=== PATIENT | female | born 1950 | race Caucasian/White ===

== ENCOUNTER 2016-12-18 16:58 | Observation (INO) | payer OTHER ==
[~2016-12-18] VITALS: Ht 154.9 cm; Wt 43.3 kg
[~2016-12-18 16:58] MED LIST: ALEVE220 MG PO; FISH OIL PO; GLUCOSAMINE1500 COM PO; LUTEIN20 MG PO; MULTI VITAMIN/MINERA PO; NORCO1 TA1 PO; OMEPRAZOLE40 MG PO; PATANOL0.1 % OP; PRILOSEC20 MG PO; QVAR40 MCG IN; VITAMIN B-12500 MC1 PO; ZYRTEC ALLERGY10 MG PO; [UNRECOGNIZED DRUG - OTHER] PO
--- NOTE | 2016-12-18 18:58 | ED CLINICAL REPORT ---
Clinical Report - Physicians/Mid Levels [facility] [address] [place] [address] 12/18/2016 16:59 Patient: FELIPA VALERA Time Seen: 17:58; initial patient contact, initial documentation, patient care assumed. Arrived- By private vehicle. Historian- patient. HISTORY OF PRESENT ILLNESS Chief Complaint: ABDOMINAL PAIN. At its maximum, severity described as severe. When seen in the E.D., severity described as severe. Modifying factors. Not worsened by anything. Not relieved by anything. It is described as "pain" and diffuse. No radiation. This started today and is still present. It was gradual in onset and has been constant. The patient has had nausea. No loss of appetite, vomiting or diarrhea. No additional abdominal pain. No recent travel. Similar symptoms previously: Chronically, as bad. ( over 60 sbo, feels the same). Recent medical care: Not recently seen/assessed. REVIEW OF SYSTEMS No constipation, hematemesis, difficulty with urination, pain with urination or urinary frequency. No bloody stools, fever, chest pain or difficulty breathing. Denies current . All systems otherwise negative, except as recorded above. PAST HISTORY See nurses notes. PROBLEMS: Nausea. Gastroesophageal Reflux Disease. Abnormal Test. Toxic megacolon. GI Disease. Tetanus Status. Laceration. Enteritis. Hypokalemia. Abdominal Pain. Hypercalcemia. Bowel Obstruction. Abnormal Liver Function Test. Dehydration. Immunizations. LNMP - Last Normal Menstrual Period. Small bowel obstruction. Fistula. Ileostomy present. --17:16 Yuliana Stout R.N. Pancreatitis [RuleOut]. --17:16 Yuliana Stout R.N. SOCIAL HISTORY Never smoker. No alcohol use or drug use. No recent travel. Is a local resident. She lives with spouse. FAMILY HISTORY Negative. ADDITIONAL NOTES The nursing notes have been reviewed with agreement regarding the chief complaint, HPI, ROS, PMH and patient medications and allergies. PHYSICAL EXAM Vital Signs: 12/18/2016 17:14 BP: 121/90. HR: 109. RR: 18. O2 saturation: 100%. Temp: 98.1 F. Have been reviewed as abnormal and appear to be correct. Blood pressure normal. Tachycardic. Respiratory rate normal. Temperature normal. Oxygen saturation normal. Appearance: Alert. Oriented X3. No acute distress. Eyes: Pupils equal, round and reactive to light. Eyes normal inspection. Neck: Normal inspection. Neck supple. CVS: Normal heart rate and rhythm. Heart sounds normal. Pulses normal. Respiratory: No respiratory distress. Breath sounds normal. Chest nontender. Abdomen: Moderate tenderness diffusely. Abnormal bowel sounds. Abnormal bowel sounds (hypoactive). No organomegaly. No mass. Distention with tenderness to palpation. No tympany to percussion or dullness to percussion. Not soft. Tenderness present. No rebound tenderness, mass present, organomegaly, femoral pulse deficit or guarding. No gravid uterus. Back: Normal inspection. Skin: Skin warm and dry. Normal skin color. No rash. Normal skin turgor. Extremities: Extremities exhibit normal ROM. No lower extremity edema. Neuro: Oriented X 3. No motor deficit. No sensory deficit. LABS, X-RAYS, AND EKG KUB: Normal abdominal study. (IMPRESSION: 1. Right lower quadrant ostomy and left abdominal surgical clips 2. Findings suggestive of a partial small bowel obstruction versus ileus Electronically Final signed by:Juan Ochoa MD 12/18/2016 7:16:30 PM). The X-rays were interpreted by the radiologist. Laboratory Tests: CBC w Diff: (ELIAS: 12/18/2016 18:35) ( MsgRcvd 12/18/2016 18:48) Final results Test Result Flag Units (Reference) WHITE BLOOD COUNT 12.2 H K/uL (4.5-11.5) RED BLOOD COUNT 5.35 H M/uL (4.00-5.20) HEMOGLOBIN 16.4 H gm/dL (12.0-16.0) HEMATOCRIT 47.7 H % (36.0-46.0) MEAN CELL VOLUME 89 fL (80-100) MEAN CORPUSCULAR HGB 31 pg (26-34) MEAN CORPUSCULAR HGB CONC 34 g/dL (31-37) RED CELL DISTRIBUTION WIDTH 13.2 % (11.6-14.8) PLATELET COUNT 441 H K/uL (150-400) NEUTROPHIL % 86.5 H % (50-75) LYMPH % 5.9 L % (25-40) MONO % 6.2 % (3-14) EOSINOPHIL % 0.4 % (0-4) BASOPHIL % 1.0 % (0-2) CMP: (ELIAS: 12/18/2016 18:35) ( MsgRcvd 12/18/2016 19:09) Final results Test Result Flag Units (Reference) GLUCOSE 186 H mg/dL (70-110) BUN 50 H mg/dL (7-18) CREATININE 1.7 H mg/dL (0.6-1.3) Estimated GFR 32.16 mL/min Estimated GFR- 38.98 mL/min Note: Persistent reduction over 3 months in eGFR<60 mL/min/1.73 m2 defines CKD. Patients with eGFR values>=60 mL/min/1.73 m2 may also have CKD if evidence ofpersistent proteinuria. Additional information may be foundat www.kidney.org. SODIUM 139 mmol/L (136-145) POTASSIUM 3.3 L mmol/L (3.5-5.1) CHLORIDE 99 mmol/L (98-107) CARBON DIOXIDE 20 L mmol/L (21-32) CALCIUM 11.5 H mg/dL (8.5-10.1) TOTAL PROTEIN 8.5 H g/dL (6.4-8.2) ALBUMIN 4.7 g/dL (3.3-5.0) BILIRUBIN, TOTAL 0.7 mg/dL (0.0-1.0) ALKALINE PHOSPHATASE 85 U/L (46-116) AST (SGOT) 36 U/L (15-37) ALT (SGPT) 49 U/L (12-78) LIPASE 207 U/L (73-393) AMYLASE 167 H U/L (25-115) . PROGRESS AND PROCEDURES Discussed case with patient's primary care provider, (call returned [phone] Dr Noguera). Agreed upon treatment plan and decision to admit. Health care provider will see patient in hospital. Patient and spouse counseled in person regarding the patient's stable condition, test results and diagnosis. 19:22. Differential Diagnosis: I considered mesenteric lymphadenitis, diverticulitis, colon cancer, intussusception, small bowel obstruction, adhesions, bowel perforation, functional bowel problems, obstipation and viral syndrome as a possible cause of abdominal pain in this patient. This is a partial list of diagnoses considered. Above considerations are based on history, physical exam, laboratory data and other information. Differential diagnosis was discussed with patient and patient's spouse. Disposition: Admitted to Acute Care. 18:58. Condition: good and stable. CLINICAL IMPRESSION Acute abdominal pain. (Small Bowel Obstruction). (Electronically signed by Natalie Rosa A.R.N.P. 12/18/2016 22:34)
--- NOTE | 2016-12-18 18:58 | ED NURSING NOTES ---
Clinical Report - Nurses [facility] [address] [place] [address] 12/18/2016 16:59 Patient: FELIPA VALERA TRIAGE Triage time 17:15 Dec 18 2016. Acuity: LEVEL 2. Chief Complaint: ABDOMINAL PAIN. Alert. No acute distress. --17:18 Yuliana Stout R.N. 17:14 12/18/16. BP: 121/90. HR: 109. RR: 18. O2 saturation: 100%. Temp: 98.1 F. Pain level now 08/18. --17:18 Yuliana Stout R.N. Acuity: LEVEL 3. --18:01 Jimmy Nunez R.N. Weight: 43.5 kg stated. Height/Length: 61 inches Per Patient. BMI: 18.1. --17:14 Yuliana Stout R.N. Medications Fish Oil Oral (Capsule 1000 mg) 1 capsule, daily. Glucosamine Oral 1500 mg, daily. --17:16 Yuliana Stout R.N. Lutein Oral. Multivital Oral. Omeprazole Oral 20 mg, 2x a day. Vitamin B Complex Oral. Zyrtec. --17:16 Yuliana Stout R.N. (need to verify meds please). --17:18 Yuliana Stout R.N. Allergies Ampicillin. Celebrex. Morphine and Related. Paper tape. Penicillin. --17:16 Yuliana Stout R.N. History Arrived by private vehicle. Primary physician (Poornima). ( 1100 started gradual onset of low abdomen pain, pt is bloated and feels firm. 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 Has had an SBO in the past. 65 of them she states. See's Poornima and he is OOT> pt was here for same c/o in October, admitted for SBO.). This started today. 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 SOCIAL HX: Never smoker. No alcohol use or drug use. No recent travel. No infectious disease exposure. No known contact with a sick individual. NUTRITIONAL RISK ASSESSMENT: The nutritional risk assessment revealed no deficiencies. FUNCTIONAL ASSESSMENT: Functional assessment: no impairments noted. LEARNING NEEDS ASSESSMENT: The learning needs assessment revealed no barriers. SKIN INTEGRITY ASSESSMENT: Skin integrity risk assessment completed. No skin integrity risk identified. --17:18 Yuliana Stout R.N. PROBLEMS: Nausea. Gastroesophageal Reflux Disease. Abnormal Test. Toxic megacolon. GI Disease. Tetanus Status. Laceration. Enteritis. Hypokalemia. Abdominal Pain. Hypercalcemia. Bowel Obstruction. Abnormal Liver Function Test. Dehydration. Immunizations. LNMP - Last Normal Menstrual Period. Small bowel obstruction. Fistula. Ileostomy present. --17:16 Yuliana Stout R.N. Pancreatitis [RuleOut]. --17:16 Yuliana Stout R.N. Port-a-cath (L subclavian). Colon Cancer. --18:01 Jimmy Nunez R.N. Interventions ID band on patient. To waiting room. --17:18 Yuliana Stout R.N. To treatment room. --18:01 Jimmy Nunez R.N. PHYSICAL ASSESSMENT To room via wheelchair. GENERAL / NEURO / PSYCH: Alert. Oriented X 4. Appears in pain and in distress. ( Pt reports numbness in her feet.). RESPIRATORY: Mild respiratory distress. CVS: Capillary refill less than 2 seconds. GI / : The patient has had nausea. Abdominal distention noted as firm and rigid with tenderness to palpation. Guarding present. ( Pt has an ileostomy and an intestinal fistula. There is some liquid stool and air in the ostomy pouch.). SKIN: Skin is warm and dry. --17:53 Jimmy Nunez R.N. 17:53 12/18/16. BP: 116/99. HR: 97. RR: 22. O2 saturation: 98% on room air. Pain level now: 08/18. --17:54 Jimmy Nunez R.N. NURSING PROGRESS NOTES Monitoring of patient in place. Patient gowned. Reassurance given. Two patient identifiers checked. Call light placed in reach. Bed placed in lowest position. Patient ready for evaluation- chart flagged. --17:58 Jimmy Nunez R.N. 18:35 12/18/2016 Site #1 started via IV in the right wrist with an 22g angiocath, with good blood return; two attempts. Blood drawn: rainbow set. Labeled in the presence of the patient and sent to the lab. Saline lock flushed with 5 mL saline. --18:43 Jimmy Nunez R.N. 18:44 12/18/2016 Dilaudid (HYDROmorphone HCl PF) IVP 1 mg given. via site #1. Allergies verified, confirmed 5 rights and sedative warning given to the patient and patient's family. IV patency established. IV site checked: no pain, redness, or swelling. IV flushed thoroughly pre- and post-medication administration. IVP given by RN. --18:44 Jimmy Nunez R.N. 18:44 12/18/2016 Zofran (Ondansetron HCl) IVP 4 mg given. via site #1. Allergies verified and confirmed 5 rights. IV patency established. IV site checked: no pain, redness, or swelling. IV flushed thoroughly pre- and post-medication administration. IVP given by RN. --18:44 Jimmy Nunez R.N. Patient returned from radiology by stretcher with tech. (19:00 Dec 18 2016). --19:06 Jimmy Nunez R.N. Care transferred and report given. --19:12 Jimmy Nunez R.N. ( H+P FORM GIVEN). --20:16 Femi Poole, ER Stock Receiver 20:41 12/18/2016 K-DUR (Potassium Chloride Tracey ER) PO 20 meq given. Allergies verified and confirmed 5 rights. --21:06 Milton Gutierrez R.N. 20:42 12/18/2016 Started bag #1 1000 mL IV Fluids IV NS (Saline); bolus of 1000 mL wide open via site #1. Allergies verified and confirmed 5 rights. IV patency established. IV site checked: no pain, redness, or swelling. IV flushed thoroughly pre- and post-medication administration. --21:07 Milton Gutierrez R.N. DISPOSITION / DISCHARGE Departure time: 2209. Admitted to Acute Care (2207). Transported via by transport team. Report was given to a nurse via a phone call. Report included patient's care, treatment, medications, reviewed medication reconcilliation, and condition (including any recent changes or anticipated changes). All questions were answered. Report was acknowledged and care was transferred. Patient's personal items; items were given to the spouse. --22:13 Milton Gutierrez R.N. 22:08 12/18/16. BP: 120/94. HR: 88. RR: 18. O2 saturation: 99%. Temp: 98 F. Pain level now 01/16. --22:13 Milton Gutierrez R.N. Locked/Released at 12/18/2016 22:13 by Milton Gutierrez R.N.
--- NOTE | 2016-12-18 18:59 | ED ORDER SUMMARY ---
..... Patient: FELIPA VALERA OrderSheet [facility] VisitID: [id number] [address] [place] [address] 66y, F Registration Date/Time: 12/18/2016 ORDER SHEET Weight: 43.5 kg (stated) Allergies: Ampicillin, Celebrex, Morphine and Related, Paper tape, Penicillin GENERAL ORDERS: Abdomen 1V Upright Urgent (18:10 12/18/2016 HBivens A.R.N.P.) (Ack 18:13 TBergley) (19:05 MCampbell) CBC w Diff Urgent (18:10 12/18/2016 HBivens A.R.N.P.) (Ack 18:13 TBergley) (18:36 MCook R.N.) CMP Urgent (18:10 12/18/2016 HBivens A.R.N.P.) (Ack 18:13 TBergley) (18:36 MCook R.N.) Amylase Urgent (18:10 12/18/2016 HBivens A.R.N.P.) (Ack 18:13 TBergley) (18:36 MCook R.N.) Lipase Urgent (18:10 12/18/2016 HBivens A.R.N.P.) (Ack 18:13 TBergley) (18:36 MCook R.N.) MEDICATION ORDERS: K-Dur PO 20 meq (Do not crush or chew, NOW) (19:22 12/18/2016 HBivens A.R.N.P.) (21:06 JBullard R.N.) IV FLUIDS: IV Saline Lock (18:10 12/18/2016 HBivens A.R.N.P.) (18:44 MCook R.N.) Dilaudid IV 1 mg (NOW) (18:35 12/18/2016 JSimbeck R.N. verbal order read back to HBivens A.R.N.P.) (18:44 MCook R.N.) Zofran IV 4 mg (NOW) (18:35 12/18/2016 JSimbeck R.N. verbal order read back to HBivens A.R.N.P.) (18:44 Vargas Burr) IV NS : initial bolus 1000 mL (1000 mL/hr), then none - (NOW) (19:34 12/18/2016 HBivens A.R.N.P.) (21:07 Keiko Burr) ORDER SHEET NOTES: [Electronically signed by Milton Gutierrez R.N. (22:13 12/18/2016)] [Electronically signed by Natalie RosaRBaileyNBaileyPBailey (22:34 12/18/2016)] [Electronically locked/signed by Milton Gutierrez R.N. (22:13 12/18/2016)]
--- NOTE | 2016-12-18 18:59 | ED ORDER SUMMARY ---
..... Patient: FELIPA VALERA OrderSheet [facility] VisitID: [id number] [address] [place] [address] 66y, F Registration Date/Time: 12/18/2016 ORDER SHEET Weight: 43.5 kg (stated) Allergies: Ampicillin, Celebrex, Morphine and Related, Paper tape, Penicillin GENERAL ORDERS: Abdomen 1V Upright Urgent (18:10 12/18/2016 HBivens A.R.N.P.) (Ack 18:13 TBergley) (19:05 MCampbell) CBC w Diff Urgent (18:10 12/18/2016 HBivens A.R.N.P.) (Ack 18:13 TBergley) (18:36 MCook R.N.) CMP Urgent (18:10 12/18/2016 HBivens A.R.N.P.) (Ack 18:13 TBergley) (18:36 MCook R.N.) Amylase Urgent (18:10 12/18/2016 HBivens A.R.N.P.) (Ack 18:13 TBergley) (18:36 MCook R.N.) Lipase Urgent (18:10 12/18/2016 HBivens A.R.N.P.) (Ack 18:13 TBergley) (18:36 MCook R.N.) MEDICATION ORDERS: K-Dur PO 20 meq (Do not crush or chew, NOW) (19:22 12/18/2016 HBivens A.R.N.P.) (21:06 JBullard R.N.) IV FLUIDS: IV Saline Lock (18:10 12/18/2016 HBivens A.R.N.P.) (18:44 MCook R.N.) Dilaudid IV 1 mg (NOW) (18:35 12/18/2016 JSimbeck R.N. verbal order read back to HBivens A.R.N.P.) (18:44 MCook R.N.) Zofran IV 4 mg (NOW) (18:35 12/18/2016 JSimbeck R.N. verbal order read back to HBivens A.R.N.P.) (18:44 Vargas Burr) IV NS : initial bolus 1000 mL (1000 mL/hr), then none - (NOW) (19:34 12/18/2016 HBivens A.R.N.P.) (21:07 Keiko Burr) ORDER SHEET NOTES: [Electronically signed by Milton Gutierrez R.N. (22:13 12/18/2016)] [Electronically signed by Natalie RosaRBaileyNBaileyPBailey (22:34 12/18/2016)] [Electronically locked/signed by Milton Gutierrez R.N. (22:13 12/18/2016)]
--- NOTE | 2016-12-18 19:16 | DIAGNOSTIC IMAGING REPORT ---
PROCEDURE: XR ABDOMEN 1 VIEW UPRIGHT INDICATION: OBSTRUCTION TECHNIQUE: AP upright view. COMPARISON: Upright KUB 10/27/2016 FINDINGS: Right lower quadrant ostomy and left abdominal surgical clips. There are several moderately dilated loops of small bowel centrally with air-fluid levels. There is some air distally in the pelvis. There is no free air, mass or suspicious calcification. Mild dextroscoliosis. Moderate degenerative changes of the spine. IMPRESSION: 1. Right lower quadrant ostomy and left abdominal surgical clips 2. Findings suggestive of a partial small bowel obstruction versus ileus
[2016-12-18 22:29] VITALS: BP 116/80
--- NOTE | 2016-12-18 22:34 | ED DISCHARGE INSTRUCTIONS ---
Patient: FELIPA VALERA General Instructions [facility] VisitID: [id number] [address] [place] [address] 66y, F Registration Date/Time: 12/18/2016 Acute abdominal pain. (Small Bowel Obstruction). (Electronically signed by Natalie Rosa A.R.N.P. 12/18/2016 22:34)
--- NOTE | 2016-12-18 22:34 | ED DISCHARGE INSTRUCTIONS ---
Patient: FELIPA VALERA General Instructions [facility] VisitID: [id number] [address] [place] [address] 66y, F Registration Date/Time: 12/18/2016 Acute abdominal pain. (Small Bowel Obstruction). (Electronically signed by Natalie Rosa A.R.N.P. 12/18/2016 22:34)
--- NOTE | 2016-12-18 22:34 | ED MAR SUMMARY ---
..... Medication Administration Record [facility] [address] [place] [address] Patient: FELIPA VALERA Visit ID: [id number] 66y, F Weight: 43.5 kg Height/Length: 61 in BMI: 18.1 ALLERGIES: Ampicillin, Celebrex, Morphine and Related, Paper tape, Penicillin Given 18:44 12/18/2016 Jimmy Nunez R.N. Medication Administered: DILAUDID [IVP] (HYDROMORPHONE HCL PF), Dose: 1 mg IVP, Site: #1 right wrist. Medication Ordered: Dilaudid IV 1 mg (NOW). Given 18:44 12/18/2016 Jimmy Nunez R.N. Medication Administered: ZOFRAN [IVP] (ONDANSETRON HCL), Dose: 4 mg IVP, Site: #1 right wrist. Medication Ordered: Zofran IV 4 mg (NOW). Given 20:41 12/18/2016 Milton Gutierrez R.N. Medication Administered: K-DUR [PO] (POTASSIUM CHLORIDE NASIR ER), Dose: 20 meq PO. Medication Ordered: K-Dur PO 20 meq (Do not crush or chew, NOW). Start 20:42 12/18/2016 Milton Gutierrez R.N. Medication Administered: IV NS (SALINE), Dose: IV Fluids, Bolus: 1000 mL wide open, Dispensed: 1000 mL bag, Site: #1 right wrist. Medication Ordered: IV NS : initial bolus 1000 mL (1000 mL/hr), then none - (NOW).
--- NOTE | 2016-12-18 22:34 | ED MED RECONCILIATION SUMMARY ---
Patient: FELIPA VALERA Medication Reconciliation Report [facility] VisitID: [id number] [address] [place] [address] 66y, F Registration Date/Time: 12/18/2016 Weight: 43.5 kg Height/Length: 61 in. BMI: 18.1 ALLERGIES: Ampicillin, Celebrex, Morphine and Related, Paper tape, Penicillin The patient's Home Medications are listed below: THE FOLLOWING MEDICATIONS NEED TO BE RECONCILED: Fish Oil Oral (1000 mg) 1 capsule, daily Glucosamine Oral 1500 mg, daily Lutein Oral Multivital Oral Omeprazole Oral 20 mg, 2x a day Vitamin B Complex Oral Zyrtec The source(s) of the original Home Medication information: need to verify meds please The following Medications were given to the patient in the Emergency Department: Dilaudid [IVP] IVP 1 mg, administered: 12/18/2016 6:44:00 PM Zofran [IVP] IVP 4 mg, administered: 12/18/2016 6:44:00 PM K-DUR [PO] PO 20 meq, administered: 12/18/2016 8:41:00 PM IV NS IV Fluids bolus 1000 mL wide open, administered: 12/18/2016 8:42:00 PM The following Medications were prescribed to the patient: None.
--- NOTE | 2016-12-18 22:34 | ED MAR SUMMARY ---
..... Medication Administration Record [facility] [address] [place] [address] Patient: FELIPA VALERA Visit ID: [id number] 66y, F Weight: 43.5 kg Height/Length: 61 in BMI: 18.1 ALLERGIES: Ampicillin, Celebrex, Morphine and Related, Paper tape, Penicillin Given 18:44 12/18/2016 Jimmy Nunez R.N. Medication Administered: DILAUDID [IVP] (HYDROMORPHONE HCL PF), Dose: 1 mg IVP, Site: #1 right wrist. Medication Ordered: Dilaudid IV 1 mg (NOW). Given 18:44 12/18/2016 Jimmy Nunez R.N. Medication Administered: ZOFRAN [IVP] (ONDANSETRON HCL), Dose: 4 mg IVP, Site: #1 right wrist. Medication Ordered: Zofran IV 4 mg (NOW). Given 20:41 12/18/2016 Milton Gutierrez R.N. Medication Administered: K-DUR [PO] (POTASSIUM CHLORIDE NASIR ER), Dose: 20 meq PO. Medication Ordered: K-Dur PO 20 meq (Do not crush or chew, NOW). Start 20:42 12/18/2016 Milton Gutierrez R.N. Medication Administered: IV NS (SALINE), Dose: IV Fluids, Bolus: 1000 mL wide open, Dispensed: 1000 mL bag, Site: #1 right wrist. Medication Ordered: IV NS : initial bolus 1000 mL (1000 mL/hr), then none - (NOW).
--- NOTE | 2016-12-18 22:34 | ED MED RECONCILIATION SUMMARY ---
Patient: FELIPA VALERA Medication Reconciliation Report [facility] VisitID: [id number] [address] [place] [address] 66y, F Registration Date/Time: 12/18/2016 Weight: 43.5 kg Height/Length: 61 in. BMI: 18.1 ALLERGIES: Ampicillin, Celebrex, Morphine and Related, Paper tape, Penicillin The patient's Home Medications are listed below: THE FOLLOWING MEDICATIONS NEED TO BE RECONCILED: Fish Oil Oral (1000 mg) 1 capsule, daily Glucosamine Oral 1500 mg, daily Lutein Oral Multivital Oral Omeprazole Oral 20 mg, 2x a day Vitamin B Complex Oral Zyrtec The source(s) of the original Home Medication information: need to verify meds please The following Medications were given to the patient in the Emergency Department: Dilaudid [IVP] IVP 1 mg, administered: 12/18/2016 6:44:00 PM Zofran [IVP] IVP 4 mg, administered: 12/18/2016 6:44:00 PM K-DUR [PO] PO 20 meq, administered: 12/18/2016 8:41:00 PM IV NS IV Fluids bolus 1000 mL wide open, administered: 12/18/2016 8:42:00 PM The following Medications were prescribed to the patient: None.
[2016-12-19 03:33] VITALS: BP 113/72
--- NOTE | 2016-12-19 06:23 | NUR ---
Pt slept well throughout the shift, was up independently to bathroom several times to empty ileostomy. VSS on room air. Medicated twice for abdominal pain which she described as "spasms". BT present. Pt has own gown and towel on bed because of allergies to detergents. Pt states that she can feel "things moving" in her intestines. No complaints of nausea. Fluids infusing in RW IV site. Pt does have a port in left chest but it is not currently accessed. Apparently it does not draw blood but can be accessed to use for meds/fluids if needed.
[2016-12-19 06:39] VITALS: BP 91/61
--- NOTE | 2016-12-19 07:28 | Progress Note ---
Subjective General Patient is here for recurrent SBO and was bad yesterday and then feeling much better this am. Would like to go home today. Full note dictated.
--- NOTE | 2016-12-19 07:41 | Provider's Discharge Care Plan ---
Problem, Goal, Plan Problem List 1. Small bowel obstruction Instructions: Follow up as directed, Take meds as directed 2. Dehydration Instructions: improved, keep hydrated
--- NOTE | 2016-12-19 07:41 | Provider's Discharge Care Plan ---
Problem, Goal, Plan Problem List 1. Small bowel obstruction Instructions: Follow up as directed, Take meds as directed 2. Dehydration Instructions: improved, keep hydrated
--- NOTE | 2016-12-19 08:17 | HISTORY AND PHYSICAL ---
ADMITTED: 12/18/2016 CHIEF COMPLAINT: 1. Abdominal pain, cramps and small-bowel obstruction HISTORY OF PRESENT ILLNESS: The patient is a 66-year-old female who has had chronic recurrent small bowel obstructions, usually gets admitted about one time per month. She presented to the emergency department yesterday with severe abdominal pain and vomiting and nothing was helping it to do better and she had a small-bowel obstruction on her exam and decision was made to admit her up to the floor. The emergency department physician discussed with me possible admit earlier in the day or in the evening and it is felt that she would be adequate for admission by me in the morning since she is having recurrent relatively stable symptoms. MEDICAL/SURGICAL HISTORY: Past medical history: She has had numerous small bowel obstructions. She has had acid reflux, enteritis, abdominal pain, dehydration, a fistula and ileostomy and arthritis. Past surgical history: She has had a fistula repair a couple times, multiple small bowel obstructions and hospitalizations. She has had bunion surgery and colostomy after partial colon removal in 1997 and sinus surgery in 1991, and nose surgery. MEDICATIONS: 1. Zyrtec 10 mg p.o. daily. 2. Tramadol 50 mg p.o. q.i.d. p.r.n. pain. 3. Vitamin D 3000 international units daily. 4. Aleve 220 mg p.o. b.i.d. 5. Omeprazole 20 mg p.o. b.i.d. 6. Fish oil 1000 mg p.o. daily. 7. Multivitamin 1 p.o. daily. 8. QVAR 1 spray each nostril b.i.d. 9. Lutein 20 mg tablet 1 p.o. daily. 10. Vitamin B12 1000 mcg p.o. daily. 11. Glucosamine chondroitin 500 mg 1-3 caps daily. 12. Patanol 0.1% solution 1 drop q.2 hours p.r.n., itchy eyes. ALLERGIES: 1. CELEBREX. 2. MORPHINE. 3. AMOXICILLIN. 4. PAPER TAPE. CODE STATUS: FULL. SOCIAL HISTORY: [employer] who does not smoke or use any drugs. Quit smoking in 1994. She does drink a couple drinks per week. FAMILY HISTORY: Mom at age 48 of melanoma, father is still alive. She has got 2 brothers and sisters who are alive and well. REVIEW OF SYSTEMS: She has had nausea and pain and crampy abdominal pain that has been really hard, worse than her usual. She many times will be able to get away with these symptoms at home with a warm pack on her abdomen. She has had decreased output of her ostomy as well. PHYSICAL EXAMINATION: GENERAL: She is an alert female who appears to be well and in no significant distress this a.m. in the emergency department. VITAL SIGNS: Her blood pressure was 121/90, heart rate of 109, respirations 18, temperature 98.1, having significant pain. HEENT: Extraocular movements intact. Pupils equal, round, and reactive to light. Oropharynx is clear with moist mucous membranes. NECK: Supple without lymphadenopathy. LUNGS: Clear to auscultation bilaterally. HEART: Regular rate and rhythm. No murmur. ABDOMEN: Soft, nontender, positive bowel sounds. She has got an ostomy bag that is draining. GENITOURINARY: Deferred. RECTAL: Deferred. BREAST: Deferred. SKIN: Intact and warm and dry. LAB/IMAGING: CBC: White count of 12.2, hematocrit of 47.7, platelets of 441. Comprehensive metabolic panel, glucose of 186, BUN of 50, creatinine is 1.7. Sodium 139, potassium 3.3, chloride of 99, HCO3 20, calcium 11.5. Total protein 8.5, albumin 4.7, total bilirubin 0.7, alkaline phosphatase 85, AST of 36, ALT of 49, lipase of 207 and amylase 167. An x-ray of abdomen, right lower quadrant ostomy and partial small- bowel obstruction on abdominal x-ray. IMPRESSION: 1. This is a 66-year-old female who has recurrent small-bowel obstruction. She also appears to have some mild dehydration with elevated BUN and creatinine on admit. She has had multiple episodes of this. Generally, she gets admitted and over a 12-hour period of time, her obstruction seems to resolve clinically, she feels better and is able to have a discharge. She has been having these nearly monthly and she has had multiple surgeries in the past for trying to relieve this. PLAN: At this point. She is feeling better. She is post-admit overnight and she would like to have discharge today. Plan to discharge her home today. Continued to have her work on her diet and will follow her up in the clinic in the next couple of weeks. Continue with her home medications. No change.
--- NOTE | 2016-12-19 09:21 | NUR ---
UP INITAL ASSESSMENT PT ALERT ORIENTED AND APPROPRIATE. PT STATES SHE CAN FEEL HER PARTIAL SBO RESOLVING AND WITH CRAMPING AND SORENESS, SCORES HER DISCOMFORT AT 4-5/10 AND REQUESTING DILAUDID. DILAUDID 0.5 MG WAS GIVEN AND EFFECTIVE. PT TAKING CLEAR LIQUIDS, TOLERATED WELL AND WAS READY TO GO HOME WAS ORDERED BY DR. BUSH INSTUCTIONS REVIEWED WITH PT AND HER , PIV REMOVED AND PT WAS DISCHARGED HOME WITH HER .
== END 2016-12-19 09:20 | disposition home or self-care (01) ==
LOC: ED SRH 16:58 → TRANS SRH 19:38 → ACUTE3 SRH 22:15
PROVIDERS: ADMIT Family Medicine
DX: K56.60 Unspecified intestinal obstruction (principal); E86.0 Dehydration; R94.4 Abnormal results of kidney function studies; Z93.2 Ileostomy status
CPT/HCPCS: 29230; 29242; 29263; 90100; 92235; 92530; 95059

== ENCOUNTER 2017-01-02 16:45 | Observation (INO) | payer OTHER ==
[~2017-01-02] VITALS: Ht 154.9 cm; Wt 44.3 kg
--- NOTE | 2017-01-02 18:14 | ED ORDER SUMMARY ---
..... Patient: FELIPA VALERA OrderSheet [facility] VisitID: [id number] [address] [place] [address] 66y, F Registration Date/Time: 01/02/2017 ORDER SHEET Weight: 44.4 kg (stated) Allergies: Ampicillin, Celebrex, Morphine and Related, Paper tape, Penicillin GENERAL ORDERS: Abdomen 1V Upright Urgent (16:59 01/02/2017 HBivens A.R.N.P.) ([facility] CBC w Diff Urgent (17:05 01/02/2017 HBivens A.R.N.P.) (Ack 17:06 RKaruga) (17:41 EBonham) CMP Urgent (17:01/02/2017 HBivens A.R.N.P.) ([facility]ck 17:[facility]) (17:41 EBonham) MEDICATION ORDERS: IV FLUIDS: Zofran IV 4 mg (NOW) (17:04 01/02/2017 HBivens A.R.N.P.) (17:41 EBonham) IV Saline Lock (17:04 01/02/2017 HBivens A.R.N.P.) (17:40 EBonham) Dilaudid IV 1 mg (HIGH ALERT MEDICATION, NOW) (17:04 01/02/2017 HBivens A.R.N.P.) (17:41 EBonham) Benadryl IV 25 mg (NOW) (18:20 01/02/2017 HBivens A.R.N.P.) (18:41 EBonham) Dilaudid IV 1 mg (HIGH ALERT MEDICATION, NOW) (18:20 01/02/2017 HBivens A.R.N.P.) (18:41 EBonham) IV NS : initial bolus 1000 mL (1000 mL/hr), then none - (NOW) (18:23 01/02/2017 HBivens A.R.N.P.) (18:42 EBonham) ORDER SHEET NOTES: [Electronically signed by Yara Johnston (19:45 01/02/2017)] [Electronically signed by Moe, Natalie Thorpe (20:06 01/02/2017)] [Electronically locked/signed by Yara Johnston (19:45 01/02/2017)]
--- NOTE | 2017-01-02 18:14 | ED CLINICAL REPORT ---
Clinical Report - Physicians/Mid Levels [facility] [address] [place] [address] 01/02/2017 16:45 Patient: FELIPA VALERA Time Seen: 1653; upon arrival, initial patient contact, initial documentation, patient care assumed. Arrived- By private vehicle. Historian- patient and spouse. RETURN VISIT: recently seen in this ED by me. Seen now for the same problem as before. HISTORY OF PRESENT ILLNESS Chief Complaint: ABDOMINAL PAIN. At its maximum, severity described as severe. When seen in the E.D., severity described as severe. Modifying factors. Not worsened by anything. Not relieved by anything. It is described as "pain". No radiation. It is described as generalized in location. This started just prior to arrival and is still present. The patient has had nausea and vomiting. No loss of appetite or diarrhea. No additional abdominal pain. No recent travel. Similar symptoms previously: Chronically, milder. ( says this episode feels worse because it came on so suddenly). Recent medical care: The patient was seen recently at this facility and hospitalized. ( admitted on 12/18 for sbo). REVIEW OF SYSTEMS No constipation, black stools, hematemesis, difficulty with urination or pain with urination. No urinary frequency, bloody stools or fever. All systems otherwise negative, except as recorded above. PAST HISTORY See nurses notes. PAST HISTORY See nurses notes. PROBLEMS: Nausea. Gastroesophageal Reflux Disease. Abnormal Test. Toxic megacolon. GI Disease. Tetanus Status. Laceration. Enteritis. Hypokalemia. Abdominal Pain. Hypercalcemia. Bowel Obstruction. Abnormal Liver Function Test. Dehydration. Immunizations. LNMP - Last Normal Menstrual Period. Small bowel obstruction. Fistula. Ileostomy present. --17:16 Yuliana Stout R.N. Pancreatitis [RuleOut]. --17:16 Yuliana Stout R.N. SOCIAL HISTORY Never smoker. No alcohol use or drug use. No recent travel. Is a local resident. She lives with spouse. FAMILY HISTORY Negative. ADDITIONAL NOTES The nursing notes have been reviewed with agreement regarding the chief complaint, HPI, ROS, PMH and patient medications and allergies. PHYSICAL EXAM Vital Signs: 01/02/2017 16:56 BP: 114/78. HR: 100. RR: 24. O2 saturation: 100%. Temp: 97.8 F. Have been reviewed as normal and appear to be correct. Appearance: Alert. Oriented X3. No acute distress. Eyes: Pupils equal, round and reactive to light. Eyes normal inspection. Neck: Normal inspection. Neck supple. CVS: Normal heart rate and rhythm. Heart sounds normal. Pulses normal. (port, L side of chest). Respiratory: No respiratory distress. Breath sounds normal. Chest nontender. Abdomen: Moderate tenderness diffusely. Bowel sounds normal. No organomegaly. No mass. Distention with tenderness to palpation. No tympany to percussion or dullness to percussion. Not soft. Tenderness present. (colostomy bag intact and in place). Back: Normal inspection. Skin: Skin warm and dry. Normal skin color. No rash. Normal skin turgor. Extremities: Extremities exhibit normal ROM. No lower extremity edema. Neuro: Oriented X 3. No motor deficit. No sensory deficit. LABS, X-RAYS, AND EKG Laboratory Tests: CBC w Diff: (ELIAS: 01/02/2017 17:30) ( MsgRcvd 01/02/2017 17:51) Final results Test Result Flag Units (Reference) WHITE BLOOD COUNT 5.3 K/uL (4.5-11.5) RED BLOOD COUNT 5.37 H M/uL (4.00-5.20) HEMOGLOBIN 16.4 H gm/dL (12.0-16.0) HEMATOCRIT 48.1 H % (36.0-46.0) MEAN CELL VOLUME 89 fL (80-100) MEAN CORPUSCULAR HGB 31 pg (26-34) MEAN CORPUSCULAR HGB CONC 34 g/dL (31-37) RED CELL DISTRIBUTION WIDTH 13.5 % (11.6-14.8) PLATELET COUNT 368 K/uL (150-400) NEUTROPHIL % 85.6 H % (50-75) LYMPH % 12.3 L % (25-40) MONO % 0.5 L % (3-14) EOSINOPHIL % 1.1 % (0-4) BASOPHIL % 0.5 % (0-2) CMP: (ELIAS: 01/02/2017 17:30) ( MsgRcvd 01/02/2017 18:07) Final results Test Result Flag Units (Reference) GLUCOSE 144 H mg/dL (70-110) BUN 51 H mg/dL (7-18) CREATININE 1.4 H mg/dL (0.6-1.3) Estimated GFR 40.24 mL/min Estimated GFR- 48.77 mL/min Note: Persistent reduction over 3 months in eGFR<60 mL/min/1.73 m2 defines CKD. Patients with eGFR values>=60 mL/min/1.73 m2 may also have CKD if evidence ofpersistent proteinuria. Additional information may be foundat www.kidney.org. SODIUM 138 mmol/L (136-145) POTASSIUM 3.7 mmol/L (3.5-5.1) CHLORIDE 102 mmol/L (98-107) CARBON DIOXIDE 17 L mmol/L (21-32) CALCIUM 11.4 H mg/dL (8.5-10.1) TOTAL PROTEIN 8.1 g/dL (6.4-8.2) ALBUMIN 4.6 g/dL (3.3-5.0) BILIRUBIN, TOTAL 0.9 mg/dL (0.0-1.0) ALKALINE PHOSPHATASE 81 U/L (46-116) AST (SGOT) 46 H U/L (15-37) ALT (SGPT) 45 U/L (12-78) . PROGRESS AND PROCEDURES Discussed case with patient's primary care provider, (18:[address] Noguera). Reviewed test results and need for additional work-up. Agreed upon treatment plan and decision to admit. Health care provider will see patient in ED. Patient and spouse counseled in person regarding the patient's stable condition, test results, diagnosis and need for admission. 181. Differential Diagnosis: I considered gastritis, gastroenteritis, colon cancer, small bowel obstruction, adhesions, bowel ischemia, bowel perforation, obstipation and viral syndrome as a possible cause of abdominal pain in this patient. This is a partial list of diagnoses considered. Above considerations are based on history, physical exam, laboratory data and X-Ray data. Differential diagnosis was discussed with patient and patient's spouse. Disposition: Admitted to Acute Care. 18:14. CLINICAL IMPRESSION Complete small bowel obstruction. (Electronically signed by Natalie Rosa A.R.N.P. 01/02/2017 20:06)
--- NOTE | 2017-01-02 18:14 | ED NURSING NOTES ---
Clinical Report - Nurses [facility] [address] [place] [address] 01/02/2017 16:45 Patient: FELIPA VALERA TRIAGE Triage time 16:51 Jan 02 2017. Acuity: LEVEL 3. Chief Complaint: ABDOMINAL PAIN, NAUSEA and VOMITING and CONSTIPATION. 16:56 01/02/17. Alert. No acute distress. SEPSIS SCREEN: Sepsis Screen. Negative (no infection suspected/documented). SILAS COMA SCORE: Lorraine Coma Scale: 15- eyes open spontaneously (4); best verbal response- oriented x 4 (5); best motor response- obeys commands (6). --16:56 Mabel Kiser 16:56 01/02/17. BP: 114/78. HR: 100. RR: 24. O2 saturation: 100%. Temp: 97.8 F. Pain level now 10/10. --16:56 Mabel Kiser. Weight: 44.4 kg stated. Height/Length: 61 inches Per Patient. BMI: 18.5. --16:52 Mabel Kiser. Medications Fish Oil Oral (Capsule 1000 mg) 1 capsule, daily. Glucosamine Oral 1500 mg, daily. Lutein Oral. Multivital Oral. Omeprazole Oral 20 mg, 2x a day. Vitamin B Complex Oral. Zyrtec. --16:52 Mabel Kiser. Medication/allergy information source: the patient and patient's family. --16:56 Mabel Kiser. Allergies Ampicillin. --16:52 Mabel Kiser Celebrex. Morphine and Related. Paper tape. Penicillin. --16:52 Mabel Kiser. History Arrived by private vehicle. Historian: patient and family. Accompanied by spouse. Primary physician (Poornima). Onset. (1300 today). ( Pt reports that she has had nausea and vomiting with little output from her colostomy. States that it feels similar to previous bowel obstructions.). She has had nausea, vomiting, constipation and abdominal pain. 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 PAST MEDICAL HX: Immunizations: up-to-date. SOCIAL HX: Never smoker. Occasional alcohol use. No drug use. FALL RISK ASSESSMENT: Fall risk assessment completed. No fall risk identified. NUTRITIONAL RISK ASSESSMENT: The nutritional risk assessment revealed no deficiencies. FUNCTIONAL ASSESSMENT: Functional assessment: no impairments noted. LEARNING NEEDS ASSESSMENT: The learning needs assessment revealed no barriers. SKIN INTEGRITY ASSESSMENT: Skin integrity risk assessment completed. No skin integrity risk identified. --16:56 Mabel Kiser. PROBLEMS: Port-a-cath (L subclavian). Colon Cancer. Nausea. Gastroesophageal Reflux Disease. Abnormal Test. Toxic megacolon. GI Disease. Tetanus Status. Laceration. Enteritis. Hypokalemia. Abdominal Pain. Hypercalcemia. Bowel Obstruction. Abnormal Liver Function Test. Dehydration. Small bowel obstruction. Fistula. Ileostomy present. --16:53 Mabel Kiser Pancreatitis [RuleOut]. --16:53 Mabel Kiser. ADDITIONAL SURGERIES: Abd fistula. Bunionectomy. Colostomy. Ileostomy. Knee Surgery. Laparoscopy. Sinus Surgery. --16:53 Mabel Kiser. Interventions ID band on patient. --16:56 Mabel Kiser. PHYSICAL ASSESSMENT 16:56 01/02/17. To room via wheelchair. Patient gowned. GENERAL / NEURO / PSYCH: Alert. Oriented X 4. Appears in pain. HEENT: Mucous membranes are pink. RESPIRATORY: Respirations not labored. CVS: Capillary refill less than 2 seconds. GI / : The patient has had nausea. Bilious emesis noted. Has vomited numerous times. SKIN: Skin is warm and dry. --16:56 Mabel Kiser. NURSING PROGRESS NOTES 16:56 01/02/17. The plan of care for this patient has been created. Pulse oximeter and NIBP monitor placed on patient; monitor alarms on. Patient gowned. Head of bed elevated. Reassurance given. Two patient identifiers checked. Call light placed in reach. Side rails up x 1. Bed placed in lowest position. Brakes of bed on. Patient ready for evaluation- chart flagged and ED physician and CERTIFIED MASTER SAFE TECHNICIAN notified. ( Warm blankets provided.). --16:57 Mabel Kiser 17:11 02/24/17. Care transferred and report given (WHIT [place]). --17:11 Mabel Kiser 17:40 01/02/2017 Site #1 started via IV in the left hand with an 24g angiocath, with aseptic technique and good blood return; one attempt. Blood drawn: rainbow set. Labeled in the presence of the patient and sent to the lab. Saline lock flushed with 10 mL saline. --17:40 Yara Johnston 17:41 01/02/2017 Zofran (Ondansetron HCl) IVP 4 mg given. via site #1. Allergies verified and confirmed 5 rights. IV patency established. IV site checked: no pain, redness, or swelling. IV flushed thoroughly pre- and post-medication administration. IVP given by RN. --17:41 Yara Johnston 17:41 01/02/2017 Dilaudid (HYDROmorphone HCl PF) IVP 1 mg given. via site #1. Allergies verified and confirmed 5 rights. IV patency established. IV site checked: no pain, redness, or swelling. IV flushed thoroughly pre- and post-medication administration. IVP given by RN. --17:41 Yara Johnston 18:41 01/02/2017 Benadryl (DiphenhydrAMINE HCl) IVP 25 mg given. via site #1. Allergies verified, confirmed 5 rights and sedative warning given to the patient and patient's family. IV patency established. IV site checked: no pain, redness, or swelling. IV flushed thoroughly pre- and post-medication administration. IVP given by RN. --18:41 Yara Johnston 18:41 01/02/2017 Dilaudid (HYDROmorphone HCl PF) IVP 1 mg given over 1 minute(s) via site #1. Allergies verified, confirmed 5 rights and sedative warning given to the patient and patient's family. IV patency established. IV site checked: no pain, redness, or swelling. IV flushed thoroughly pre- and post-medication administration. IVP given by RN. --18:41 Yara Johnston 18:42 01/02/2017 Started bag #1 1000 mL IV Fluids IV NS (Saline); bolus of 1000 mL wide open via site #1 --18:42 Yara Johnston 18 fr NG tube inserted in left nostril with no difficulty. Placement confirmed by auscultation and return of gastric contents. Return: brown fluid. Tube secured. Attached to intermittent suction. Patient tolerated procedure well. --18:43 Yara Johnston 19:04 01/02/17. BP: 95/62. HR: 81. RR: 16. O2 saturation: 93%. Pain level now 01/16. --19:05 Yraa Johnston Reassessment after intervention and medication administered. She is calm and resting quietly and has had no adverse reaction. Overall patient status is improved- she states feels better. --19:05 Yara Johnston 19:23 01/02/17. BP: 112/97. HR: 78. RR: 16. O2 saturation: 100%. --19:23 Yara Johnston Patient waiting for admit bed and (201). --19:39 Yara Johnston. DISPOSITION / DISCHARGE Report was given to a nurse via a phone call. All questions were answered. Report was acknowledged and care was transferred. (Natasha SHERMAN). --19:39 Yara Johnston Departure time: 1949. --19:44 Yara Johnston. Locked/Released at 01/02/2017 19:45 by Yara Johnston,
--- NOTE | 2017-01-02 18:14 | ED ORDER SUMMARY ---
..... Patient: FELIPA VALERA OrderSheet [facility] VisitID: [id number] [address] [place] [address] 66y, F Registration Date/Time: 01/02/2017 ORDER SHEET Weight: 44.4 kg (stated) Allergies: Ampicillin, Celebrex, Morphine and Related, Paper tape, Penicillin GENERAL ORDERS: Abdomen 1V Upright Urgent (16:59 01/02/2017 HBivens A.R.N.P.) ([facility]ck 17:[facility] CBC w Diff Urgent (17:05 01/02/2017 HBivens A.R.N.P.) (Ack 17:06 RKaruga) (17:41 EBonham) CMP Urgent (17:01/02/2017 HBivens A.R.N.P.) (Ack 17:[facility] (17:41 EBonham) MEDICATION ORDERS: IV FLUIDS: Zofran IV 4 mg (NOW) (17:04 01/02/2017 HBivens A.R.N.P.) (17:41 EBonham) IV Saline Lock (17:04 01/02/2017 HBivens A.R.N.P.) (17:40 EBonham) Dilaudid IV 1 mg (HIGH ALERT MEDICATION, NOW) (17:04 01/02/2017 HBivens A.R.N.P.) (17:41 EBonham) Benadryl IV 25 mg (NOW) (18:20 01/02/2017 HBivens A.R.N.P.) (18:41 EBonham) Dilaudid IV 1 mg (HIGH ALERT MEDICATION, NOW) (18:20 01/02/2017 HBivens A.R.N.P.) (18:41 EBonham) IV NS : initial bolus 1000 mL (1000 mL/hr), then none - (NOW) (18:23 01/02/2017 HBivens A.R.N.P.) (18:42 EBonham) ORDER SHEET NOTES: [Electronically signed by Yara Johnston (19:45 01/02/2017)] [Electronically signed by Moe, Natalie Thorpe (20:06 01/02/2017)] [Electronically locked/signed by Yara Johnston (19:45 01/02/2017)]
--- NOTE | 2017-01-02 18:54 | Progress Note ---
Subjective General 66 y.o female with sbo recurrent, hx of colostomy NGT and pain meds wtih IVF
--- NOTE | 2017-01-02 18:54 | Progress Note ---
Subjective General 66 y.o female with sbo recurrent, hx of colostomy NGT and pain meds wtih IVF
--- NOTE | 2017-01-02 19:17 | DIAGNOSTIC IMAGING REPORT ---
PROCEDURE: XR ABDOMEN 1 VIEW UPRIGHT INDICATION: Vomiting, initial encounter TECHNIQUE: AP upright view. COMPARISON: Upright KUB 12/18/2016 FINDINGS: Left abdominal surgical clips. Air-fluid levels present centrally. No free air, mass or suspicious calcification. Mild dextroscoliosis and moderate degenerative changes. IMPRESSION: 1. Air-fluid levels centrally which may represent a small bowel obstruction, ileus or gastroenteritis 2. Left abdominal surgical changes
--- NOTE | 2017-01-02 19:43 | HISTORY AND PHYSICAL ---
ADMITTED: 01/02/2017 CHIEF COMPLAINT: 1. Abdominal pain 2. Small-bowel obstruction HISTORY OF PRESENT ILLNESS: The patient is a 66-year-old female who presented to the emergency department with symptoms of acute onset abdominal pain at 1 p.m. She felt her colostomy stop working and just over the next 3 hours had severe pain, called in to the clinic and then went in to the hospital for severe pain. She has had multiple admissions, usually about once a month she gets admitted for small-bowel obstruction in the emergency department. She had workup, which was consistent with her routine small-bowel obstruction. Her usual course in the hospital is to get an NG tube, a little bit of IV fluids and pain medication and then within 24 hours she turns around and is doing better and likely is for discharge home tomorrow as per her routine. MEDICAL/SURGICAL HISTORY: Past medical history: She has had numerous small bowel obstructions, acid reflux, enteritis, abdominal pain, dehydration, fistula, ileostomy and arthritis. Past surgical history: She has had a fistula repair a couple of times , multiple small bowel obstructions and hospitalizations. She has had bunion surgery, colostomy, partial colon removal, sinus surgery and nose surgery. MEDICATIONS: 1. Zyrtec 10 mg p.o. daily. 2. Tramadol 50 mg p.o. four times a day p.r.n. 3. Vitamin D 3000 international units daily. 4. Aleve 220 mg p.o. b.i.d. 5. Omeprazole 20 mg p.o. b.i.d. 6. Fish oil 1000 mg p.o. daily. 7. Multivitamin 1 p.o. daily. 8. QVAR 1 spray each nostril b.i.d. 9. Lutein 20 mg p.o. daily. 10. Vitamin B12 1000 mcg p.o. daily. 11. Glucosamine chondroitin 500 mg 1-3 capsules daily. 12. Patanol eyedrop solution 0.1% 1 drop q.2 hours p.r.n., itchy eyes. ALLERGIES: 1. CELEBREX. 2. MORPHINE. 3. AMOXICILLIN. 4. PAPER TAPE. CODE STATUS: FULL. SOCIAL HISTORY: , Zoroastrianism. Does not smoke or use any drugs. Quit smoking in 1994. Actually, she does drink a couple drinks per week. FAMILY HISTORY: Mom at age 48 of melanoma, father is still alive. Has 2 brothers and a sister who are alive and well. REVIEW OF SYSTEMS: She had nausea, crampy abdominal pain, severe pain, kind of worse than her usual. Many times she is able to put a warm pack and these resolve. She had the feeling that her colostomy had stopped working and there was decreased output in her colostomy bag, with the nausea and pain as well. PHYSICAL EXAMINATION: GENERAL: She is an alert female who appears to be in no acute distress right now. She has an NG tube in her nose. VITAL SIGNS: Blood pressure of 114/78, heart rate of 100, respirations 24, saturating 100% on room air, temperature is 97.8, initially it was 10/10 of abdominal pain. HEENT: Extraocular movements intact. Pupils equal, round, reactive to light. Oropharynx is clear with moist mucous membranes. NECK: Supple without lymphadenopathy. LUNGS: Clear to auscultation bilaterally. HEART: Regular rate and rhythm. ABDOMEN: Slightly tender to palpation diffusely and her ostomy bag has decreased output. GENITOURINARY: Deferred. RECTAL: Deferred. BREASTS: Deferred. NEUROLOGIC: Cranial nerves II-XII intact. Sensation grossly intact. EXTREMITIES: No edema on her legs. LAB/IMAGING: CBC: White count 5.3, hematocrit 48.1, platelets 368,000. Comprehensive metabolic panel: Glucose 144, BUN 51, creatinine 1.4, sodium 138, potassium 3.7, chloride 102, HC03 17, calcium 11.4, total protein 8.1. Albumin 4.6, bili 0.9, alk phos 81, AST 46 and ALT 45. X-ray: Shows a small bowel obstruction. IMPRESSION: 1. This is a 66-year-old female who presents to the emergency department with classic small-bowel obstruction symptoms, which is recurrent for her, that happens usually about once a month. She is having a routine course of this. She also has dehydration with her laboratories and the severe pain. PLAN: Admit her for IV fluids, IV pain medications and I will make her n.p.o., nasogastric tube. I anticipate that she will have resolution of her small-bowel obstruction spontaneously over the next 24 hours, as she usually does, and likely discharge home tomorrow. She will be observation status. Her CODE STATUS IS FULL.
--- NOTE | 2017-01-02 20:06 | ED DISCHARGE INSTRUCTIONS ---
Patient: FELIPA VALERA General Instructions [facility] VisitID: [id number] [address] [place] [address] 66y, F Registration Date/Time: 01/02/2017 Complete small bowel obstruction. (Electronically signed by Natalie Rosa A.R.N.P. 01/02/2017 20:06)
--- NOTE | 2017-01-02 20:06 | ED DISCHARGE INSTRUCTIONS ---
Patient: FELIPA VALERA General Instructions [facility] VisitID: [id number] [address] [place] [address] 66y, F Registration Date/Time: 01/02/2017 Complete small bowel obstruction. (Electronically signed by Natalie Rosa A.R.N.P. 01/02/2017 20:06)
--- NOTE | 2017-01-02 20:06 | ED MAR SUMMARY ---
..... Medication Administration Record [address] [place] [address] Patient: FELIPA VALERA Visit ID: [id number] 66y, F Weight: 44.4 kg Height/Length: 61 in BMI: 18.5 ALLERGIES: Ampicillin, Celebrex, Morphine and Related, Paper tape, Penicillin Given 17:01/02/2017 Yara Johnston, Medication Administered: ZOFRAN [IVP] (ONDANSETRON HCL), Dose: 4 mg IVP, Site: #1 left hand. Medication Ordered: Zofran IV 4 mg (NOW). Given :01/02/2017 Yara Johnston, Medication Administered: DILAUDID [IVP] (HYDROMORPHONE HCL PF), Dose: 1 mg IVP, Site: #1 left hand. Medication Ordered: Dilaudid IV 1 mg (HIGH ALERT MEDICATION, NOW). Given :01/02/2017 Yara Johnston, Medication Administered: BENADRYL [IVP] (DIPHENHYDRAMINE HCL), Dose: 25 mg IVP, Site: #1 left hand. Medication Ordered: Benadryl IV 25 mg (NOW). Given :01/02/2017 Yara Johnston, Medication Administered: DILAUDID [IVP] (HYDROMORPHONE HCL PF), Dose: 1 mg IVP over 1 minute(s), Site: #1 left hand. Medication Ordered: Dilaudid IV 1 mg (HIGH ALERT MEDICATION, NOW). Start 18:01/02/2017 Yara Johnston, Medication Administered: IV NS (SALINE), Dose: IV Fluids, Bolus: 1000 mL wide open, Dispensed: 1000 mL bag, Site: #1 left hand. Medication Ordered: IV NS : initial bolus 1000 mL (1000 mL/hr), then none - (NOW).
--- NOTE | 2017-01-02 20:06 | ED MAR SUMMARY ---
..... Medication Administration Record [facility] [address] [place] [place] [address] Patient: FELIPA VALERA Visit ID: [id number] 66y, F Weight: 44.4 kg Height/Length: 61 in BMI: 18.5 ALLERGIES: Ampicillin, Celebrex, Morphine and Related, Paper tape, Penicillin Given 17:01/02/2017 Yara Johnston, Medication Administered: ZOFRAN [IVP] (ONDANSETRON HCL), Dose: 4 mg IVP, Site: #1 left hand. Medication Ordered: Zofran IV 4 mg (NOW). Given :01/02/2017 Yara Johnston, Medication Administered: DILAUDID [IVP] (HYDROMORPHONE HCL PF), Dose: 1 mg IVP, Site: #1 left hand. Medication Ordered: Dilaudid IV 1 mg (HIGH ALERT MEDICATION, NOW). Given :01/02/2017 Yara Johnston, Medication Administered: BENADRYL [IVP] (DIPHENHYDRAMINE HCL), Dose: 25 mg IVP, Site: #1 left hand. Medication Ordered: Benadryl IV 25 mg (NOW). Given :01/02/2017 Yara Johnston, Medication Administered: DILAUDID [IVP] (HYDROMORPHONE HCL PF), Dose: 1 mg IVP over 1 minute(s), Site: #1 left hand. Medication Ordered: Dilaudid IV 1 mg (HIGH ALERT MEDICATION, NOW). Start 18:01/02/2017 Yara Johnston, Medication Administered: IV NS (SALINE), Dose: IV Fluids, Bolus: 1000 mL wide open, Dispensed: 1000 mL bag, Site: #1 left hand. Medication Ordered: IV NS : initial bolus 1000 mL (1000 mL/hr), then none - (NOW).
--- NOTE | 2017-01-02 20:06 | ED MED RECONCILIATION SUMMARY ---
Patient: FELIPA VALERA Medication Reconciliation Report [facility] VisitID: [id number] [address] [place] [address] 66y, F Registration Date/Time: 01/02/2017 Weight: 44.4 kg Height/Length: 61 in. BMI: 18.5 ALLERGIES: Ampicillin, Celebrex, Morphine and Related, Paper tape, Penicillin The patient's Home Medications are listed below: THE FOLLOWING MEDICATIONS NEED TO BE RECONCILED: Fish Oil Oral (1000 mg) 1 capsule, daily Glucosamine Oral 1500 mg, daily Lutein Oral Multivital Oral Omeprazole Oral 20 mg, 2x a day Vitamin B Complex Oral Zyrtec The source(s) of the original Home Medication information: patient patient's family member The following Medications were given to the patient in the Emergency Department: Zofran [IVP] IVP 4 mg, administered: 01/02/2017 5:41:00 PM Dilaudid [IVP] IVP 1 mg, administered: 01/02/2017 5:41:00 PM Benadryl [IVP] IVP 25 mg, administered: 01/02/2017 6:41:00 PM Dilaudid [IVP] IVP 1 mg, administered: 01/02/2017 6:41:00 PM IV NS IV Fluids bolus 1000 mL wide open, administered: 01/02/2017 6:42:00 PM The following Medications were prescribed to the patient: None.
--- NOTE | 2017-01-02 20:06 | ED MED RECONCILIATION SUMMARY ---
Patient: FELIPA VALERA Medication Reconciliation Report VisitID: [id number] [address] [place] [address] 66y, F Registration Date/Time: 01/02/2017 Weight: 44.4 kg Height/Length: 61 in. BMI: 18.5 ALLERGIES: Ampicillin, Celebrex, Morphine and Related, Paper tape, Penicillin The patient's Home Medications are listed below: THE FOLLOWING MEDICATIONS NEED TO BE RECONCILED: Fish Oil Oral (1000 mg) 1 capsule, daily Glucosamine Oral 1500 mg, daily Lutein Oral Multivital Oral Omeprazole Oral 20 mg, 2x a day Vitamin B Complex Oral Zyrtec The source(s) of the original Home Medication information: patient patient's family member The following Medications were given to the patient in the Emergency Department: Zofran [IVP] IVP 4 mg, administered: 01/02/2017 5:41:00 PM Dilaudid [IVP] IVP 1 mg, administered: 01/02/2017 5:41:00 PM Benadryl [IVP] IVP 25 mg, administered: 01/02/2017 6:41:00 PM Dilaudid [IVP] IVP 1 mg, administered: 01/02/2017 6:41:00 PM IV NS IV Fluids bolus 1000 mL wide open, administered: 01/02/2017 6:42:00 PM The following Medications were prescribed to the patient: None.
[2017-01-02 20:28] VITALS: BP 112/78
[2017-01-02 23:05] VITALS: BP 95/63
[2017-01-03 03:24] VITALS: BP 92/63
--- NOTE | 2017-01-03 07:07 | Progress Note ---
Subjective General 66 yo female with recurrent SBO and admitted with pain and dehydration. Now is post IVF NGT and feeling better Pain much improved, colostomy working well again. Would like to pull NGT and d/c home. Physical Exam Vital Signs / I&Os Vital Signs Date Time Temp Pulse Resp B/P Pulse O2 O2 Flow FiO2 Ox Delivery Rate 01/03 0324 97.9 76 16 92/63 100 Room Air 01/03 0109 Room Air 01/02 2305 97.9 73 18 95/63 99 Room Air 01/02 2028 98.2 84 16 112/78 100 Room Air 0.0 I&O 01/03 0000 01/02 1600 01/02 0800 Intake Total 0 Output Total 450 Balance -450 General Appearance Alert, Cooperative Lungs Clear to auscultation, Normal air movement Cardiovascular Regular rate and rhythm Abdomen Soft, colostomy working well Extremities No edema LAB Results Laboratory Tests 01/03 01/02 01/02 0511 1944 1730 Chemistry Plasma Sodium (136 - 145 mmol/L) 143 141 138 Plasma Potassium (3.5 - 5.1 mmol/L) 4.3 4.0 3.7 Plasma Chloride (98 - 107 mmol/L) 112 107 102 CO2 (Enzymatic) (21 - 32 mmol/L) 21 21 17 BUN (7 - 18 mg/dL) 46 55 51 Creatinine (0.6 - 1.3 mg/dL) 1.4 1.6 1.4 Est GFR ( Amer) (mL/min) 48.77 41.80 48.77 Est GFR (Non-Af Amer) (mL/min) 40.24 34.49 40.24 Glucose (70 - 110 mg/dL) 111 115 144 Plasma Calcium (8.5 - 10.1 mg/dL) 7.7 9.7 11.4 Total Bilirubin (0.0 - 1.0 mg/dL) 0.9 AST (15 - 37 U/L) 46 ALT (12 - 78 U/L) 45 Alkaline Phosphatase (46 - 116 U/L) 81 Total Protein (6.4 - 8.2 g/dL) 8.1 Albumin (3.3 - 5.0 g/dL) 4.6 Hematology WBC (4.5 - 11.5 K/uL) 5.3 RBC (4.00 - 5.20 M/uL) 5.37 Hgb (12.0 - 16.0 gm/dL) 16.4 Hct (36.0 - 46.0 %) 48.1 MCV (80 - 100 fL) 89 MCH (26 - 34 pg) 31 RDW (11.6 - 14.8 %) 13.5 Neut % (Auto) (50 - 75 %) 85.6 Lymph % (Auto) (25 - 40 %) 12.3 Runnels % (Auto) (3 - 14 %) 0.5 Eos % (Auto) (0 - 4 %) 1.1 Baso % (Auto) (0 - 2 %) 0.5 Plt Count, EDTA (150 - 400 K/uL) 368 PUBS MCHC (31 - 37 g/dL) 34 Assessment and Plan Problem List 1. Small bowel obstruction Plan Improved at this time. 2. Dehydration Plan Is doing a little better this am. Will work on liq diet and advance. d/c home today
[2017-01-03 07:18] VITALS: BP 100/63
--- NOTE | 2017-01-03 08:14 | Provider's Discharge Care Plan ---
Problem, Goal, Plan Problem List 1. Small bowel obstruction Instructions: advance diet slowly 2. Dehydration Instructions: push fluids next few days
--- NOTE | 2017-01-03 08:14 | Provider's Discharge Care Plan ---
Problem, Goal, Plan Problem List 1. Small bowel obstruction Instructions: advance diet slowly 2. Dehydration Instructions: push fluids next few days
== END 2017-01-03 08:30 | disposition home or self-care (01) ==
LOC: ED SRH 16:45 → TRANS SRH 18:49 → ACUTE2 SRH 20:10
PROVIDERS: ADMIT Family Medicine
DX: K56.69 Other intestinal obstruction (principal); E86.0 Dehydration; Z93.3 Colostomy status; Z90.49 Acquired absence of other specified parts of digestive tract; Z85.038 Personal history of other malignant neoplasm of large intestine; K21.9 Gastro-esophageal reflux disease without esophagitis
CPT/HCPCS: 29230; 29262; 29264; 83498; 90047; 90074; 90100; 95059

== ENCOUNTER 2017-01-15 17:29 | Observation (INO) | payer OTHER ==
[~2017-01-15] VITALS: Ht 154.9 cm; Wt 44.2 kg
[~2017-01-15 17:29] MED LIST changes: -ZYRTEC ALLERGY10 MG
[2017-01-15 18:03] VITALS: BP 135/95
--- NOTE | 2017-01-15 20:58 | DIAGNOSTIC IMAGING REPORT ---
PROCEDURE: XR ABDOMEN 1 VIEW UPRIGHT INDICATION: ABD PAIN, R/O SBO TECHNIQUE: AP upright view. COMPARISON: Upright KUB 01/02/2017 FINDINGS: NG tube with the tip in the left lower quadrant. Left abdominal surgical clips. Moderate air-fluid levels present centrally, unchanged. There is air present distally. Right lower quadrant ostomy. There is no free air or suspicious calcification. Degenerative changes of the spine. Artifact projects over the left lung base. IMPRESSION: 1. NG tube in place with tip in the left lower quadrant 2. Stable air-fluid levels centrally which may represent small bowel obstruction and or ileus. 3. Left abdominal surgical changes and right lower quadrant 4. Results called to the floor.
[2017-01-15 23:02] VITALS: BP 118/81
[2017-01-16 02:37] VITALS: BP 114/64
[2017-01-16 06:36] VITALS: BP 98/63
--- NOTE | 2017-01-16 06:54 | Progress Note ---
Subjective General Patient states that she still isn't moving great but is feeling lots less abdominal pain than last night. Would like to have a gastrografin study as not clearing great and so many episodes recently of obstruction. Physical Exam Vital Signs / I&Os Vital Signs Date Time Temp Pulse Resp B/P Pulse O2 O2 Flow FiO2 Ox Delivery Rate 01/16 0636 97.9 68 16 98/63 100 Room Air 01/16 0237 98.1 57 16 114/64 99 Room Air 01/15 2333 Room Air 01/15 2302 97.9 64 16 118/81 100 Room Air 01/15 1803 97.3 76 20 135/95 100 Room Air I&O 01/16 0000 01/15 1600 01/15 0800 Intake Total 1239 Output Total 1075 Balance 164 General Appearance Alert, Cooperative HEENT Normal exam Lungs Clear to auscultation, Normal air movement Cardiovascular Regular rate and rhythm, No murmurs, gallops, rubs Abdomen Soft, no sig tenderness, colostomy status with some stool in bag. Extremities No edema LAB Results Laboratory Tests 01/16 01/15 0539 1800 Chemistry Plasma Sodium (136 - 145 mmol/L) 141 136 Plasma Potassium (3.5 - 5.1 mmol/L) 3.6 3.5 Plasma Chloride (98 - 107 mmol/L) 109 94 CO2 (Enzymatic) (21 - 32 mmol/L) 23 29 BUN (7 - 18 mg/dL) 33 54 Creatinine (0.6 - 1.3 mg/dL) 1.1 1.5 Est GFR ( Amer) (mL/min) >60 45.03 Est GFR (Non-Af Amer) (mL/min) 53.15 37.16 Glucose (70 - 110 mg/dL) 124 115 Plasma Calcium (8.5 - 10.1 mg/dL) 8.1 11.4 Assessment and Plan Problem List 1. Dehydration Plan Improved labs this am 2. Abdominal pain Plan Has abdominal pain and is better this am. 3. Small bowel obstruction Plan Has SBO and would like to have a gastrografin study as not clearing as well as normal and also so many obstructions recently. We have discussed radiation risk and she would like to proceed.
[2017-01-16 10:44] VITALS: BP 106/69
--- NOTE | 2017-01-16 15:10 | DIAGNOSTIC IMAGING REPORT ---
PROCEDURE: XR SBFT WITH GASTROGRAFIN INDICATION: recurrent SBO TECHNIQUE: [employer] film of the abdomen was obtained. The patient was then administered approximately 120 ml of gastrographin via the nasogastric tube under intermittent fluoroscopic guidance. She was placed in the RPO position. AP supine views of the abdomen were obtained at 15 minutes and 35 minutes. Total fluoro time 1.2 minutes. Cumulative dose 348.67 mGy. COMPARISON: Plain film 01/15/2017 FINDINGS: [employer] film demonstrates nasogastric tube in place. Surgical clips in the left abdomen. Scattered nondilated bowel loops in the low abdomen and pelvis are seen. No suspicious air fluid levels. The stomach is decompressed. 15 minutes following installation of gastrographin, there was opacification of normal caliber jejunal loops and proximal ileal loops. 35 minutes following installation of gastrographin, there is complete opacification of bowel loops and there was good output at the ileostomy. There is chronic minor dilatation of the left sided small bowel loops, similar compared to prior studies. IMPRESSION: 1. Resolution of ileus/small bowel obstruction. 2. Transit time to the ostomy was about 30 minutes. 3. Findings discussed with Dr. Bowen.
[2017-01-16 15:36] VITALS: BP 113/74
--- NOTE | 2017-01-16 16:36 | Provider's Discharge Care Plan ---
Problem, Goal, Plan Problem List 1. Small bowel obstruction Instructions: Follow up as needed, Take meds as directed
--- NOTE | 2017-01-16 16:36 | Provider's Discharge Care Plan ---
Problem, Goal, Plan Problem List 1. Small bowel obstruction Instructions: Follow up as needed, Take meds as directed
== END 2017-01-16 17:15 | disposition home or self-care (01) ==
LOC: ACUTE2 SRH 17:47
PROVIDERS: ADMIT Family Medicine
DX: K56.60 Unspecified intestinal obstruction (principal); E86.0 Dehydration; Z93.3 Colostomy status
CPT/HCPCS: 29230; 29231; 29242; 29246; 29247; 29263; 90047; 90074

== ENCOUNTER → 2017-01-15 | Outpatient (CLI) | payer OTHER ==
[~2017-01-15] MED LIST changes: +ZYRTEC ALLERGY10 MG
--- NOTE | 2017-01-15 11:26 | DIAGNOSTIC IMAGING REPORT ---
PROCEDURE: DEXA BONE DENSITY STUDY CLINICAL INDICATION: SCREENING COMPARISON: DEXA 08/25/2007 FINDINGS: LUMBAR SPINE: Bone mineral density 1.027 g/cm2, T score -0.2 normal which represents a 3.5% improvement since the previous study LEFT HIP: Bone mineral density 0.854 g/cm2, T score -0.7 normal which represents a 1.6% decrease from the previous study LEFT FEMORAL NECK: Bone mineral density 0.641 g/cm2, T score -1.9 osteopenia which represents a a 3.5% decrease from the previous study FRACTURE RISK CALCULATION ( when applicable): 10-year fracture risk of a major osteoporotic fracture 8% and of a hip fracture 1.1% (T score greater or equal to -1.0 to: NORMAL) (T score from -1.1 to -2.4: OSTEOPENIA) (T score ess than or equal to -2.5: OSTEOPOROSIS) IMPRESSION: 1. Femoral neck osteopenia with a 10-year major fracture risk of 8% and a hip fracture risk of 1.1%
--- NOTE | 2017-01-15 12:32 | DIAGNOSTIC IMAGING REPORT ---
PROCEDURE: MG BILATERAL SCREENING W/CAD INDICATION: Screening. Left Port-A-Cath for recurrent bowel obstruction. TECHNIQUE: Bilateral CC and MLO digital views. COMPARISON: Compared to 10/14/2011, 10/14/2009, and 08/25/2007. FINDINGS: Computer-aided detection applied. Interim placement of left subclavian Port-A-Cath. Moderately dense with a few vascular calcifications. No change. IMPRESSION: 1. Negative mammogram. RESULT CODE: 1- Negative. A. A negative report should not delay biopsy if a dominant or clinically suspicious mass is present. 10-15% of cancers are not identified by x-ray. B. A negative report may reinforce clinical impression. C. Adenosis and dense breasts may obscure an underlying neoplasm. D. False positive reports average 6-10%. E.. A yearly screening mammogram is recommended. A reminder letter will be scheduled.
== END ==
LOC: XR SRH 01-14 11:45 → MAM SRH 10:30
DX: M85.88 Other specified disorders of bone density and structure, other site (principal); Z12.31 Encounter for screening mammogram for malignant neoplasm of breast
CPT/HCPCS: 83463; 83470

== ENCOUNTER 2017-01-25 20:20 | Inpatient (IN) | payer OTHER ==
[~2017-01-25] VITALS: Ht 154.9 cm; Wt 46.2 kg
--- NOTE | 2017-01-25 23:10 | DIAGNOSTIC IMAGING REPORT ---
PROCEDURE: XR ABDOMEN 1 VIEW INDICATION: Distention. NG placement. TECHNIQUE: AP upright view. COMPARISON: None. FINDINGS: There is moderate to marked dilation of small bowel and stomach with multiple air-fluid levels. There is no evidence of free air. There are surgical clips are seen in the left abdomen. NG tube is in place which is coiled in mid stomach. IMPRESSION: 1. Moderate to marked distention of the small bowel and stomach consistent with obstruction. 2. NG tube placed in satisfactory position (mid stomach).
--- NOTE | 2017-01-25 23:37 | ED ORDER SUMMARY ---
..... Patient: FELIPA VALERA OrderSheet Located Within [facility] VisitID: [id number] [place] [address] 66y, F Registration Date/Time: 01/25/2017 ORDER SHEET Weight: 43.0 kg (stated) Allergies: Ampicillin, Celebrex, Morphine and Related, Paper tape, Penicillin GENERAL ORDERS: CBC w Diff Urgent (21:32 01/25/2017 Aidee Tang) (Ack 21:34 IJurca ER Tech1) (Sent 21:34 IJurca ER Tech1) (21:47 EInderbitzen R.N.) CMP Urgent (21:01/25/2017 Aidee Tang) (Ack 21:34 IJurca ER Tech1) (Sent 21:34 IJurca ER Tech1) (21:47 EInderbitzen R.N.) UA-Culture if indicated Urgent (21:01/25/2017 Aidee Tang) (Ack 21:34 IJurca ER Tech1) Amylase Urgent (21:01/25/2017 Aidee Tang) (Ack 21:34 IJurca ER Tech1) (Sent 21:34 IJurca ER Tech1) (21:47 EInderbitzen R.N.) Lipase Urgent (21:01/25/2017 Aidee Tang) (Ack 21:34 IJurca ER Tech1) (Sent 21:34 IJurca ER Tech1) (21:47 EInderbitzen R.N.) NG Tube (21:01/25/2017 Aidee Tang) (Ack 21:34 IJurca ER Tech1) (22:26 EInderbitzen R.N.) MEDICATION ORDERS: IV FLUIDS: IV NS : initial bolus none -, then 1000 mL/hr for X1 (NOW) (21:01/25/2017 Aidee Tang) (21:56 EInderbitzen R.N.) Demerol IV 25 mg (HIGH ALERT MEDICATION, NOW) (21:01/25/2017 Aidee Tang) (21:56 EInderbitzen R.N.) Zofran IV 4 mg (NOW) (21:32 01/25/2017 Aidee Tang) (21:57 EInderbitzen R.N.) Dilaudid IV 0.5 mg (HIGH ALERT MEDICATION, NOW) (23:00 01/25/2017 EInderbitzen R.N. verbal order read back to Aidee Tang) (23:01 EInderbitzen R.N.) Benadryl IV 25 mg (NOW) (23:01 01/25/2017 EInderbitzen R.N. verbal order read back to Aidee Tang) (23:02 EInderbitzen R.N.) KCl IV 20 meq/100mL (Run no faster than 10 units/hr, HIGH ALERT MEDICATION, NOW) (23:40 01/25/2017 Aidee Tang) (23:52 EInderbitzen R.N.) IV D5W 1/2 NS and KCl 20 mEq : initial bolus none -, then 200 mL/hr for X1 (NOW) (23:44 01/25/2017 Aidee Tang) (0:05 EInderbitzen R.N.) Dilaudid IV 1 mg (HIGH ALERT MEDICATION, NOW) (00:05 01/26/2017 EInderzurdozen R.N. verbal order read back to Aidee Tang) (0:06 EInderbitzen R.N.) ORDER SHEET NOTES: [Electronically signed by Yara Staley R.N. (00:41 01/26/2017)] [Electronically signed by Que Oquendo Dr. (05:48 01/26/2017)] [Electronically locked/signed by Yara Staley R.N. (00:41 01/26/2017)]
--- NOTE | 2017-01-25 23:37 | ED NURSING NOTES ---
Clinical Report - Nurses [facility] [address] [place] [address] 01/25/2017 20:19 Patient: FELIPA VALERA TRIAGE Triage time 21:Jan 25 2017. Acuity: LEVEL 3. Chief Complaint: NAUSEA, VOMITING and ABDOMINAL PAIN (abd blockage). 21:00 01/25/17. SILAS COMA SCORE: [place] Coma Scale: 15- eyes open spontaneously (4); best verbal response- oriented x 4 (5); best motor response- obeys commands (6). --21:04 Yara Staley R.N. 21:00 01/25/17. BP: 113/92. HR: 84. RR: 22. O2 saturation: 100%. Temp: 98.0 F. Pain level now 9/10. --21:04 Yara Staley R.N. Weight: 43 kg stated. Height/Length: 61 inches Per Patient. BMI: 17.9. --20:59 Yara Staley R.N. Medications Fish Oil Oral (Capsule 1000 mg) 1 capsule, daily. Glucosamine Oral 1500 mg, daily. Lutein Oral. Multivital Oral. Omeprazole Oral 20 mg, 2x a day. Vitamin B Complex Oral. Zyrtec. --21:01 Yara Staley R.N. Medication/allergy information source: the patient. --21:04 Yara Staley R.N. Allergies Ampicillin. Celebrex. Morphine and Related. Paper tape. Penicillin. --21:01 Yara Staley R.N. History Arrived by private vehicle. Historian: patient. Accompanied by family. This started today. Onset was abrupt. ( states was here on for the same. gets sbo, ng tube frequently. acute abdominal distention, pain, n/v). No fever, weakness, cough, difficulty breathing or skin rash. Denies muscle aches. 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 SOCIAL HX: Smoker- current status unknown (quit in 1994). No alcohol use or drug use. No infectious disease exposure. ABUSE ASSESSMENT: No report of abuse. FALL RISK ASSESSMENT: Fall risk assessment completed. No fall risk identified. NUTRITIONAL RISK ASSESSMENT: The nutritional risk assessment revealed no deficiencies. FUNCTIONAL ASSESSMENT: Functional assessment: no impairments noted. LEARNING NEEDS ASSESSMENT: The learning needs assessment revealed no barriers. SKIN INTEGRITY ASSESSMENT: Skin integrity risk assessment completed. No skin integrity risk identified. --21:04 Yara Staley R.N. PROBLEMS: Port-a-cath (L subclavian). Colon Cancer. Gastroesophageal Reflux Disease. Toxic megacolon. GI Disease. Hypokalemia. Hypercalcemia. Bowel Obstruction. Abnormal Liver Function Test. Small bowel obstruction. Fistula. Ileostomy present. --21:01 Yara Staley R.N. ADDITIONAL SURGERIES: Abd fistula. Bunionectomy. Colostomy. Ileostomy. Knee Surgery. Laparoscopy. Sinus Surgery. --21:01 Yara Staley R.N. Interventions ID band on patient. --21:04 Yara Staley R.N. PHYSICAL ASSESSMENT 22:42 01/25/17. To room via wheelchair. GENERAL / NEURO / PSYCH: Alert. Oriented X 4. Appears in distress. HEENT: Pupils equal, round and reactive to light. No facial asymmetry noted. Mucous membranes are pink. RESPIRATORY: Breath sounds within normal limits. CVS: Pulses within normal limits. GI / : ( ileostomy below umbilicus, stoma pink and moist, scant light green effluent). Abdominal distention. Abdominal tenderness. SKIN: Skin intact. Skin is warm and dry. Normal skin turgor. --22:43 Yara Staley R.N. NURSING PROGRESS NOTES 21:04 01/25/17. The initial plan of care for this patient includes an assessment with efforts to address the presence of pain; impairment of the gastrointestinal system. This plan of care was discussed with the patient. Patient gowned. Patient identifiers checked. Call light placed in reach. Side rails up x 2. Bed placed in lowest position. Brakes of bed on. Patient ready for evaluation. --21:04 Yara Staley R.N. 21:15 01/25/2017 Site #1 accessed indwelling Mediport in the left subclavian using a 19g, 1 inch needle; 1 attempt. Good blood return noted. Site prepped with chlorhexidine. Blood drawn: rainbow set. Labeled in the presence of the patient and sent to the lab. Flushed with 20 mL saline. --21:23 Yara Staley R.N. 21:55 01/25/2017 Started bag #1 1000 mL IV Fluids IV NS (Saline); at 1000 mL/hr over 60 minute(s) via site #1 via IV pump. Allergies verified and confirmed 5 rights. IV patency established. IV site checked: no pain, redness, or swelling. IV flushed thoroughly pre- and post-medication administration. --21:56 Yara Staley R.N. 21:55 01/25/2017 Zofran (Ondansetron HCl) IVP 4 mg given over 1 minute(s) via site #1. Allergies verified and confirmed 5 rights. IV patency established. IV site checked: no pain, redness, or swelling. IV flushed thoroughly pre- and post-medication administration. IVP given by RN. --21:57 Yara Staley R.N. 21:56 01/25/2017 Demerol (Meperidine HCl) IVP 25 mg given over 1 minute(s) via site #1. Allergies verified and confirmed 5 rights. IV patency established. IV site checked: no pain, redness, or swelling. IV flushed thoroughly pre- and post-medication administration. IVP given by RN. --21:56 Yara Staley R.N. 22:15 01/25/17. Time-out completed immediately before the procedure. 18 fr NG tube inserted with minimal difficulty. Placement confirmed by auscultation and return of gastric contents. Return: yellow fluid. Tube secured. (50). Not attached to low suction. --22:25 Yara Staley R.N. 22:25 01/25/17. Reassessment after procedure. She is calm. Overall patient status is the same- she states feels the same. --22:26 Yara Staley R.N. 22:25 01/25/17. BP: 142/73. HR: 68. RR: 22. O2 saturation: 100%. Pain level now 8. --22:26 Yara Staley R.N. 22:30 01/25/17. Patient transported to radiology by stretcher. --22:30 Yara Staley R.N. 22:41 01/25/17. Patient returned from radiology by stretcher. --22:41 Yara Staley R.N. 22:50 01/25/2017 Dilaudid (HYDROmorphone HCl PF) IVP 0.5 mg given over 1 minute(s) via site #1. Allergies verified, confirmed 5 rights and sedative warning given to the patient and patient's family. IV patency established. IV site checked: no pain, redness, or swelling. IV flushed thoroughly pre- and post-medication administration. IVP given by RN. --23:01 Yara Staley R.N. 22:51 01/25/2017 Benadryl (DiphenhydrAMINE HCl) IVP 25 mg given over 1 minute(s) via site #1. Allergies verified, confirmed 5 rights and sedative warning given to the patient. IV patency established. IV site checked: no pain, redness, or swelling. IV flushed thoroughly pre- and post-medication administration. IVP given by RN. --23:02 Yara Staley R.N. 23:00 01/25/2017 IV Fluids IV NS Discontinued: bag #1 infused. Total amount infused: 1000 mL. IV patency established. IV site checked: no pain, redness, or swelling. IV flushed thoroughly. --23:02 Yara Staley R.N. 23:00 01/25/17. BP: 137/73. HR: 75. RR: 16. O2 saturation: 95%. Pain level now 5/10. --23:29 Yara Staley R.N. 23:00 01/25/17. Reassessment after medication administered. She has had no adverse reaction. Overall patient status is improved- she states feels better. --23:29 Yara Staley R.N. 23:36 01/25/17. ( Dr Oquendo consulting with Dr Pastrana regarding patient status and need for admission). --23:36 Yara Staley R.N. 23:50 01/25/2017 Started 20 meq of KCL (Potassium Chloride) IVPB in bag #1 100 mL; at 50 mL/hr over 2 hour(s) via site #1 via IV pump. Allergies verified and confirmed 5 rights. IV patency established. IV site checked: no pain, redness, or swelling. IV flushed thoroughly pre- and post-medication administration. --23:52 Yara Staley R.N. 00:03 01/26/2017 Dilaudid (HYDROmorphone HCl PF) IVP 1 mg given over 1 minute(s) via site #1. Allergies verified, confirmed 5 rights and sedative warning given to the patient and patient's family. IV patency established. IV site checked: no pain, redness, or swelling. IV flushed thoroughly pre- and post-medication administration. IVP given by RN. --00:06 Yara Staley R.N. 00:05 01/26/2017 Started bag #1 1000 mL IV Fluids IV D5W 1/2 NS AND KCL 20 MEQ (KCl-NaCl in D5W); at 200 mL/hr over 5 hour(s) via site #1 via IV pump. Allergies verified and confirmed 5 rights. IV patency established. IV site checked: no pain, redness, or swelling. IV flushed thoroughly pre- and post-medication administration. --00:05 Yara Staley R.N. 00:06 01/26/17. BP: 107/66. HR: 78. RR: 16. O2 saturation: 95%. Temp: 98.0 F. Pain level now 5/10. --00:06 Yara Staley R.N. Intake & Output IV fluids: 72114. Gastric output: 1100. --00:24 Yara Staley R.N. DISPOSITION / DISCHARGE 00:22 01/26/2017 KCL IVPB Continued: upon admission at the rate of 50 mL/hr. 75 mL remaining bag #1. IV patency established. IV site checked: no pain, redness, or swelling. IV flushed thoroughly. --00:22 Yara Staley R.N. 00:22 01/26/2017 IV Fluids IV D5W 1/2 NS AND KCL 20 MEQ Continued: upon admission at the rate of 200 mL/hr. 1000 mL remaining bag #1. IV patency established. IV site checked: no pain, redness, or swelling. IV flushed thoroughly. --00:22 Yara Staley R.N. 00:25 01/26/17. Departure time: 00:Jan 26 2017. Condition at departure: improved and stable. The goals identified in the patient's plan of care were met. Admitted to Acute Care (). Transported via stretcher with IV. Report was given. (to WHIT Sams). --00:25 Yara Staley R.N. 00:04 01/26/17. BP: 107/66. HR: 78. RR: 16. O2 saturation: 95%. Temp: 98.0 F. Pain level now 03/18. 23:29 01/25/17. BP: 137/73. HR: 75. RR: 16. O2 saturation: 95%. Pain level now 03/18. 22:25 01/25/17. BP: 142/73. HR: 68. RR: 22. O2 saturation: 100%. Pain level now 06/18. 20:59 01/25/17. BP: 113/92. HR: 84. RR: 22. O2 saturation: 100%. Temp: 98.0 F. Pain level now 07/19. --00:25 Yara Staley R.N. Locked/Released at 01/26/2017 0:41 by Yara Staley R.N.
--- NOTE | 2017-01-25 23:37 | ED CLINICAL REPORT ---
Clinical Report - Physicians/Mid Levels [facility] [address] [place] [address] 01/25/2017 20:19 Patient: FELIPA VALERA Time Seen: 21:12. Arrived- By private vehicle. Historian- patient. HISTORY OF PRESENT ILLNESS Chief Complaint: ABDOMINAL PAIN. At its maximum, severity described as moderate. When seen in the E.D., severity described as moderate. Modifying factors. Not worsened by anything. Not relieved by anything. It is described as "pain". No radiation. It is described as generalized in location. This started today and is still present. It was abrupt in onset. The patient has had nausea and vomiting. No loss of appetite or diarrhea. Similar symptoms previously: Many times. Recent medical care: Not recently seen/assessed. REVIEW OF SYSTEMS No constipation, black stools, hematemesis, difficulty with urination or bloody stools. All systems otherwise negative, except as recorded above. PAST HISTORY Spontaneous (Miscarriage). Fibula Fracture. Sprain. Ectopic . Fractured Phalanx (Toe). Immunizations. Diabetes Mellitus. SURGERIES: Salpingectomy. Surgery to remove ectopic . SOCIAL HISTORY Former smoker. No alcohol use or drug use. ADDITIONAL NOTES The nursing notes have been reviewed with agreement regarding the chief complaint, PMH and patient medications and allergies. PHYSICAL EXAM Vital Signs: 01/25/2017 21:00 BP: 113/92. HR: 84. RR: 22. O2 saturation: 100%. Temp: 98.0 F. Have been reviewed. Hypertensive. Heart rate normal. Tachypneic. Temperature normal. Oxygen saturation normal. Appearance: Alert. Oriented X3. Appears to be in pain. Eyes: Eyes normal inspection. ENT: Dry mucous membranes present. CVS: Normal heart rate and rhythm. Heart sounds normal. Respiratory: No respiratory distress. Breath sounds normal. Abdomen: Moderate tenderness diffusely with guarding present. No rebound tenderness or Macias's sign present. Abnormal bowel sounds: hyperactive. Multiple scars present. Colostomy present. Skin: Normal skin color. No rash. Extremities: No lower extremity edema. Neuro: Oriented X 3. LABS, X-RAYS, AND EKG Laboratory Tests: CBC w Diff: (ELIAS: 01/25/2017 21:15) ( MsgRcvd 01/25/2017 21:46) Final results Test Result Flag Units (Reference) WHITE BLOOD COUNT 6.1 K/uL (4.5-11.5) RED BLOOD COUNT 4.50 M/uL (4.00-5.20) HEMOGLOBIN 13.8 gm/dL (12.0-16.0) HEMATOCRIT 40.7 % (36.0-46.0) MEAN CELL VOLUME 90 fL (80-100) MEAN CORPUSCULAR HGB 31 pg (26-34) MEAN CORPUSCULAR HGB CONC 34 g/dL (31-37) RED CELL DISTRIBUTION WIDTH 13.1 % (11.6-14.8) PLATELET COUNT 395 K/uL (150-400) NEUTROPHIL % 60.9 % (50-75) LYMPH % 23.2 L % (25-40) MONO % 10.0 % (3-14) EOSINOPHIL % 4.1 H % (0-4) BASOPHIL % 1.8 % (0-2) CMP: (ELIAS: 01/25/2017 21:15) ( MsgRcvd 01/25/2017 21:53) Final results Test Result Flag Units (Reference) GLUCOSE 110 mg/dL (70-110) BUN 31 H mg/dL (7-18) CREATININE 1.3 mg/dL (0.6-1.3) Estimated GFR 43.83 mL/min Estimated GFR- 53.12 mL/min Note: Persistent reduction over 3 months in eGFR<60 mL/min/1.73 m2 defines CKD. Patients with eGFR values>=60 mL/min/1.73 m2 may also have CKD if evidence ofpersistent proteinuria. Additional information may be foundat www.kidney.org. SODIUM 140 mmol/L (136-145) POTASSIUM 3.1 L mmol/L (3.5-5.1) CHLORIDE 99 mmol/L (98-107) CARBON DIOXIDE 25 mmol/L (21-32) CALCIUM 11.2 H mg/dL (8.5-10.1) TOTAL PROTEIN 8.0 g/dL (6.4-8.2) ALBUMIN 4.3 g/dL (3.3-5.0) BILIRUBIN, TOTAL 0.3 mg/dL (0.0-1.0) ALKALINE PHOSPHATASE 76 U/L (46-116) AST (SGOT) 38 H U/L (15-37) ALT (SGPT) 48 U/L (12-78) LIPASE 204 U/L (73-393) AMYLASE 167 H U/L (25-115) . PROGRESS AND PROCEDURES Discussed case with hospitalist, (call returned). Reviewed test results and need for additional work-up. Agreed upon decision to admit. Health care provider will see patient in hospital. CLINICAL IMPRESSION Early small bowel obstruction. Hypokalemia. (Electronically signed by Que Oquendo Dr. 01/26/2017 5:48)
--- NOTE | 2017-01-25 23:37 | ED ORDER SUMMARY ---
..... Patient: FELIPA VALERA OrderSheet [facility] VisitID: [id number] [place] [address] 66y, F Registration Date/Time: 01/25/2017 ORDER SHEET Weight: 43.0 kg (stated) Allergies: Ampicillin, Celebrex, Morphine and Related, Paper tape, Penicillin GENERAL ORDERS: CBC w Diff Urgent (21:32 01/25/2017 Aidee Tang) (Ack 21:34 IJurca ER Tech1) (Sent 21:34 IJurca ER Tech1) (21:47 EInderbitzen R.N.) CMP Urgent (21:01/25/2017 Aidee Tang) (Ack 21:34 IJurca ER Tech1) (Sent 21:34 IJurca ER Tech1) (21:47 EInderbitzen R.N.) UA-Culture if indicated Urgent (21:01/25/2017 Aidee Tang) (Ack 21:34 IJurca ER Tech1) Amylase Urgent (21:01/25/2017 Aidee Tang) (Ack 21:34 IJurca ER Tech1) (Sent 21:34 IJurca ER Tech1) (21:47 EInderbitzen R.N.) Lipase Urgent (21:01/25/2017 Aidee Tang) (Ack 21:34 IJurca ER Tech1) (Sent 21:34 IJurca ER Tech1) (21:47 EInderbitzen R.N.) NG Tube (21:01/25/2017 Aidee Tang) (Ack 21:34 IJurca ER Tech1) (22:26 EInderbitzen R.N.) MEDICATION ORDERS: IV FLUIDS: IV NS : initial bolus none -, then 1000 mL/hr for X1 (NOW) (21:01/25/2017 Aidee Tang) (21:56 EInderbitzen R.N.) Demerol IV 25 mg (HIGH ALERT MEDICATION, NOW) (21:01/25/2017 Aidee Tang) (21:56 EInderbitzen R.N.) Zofran IV 4 mg (NOW) (21:32 01/25/2017 Aidee Tang) (21:57 EInderbitzen R.N.) Dilaudid IV 0.5 mg (HIGH ALERT MEDICATION, NOW) (23:00 01/25/2017 EInderbitzen R.N. verbal order read back to Aidee Tang) (23:01 EInderbitzen R.N.) Benadryl IV 25 mg (NOW) (23:01 01/25/2017 EInderbitzen R.N. verbal order read back to Aidee Tang) (23:02 EInderbitzen R.N.) KCl IV 20 meq/100mL (Run no faster than 10 units/hr, HIGH ALERT MEDICATION, NOW) (23:40 01/25/2017 Aidee Tang) (23:52 EInderbitzen R.N.) IV D5W 1/2 NS and KCl 20 mEq : initial bolus none -, then 200 mL/hr for X1 (NOW) (23:44 01/25/2017 Aidee Tang) (0:05 EInderbitzen R.N.) Dilaudid IV 1 mg (HIGH ALERT MEDICATION, NOW) (00:05 01/26/2017 EInderzurdozen R.N. verbal order read back to Aidee Tang) (0:06 EInderbitzen R.N.) ORDER SHEET NOTES: [Electronically signed by Yara Staley R.N. (00:41 01/26/2017)] [Electronically signed by Que Oquendo Dr. (05:48 01/26/2017)] [Electronically locked/signed by Yara Staley R.N. (00:41 01/26/2017)]
--- NOTE | 2017-01-26 01:10 | Progress Note ---
Subjective General Admission History and Physical Examination Patient Name: Darling Davis Admission Date: January 25, 2017 Primary Care Provider: Arsenio Noguera M.D. Attending Physician: Arsenio Noguera M.D. Admitting Physician: Juanito Pastrana M.D. Code Status: Full Code Room: 203-B SUBJECTIVE Historian: Patient, Family, previous medical records Reliability: Good Chief Complaint: Abdominal pain, nausea, vomiting History of Present Illness: The patient is a 66-year-old white female with a significant past medical history of recurrent small bowel obstruction, gastroesophageal reflux, allergic rhinitis, who presented to [facility] emergency room on the day of admission secondary to complaints of abdominal pain, nausea, and vomiting. [facility] ER evaluation was consistent with small bowel obstruction. Secondary to the above, the patient was admitted by Juanito Pastrana M.D. for further evaluation and treatment. The history of present illness began on the evening of the day of admission when the patient developed generalized abdominal pain. This was moderate to severe in degree. She knew of no aggravating or relieving factors. It was associated with nausea and vomiting. Her emesis did not contain blood or coffee-ground material. Secondary to persistent symptoms the patient presented to [facility] emergency department suspecting small bowel obstruction which has been a chronic problem for her in the past. She has required over 60 hospitalizations for recurrent small bowel obstruction. [facility] ER evaluation showed the patient to have vital signs blood pressure 113/92, pulse 84, respirations 22, temperature 98.0 Fahrenheit, O2 sat room air 100%. The patient had diffuse abdominal pain. Findings were consistent with probable small bowel obstruction consistent with previous hospitalizations. NG tube was placed. Anti-medics and pain meds given with good control of symptoms. Secondary to the above the patient was admitted for further evaluation and treatment. PAST MEDICAL HISTORY Illnesses: 1. Recurrent small bowel obstruction 2. Gastroesophageal reflux 3. Chronic abdominal pain Allergies: 1. Celebrex 2. Morphine 3. Amoxicillin 4. Paper tape Medications: 1. Zyrtec 10 mg by mouth daily 2. Glucosamine 500 mg 1 by mouth daily 3. Prilosec 20 mg by mouth daily 4. Lutein 20 mg by mouth daily 5. Vitamin B12 1000 mg by mouth daily 6. Multivitamin one by mouth daily 7. Vitamin D 1000 international units by mouth daily 8. Qvar 80 g 1 inhalation daily 9. Fish oil 1000 mg by mouth daily Surgery: 1. Small bowel obstruction 10 2. Fistula repair. 3. Colostomy 4. Sinus surgery 3 5. Bunion surgery Injuries: 1. No significant Hospitalizations: 1. For above surgery and medical problems FAMILY HISTORY Parents: 1. Father, Manish, , 82, CVA, polio, 2. Mother, Jessica, , 46, melanoma Siblings: 1. Male, Severino, living, 65, degenerative joint disease, back problems 2. Female, Susan, living, 63, back problems, fibromyalgia 3. Female, Jane, living, 62, COPD 4. Male, YOCASTA, living, 60, back problems Children: 1. Female, Natalie, living, 42, healthy 2. Female, living 3, living, 39, healthy Other significant family history: None SOCIAL HISTORY 1. Marital Status: 2. Temple: [employer] 3. Education: High school, college 1 year 4. Employment History: Unemployed 5. Occupational health exposures: None 6. Residence: Patient currently lives in her own home with her HABITS 1. Tobacco: Previous smoker, stopped 1994, [id number] history 2. Drugs: None 3. Alcohol: 3 ounces per week 4. Caffeine: Coffee-2 cups per day HEALTH SUPERVISION Item/Test 1. Vision screen: No recent 2. Cholesterol Profile: 2016 3. PSA: Not applicable 4. LORRIE: Not applicable 5. FOBT: No recent 6. Blood Glucose: 2017 7. Colonoscopy: No recent 8. History and physical exam: 2016 9. Audiogram: No recent 10. Mammogram: 2017 11. Pap/pelvic exam: 2017 IMMUNIZATIONS: 1. Pneumococcal: 2014 2. Influenza: 2016 3. Tetanus: Unknown ADVANCED DIRECTIVES: 1. Living well: No 2. POLST: No 3. Code Status: FULL CODE 4. Durable Power Credit Review Officer Health care: No 5. Donor card: No REVIEW OF SYSTEMS Remarkable for those things stated in the history of present illness and past medical history. Seventeen point review of system completed with the following notable findings: General: Weight loss, abdominal pain Mouth: Dental problems Gastrointestinal: Reflux, abdominal pain Musculoskeletal: Joint stiffness, backache, muscle cramping Blood and lymphatic: Easy bruising Endocrine: Heat intolerance Physical Exam Vital Signs / I&Os Blood pressure: 137/73 Pulse: 75 Respirations: 16 Temperature: 98.0 Fahrenheit Pulse oximetry: 100% room air General Appearance Alert, Oriented X3, Cooperative, No acute distress HEENT Atraumatic, PERRLA, EOMI, Moist mucous membranes Lungs Clear to auscultation, Normal air movement Neck Supple, No JVD, 2+ carotid pulse wo bruit Cardiovascular Regular rate and rhythm, Normal S1 and S2, No murmurs, gallops, rubs Abdomen Normal bowel sounds, Soft, No guarding, No rebound, Colostomy present, mild diffuse tenderness Extremities No cyanosis, No clubbing, No edema Neurological Cranial nerves intact, Strength 5/5 x4 ext's, No lateralizing signs Psych/Mental Status Mental status normal, Mood normal LAB Results Laboratory Tests 01/25 2115 Chemistry Plasma Sodium (136 - 145 mmol/L) 140 Plasma Potassium (3.5 - 5.1 mmol/L) 3.1 Plasma Chloride (98 - 107 mmol/L) 99 CO2 (Enzymatic) (21 - 32 mmol/L) 25 BUN (7 - 18 mg/dL) 31 Creatinine (0.6 - 1.3 mg/dL) 1.3 Est GFR ( Amer) (mL/min) 53.12 Est GFR (Non-Af Amer) (mL/min) 43.83 Glucose (70 - 110 mg/dL) 110 Plasma Calcium (8.5 - 10.1 mg/dL) 11.2 Total Bilirubin (0.0 - 1.0 mg/dL) 0.3 AST (15 - 37 U/L) 38 ALT (12 - 78 U/L) 48 Alkaline Phosphatase (46 - 116 U/L) 76 Total Protein (6.4 - 8.2 g/dL) 8.0 Albumin (3.3 - 5.0 g/dL) 4.3 Amylase (25 - 115 U/L) 167 Lipase (73 - 393 U/L) 204 Hematology WBC (4.5 - 11.5 K/uL) 6.1 RBC (4.00 - 5.20 M/uL) 4.50 Hgb (12.0 - 16.0 gm/dL) 13.8 Hct (36.0 - 46.0 %) 40.7 MCV (80 - 100 fL) 90 MCH (26 - 34 pg) 31 RDW (11.6 - 14.8 %) 13.1 Neut % (Auto) (50 - 75 %) 60.9 Lymph % (Auto) (25 - 40 %) 23.2 Cameron % (Auto) (3 - 14 %) 10.0 Eos % (Auto) (0 - 4 %) 4.1 Baso % (Auto) (0 - 2 %) 1.8 Plt Count, EDTA (150 - 400 K/uL) 395 PUBS MCHC (31 - 37 g/dL) 34 Assessment and Plan Problem List 1. Small bowel obstruction Plan -Patient presents with findings of small bowel obstruction -Similar to previous episodes -Status post much improved status post placement of NG tube -IV fluid therapy, NG tube, antiemetics, and pain control -Monitor 2. Hypokalemia Plan -Patient with mild hypokalemia -IV supplementation -Monitor 3. Hypercalcemia Plan -Patient with mild hypercalcemia -Repeat in a.m. -IV fluid therapy -Consider ionized calcium, PTH-intact if persistently elevated in a.m. 4. GERD (gastroesophageal reflux disease) Plan -Patient with history of gastroesophageal reflux -Protonix 40 mg IV daily -Monitor 5. Hyperamylasemia Status Acute Onset Date Unknown Plan -Patient with findings of elevated amylase, 167 U/L -Mild -No significant abdominal pain at this time. -Repeat in a.m. -Monitor 6. Dehydration Plan -Patient with findings of dehydration -IV fluids-D5 0.45 normal saline with KCl 20 mEq per liter at 150 cc per hour -Monitor Current status: Fair, unstable Anticipated discharge date: Anticipated discharge in 2 days Anticipated discharge placement: Home Patient care time: Time spent in chart review, patient interview, physical exam, CPOE, and care documentation: 70 minutes Visit to patient today: 1 Complexity of care: High DVT prophylaxis: Lovenox 40 mg subcutaneous daily GI prophylaxis: Protonix 40 mg IV daily We'll transfer care to Dr. Noguera today at 0700 E&M Codes Rounding: Inpt-High/[id number]
[2017-01-26 01:15] VITALS: BP 122/74
[2017-01-26 03:15] VITALS: BP 115/66
--- NOTE | 2017-01-26 05:49 | ED DISCHARGE INSTRUCTIONS ---
Patient: FELIPA VALERA General Instructions [facility] VisitID: [id number] [address] [place] [address] 66y, F Registration Date/Time: 01/25/2017 Early small bowel obstruction. Hypokalemia. (Electronically signed by Que Oquendo Dr. 01/26/2017 5:48)
--- NOTE | 2017-01-26 05:49 | ED MED RECONCILIATION SUMMARY ---
Patient: FELIPA VALERA Medication Reconciliation Report [facility] VisitID: [id number] [address] [place] [address] 66y, F Registration Date/Time: 01/25/2017 Weight: 43.0 kg Height/Length: 61 in. BMI: 17.9 ALLERGIES: Ampicillin, Celebrex, Morphine and Related, Paper tape, Penicillin The patient's Home Medications are listed below: THE FOLLOWING MEDICATIONS NEED TO BE RECONCILED: Fish Oil Oral (1000 mg) 1 capsule, daily Glucosamine Oral 1500 mg, daily Lutein Oral Multivital Oral Omeprazole Oral 20 mg, 2x a day Vitamin B Complex Oral Zyrtec The source(s) of the original Home Medication information: patient The following Medications were given to the patient in the Emergency Department: IV NS IV Fluids bolus 0, then 1000 mL/hr, administered: 01/25/2017 9:55:00 PM Demerol [IVP] IVP 25 mg, administered: 01/25/2017 9:56:00 PM Zofran [IVP] IVP 4 mg, administered: 01/25/2017 9:55:00 PM Dilaudid [IVP] IVP 0.5 mg, administered: 01/25/2017 10:50:00 PM Benadryl [IVP] IVP 25 mg, administered: 01/25/2017 10:51:00 PM KCL [IVPB] IVPB bolus 0, then 20 meq 50 mL/hr, administered: 01/25/2017 11:50:00 PM IV D5W 1/2 NS AND KCL 20 MEQ IV Fluids bolus 0, then 200 mL/hr, administered: 01/26/2017 12:05:00 AM Dilaudid [IVP] IVP 1 mg, administered: 01/26/2017 12:03:00 AM The following Medications were prescribed to the patient: None.
--- NOTE | 2017-01-26 05:49 | ED MED RECONCILIATION SUMMARY ---
Patient: FELIPA VALERA Medication Reconciliation Report [facility] VisitID: [id number] [address] [place] [address] 66y, F Registration Date/Time: 01/25/2017 Weight: 43.0 kg Height/Length: 61 in. BMI: 17.9 ALLERGIES: Ampicillin, Celebrex, Morphine and Related, Paper tape, Penicillin The patient's Home Medications are listed below: THE FOLLOWING MEDICATIONS NEED TO BE RECONCILED: Fish Oil Oral (1000 mg) 1 capsule, daily Glucosamine Oral 1500 mg, daily Lutein Oral Multivital Oral Omeprazole Oral 20 mg, 2x a day Vitamin B Complex Oral Zyrtec The source(s) of the original Home Medication information: patient The following Medications were given to the patient in the Emergency Department: IV NS IV Fluids bolus 0, then 1000 mL/hr, administered: 01/25/2017 9:55:00 PM Demerol [IVP] IVP 25 mg, administered: 01/25/2017 9:56:00 PM Zofran [IVP] IVP 4 mg, administered: 01/25/2017 9:55:00 PM Dilaudid [IVP] IVP 0.5 mg, administered: 01/25/2017 10:50:00 PM Benadryl [IVP] IVP 25 mg, administered: 01/25/2017 10:51:00 PM KCL [IVPB] IVPB bolus 0, then 20 meq 50 mL/hr, administered: 01/25/2017 11:50:00 PM IV D5W 1/2 NS AND KCL 20 MEQ IV Fluids bolus 0, then 200 mL/hr, administered: 01/26/2017 12:05:00 AM Dilaudid [IVP] IVP 1 mg, administered: 01/26/2017 12:03:00 AM The following Medications were prescribed to the patient: None.
--- NOTE | 2017-01-26 05:49 | ED DISCHARGE INSTRUCTIONS ---
Patient: FELIPA VALERA General Instructions [facility] VisitID: [id number] [address] [place] [address] 66y, F Registration Date/Time: 01/25/2017 Early small bowel obstruction. Hypokalemia. (Electronically signed by Que Oquendo Dr. 01/26/2017 5:48)
--- NOTE | 2017-01-26 05:49 | ED MAR SUMMARY ---
..... Medication Administration Record [facility] [address] [place] [address] Patient: FELIPA VALERA Visit ID: [id number] 66y, F Weight: 43.0 kg Height/Length: 61 in BMI: 17.9 ALLERGIES: Ampicillin, Celebrex, Morphine and Related, Paper tape, Penicillin Given 21:55 01/25/2017 Yara Staley R.N. Medication Administered: ZOFRAN [IVP] (ONDANSETRON HCL), Dose: 4 mg IVP over 1 minute(s), Site: #1 left subclav. Medication Ordered: Zofran IV 4 mg (NOW). Start 21:55 01/25/2017 Yara Staley R.N., Stop 23:00 01/25/2017 Yara Staley R.N. Medication Administered: IV NS (SALINE), Dose: IV Fluids over 60 minute(s), Rate: 1000 mL/hr, Dispensed: 1000 mL bag, Site: #1 left subclav. Medication Ordered: IV NS : initial bolus none -, then 1000 mL/hr for X1 (NOW). Given 21:56 01/25/2017 Yara Staley R.N. Medication Administered: DEMEROL [IVP] (MEPERIDINE HCL), Dose: 25 mg IVP over 1 minute(s), Site: #1 left subclav. Medication Ordered: Demerol IV 25 mg (HIGH ALERT MEDICATION, NOW). Given 22:50 01/25/2017 Yara Staley R.N. Medication Administered: DILAUDID [IVP] (HYDROMORPHONE HCL PF), Dose: 0.5 mg IVP over 1 minute(s), Site: #1 left subclav. Medication Ordered: Dilaudid IV 0.5 mg (HIGH ALERT MEDICATION, NOW). Given 22:51 01/25/2017 Yara Staley R.N. Medication Administered: BENADRYL [IVP] (DIPHENHYDRAMINE HCL), Dose: 25 mg IVP over 1 minute(s), Site: #1 left subclav. Medication Ordered: Benadryl IV 25 mg (NOW). Start 23:50 01/25/2017 Yara Staley R.N., Continued Upon Admission 00:22 01/26/2017 Yara Staley R.N. Medication Administered: KCL [IVPB] (POTASSIUM CHLORIDE), Dose: 20 meq IVPB over 2 hour(s), Rate: 50 mL/hr, Dispensed: 100 mL bag, Site: #1 left subclav. Medication Ordered: KCl IV 20 meq/100mL (Run no faster than 10 units/hr, HIGH ALERT MEDICATION, NOW). Given 00:03 01/26/2017 Yara Staley R.N. Medication Administered: DILAUDID [IVP] (HYDROMORPHONE HCL PF), Dose: 1 mg IVP over 1 minute(s), Site: #1 left subclav. Medication Ordered: Dilaudid IV 1 mg (HIGH ALERT MEDICATION, NOW). Start 00:05 01/26/2017 Yara Staley R.N., Continued Upon Admission 00:22 01/26/2017 Yara Staley R.N. Medication Administered: IV D5W 1/2 NS AND KCL 20 MEQ (KCL-NACL IN D5W), Dose: IV Fluids over 5 hour(s), Rate: 200 mL/hr, Dispensed: 1000 mL bag, Site: #1 left subclav. Medication Ordered: IV D5W 1/2 NS and KCl 20 mEq : initial bolus none -, then 200 mL/hr for X1 (NOW).
--- NOTE | 2017-01-26 05:49 | ED MAR SUMMARY ---
..... Medication Administration Record [facility] [address] [place] [address] Patient: FELIPA VALERA Visit ID: [id number] 66y, F Weight: 43.0 kg Height/Length: 61 in BMI: 17.9 ALLERGIES: Ampicillin, Celebrex, Morphine and Related, Paper tape, Penicillin Given 21:55 01/25/2017 Yara Staley R.N. Medication Administered: ZOFRAN [IVP] (ONDANSETRON HCL), Dose: 4 mg IVP over 1 minute(s), Site: #1 left subclav. Medication Ordered: Zofran IV 4 mg (NOW). Start 21:55 01/25/2017 Yara Staley R.N., Stop 23:00 01/25/2017 Yara Staley R.N. Medication Administered: IV NS (SALINE), Dose: IV Fluids over 60 minute(s), Rate: 1000 mL/hr, Dispensed: 1000 mL bag, Site: #1 left subclav. Medication Ordered: IV NS : initial bolus none -, then 1000 mL/hr for X1 (NOW). Given 21:56 01/25/2017 Yara Staley R.N. Medication Administered: DEMEROL [IVP] (MEPERIDINE HCL), Dose: 25 mg IVP over 1 minute(s), Site: #1 left subclav. Medication Ordered: Demerol IV 25 mg (HIGH ALERT MEDICATION, NOW). Given 22:50 01/25/2017 Yara Staley R.N. Medication Administered: DILAUDID [IVP] (HYDROMORPHONE HCL PF), Dose: 0.5 mg IVP over 1 minute(s), Site: #1 left subclav. Medication Ordered: Dilaudid IV 0.5 mg (HIGH ALERT MEDICATION, NOW). Given 22:51 01/25/2017 Yara Staley R.N. Medication Administered: BENADRYL [IVP] (DIPHENHYDRAMINE HCL), Dose: 25 mg IVP over 1 minute(s), Site: #1 left subclav. Medication Ordered: Benadryl IV 25 mg (NOW). Start 23:50 01/25/2017 Yara Staley R.N., Continued Upon Admission 00:22 01/26/2017 Yara Staley R.N. Medication Administered: KCL [IVPB] (POTASSIUM CHLORIDE), Dose: 20 meq IVPB over 2 hour(s), Rate: 50 mL/hr, Dispensed: 100 mL bag, Site: #1 left subclav. Medication Ordered: KCl IV 20 meq/100mL (Run no faster than 10 units/hr, HIGH ALERT MEDICATION, NOW). Given 00:03 01/26/2017 Yara Staley R.N. Medication Administered: DILAUDID [IVP] (HYDROMORPHONE HCL PF), Dose: 1 mg IVP over 1 minute(s), Site: #1 left subclav. Medication Ordered: Dilaudid IV 1 mg (HIGH ALERT MEDICATION, NOW). Start 00:05 01/26/2017 Yara Staley R.N., Continued Upon Admission 00:22 01/26/2017 Yara Staley R.N. Medication Administered: IV D5W 1/2 NS AND KCL 20 MEQ (KCL-NACL IN D5W), Dose: IV Fluids over 5 hour(s), Rate: 200 mL/hr, Dispensed: 1000 mL bag, Site: #1 left subclav. Medication Ordered: IV D5W 1/2 NS and KCl 20 mEq : initial bolus none -, then 200 mL/hr for X1 (NOW).
[2017-01-26 07:11] VITALS: BP 99/60
--- NOTE | 2017-01-26 07:17 | Progress Note ---
Subjective General Patient states that she is doing much better. Has been feeling less cramping and pain compared to prior. Is feeling that she is nearly ready for d/c home again as now SBO feels resolved. Physical Exam Vital Signs / I&Os Vital Signs Date Time Temp Pulse Resp B/P Pulse O2 O2 Flow FiO2 Ox Delivery Rate 01/26 0711 98.4 71 18 99/60 99 Room Air 01/26 0315 98.2 76 16 115/66 100 Room Air 01/26 0140 Room Air 01/26 0115 98.2 71 16 122/74 100 Room Air General Appearance Alert, Cooperative, No acute distress Lungs Clear to auscultation, Normal air movement Cardiovascular Regular rate and rhythm, No murmurs, gallops, rubs Abdomen Soft, No tenderness, colostomy RLQ and draining well. Skin No Significant Lesions LAB Results Laboratory Tests 01/26 01/26 01/25 0540 0310 2115 Chemistry Plasma Sodium (136 - 145 mmol/L) 140 Plasma Potassium (3.5 - 5.1 mmol/L) 3.1 Plasma Chloride (98 - 107 mmol/L) 99 CO2 (Enzymatic) (21 - 32 mmol/L) 25 BUN (7 - 18 mg/dL) 31 Creatinine (0.6 - 1.3 mg/dL) 1.3 Est GFR ( Amer) (mL/min) 53.12 Est GFR (Non-Af Amer) (mL/min) 43.83 Glucose (70 - 110 mg/dL) 110 Plasma Calcium (8.5 - 10.1 mg/dL) 11.2 Total Bilirubin (0.0 - 1.0 mg/dL) 0.3 AST (15 - 37 U/L) 38 ALT (12 - 78 U/L) 48 Alkaline Phosphatase (46 - 116 U/L) 76 Total Protein (6.4 - 8.2 g/dL) 8.0 Albumin (3.3 - 5.0 g/dL) 4.3 Amylase (25 - 115 U/L) 124 167 Lipase (73 - 393 U/L) 204 Hematology WBC (4.5 - 11.5 K/uL) 6.1 RBC (4.00 - 5.20 M/uL) 4.50 Hgb (12.0 - 16.0 gm/dL) 13.8 Hct (36.0 - 46.0 %) 40.7 MCV (80 - 100 fL) 90 MCH (26 - 34 pg) 31 RDW (11.6 - 14.8 %) 13.1 Neut % (Auto) (50 - 75 %) 60.9 Lymph % (Auto) (25 - 40 %) 23.2 [place] % (Auto) (3 - 14 %) 10.0 Eos % (Auto) (0 - 4 %) 4.1 Baso % (Auto) (0 - 2 %) 1.8 Plt Count, EDTA (150 - 400 K/uL) 395 PUBS MCHC (31 - 37 g/dL) 34 Urines Urine Color YELLOW Urine Appearance CLEAR Urine pH (5.0 - 8.0) 7.5 Ur Specific [place] (1.010 - 1.030) 1.010 Urine Protein (NEGATIVE) NEGATIVE Urine Ketones (NEGATIVE) NEGATIVE Urine Blood (NEGATIVE) NEGATIVE Urine Nitrite (NEGATIVE) NEGATIVE Urine Bilirubin (NEGATIVE) NEGATIVE Urine Urobilinogen (0.2 - 1.0 EU/dL) 0.2 Ur Leukocyte Esterase (NEGATIVE) NEGATIVE Urine RBC (0 - 1 rbc/hpf) 0-1 Urine WBC (0 - 1 wbc/hpf) 0-1 Ur Epithelial Cells (0 - 5 EPI/hpf) 0-1 Urine Bacteria (NONE SEEN) NONE SEEN Urine Glucose (NEGATIVE) NEGATIVE Urine Comment CULT NOT INDICATED Assessment and Plan Problem List 1. Small bowel obstruction Plan Better this am. D/C home today. 2. Dehydration Plan From SBO improving 3. Hypercalcemia Plan has hx of this going up with dehydration and resolves as out patient.
--- NOTE | 2017-01-26 07:19 | Provider's Discharge Care Plan ---
Problem, Goal, Plan Problem List 1. Small bowel obstruction Instructions: Follow up as directed, Take meds as directed
--- NOTE | 2017-01-26 07:19 | Provider's Discharge Care Plan ---
Problem, Goal, Plan Problem List 1. Small bowel obstruction Instructions: Follow up as directed, Take meds as directed
== END 2017-01-26 10:30 | disposition home or self-care (01) | DRG 390 ==
LOC: ED SRH 20:20 → TRANS SRH 23:41 → ACUTE2 SRH 01-26 01:00 → TRANS SRH 01-26 01:00 → ACUTE2 SRH 01-26 01:01 → TRANS SRH 01-26 01:02 → ACUTE2 SRH 01-26 01:02
PROVIDERS: ADMIT Internal Medicine
PROC: 0D9670Z Drainage of Stomach with Drainage Device, Via Natural or Artificial Opening (ICD-10-PCS; principal; 2017-01-25)
DX: K56.60 Unspecified intestinal obstruction (principal); E87.6 Hypokalemia; E86.0 Dehydration; E83.52 Hypercalcemia; R74.8 Abnormal levels of other serum enzymes; K21.9 Gastro-esophageal reflux disease without esophagitis; Z93.2 Ileostomy status; Z95.828 Presence of other vascular implants and grafts

== ENCOUNTER 2017-02-17 20:53 | Observation (INO) | payer OTHER ==
[~2017-02-17] VITALS: Ht 154.9 cm; Wt 42.8 kg
--- NOTE | 2017-02-17 21:13 | ED ORDER SUMMARY ---
..... Patient: FELIPA VALERA [facility] VisitID: [id number] [address] [place] [address] 66y, F Registration Date/Time: 02/17/2017 ORDER SHEET Weight: 44.4 kg (stated) Allergies: Ampicillin, Celebrex, Morphine and Related, Paper tape, Penicillin GENERAL ORDERS: CBC w Diff Urgent (21:08 02/17/2017 HBivens A.R.N.P.) (Ack 21:12 AMcQuoid ER Tech1) (21:16 KKnebel R.N.) CMP Urgent (21:02/17/2017 HBivens A.R.N.P.) (Ack 21:12 AMcQuoid ER Tech1) (21:16 KKnebel R.N.) Abdomen 1V Urgent (21:10 02/17/2017 HBivens A.R.N.P.) (Ack 21:12 AMcQuoid ER Tech1) (21:57 MCampbell) NG Tube (21:02/17/2017 HBivens A.R.N.P.) (22:16 KKnebel R.N.) MEDICATION ORDERS: Afrin Nasal [place] 2 sprays (place at bedside) (21:58 02/17/2017 HBivens A.R.N.P.) (22:21 KKnebel R.N.) IV FLUIDS: IV NS : initial bolus 1000 mL (1000 mL/hr), then none - (NOW) (21:02/17/2017 HBivens A.R.N.P.) (21:33 KKnebel R.N.) Zofran IV 4 mg (NOW) (21:02/17/2017 HBivens A.R.N.P.) (21:34 KKnebel R.N.) Benadryl IV 50 mg (NOW) (21:02/17/2017 HBivens A.R.N.P.) (21:34 KKnebel R.N.) Dilaudid IV 1 mg (HIGH ALERT MEDICATION, NOW) (21:12 02/17/2017 HBivens A.R.N.P.) (21:36 KKnebel R.N.) ORDER SHEET NOTES: [Electronically signed by Lily Bryant R.N. (23:11 02/17/2017)] [Electronically signed by Natalie Rosa (13:05 02/18/2017)] [Electronically locked/signed by Lily Bryant R.N. (23:11 02/17/2017)]
--- NOTE | 2017-02-17 21:13 | ED CLINICAL REPORT ---
Clinical Report - Physicians/Mid Levels [facility] [address] [place] [address] 02/17/2017 20:53 Patient: FELIPA VALERA Time Seen: 21:05; initial patient contact, initial documentation, patient care assumed. Arrived- By private vehicle. Historian- patient. HISTORY OF PRESENT ILLNESS Chief Complaint: ABDOMINAL PAIN. At its maximum, severity described as severe. When seen in the E.D., severity described as severe. Modifying factors. Not worsened by anything. Not relieved by anything. This started just prior to arrival. It was abrupt in onset and has been constant. It is described as "pain" and diffuse. No radiation. The patient has had nausea and vomiting. No loss of appetite or diarrhea. No additional abdominal pain. No recent travel. Similar symptoms previously: Chronically, as bad. REVIEW OF SYSTEMS No constipation, black stools, hematemesis, difficulty with urination or pain with urination. No urinary frequency, bloody stools, fever, chest pain or difficulty breathing. All systems otherwise negative, except as recorded above. PAST HISTORY See nurses notes. PROBLEMS: Port-a-cath (L subclavian). Colon Cancer. Nausea. Gastroesophageal Reflux Disease. Abnormal Test. Toxic megacolon. GI Disease. Tetanus Status. Laceration. Enteritis. Hypokalemia. Abdominal Pain. Hypercalcemia. Bowel Obstruction. Abnormal Liver Function Test. Dehydration. Immunizations. LNMP - Last Normal Menstrual Period. Small bowel obstruction. Fistula. Ileostomy present. --21:03 Lily Bryant R.N. Pancreatitis [RuleOut]. --21:03 Lily Bryant R.N. ADDITIONAL SURGERIES: Abd fistula. Bunionectomy. Colostomy. Ileostomy. Knee Surgery. Laparoscopy. Sinus Surgery. --21:03 Lily Bryant R.N. SOCIAL HISTORY Former smoker. Occasional alcohol use. No drug use. No recent travel. Is a local resident. She lives with spouse. FAMILY HISTORY Negative. ADDITIONAL NOTES The nursing notes have been reviewed with agreement regarding the chief complaint, HPI, ROS, PMH and patient medications and allergies. PHYSICAL EXAM Vital Signs: 02/17/2017 21:01 BP: 95/82. HR: 78. RR: 20. O2 saturation: 98%. Temp: 97.6 F. Pain level now: 08/18. Have been reviewed as abnormal and appear to be correct. Hypotensive. Heart rate normal. Respiratory rate normal. Temperature normal. Oxygen saturation normal. Appearance: Alert. Oriented X3. No acute distress. Eyes: Pupils equal, round and reactive to light. Eyes normal inspection. Neck: Normal inspection. Neck supple. CVS: Normal heart rate and rhythm. Heart sounds normal. Pulses normal. Respiratory: No respiratory distress. Breath sounds normal. Chest nontender. Abdomen: Moderate tenderness diffusely with guarding present. No rebound tenderness or Macias's, obturator or psoas sign present. Bowel sounds normal. No organomegaly. No mass. Distention with tenderness to palpation. No tympany to percussion or dullness to percussion. Not soft. Tenderness present. (ostomy bag in place and ostomy site looks unremarkable). Back: Normal inspection. Skin: Skin warm and dry. Normal skin color. No rash. Normal skin turgor. Extremities: Extremities exhibit normal ROM. No lower extremity edema. Neuro: Oriented X 3. No motor deficit. No sensory deficit. LABS, X-RAYS, AND EKG X-Rays: KUB. KUB: (IMPRESSION: 1. Moderately dilated bowel loops consistent with small bowel obstruction. Electronically Final signed by:Jesus Stafford MD 02/17/2017 11:22:09 PM). The X-rays were interpreted by the radiologist and discussed with the radiologist. Laboratory Tests: CBC w Diff: (ELIAS: 02/17/2017 21:15) ( MsgRcvd 02/17/2017 21:26) IP Test Result Flag Units (Reference) WHITE BLOOD COUNT 6.9 K/uL (4.5-11.5) MANUAL DIFFERENTIAL TO FOLLOW. RED BLOOD COUNT 5.05 M/uL (4.00-5.20) HEMOGLOBIN 15.4 gm/dL (12.0-16.0) HEMATOCRIT 45.9 % (36.0-46.0) MEAN CELL VOLUME 91 fL (80-100) MEAN CORPUSCULAR HGB 30 pg (26-34) MEAN CORPUSCULAR HGB CONC 33 g/dL (31-37) RED CELL DISTRIBUTION WIDTH 13.8 % (11.6-14.8) PLATELET COUNT 358 K/uL (150-400) CMP: (ELIAS: 02/17/2017 21:15) ( MsgRcvd 02/17/2017 21:38) Final results Test Result Flag Units (Reference) GLUCOSE 190 H mg/dL (70-110) BUN 33 H mg/dL (7-18) CREATININE 1.5 H mg/dL (0.6-1.3) Estimated GFR 37.16 mL/min Estimated GFR- 45.03 mL/min Note: Persistent reduction over 3 months in eGFR<60 mL/min/1.73 m2 defines CKD. Patients with eGFR values>=60 mL/min/1.73 m2 may also have CKD if evidence ofpersistent proteinuria. Additional information may be foundat www.kidney.org. SODIUM 139 mmol/L (136-145) POTASSIUM 3.0 L mmol/L (3.5-5.1) CHLORIDE 96 L mmol/L (98-107) CARBON DIOXIDE 22 mmol/L (21-32) CALCIUM 12.7 *H mg/dL (8.5-10.1) CRITICAL RESULTS CALLEDCalled to Leno CROSS 02/17/17 [id number] 2 patient identifiers used? YWas the result read back? Y TOTAL PROTEIN 9.5 H g/dL (6.4-8.2) ALBUMIN 5.3 H g/dL (3.3-5.0) BILIRUBIN, TOTAL 0.4 mg/dL (0.0-1.0) ALKALINE PHOSPHATASE 93 U/L (46-116) AST (SGOT) 48 H U/L (15-37) ALT (SGPT) 52 U/L (12-78) . PROGRESS AND PROCEDURES Course of Care: 21:43 02/17/17. Dr Noguera here. Discussed case with patient's primary care provider, (call returned [phone] Dr Noguera). Reviewed test results. Agreed upon treatment plan and decision to admit. Health care provider will see patient in ED. Patient and spouse counseled in person regarding the patient's stable condition, test results, diagnosis and need for admission. Differential Diagnosis: I considered gastritis, gastroenteritis, peptic ulcer disease, gastroesophageal reflux disease, diverticulitis, colon cancer, ulcerative colitis, Crohn's disease, intussusception, small bowel obstruction, adhesions, bowel ischemia, bowel perforation, functional bowel problems, obstipation and viral syndrome as a possible cause of abdominal pain in this patient. This is a partial list of diagnoses considered. Above considerations are based on history, physical exam, reassessment, laboratory data and X-Ray data. Differential diagnosis was discussed with patient and patient's spouse. Disposition: Condition: good and stable. CLINICAL IMPRESSION Chronic abdominal pain. Complete small bowel obstruction. (Electronically signed by Natalie Rosa A.R.N.P. 02/18/2017 13:05)
--- NOTE | 2017-02-17 21:13 | ED NURSING NOTES ---
Clinical Report - [facility] [address] [place] [address] 02/17/2017 20:53 Patient: FELIPA VALERA TRIAGE Triage time 21:Feb 17 2017. Acuity: LEVEL 3. Chief Complaint: ABDOMINAL PAIN, NAUSEA and VOMITING. --21: Lily Bryant R.N. 21:01 02/17/17. BP: 95/82. HR: 78. RR: 20. O2 saturation: 98%. Temp: 97.6 F. Pain level now: 08/18. --21: Lily Bryant R.N. Weight: 44.4 kg stated. Height/Length: 61 inches Per Patient. BMI: 18.5. --21: Lily Bryant R.N. Medications Fish Oil Oral (Capsule 1000 mg) 1 capsule, daily. Glucosamine Oral 1500 mg, daily. Lutein Oral. Multivital Oral. Omeprazole Oral 20 mg, 2x a day. Vitamin B Complex Oral. Zyrtec. --21:02 Lily Bryant R.N. Allergies Ampicillin. Celebrex. Morphine and Related. Paper tape. --21:02 Lily Bryant R.N. Penicillin. --21:02 Lily Bryant R.N. History Arrived by private vehicle. Historian: patient and family. Accompanied by family. This started just prior to arrival. Treatment [employer] [facility]: None. PAST MEDICAL HX: Immunizations: up-to-date. SOCIAL HX: Former smoker, end date 2001. Regular alcohol use; consumes four liquor weekly. No drug use. No recent travel. No infectious disease exposure. No known contact with a sick individual. SELF HARM ASSESSMENT: A self harm assessment was performed. The patient answered "no" to the question "Do you have thoughts of harming or killing yourself?". FALL RISK ASSESSMENT: Fall risk assessment completed. No fall risk identified. NUTRITIONAL RISK ASSESSMENT: The nutritional risk assessment revealed no deficiencies. FUNCTIONAL ASSESSMENT: Functional assessment: no impairments noted. LEARNING NEEDS ASSESSMENT: The learning needs assessment revealed no barriers. ABUSE ASSESSMENT: Abuse assessment: The patient was asked "Do you feel safe in your home?". SKIN INTEGRITY ASSESSMENT: Skin integrity risk assessment completed. No skin integrity risk identified. --21:08 Lily Bryant R.N. PROBLEMS: Port-a-cath (L subclavian). Colon Cancer. Nausea. Gastroesophageal Reflux Disease. Abnormal Test. Toxic megacolon. GI Disease. Tetanus Status. Laceration. Enteritis. Hypokalemia. Abdominal Pain. Hypercalcemia. Bowel Obstruction. Abnormal Liver Function Test. Dehydration. Immunizations. LNMP - Last Normal Menstrual Period. Small bowel obstruction. Fistula. Ileostomy present. --21:03 Lily Bryant R.N. Pancreatitis [RuleOut]. --21:03 Lily Bryant R.N. ADDITIONAL SURGERIES: Abd fistula. Bunionectomy. Colostomy. Ileostomy. Knee Surgery. Laparoscopy. Sinus Surgery. --21:03 Lily Bryant R.N. Interventions ID band on patient. To room. --21:08 Lily Bryant R.N. PHYSICAL ASSESSMENT GENERAL / NEURO / PSYCH: Alert. Oriented X 4. Appears in pain. RESPIRATORY: Respirations not labored. CVS: Capillary refill less than 2 seconds. GI / : The patient has had nausea. Emesis noted. Has vomited several times. Abdominal distention. Abdominal tenderness. Abnormal bowel sounds present in the RUQ and RLQ. The bowel sounds are not diminished. ( colostomy with only clear fluid in bag). SKIN: Skin is warm and dry. --21:10 Lily Bryant R.N. NURSING PROGRESS NOTES Pulse oximeter and NIBP monitor placed on patient; monitor alarms on. Patient gowned. Head of bed elevated. Two patient identifiers checked. Call light placed in reach. Side rails up x 1. Bed placed in lowest position. --21:10 Lily Bryant R.N. 21:18 02/17/2017 Site #1 accessed indwelling [place] in the left subclavian using a 20g non-coring needle; 1 attempt. Good blood return noted. Site prepped with chlorhexidine. Blood drawn: rainbow set. Labeled in the presence of the patient and sent to the lab. Flushed with 10 mL saline. --21:33 Lily Bryant R.N. 21:18 02/17/2017 Started bag #1 1000 mL IV Fluids IV NS (Saline); bolus of 1000 mL over 1 hour(s) via site #1 via IV pump. Allergies verified and confirmed 5 rights. IV patency established. IV site checked: no pain, redness, or swelling. IV flushed thoroughly pre- and post-medication administration. --21:33 Lily Bryant R.N. <<STRICKEN ENTRY-- 21:20 02/17/2017 Site #1 started via central line in the left with an 20g angiocath, with aseptic technique and good blood return; one attempt. Blood drawn: rainbow set. Labeled in the presence of the patient and sent to the lab. Saline lock flushed with 10 mL saline. --21:30 Lily Bryant R.N. --END STRIKE>> Correction. --21:33 Lily Bryant R.N. 21:24 02/17/2017 Zofran (Ondansetron HCl) IVP 4 mg given over 2 minute(s) via site #1. Allergies verified and confirmed 5 rights. IV patency established. IV site checked: no pain, redness, or swelling. IV flushed thoroughly pre- and post-medication administration. IVP given by RN. --21:34 Lily Bryant R.N. 21:26 02/17/2017 Benadryl (DiphenhydrAMINE HCl) IVP 50 mg given over 2 minute(s) via site #1. Allergies verified, confirmed 5 rights and sedative warning given to the patient and patient's family. IV patency established. IV site checked: no pain, redness, or swelling. IV flushed thoroughly pre- and post-medication administration. IVP given by RN. --21:34 Lily Bryant R.N. 21:31 02/17/2017 Dilaudid (HYDROmorphone HCl PF) IVP 1 mg given over 2 minute(s) via site #1. Allergies verified, confirmed 5 rights and sedative warning given to the patient. IV patency established. IV site checked: no pain, redness, or swelling. IV flushed thoroughly pre- and post-medication administration. IVP given by RN. --21:36 Lily Bryant R.N. Critical value relayed to ED by Hieu. Critical value received by Lily. Calcium: 12.7. Critical value read back. Verified lab result and patient ID. [employer] PEGGER notifed of critical value (Bivans). Orders were not received. Nurse practitioner notified. --21:37 Lily Bryant R.N. 16 fr NG tube inserted in left nostril with minimal difficulty. Placement confirmed by auscultation and return of gastric contents. Return: clear, yellow fluid. Tube secured. Attached to low and intermittent suction. Patient tolerated procedure well. (22:17 Feb 17 2017). --22:18 Lily Bryant R.N. 22:11 02/17/2017 Afrin (Oxymetazoline HCl) Nasal [place] 2 spray given. Given in the left nare. Allergies verified and confirmed 5 rights. --22:21 Lily Bryant R.N. DISPOSITION / DISCHARGE 22:40 02/17/17. Report was given to a nurse via a phone call. Report included patient's care, treatment, medications, reviewed medication reconcilliation, and condition (including any recent changes or anticipated changes). All questions were answered. Report was acknowledged. (aaron). --22:50 Lily Bryant R.N. Patient's personal items include: pajamas, glasses, jewelry and cell phone, sweat shirt slippers, clear stud earrings,; items were placed in belongings bag, given to the patient and transported with the patient. --22:51 Lily Bryant R.N. Departure time: 23:06 Feb 17 2017. --23:06 Lily Bryant R.N. Locked/Released at 02/17/2017 23:11 by Lily Bryant R.N.
--- NOTE | 2017-02-17 21:13 | ED ORDER SUMMARY ---
..... Patient: FELIPA VALERA OrderSheet [facility] VisitID: [id number] [address] [place] [address] 66y, F Registration Date/Time: 02/17/2017 ORDER SHEET Weight: 44.4 kg (stated) Allergies: Ampicillin, Celebrex, Morphine and Related, Paper tape, Penicillin GENERAL ORDERS: CBC w Diff Urgent (21:08 02/17/2017 HBivens A.R.N.P.) (Ack 21:12 AMcQuoid ER Tech1) (21:16 KKnebel R.N.) CMP Urgent (21:02/17/2017 HBivens A.R.N.P.) (Ack 21:12 AMcQuoid ER Tech1) (21:16 KKnebel R.N.) Abdomen 1V Urgent (21:10 02/17/2017 HBivens A.R.N.P.) (Ack 21:12 AMcQuoid ER Tech1) (21:57 MCampbell) NG Tube (21:02/17/2017 HBivens A.R.N.P.) (22:16 KKnebel R.N.) MEDICATION ORDERS: Afrin Nasal [place] 2 sprays (place at bedside) (21:58 02/17/2017 HBivens A.R.N.P.) (22:21 KKnebel R.N.) IV FLUIDS: IV NS : initial bolus 1000 mL (1000 mL/hr), then none - (NOW) (21:02/17/2017 HBivens A.R.N.P.) (21:33 KKnebel R.N.) Zofran IV 4 mg (NOW) (21:02/17/2017 HBivens A.R.N.P.) (21:34 KKnebel R.N.) Benadryl IV 50 mg (NOW) (21:02/17/2017 HBivens A.R.N.P.) (21:34 KKnebel R.N.) Dilaudid IV 1 mg (HIGH ALERT MEDICATION, NOW) (21:12 02/17/2017 HBivens A.R.N.P.) (21:36 KKnebel R.N.) ORDER SHEET NOTES: [Electronically signed by Lily Bryant R.N. (23:11 02/17/2017)] [Electronically signed by Natalie Rosa (13:05 02/18/2017)] [Electronically locked/signed by Lily Bryant R.N. (23:11 02/17/2017)]
--- NOTE | 2017-02-17 21:48 | Progress Note ---
Subjective General 66 y.o. female who has recurrent SBO ; recent abx then constipation and now SBO as of 4:00 pm today. N/V/D. High CA, n/v abdominal pain. Plan: IVF, NGT, pain meds likely less than 48hrs admit.
--- NOTE | 2017-02-17 23:25 | DIAGNOSTIC IMAGING REPORT ---
PROCEDURE: XR ABDOMEN 1 VIEW INDICATION: Obstruction. Right lower quadrant ostomy. TECHNIQUE: AP upright view. COMPARISON: Compared to abdominal radiograph on 01/25/2017. FINDINGS: Moderately dilated small bowel loops with multiple air-fluid levels and right lower quadrant ostomy. Moderate ingested fluid in the stomach. No evidence of free air. Multiple surgical clips overlying the left abdomen. IMPRESSION: 1. Moderately dilated bowel loops consistent with small bowel obstruction.
[2017-02-17 23:29] VITALS: BP 120/76
--- NOTE | 2017-02-18 00:19 | HISTORY AND PHYSICAL ---
ADMITTED: 02/17/2017 CHIEF COMPLAINT: 1. Abdominal pain, nausea, vomiting, dehydration HISTORY OF PRESENT ILLNESS: The patient states that she was at home and doing okay until 4 p.m. today, at which point, she had abrupt onset of severe nausea, vomiting and abdominal pain. 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 She is currently with lots of nausea, vomiting and just having a repeat episode of small bowel obstruction. MEDICAL/SURGICAL HISTORY: Past medical history: She has had numerous small bowel obstructions, acid reflux, enteritis, abdominal pain, dehydration, hypercalcemia , fistula, ileostomy, arthritis. Past surgical history: She has had fistula repair a couple times, small bowel obstructions, hospitalizations, bunion surgery, colostomy, partial colon removal, sinus surgery and nose surgery. MEDICATIONS: 1. Zyrtec 10 mg a day. 2. Tramadol 50 mg p.o. four times a day. 3. Vitamin D 3000 international units p.o. daily. 4. Aleve 220 mg p.o. b.i.d. 5. Omeprazole 20 mg p.o. b.i.d. 6. Fish oil 1000 mg p.o. daily. 7. Multivitamin 1 p.o. daily. 8. QVAR 1 spray each nostril b.i.d. 9. Lutein 20 mg p.o. daily. 10. Vitamin B12 1000 mcg p.o. daily. 11. Glucosamine chondroitin 500 mg 1-3 capsules daily. 12. Patanol eyedrops 0.1% solution 1 drop every 2 hours as needed for itchy eyes. ALLERGIES: 1. CELEBREX. 2. MORPHINE. 3. AMOXICILLIN. 4. PAPER TAPE. CODE STATUS: FULL. SOCIAL HISTORY: She is . She quit smoking in 1994. She drinks a couple drinks per week and she denies any drug use. FAMILY HISTORY: Mom of melanoma at age 48. Father is still alive. She has 2 brothers and a sister alive and well. REVIEW OF SYSTEMS: Notable for the abdominal pain, colostomy status, nausea, vomiting and feeling dehydrated. Denies fevers. Denies black or bloody stools. Denies any sick contacts. PHYSICAL EXAMINATION: GENERAL: She is a sleepy-appearing female who appears relatively comfortable after pain medications in the emergency department. VITAL SIGNS: Blood pressure of 95/82, heart rate of 78, respirations 20, temperature 97.6 and saturating 98% on room air. HEENT: Extraocular movements intact. Pupils equal, round, reactive to light. Oropharynx with moist mucous membranes. NECK: Supple without lymphadenopathy. LUNGS: Clear to auscultation bilaterally. HEART: Regular rate and rhythm. No murmur. ABDOMEN: Soft, nontender, nondistended. She has a colostomy bag in her right lower abdomen. No significant tenderness after pain medicines at this point. EXTREMITIES: No edema, no sores. GENITOURINARY: Deferred. RECTAL: Deferred. BREASTS: Deferred. LAB/IMAGING: White count of 6.9, hematocrit of 45.9 and platelets of 358. Comprehensive metabolic panel: Glucose 190, BUN of 33, creatinine 1.5, sodium 139, potassium 3.0, chloride of 96, carbon dioxide 22, calcium 12.7, total protein 9.5. Albumin 5.3, total bili 0.4, alk phos 93, AST of 48, ALT of 52. Upright abdominal x-ray: Shows air fluid levels consistent with small bowel obstruction. IMPRESSION: 1. Recurrent small bowel obstruction. 2. Dehydration. 3. Hypercalcemia. 4. Abdominal pain. 5. Nausea, vomiting. PLAN: IV fluids, nasogastric tube, pain medicines. Repeat calcium in the morning , which usually resolved with hydration in the past. Also, consider further workup if we continue to have elevated calciums once hydrated or other significant symptoms.
[2017-02-18 02:29] VITALS: BP 123/67
[2017-02-18 07:08] VITALS: BP 102/66
--- NOTE | 2017-02-18 07:19 | Progress Note ---
Subjective General Patient states that she is feeling much better would like to pull NGT try diet and go home like usual. No longer with abdominal pain or cp,sob. Physical Exam Vital Signs / I&Os Vital Signs Date Time Temp Pulse Resp B/P Pulse O2 O2 Flow FiO2 Ox Delivery Rate 02/18 0708 98.1 47 18 102/66 99 Room Air 02/18 0229 98.2 60 15 123/67 99 Room Air 02/18 0000 Room Air 02/17 2329 98.4 78 18 120/76 100 Room Air I&O 02/18 0000 02/17 1600 02/17 0800 Intake Total Output Total Balance General Appearance Alert, very thin Lungs Clear to auscultation, Normal air movement Cardiovascular Regular rate and rhythm Abdomen Soft, No tenderness Extremities No edema LAB Results Laboratory Tests 02/18 02/17 02/17 0525 2340 2115 Chemistry Plasma Sodium (136 - 145 mmol/L) 144 143 139 Plasma Potassium (3.5 - 5.1 mmol/L) 4.2 3.5 3.0 Plasma Chloride (98 - 107 mmol/L) 108 103 96 CO2 (Enzymatic) (21 - 32 mmol/L) 26 25 22 BUN (7 - 18 mg/dL) 32 34 33 Creatinine (0.6 - 1.3 mg/dL) 1.4 1.5 1.5 Est GFR ( Amer) (mL/min) 48.77 45.03 45.03 Est GFR (Non-Af Amer) (mL/min) 40.24 37.16 37.16 Glucose (70 - 110 mg/dL) 115 127 190 Plasma Calcium (8.5 - 10.1 mg/dL) 9.0 10.7 12.7 Total Bilirubin (0.0 - 1.0 mg/dL) 0.4 AST (15 - 37 U/L) 48 ALT (12 - 78 U/L) 52 Alkaline Phosphatase (46 - 116 U/L) 93 Total Protein (6.4 - 8.2 g/dL) 9.5 Albumin (3.3 - 5.0 g/dL) 5.3 Hematology WBC (4.5 - 11.5 K/uL) 6.9 RBC (4.00 - 5.20 M/uL) 5.05 Hgb (12.0 - 16.0 gm/dL) 15.4 Hct (36.0 - 46.0 %) 45.9 MCV (80 - 100 fL) 91 MCH (26 - 34 pg) 30 RDW (11.6 - 14.8 %) 13.8 Neut % (Auto) (50 - 75 %) 56 Lymph % (Auto) (25 - 40 %) 36 [place] % (Auto) (3 - 14 %) 4 Eos % (Auto) (0 - 4 %) 0 Baso % (Auto) (0 - 2 %) 0 Band Neutrophils % (0 - 8 %) 4 Metamyelocytes % (0 - 1 %) 0 Myelocytes (0 - 1 %) 0 Other Cell Type 0 Plt Count, EDTA (150 - 400 K/uL) 358 PUBS MCHC (31 - 37 g/dL) 33 Assessment and Plan Problem List 1. Small bowel obstruction Plan Recurrent, improved 2. Hypercalcemia Plan Has CA and is doing well. 3. Dehydration Plan Much improved 4. Abdominal pain Plan Has been doing well and d/c today. f/u as indicated.
--- NOTE | 2017-02-18 07:21 | Provider's Discharge Care Plan ---
Problem, Goal, Plan Problem List 1. Small bowel obstruction Instructions: Follow up as directed, Take meds as directed
--- NOTE | 2017-02-18 07:21 | Provider's Discharge Care Plan ---
Problem, Goal, Plan Problem List 1. Small bowel obstruction Instructions: Follow up as directed, Take meds as directed
--- NOTE | 2017-02-18 13:06 | ED MED RECONCILIATION SUMMARY ---
Patient: FELIPA VALERA Medication Reconciliation Report [facility] VisitID: [id number] [address] [place] [address] 66y, F Registration Date/Time: 02/17/2017 Weight: 44.4 kg Height/Length: 61 in. BMI: 18.5 ALLERGIES: Ampicillin, Celebrex, Morphine and Related, Paper tape, Penicillin The patient's Home Medications are listed below: THE FOLLOWING MEDICATIONS NEED TO BE RECONCILED: Fish Oil Oral (1000 mg) 1 capsule, daily Glucosamine Oral 1500 mg, daily Lutein Oral Multivital Oral Omeprazole Oral 20 mg, 2x a day Vitamin B Complex Oral Zyrtec The source(s) of the original Home Medication information: Not obtained. The following Medications were given to the patient in the Emergency Department: IV NS IV Fluids bolus 1000 mL over 1 hour(s), administered: 02/17/2017 9:18:00 PM Zofran [IVP] IVP 4 mg, administered: 02/17/2017 9:24:00 PM Benadryl [IVP] IVP 50 mg, administered: 02/17/2017 9:26:00 PM Dilaudid [IVP] IVP 1 mg, administered: 02/17/2017 9:31:00 PM Afrin [Nasal [place]] Nasal [place] 2 spray, administered: 02/17/2017 10:11:00 PM The following Medications were prescribed to the patient: None.
--- NOTE | 2017-02-18 13:06 | ED MAR SUMMARY ---
..... Medication Administration Record [facility] [address] [place] [address] Patient: FELIPA VALERA Visit ID: [id number] 66y, F Weight: 44.4 kg Height/Length: 61 in BMI: 18.5 ALLERGIES: Ampicillin, Celebrex, Morphine and Related, Paper tape, Penicillin Start 21:18 02/17/2017 Lily Bryant R.N. Medication Administered: IV NS (SALINE), Dose: IV Fluids, Bolus: 1000 mL over 1 hour(s), Dispensed: 1000 mL bag, Site: #1 left subclav. Medication Ordered: IV NS : initial bolus 1000 mL (1000 mL/hr), then none - (NOW). Given :02/17/2017 Lily Bryant R.N. Medication Administered: ZOFRAN [IVP] (ONDANSETRON HCL), Dose: 4 mg IVP over 2 minute(s), Site: #1 left subclav. Medication Ordered: Zofran IV 4 mg (NOW). Given :02/17/2017 Lily Bryant R.N. Medication Administered: BENADRYL [IVP] (DIPHENHYDRAMINE HCL), Dose: 50 mg IVP over 2 minute(s), Site: #1 left subclav. Medication Ordered: Benadryl IV 50 mg (NOW). Given :02/17/2017 Lily Bryant R.N. Medication Administered: DILAUDID [IVP] (HYDROMORPHONE HCL PF), Dose: 1 mg IVP over 2 minute(s), Site: #1 left subclav. Medication Ordered: Dilaudid IV 1 mg (HIGH ALERT MEDICATION, NOW). Given :02/17/2017 Lily Bryant R.N. Medication Administered: AFRIN [NASAL SPRAY] (OXYMETAZOLINE HCL), Dose: 2 spray Nasal [place]. Medication Ordered: Afrin Nasal [place] 2 sprays (place at bedside).
--- NOTE | 2017-02-18 13:06 | ED MED RECONCILIATION SUMMARY ---
Patient: FELIPA VALERA Medication Reconciliation Report [facility] VisitID: [id number] [address] [place] [address] 66y, F Registration Date/Time: 02/17/2017 Weight: 44.4 kg Height/Length: 61 in. BMI: 18.5 ALLERGIES: Ampicillin, Celebrex, Morphine and Related, Paper tape, Penicillin The patient's Home Medications are listed below: THE FOLLOWING MEDICATIONS NEED TO BE RECONCILED: Fish Oil Oral (1000 mg) 1 capsule, daily Glucosamine Oral 1500 mg, daily Lutein Oral Multivital Oral Omeprazole Oral 20 mg, 2x a day Vitamin B Complex Oral Zyrtec The source(s) of the original Home Medication information: Not obtained. The following Medications were given to the patient in the Emergency Department: IV NS IV Fluids bolus 1000 mL over 1 hour(s), administered: 02/17/2017 9:18:00 PM Zofran [IVP] IVP 4 mg, administered: 02/17/2017 9:24:00 PM Benadryl [IVP] IVP 50 mg, administered: 02/17/2017 9:26:00 PM Dilaudid [IVP] IVP 1 mg, administered: 02/17/2017 9:31:00 PM Afrin [Nasal [place]] Nasal [place] 2 spray, administered: 02/17/2017 10:11:00 PM The following Medications were prescribed to the patient: None.
--- NOTE | 2017-02-18 13:06 | ED DISCHARGE INSTRUCTIONS ---
Patient: FELIPA VALERA General Instructions [facility] VisitID: [id number] [address] [place] [address] 66y, F Registration Date/Time: 02/17/2017 Chronic abdominal pain. Complete small bowel obstruction. (Electronically signed by Natalie Rosa A.R.N.P. 02/18/2017 13:05)
--- NOTE | 2017-02-18 13:06 | ED MAR SUMMARY ---
..... Medication Administration Record [facility] [address] [place] [address] Patient: FELIPA VALERA Visit ID: [id number] 66y, F Weight: 44.4 kg Height/Length: 61 in BMI: 18.5 ALLERGIES: Ampicillin, Celebrex, Morphine and Related, Paper tape, Penicillin Start 21:18 02/17/2017 Lily Bryant R.N. Medication Administered: IV NS (SALINE), Dose: IV Fluids, Bolus: 1000 mL over 1 hour(s), Dispensed: 1000 mL bag, Site: #1 left subclav. Medication Ordered: IV NS : initial bolus 1000 mL (1000 mL/hr), then none - (NOW). Given :02/17/2017 Lily Bryant R.N. Medication Administered: ZOFRAN [IVP] (ONDANSETRON HCL), Dose: 4 mg IVP over 2 minute(s), Site: #1 left subclav. Medication Ordered: Zofran IV 4 mg (NOW). Given :02/17/2017 Lily Bryant R.N. Medication Administered: BENADRYL [IVP] (DIPHENHYDRAMINE HCL), Dose: 50 mg IVP over 2 minute(s), Site: #1 left subclav. Medication Ordered: Benadryl IV 50 mg (NOW). Given :02/17/2017 Lily Bryant R.N. Medication Administered: DILAUDID [IVP] (HYDROMORPHONE HCL PF), Dose: 1 mg IVP over 2 minute(s), Site: #1 left subclav. Medication Ordered: Dilaudid IV 1 mg (HIGH ALERT MEDICATION, NOW). Given :02/17/2017 Lily Bryant R.N. Medication Administered: AFRIN [NASAL SPRAY] (OXYMETAZOLINE HCL), Dose: 2 spray Nasal [place]. Medication Ordered: Afrin Nasal [place] 2 sprays (place at bedside).
--- NOTE | 2017-02-18 13:06 | ED DISCHARGE INSTRUCTIONS ---
Patient: FELIPA VALERA General Instructions [facility] VisitID: [id number] [address] [place] [address] 66y, F Registration Date/Time: 02/17/2017 Chronic abdominal pain. Complete small bowel obstruction. (Electronically signed by Natalie Rosa A.R.N.P. 02/18/2017 13:05)
== END 2017-02-18 09:25 | disposition home or self-care (01) ==
LOC: ED SRH 20:53 → TRANS SRH 21:18 → ACUTE2 SRH 23:18
PROVIDERS: ADMIT Emergency Medicine
PROC: 0D9670Z Drainage of Stomach with Drainage Device, Via Natural or Artificial Opening (ICD-10-PCS; principal; 2017-02-17)
DX: K56.60 Unspecified intestinal obstruction (principal); E86.0 Dehydration; E83.52 Hypercalcemia; Z87.891 Personal history of nicotine dependence; Z93.3 Colostomy status; Z85.038 Personal history of other malignant neoplasm of large intestine
CPT/HCPCS: 29230; 29262; 29264; 81523; 90047; 90074; 90100; 91643; 95059

== ENCOUNTER 2017-02-22 20:33 | Inpatient (IN) | payer OTHER ==
[~2017-02-22] VITALS: Ht 154.9 cm; Wt 46.8 kg
--- NOTE | 2017-02-22 22:13 | ED CLINICAL REPORT ---
Clinical Report - Physicians/Mid Levels [facility] [address] [place] [place] [address] 02/22/2017 20:33 Patient: FELIPA VALERA Time Seen: 22:00; initial patient contact, initial documentation, patient care assumed. Arrived- By private vehicle. Historian- patient and spouse. HISTORY OF PRESENT ILLNESS Chief Complaint: ABDOMINAL PAIN. At its maximum, severity described as severe. When seen in the E.D., severity described as severe. Modifying factors. Not worsened by anything. Not relieved by anything. It is described as "pain" and diffuse. No radiation. This started today and is still present. The patient has had nausea. No loss of appetite, vomiting or diarrhea. No additional abdominal pain. No recent travel. Similar symptoms previously: Chronically, as bad. Recent medical care: The patient was seen recently and hospitalized. ( admitted on 02/17 for sbo). REVIEW OF SYSTEMS No constipation, black stools, hematemesis, difficulty with urination or pain with urination. No urinary frequency, bloody stools, fever, chest pain or difficulty breathing. All systems otherwise negative, except as recorded above. PAST HISTORY See nurses notes. PAST HISTORY See nurses notes. PROBLEMS: Port-a-cath (L subclavian). Colon Cancer. Nausea. Gastroesophageal Reflux Disease. Abnormal Test. Toxic megacolon. GI Disease. Tetanus Status. Laceration. Enteritis. Hypokalemia. Abdominal Pain. Hypercalcemia. Bowel Obstruction. Abnormal Liver Function Test. Dehydration. Immunizations. LNMP - Last Normal Menstrual Period. Small bowel obstruction. Fistula. Ileostomy present. --21:03 Lily Bryant R.N. Pancreatitis [RuleOut]. --21:03 Lily Bryant R.N. ADDITIONAL SURGERIES: Abd fistula. Bunionectomy. Colostomy. Ileostomy. Knee Surgery. Laparoscopy. Sinus Surgery. --21:03 Lily Bryant R.N. SOCIAL HISTORY Former smoker. Occasional alcohol use. No drug use. No recent travel. Is a local resident. She lives with spouse. FAMILY HISTORY Negative. ADDITIONAL NOTES The nursing notes have been reviewed with agreement regarding the chief complaint, HPI, ROS, PMH and patient medications and allergies. PHYSICAL EXAM Vital Signs: 02/22/2017 21:08 BP: 119/84. HR: 102. RR: 18. O2 saturation: 99%. Temp: 98.2 F. Have been reviewed as abnormal and appear to be correct. Blood pressure normal. Tachycardic. Respiratory rate normal. Temperature normal. Oxygen saturation normal. Appearance: Alert. Oriented X3. No acute distress. Eyes: Pupils equal, round and reactive to light. Eyes normal inspection. Neck: Normal inspection. Neck supple. CVS: Normal heart rate and rhythm. Heart sounds normal. Pulses normal. (portacath L upper chest area). Respiratory: No respiratory distress. Breath sounds normal. Chest nontender. Abdomen: Severe tenderness diffusely with guarding present. No tenderness in the lower abdomen, rebound tenderness or Macias's, obturator or psoas sign present. Bowel sounds normal. No organomegaly. No mass. Distention with tenderness to palpation. No tympany to percussion or dullness to percussion. Not soft. Tenderness present. (ostomy bag in place with green color stool). Back: Normal inspection. Skin: Skin warm and dry. Normal skin color. No rash. Normal skin turgor. Extremities: Extremities exhibit normal ROM. No lower extremity edema. Neuro: Oriented X 3. No motor deficit. No sensory deficit. Reflexes normal. LABS, X-RAYS, AND EKG KUB: Normal abdominal study. (consistent with sbo). The X-rays were independently viewed by me. Laboratory Tests: CBC w Diff: (ELIAS: 02/22/2017 22:37) ( MsgRcvd 02/22/2017 22:46) Final results Test Result Flag Units (Reference) WHITE BLOOD COUNT 9.0 K/uL (4.5-11.5) RED BLOOD COUNT 4.65 M/uL (4.00-5.20) HEMOGLOBIN 14.1 gm/dL (12.0-16.0) HEMATOCRIT 41.6 % (36.0-46.0) MEAN CELL VOLUME 89 fL (80-100) MEAN CORPUSCULAR HGB 30 pg (26-34) MEAN CORPUSCULAR HGB CONC 34 g/dL (31-37) RED CELL DISTRIBUTION WIDTH 13.4 % (11.6-14.8) PLATELET COUNT 368 K/uL (150-400) LYMPH % 14.5 L % (25-40) MONO % 8.9 % (3-14) GRANULOCYTE % 76.6 (53-90) CMP: (ELIAS: 02/22/2017 22:37) ( MsgRcvd 02/22/2017 23:01) Final results Test Result Flag Units (Reference) GLUCOSE 114 H mg/dL (70-110) BUN 34 H mg/dL (7-18) CREATININE 1.9 H mg/dL (0.6-1.3) Estimated GFR 28.29 mL/min Estimated GFR- 34.28 mL/min Note: Persistent reduction over 3 months in eGFR<60 mL/min/1.73 m2 defines CKD. Patients with eGFR values>=60 mL/min/1.73 m2 may also have CKD if evidence ofpersistent proteinuria. Additional information may be foundat www.kidney.org. SODIUM 144 mmol/L (136-145) POTASSIUM 3.4 L mmol/L (3.5-5.1) CHLORIDE 103 mmol/L (98-107) CARBON DIOXIDE 28 mmol/L (21-32) CALCIUM 10.7 H mg/dL (8.5-10.1) TOTAL PROTEIN 7.7 g/dL (6.4-8.2) ALBUMIN 4.3 g/dL (3.3-5.0) BILIRUBIN, TOTAL 0.4 mg/dL (0.0-1.0) ALKALINE PHOSPHATASE 68 U/L (46-116) AST (SGOT) 30 U/L (15-37) ALT (SGPT) 35 U/L (12-78) . PROGRESS AND PROCEDURES Discussed case with patient's primary care provider, (call returned [phone]). Reviewed test results. Agreed upon treatment plan and decision to admit. Orders dictated to me. Health care provider will see patient in hospital. Differential Diagnosis: I considered gastritis, gastroenteritis, small bowel obstruction, adhesions, bowel ischemia, bowel perforation, functional bowel problems and obstipation as a possible cause of abdominal pain in this patient. This is a partial list of diagnoses considered. Above considerations are based on history, physical exam, laboratory data and X-Ray data. Differential diagnosis was discussed with patient and patient's spouse. Disposition: Admitted to Acute Care. 22:13. Condition: good and stable. CLINICAL IMPRESSION Chronic abdominal pain. Complete small bowel obstruction. (Electronically signed by Natalie Rosa A.R.N.P. 02/23/2017 0:02)
--- NOTE | 2017-02-22 22:14 | ED ORDER SUMMARY ---
..... Patient: FELIPA VALERA OrderSheet [facility] VisitID: [id number] [address] [place] [address] 66y, F Registration Date/Time: 02/22/2017 ORDER SHEET Weight: 43.0 kg (stated) Allergies: Ampicillin, Celebrex, Morphine and Related, Paper tape, Penicillin GENERAL ORDERS: Abdomen 1V Upright Urgent (22:12 02/22/2017 HBivens A.R.N.P.) (Ack 22:15 CHagerty ER Sail Cutter) (0:31 CHagerty ER Sail Cutter) CBC w Diff Urgent (22:13 02/22/2017 HBivens A.R.N.P.) (Ack 22:15 CHagerty ER Sail Cutter) (22:40 DDavis R.N.) CMP Urgent (22:13 02/22/2017 HBivens A.R.N.P.) (Ack 22:15 CHagerty ER Sail Cutter) (22:40 DDavis R.N.) NG Tube (22:13 02/22/2017 HBivens A.R.N.P.) (22:40 DDavis R.N.) MEDICATION ORDERS: Afrin Nasal [place] 2 sprays (place at bedside) (22:13 02/22/2017 HBivens A.R.N.P.) (Ack 22:41 DDavis R.N.) Lidocaine Topical 1 application (Nare, for NG insertion) (23:11 02/22/2017 DDavis R.N. verbal order read back to HBivens A.R.N.P.) (23:13 DDavis R.N.) IV FLUIDS: IV NS : initial bolus 1000 mL (1000 mL/hr), then 1000 mL/hr for X3 (NOW) (22:12 02/22/2017 HBivens A.R.N.P.) (Ack 22:41 DDavis R.N.) (23:06 DDavis R.N.) Zofran IV 4 mg (NOW) (22:12 02/22/2017 HBivens A.R.N.P.) (Ack 22:41 DDavis R.N.) (23:07 DDavis R.N.) Benadryl IV 50 mg (NOW) (22:12 02/22/2017 HBivens A.R.N.P.) (Ack 22:41 DDavis R.N.) (23:07 DDavis R.N.) Dilaudid IV 2 mg (HIGH ALERT MEDICATION, NOW) (22:12 02/22/2017 HBivens A.R.N.P.) (Ack 22:41 DDavis R.N.) (23:08 DDavis R.N.) IV Saline Lock (22:41 02/22/2017 DDavis R.N. verbal order read back to HBivens A.R.N.P.) (22:42 DDavis R.N.) Access Port a cath ORDER SHEET NOTES: [Electronically signed by Natalie RosaNBaileyPBailey (00:02 02/23/2017)] [Electronically signed by iRcky Sky R.N. (00:44 02/23/2017)] [Electronically locked/signed by iRcky Sky R.N. (00:44 02/23/2017)]
--- NOTE | 2017-02-22 22:14 | ED ORDER SUMMARY ---
..... Patient: FELIPA VALERA OrderSheet [facility] VisitID: [id number] [address] [place] [address] 66y, F Registration Date/Time: 02/22/2017 ORDER SHEET Weight: 43.0 kg (stated) Allergies: Ampicillin, Celebrex, Morphine and Related, Paper tape, Penicillin GENERAL ORDERS: Abdomen 1V Upright Urgent (22:12 02/22/2017 HBivens A.R.N.P.) (Ack 22:15 CHagerty ER Butter Printer) (0:31 CHagerty ER Butter Printer) CBC w Diff Urgent (22:13 02/22/2017 HBivens A.R.N.P.) (Ack 22:15 CHagerty ER Butter Printer) (22:40 DDavis R.N.) CMP Urgent (22:13 02/22/2017 HBivens A.R.N.P.) (Ack 22:15 CHagerty ER Butter Printer) (22:40 DDavis R.N.) NG Tube (22:13 02/22/2017 HBivens A.R.N.P.) (22:40 DDavis R.N.) MEDICATION ORDERS: Afrin Nasal [place] 2 sprays (place at bedside) (22:13 02/22/2017 HBivens A.R.N.P.) (Ack 22:41 DDavis R.N.) Lidocaine Topical 1 application (Nare, for NG insertion) (23:11 02/22/2017 DDavis R.N. verbal order read back to HBivens A.R.N.P.) (23:13 DDavis R.N.) IV FLUIDS: IV NS : initial bolus 1000 mL (1000 mL/hr), then 1000 mL/hr for X3 (NOW) (22:12 02/22/2017 HBivens A.R.N.P.) (Ack 22:41 DDavis R.N.) (23:06 DDavis R.N.) Zofran IV 4 mg (NOW) (22:12 02/22/2017 HBivens A.R.N.P.) (Ack 22:41 DDavis R.N.) (23:07 DDavis R.N.) Benadryl IV 50 mg (NOW) (22:12 02/22/2017 HBivens A.R.N.P.) (Ack 22:41 DDavis R.N.) (23:07 DDavis R.N.) Dilaudid IV 2 mg (HIGH ALERT MEDICATION, NOW) (22:12 02/22/2017 HBivens A.R.N.P.) (Ack 22:41 DDavis R.N.) (23:08 DDavis R.N.) IV Saline Lock (22:41 02/22/2017 DDavis R.N. verbal order read back to HBivens A.R.N.P.) (22:42 DDavis R.N.) Access Port a cath ORDER SHEET NOTES: [Electronically signed by Natalie RosaNBaileyPBailey (00:02 02/23/2017)] [Electronically signed by Ricky Sky R.N. (00:44 02/23/2017)] [Electronically locked/signed by Ricky Sky R.N. (00:44 02/23/2017)]
--- NOTE | 2017-02-22 22:14 | ED NURSING NOTES ---
Clinical Report - Nurses [facility] [address] [place] [address] 02/22/2017 20:33 Patient: FELIPA VALERA TRIAGE Triage time 21:Feb 22 2017. Acuity: LEVEL 3. Chief Complaint: ABDOMINAL PAIN and NAUSEA. Alert. No acute distress. --21:12 Yuliana Stout R.N. 21:08 02/22/17. BP: 119/84. HR: 102. RR: 18. O2 saturation: 99%. Temp: 98.2 F. Pain level now 08/18. --21:12 Yuliana Stout R.N. Weight: 43 kg stated. Height/Length: 61 inches Per Patient. BMI: 17.9. --21:08 Yuliana Stout R.N. Medications Fish Oil Oral (Capsule 1000 mg) 1 capsule, daily. Glucosamine Oral 1500 mg, daily. Lutein Oral. Multivital Oral. Omeprazole Oral 20 mg, 2x a day. Vitamin B Complex Oral. Zyrtec. --21:10 Yuliana Stout R.N. Medication/allergy information source: the patient. --21:12 Yuliana Stout R.N. Allergies Ampicillin. Celebrex. Morphine and Related. Paper tape. Penicillin. --21:10 Yuliana Stout R.N. History Arrived by private vehicle. Historian: patient. Accompanied by family. Primary physician (Dr. Noguera). ( Abdominal Pain, started tonight, PMH of SBO's. Was admitted for SBO on last visit. Here with . Nauseated, no vomiting yet.). This started just prior to arrival. She has had nausea. 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 SOCIAL HX: Former smoker. Occasional alcohol use. (2 drinks tonight). No drug use. FALL RISK ASSESSMENT: Fall risk assessment completed. No fall risk identified. NUTRITIONAL RISK ASSESSMENT: The nutritional risk assessment revealed no deficiencies. FUNCTIONAL ASSESSMENT: Functional assessment: no impairments noted. LEARNING NEEDS ASSESSMENT: The learning needs assessment revealed no barriers. SKIN INTEGRITY ASSESSMENT: Skin integrity risk assessment completed. No skin integrity risk identified. --21:12 Yuliana Stout R.N. PROBLEMS: Port-a-cath (L subclavian). Colon Cancer. Nausea. Gastroesophageal Reflux Disease. Abnormal Test. Toxic megacolon. GI Disease. Tetanus Status. Laceration. Enteritis. Hypokalemia. Abdominal Pain. Hypercalcemia. Bowel Obstruction. Abnormal Liver Function Test. Dehydration. Immunizations. LNMP - Last Normal Menstrual Period. Small bowel obstruction. Fistula. Ileostomy present. --21:10 Yuliana Stout R.N. Pancreatitis [RuleOut]. --21:10 Yuliana Stout R.N. ADDITIONAL SURGERIES: Abd fistula. Bunionectomy. Colostomy. Ileostomy. Knee Surgery. Laparoscopy. Sinus Surgery. --21:10 Yuliana Stout R.N. Interventions ID band on patient. To waiting room. --21:12 Yuliana Stout R.N. PHYSICAL ASSESSMENT ( Patient states having diffuse abdominal pain starting today, and states having a history of multiple intestinal blockages. She states that this feels the same as her previous blockages. She has a implanted port on the left anterior chest and a colostomy in place. She states being discharged on "thursday".). GENERAL / NEURO / PSYCH: Alert. Oriented X 4. CVS: Capillary refill less than 2 seconds. GI / : Abdominal distention. Abdomen soft. Abdominal tenderness. Hyperactive bowel sounds. --22:06 Ricky Sky R.N. NURSING PROGRESS NOTES Patient gowned. Head of bed elevated. Two patient identifiers checked. Call light placed in reach. Side rails up x 1. Bed placed in lowest position. Brakes of bed on. Patient ready for evaluation- chart flagged. Patient waiting for evaluation. --22:04 Ricky Sky R.N. ( Patient moved to ER room at 2203). --22:04 Ricky Sky R.N. 22:30 02/22/2017 Lidocaine Topical Gel/Foam 1 application. Allergies verified and confirmed 5 rights. (Left Nare). --23:13 Ricky Sky R.N. 22:32 02/22/2017 Afrin Nasal [place] 2 sprays (place at bedside) was refused by patient because of preferred lidocaine. Ricky Sky --22:43 Ricky Sky R.N. 22:40 02/22/2017 Site #1 accessed indwelling Powerport in the left; 1 attempt. Good blood return noted. Site prepped with chlorhexidine. Blood drawn: rainbow set. Labeled in the presence of the patient and sent to the lab. Flushed with 20 mL saline. --22:42 Ricky Sky R.N. 22:56 02/22/2017 Started bag #1 1000 mL IV Fluids IV NS (Saline); at 1000 mL/hr over 1 hour(s) via site #1 via IV pump. Allergies verified and confirmed 5 rights. IV patency established. IV site checked: no pain, redness, or swelling. IV flushed thoroughly pre- and post-medication administration. --23:06 Ricky Sky R.N. 23:02 02/22/2017 Zofran (Ondansetron HCl) IVP 4 mg given over 1 minute(s) via site #1. Allergies verified and confirmed 5 rights. IV patency established. IV site checked: no pain, redness, or swelling. IV flushed thoroughly pre- and post-medication administration. IVP given by RN. --23:07 Ricky Sky R.N. 23:03 02/22/2017 Benadryl (DiphenhydrAMINE HCl) IVP 50 mg given over 2 minute(s) via site #1. Allergies verified, confirmed 5 rights and sedative warning given to the patient. IV patency established. IV site checked: no pain, redness, or swelling. IV flushed thoroughly pre- and post-medication administration. IVP given by RN. --23:07 Ricky Sky R.N. 23:04 02/22/2017 Dilaudid (HYDROmorphone HCl PF) IVP 2 mg given over 2 minute(s) via site #1. Allergies verified, confirmed 5 rights and sedative warning given to the patient. IV patency established. IV site checked: no pain, redness, or swelling. IV flushed thoroughly pre- and post-medication administration. IVP given by RN. --23:08 Ricky Sky R.N. ( 700 ML clear green output from NG tube). --00:37 Ricky Sky R.N. ( 300 ML brown output from NG tube). --00:41 Ricky Sky R.N. DISPOSITION / DISCHARGE Departure time: 00:42. Condition at departure: stable. Transported via stretcher by transport team with IV. Report was given to a nurse via a phone call. Report included patient's care, treatment, medications, reviewed medication reconcilliation, and condition (including any recent changes or anticipated changes). All questions were answered. Report was acknowledged. (Anderson SHERMAN). Patient's personal items include: shirt, pants, purse and cell phone; items were transported with the patient. --00:42 Ricky Sky R.N. ( Report given to WHIT Barron receiving RN for inpatient care.). --00:43 Ricky Sky R.N. 00:43 02/23/17. RR: 18. --00:43 Ricky Sky R.N. 00:31 02/23/17. BP: 108/73. HR: 89. O2 saturation: 99% on room air. --00:43 Ricky Sky R.N. Locked/Released at 02/23/2017 0:44 by Ricky Sky R.N.
[2017-02-23] VITALS (7 sets, daily range): BP systolic 97–121; BP diastolic 52–82
--- NOTE | 2017-02-23 00:14 | DIAGNOSTIC IMAGING REPORT ---
PROCEDURE: XR ABDOMEN 1 VIEW UPRIGHT INDICATION: Obstruction. Right lower quadrant ostomy. TECHNIQUE: AP upright view. COMPARISON: Comparison made abdominal radiograph on 02/17/2017. FINDINGS: There are moderately to severely dilated central small bowel loops with multiple air-fluid levels. There is moderate fluid distention of the stomach. An NG tube has been placed in the mid stomach. There is no evidence of free air. Multiple surgical clips overlying the left abdomen. IMPRESSION: 1. High-grade small bowel obstruction. 2. Placement of NG tube in mid stomach.
--- NOTE | 2017-02-23 00:57 | ED MED RECONCILIATION SUMMARY ---
Patient: FELIPA VALERA Medication Reconciliation Report [facility] VisitID: [id number] [address] [place] [address] 66y, F Registration Date/Time: 02/22/2017 Weight: 43.0 kg Height/Length: 61 in. BMI: 17.9 ALLERGIES: Ampicillin, Celebrex, Morphine and Related, Paper tape, Penicillin The patient's Home Medications are listed below: THE FOLLOWING MEDICATIONS NEED TO BE RECONCILED: Fish Oil Oral (1000 mg) 1 capsule, daily Glucosamine Oral 1500 mg, daily Lutein Oral Multivital Oral Omeprazole Oral 20 mg, 2x a day Vitamin B Complex Oral Zyrtec The source(s) of the original Home Medication information: patient The following Medications were given to the patient in the Emergency Department: IV NS IV Fluids bolus 0, then 1000 mL/hr, administered: 02/22/2017 10:56:00 PM Zofran [IVP] IVP 4 mg, administered: 02/22/2017 11:02:00 PM Benadryl [IVP] IVP 50 mg, administered: 02/22/2017 11:03:00 PM Dilaudid [IVP] IVP 2 mg, administered: 02/22/2017 11:04:00 PM Lidocaine [Topical] Topical 1 application, administered: 02/22/2017 10:30:00 PM The following Medications were prescribed to the patient: None.
--- NOTE | 2017-02-23 00:57 | ED MAR SUMMARY ---
..... Medication Administration Record [facility] [address] [place] [address] Patient: FELIPA VALERA Visit ID: [id number] 66y, F Weight: 43.0 kg Height/Length: 61 in BMI: 17.9 ALLERGIES: Ampicillin, Celebrex, Morphine and Related, Paper tape, Penicillin Given 22:30 02/22/2017 Ricky Sky R.N. Medication Administered: LIDOCAINE [TOPICAL], Dose: 1 application Gel/Foam Topical. Medication Ordered: Lidocaine Topical 1 application (Nare, for NG insertion). Start 22:56 02/22/2017 Ricky Sky R.N. Medication Administered: IV NS (SALINE), Dose: IV Fluids over 1 hour(s), Rate: 1000 mL/hr, Dispensed: 1000 mL bag, Site: #1 left. Medication Ordered: IV NS : initial bolus 1000 mL (1000 mL/hr), then 1000 mL/hr for X3 (NOW). Given 23:02 02/22/2017 Ricky Sky R.N. Medication Administered: ZOFRAN [IVP] (ONDANSETRON HCL), Dose: 4 mg IVP over 1 minute(s), Site: #1 left. Medication Ordered: Zofran IV 4 mg (NOW). Given 23:03 02/22/2017 Ricky Sky R.N. Medication Administered: BENADRYL [IVP] (DIPHENHYDRAMINE HCL), Dose: 50 mg IVP over 2 minute(s), Site: #1 left. Medication Ordered: Benadryl IV 50 mg (NOW). Given 23:02/22/2017 Ricky Sky R.N. Medication Administered: DILAUDID [IVP] (HYDROMORPHONE HCL PF), Dose: 2 mg IVP over 2 minute(s), Site: #1 left. Medication Ordered: Dilaudid IV 2 mg (HIGH ALERT MEDICATION, NOW).
--- NOTE | 2017-02-23 00:57 | ED MED RECONCILIATION SUMMARY ---
Patient: FELIPA VALERA Medication Reconciliation Report [facility] VisitID: [id number] [address] [place] [address] 66y, F Registration Date/Time: 02/22/2017 Weight: 43.0 kg Height/Length: 61 in. BMI: 17.9 ALLERGIES: Ampicillin, Celebrex, Morphine and Related, Paper tape, Penicillin The patient's Home Medications are listed below: THE FOLLOWING MEDICATIONS NEED TO BE RECONCILED: Fish Oil Oral (1000 mg) 1 capsule, daily Glucosamine Oral 1500 mg, daily Lutein Oral Multivital Oral Omeprazole Oral 20 mg, 2x a day Vitamin B Complex Oral Zyrtec The source(s) of the original Home Medication information: patient The following Medications were given to the patient in the Emergency Department: IV NS IV Fluids bolus 0, then 1000 mL/hr, administered: 02/22/2017 10:56:00 PM Zofran [IVP] IVP 4 mg, administered: 02/22/2017 11:02:00 PM Benadryl [IVP] IVP 50 mg, administered: 02/22/2017 11:03:00 PM Dilaudid [IVP] IVP 2 mg, administered: 02/22/2017 11:04:00 PM Lidocaine [Topical] Topical 1 application, administered: 02/22/2017 10:30:00 PM The following Medications were prescribed to the patient: None.
--- NOTE | 2017-02-23 00:57 | ED DISCHARGE INSTRUCTIONS ---
Patient: FELIPA VALERA General Instructions [facility] VisitID: [id number] [address] [place] [address] 66y, F Registration Date/Time: 02/22/2017 Chronic abdominal pain. Complete small bowel obstruction. (Electronically signed by Natalie Rosa A.R.N.P. 02/23/2017 0:02)
--- NOTE | 2017-02-23 00:57 | ED DISCHARGE INSTRUCTIONS ---
Patient: FELIPA VALERA General Instructions [facility] VisitID: [id number] [address] [place] [address] 66y, F Registration Date/Time: 02/22/2017 Chronic abdominal pain. Complete small bowel obstruction. (Electronically signed by Natalie Rosa A.R.N.P. 02/23/2017 0:02)
--- NOTE | 2017-02-23 00:57 | ED MAR SUMMARY ---
..... Medication Administration Record [facility] [address] [place] [address] Patient: FELIPA VALERA Visit ID: [id number] 66y, F Weight: 43.0 kg Height/Length: 61 in BMI: 17.9 ALLERGIES: Ampicillin, Celebrex, Morphine and Related, Paper tape, Penicillin Given 22:30 02/22/2017 Ricky Sky R.N. Medication Administered: LIDOCAINE [TOPICAL], Dose: 1 application Gel/Foam Topical. Medication Ordered: Lidocaine Topical 1 application (Nare, for NG insertion). Start 22:56 02/22/2017 Ricky Sky R.N. Medication Administered: IV NS (SALINE), Dose: IV Fluids over 1 hour(s), Rate: 1000 mL/hr, Dispensed: 1000 mL bag, Site: #1 left. Medication Ordered: IV NS : initial bolus 1000 mL (1000 mL/hr), then 1000 mL/hr for X3 (NOW). Given 23:02 02/22/2017 Ricky Sky R.N. Medication Administered: ZOFRAN [IVP] (ONDANSETRON HCL), Dose: 4 mg IVP over 1 minute(s), Site: #1 left. Medication Ordered: Zofran IV 4 mg (NOW). Given 23:03 02/22/2017 Ricky Sky R.N. Medication Administered: BENADRYL [IVP] (DIPHENHYDRAMINE HCL), Dose: 50 mg IVP over 2 minute(s), Site: #1 left. Medication Ordered: Benadryl IV 50 mg (NOW). Given 23:02/22/2017 Ricky Sky R.N. Medication Administered: DILAUDID [IVP] (HYDROMORPHONE HCL PF), Dose: 2 mg IVP over 2 minute(s), Site: #1 left. Medication Ordered: Dilaudid IV 2 mg (HIGH ALERT MEDICATION, NOW).
--- NOTE | 2017-02-23 07:35 | Progress Note ---
Subjective General Full note dictated 66y.o female who is being admitted for recurrent SBO. a/p: SBO, NPO, NGT, pain meds
--- NOTE | 2017-02-23 07:35 | Progress Note ---
Subjective General Full note dictated 66y.o female who is being admitted for recurrent SBO. a/p: SBO, NPO, NGT, pain meds
--- NOTE | 2017-02-23 07:38 | DIAGNOSTIC IMAGING REPORT ---
PROCEDURE: XR ABDOMEN 1 VIEW UPRIGHT INDICATION: SBO TECHNIQUE: Single view upright abdomen. COMPARISON: 02/22/2017 FINDINGS: Nasogastric tube in stable position. No free intraperitoneal air. Multiple prominent bowel loops with prominent air fluid levels scattered throughout the abdomen. Decreased amount of air and bowel loops. Surgical changes in the left mid abdomen and low pelvis. Paucity of gas in the colon and rectum. No new mass effect. Stable osseous structures. Clear lung bases. IMPRESSION: 1. Findings of persistent small bowel obstruction with decreased gas in the bowel loops. 2. Previous surgical changes as described. 3. NG tube in stable position.
--- NOTE | 2017-02-23 08:29 | HISTORY AND PHYSICAL ---
ADMITTED: 02/22/2017 CHIEF COMPLAINT: 1. Abdominal discomfort 2. Nausea 3. Vomiting 4. Small-bowel obstruction HISTORY OF PRESENT ILLNESS: The patient states that she had some feeling like blockage of her bowels about 2 days prior to admission, which then resolved. Then last p.m. at about 5 p.m. she said it bound up on her. A couple hours later, they went to the emergency department for her symptoms of distention, bloating, abdominal pain, nausea, vomiting. She has had multiple episodes of this in the past, and she has recently been admitted for similar symptoms on 02/17/2017. MEDICAL/SURGICAL HISTORY: Past medical history: Numerous small bowel obstructions, acid reflux, enteritis, abdominal pain, dehydration, hypercalcemia, fistula, ileostomy, and arthritis. Past surgical history: Repair of fistula a couple of times, small bowel obstructions, bunion surgery, colostomy, partial colon removal, sinus surgery, nose surgery. MEDICATIONS: 1. Zyrtec 10 mg p.o. daily. 2. Tramadol 50 mg p.o. q.i.d. 3. Vitamin D, 3000 international units daily. 4. Aleve 220 mg p.o. b.i.d. 5. Omeprazole 20 mg p.o. b.i.d. 6. Fish oil 1000 mg p.o. daily. 7. Multivitamin 1 p.o. daily. 8. QVAR 1 spray each nostril b.i.d. 9. Lutein 20 mg p.o. daily. 10. Vitamin B12, 1000 mcg p.o. daily. 11. Glucosamine chondroitin 500 mg 1-3 caps daily. 12. Patanol eyedrops 0.1% solution, 1 drop every 2 hours as needed for itchy eyes. ALLERGIES: 1. CELEBREX. 2. MORPHINE. 3. AMOXICILLIN. 4. PAPER TAPE. CODE STATUS: FULL. SOCIAL HISTORY: . Quit smoking in 1994. Drinks a couple of drinks a week and denies any drug use. FAMILY HISTORY: Mom of melanoma at 48, and otherwise unremarkable. REVIEW OF SYSTEMS: Notable for the abdominal pain and colostomy, status nausea, vomiting, and feeling of dehydration. Denied fevers or black or bloody stools, chest pain, shortness of breath, or other cold symptoms. PHYSICAL EXAMINATION: GENERAL: She is an alert female who appears to be in no significant distress. VITAL SIGNS: Temperature 97.9, heart rate of 74, respirations 20, blood pressure 104/52, saturating 100% on room air. HEENT: Extraocular movements intact. Pupils equal, round, and reactive to light. Oropharynx is clear, with moist mucous membranes. NECK: Supple, without lymphadenopathy. LUNGS: Clear to auscultation bilaterally. ABDOMEN: Slightly distended, it is soft, it is a little bit tender to palpation. She has a colostomy bag, right lower abdomen. LAB/IMAGING: Initial admission white count of 9.0, now dropped to 3.8, hematocrit 41, drop to 34, and platelets of 368, dropped to 268. Her chemistry: Sodium of 144, potassium 3.4, chloride 103, HCO3 of 28, BUN of 34, creatinine of 1.9, glucose 114, calcium 10.7, bilirubin 0.4, AST of 30, ALT 35, alkaline phosphatase of 68, total protein 7.7, albumin 4.3. Imaging: Abdominal x-ray shows persistent small-bowel obstruction with decreased gas in the bowel loops and high-grade small-bowel obstruction on her admission x-ray. IMPRESSION: 1. This is a 66-year-old female who presents with abdominal pain, nausea, vomiting, some dehydration, chronic renal insufficiency PLAN: Give IV fluids, use NG tube, pain medications, and anticipate that she usually clears very quickly, within 24-48 hours. I will keep her on observation status at this time. Anticipate that she will be ready for discharge in 1-2 days.
[2017-02-24 02:22] VITALS: BP 102/64
[2017-02-24 07:15] VITALS: BP 106/69
--- NOTE | 2017-02-24 07:37 | Progress Note ---
Subjective General Patient states that she has one area that is cramping and tight at the right upper abdomen. No fevers, no cp,sob. Colostomy not moving much but also not much in there. No bleeding. Physical Exam Vital Signs / I&Os Vital Signs Date Time Temp Pulse Resp B/P Pulse O2 O2 Flow FiO2 Ox Delivery Rate 02/24 0715 98.4 85 18 106/69 97 Room Air 02/24 0222 98.8 79 18 102/64 96 Room Air 02/23 2212 98.1 79 18 121/67 100 Room Air 02/23 1820 97.9 71 18 97/66 98 Room Air 02/23 1400 98.6 72 18 105/66 100 Room Air 02/23 1104 98.1 71 18 102/65 100 Room Air 02/23 0751 100 I&O 02/24 0000 02/23 1600 02/23 0800 Intake Total 971 2646 Output Total 1425 1250 850 Balance -1425 -279 1796 General Appearance Alert, Cooperative HEENT Normal exam Lungs Clear to auscultation, Normal air movement Cardiovascular Regular rate and rhythm Abdomen Soft, tender in the right upper abdomen Extremities No edema Assessment and Plan Problem List 1. Small bowel obstruction Plan Taking longer to resolve. I will change her over to in patient status as she isn 't progressing like normal. If not resolved tomorrow ? gastrografin vs surgery consult. check on labs. 2. Dehydration Plan Better will continue IVF
[2017-02-24 11:05] VITALS: BP 105/66
[2017-02-24 14:36] VITALS: BP 117/72
[2017-02-24 20:25] VITALS: BP 98/60
[2017-02-24 22:51] VITALS: BP 112/75
[2017-02-25 02:34] VITALS: BP 105/72
[2017-02-25 07:31] VITALS: BP 101/73
--- NOTE | 2017-02-25 07:43 | Progress Note ---
Subjective General Patient states that she is feeling better at this time. Has been with less spasms. Not much out of the NGT and also not much out of colostomy. Feels she is actually getting a little better. No fevers, no cp,sob. Physical Exam Vital Signs / I&Os Vital Signs Date Time Temp Pulse Resp B/P Pulse O2 O2 Flow FiO2 Ox Delivery Rate 02/25 0731 97.9 74 18 101/73 100 Room Air 0.0 02/25 0234 98.1 75 16 105/72 98 Room Air 0.0 02/24 2251 98.2 69 16 112/75 100 Room Air 0.0 02/24 2131 Room Air 02/24 2025 98.4 73 18 98/60 100 Room Air 02/24 1436 98.1 71 18 117/72 96 Room Air 100 02/24 1105 80 18 105/66 97 I&O 02/25 0000 02/24 1600 02/24 0800 Intake Total 1850 0 2167 Output Total 800 2150 900 Balance 1050 -2150 1267 General Appearance Alert, Cooperative HEENT Normal exam Lungs Clear to auscultation, Normal air movement Cardiovascular Regular rate and rhythm, No murmurs, gallops, rubs Abdomen Normal exam, Soft, colostomy status. Extremities No edema LAB Results Laboratory Tests 02/25 0525 Chemistry Plasma Sodium (136 - 145 mmol/L) 143 Plasma Potassium (3.5 - 5.1 mmol/L) 3.8 Plasma Chloride (98 - 107 mmol/L) 110 CO2 (Enzymatic) (21 - 32 mmol/L) 26 BUN (7 - 18 mg/dL) 8 Creatinine (0.6 - 1.3 mg/dL) 1.1 Est GFR ( Amer) (mL/min) >60 Est GFR (Non-Af Amer) (mL/min) 53.15 Glucose (70 - 110 mg/dL) 109 Plasma Calcium (8.5 - 10.1 mg/dL) 9.4 Plasma Magnesium (1.8 - 2.4 mg/dL) 1.6 Total Bilirubin (0.0 - 1.0 mg/dL) 0.4 AST (15 - 37 U/L) 17 ALT (12 - 78 U/L) 21 Alkaline Phosphatase (46 - 116 U/L) 57 Total Protein (6.4 - 8.2 g/dL) 5.2 Albumin (3.3 - 5.0 g/dL) 2.8 Hematology WBC (4.5 - 11.5 K/uL) 3.4 RBC (4.00 - 5.20 M/uL) 3.38 Hgb (12.0 - 16.0 gm/dL) 10.4 Hct (36.0 - 46.0 %) 30.6 MCV (80 - 100 fL) 90 MCH (26 - 34 pg) 31 RDW (11.6 - 14.8 %) 13.2 Neut % (Auto) (50 - 75 %) 65.9 Lymph % (Auto) (25 - 40 %) 15.1 [place] % (Auto) (3 - 14 %) 14.0 Eos % (Auto) (0 - 4 %) 4.5 Baso % (Auto) (0 - 2 %) 0.5 Plt Count, EDTA (150 - 400 K/uL) 239 PUBS MCHC (31 - 37 g/dL) 34 Assessment and Plan Problem List 1. Small bowel obstruction Plan Seems to be getting a little better at this time. Will clamp NGT and try clear liq diet. 2. Abdominal pain Plan Improved with the spasms.
[2017-02-25 11:09] VITALS: BP 103/76
[2017-02-25 15:12] VITALS: BP 109/70
--- NOTE | 2017-02-25 17:56 | Progress Note ---
Subjective General Patient states that she is feeling well. Has good output colostomy, belly not hurting, clamped NGT, liq diet going well and ready for d/c home.
--- NOTE | 2017-02-25 17:58 | Provider's Discharge Care Plan ---
Problem, Goal, Plan Problem List 1. Small bowel obstruction Instructions: Follow up as needed
--- NOTE | 2017-02-25 17:58 | Provider's Discharge Care Plan ---
Problem, Goal, Plan Problem List 1. Small bowel obstruction Instructions: Follow up as needed
--- NOTE | 2017-02-26 07:48 | DISCHARGE SUMMARY ---
ADMIT DATE: 02/22/2017 DISCHARGE DATE: 02/25/2017 ADMITTING DIAGNOSES: 1. Small-bowel obstruction 2. Dehydration 3. Electrolyte abnormalities DISCHARGE DIAGNOSES: 1. Small-bowel obstruction 2. Dehydration 3. Electrolyte abnormalities BRIEF HISTORY: Please refer to the admit dictation for details, but this is an 66-year-old female who has had recurrent small-bowel obstruction, generally lasting for less than 24 hours. She gets treated with NG tube and pain medications and a brief admission to the hospital. On this episode, she had a more severe episode and lots of cramping and pain in her abdomen. She has a history of a previous colostomy. HOSPITAL COURSE: She had the NG tube in and, unusually so, she did not have resolution of symptoms for about 48 hours. She was changed over to inpatient status. When her cramps and abdominal pain subsided and the nasogastric tube was no longer having significant output, this was clamped. Then she had a trial liquid diet, and then after her trial of liquid diet, she was feeling well and much better. She desired to go home with continuation of diet. At time of discharge, she was feeling better. She stated that her abdominal pain and cramps had gone away, and she felt like things were clearing again. Her colostomy had good output and without any signs of blockage. Her temperature was 98.1, heart rate 64, respirations 18, blood pressure 109/70, and saturating 100% on room air. DISCHARGE INSTRUCTIONS/MEDICATIONS: Discharge medications include: [place] 3 fatty acids 1 p.o. daily. Glucosamine chondroitin with vitamin C 1500 mg complex 1 tablet p.o. daily. Lutein 20 mg capsule p.o. daily. Multivitamin 1 p.o. daily. Beclomethasone spray 40 mcg, 1 spray each nostril daily. Vitamin B12 at 1000 mcg daily. Omeprazole 20 mg daily. Vitamin D3 at 1000 international units daily. Patanol eyedrops 1 drop as needed for allergy symptoms. The patient to follow up as indicated. She has recurrent small -bowel obstruction and generally gets admitted about 1 time per month with similar symptoms. We will continue to monitor and anticipate she will have a repeat admit sometime soon, possibly within the next month.
== END 2017-02-25 19:07 | disposition home or self-care (01) | DRG 390 ==
LOC: ED SRH 20:33 → TRANS SRH 22:22 → ACUTE2 SRH 22:22
PROVIDERS: ADMIT Family Medicine
PROC: 0D9670Z Drainage of Stomach with Drainage Device, Via Natural or Artificial Opening (ICD-10-PCS; principal; 2017-02-24)
DX: K56.60 Unspecified intestinal obstruction (principal); E86.0 Dehydration; N18.9 Chronic kidney disease, unspecified; Z93.2 Ileostomy status

== ENCOUNTER 2017-03-07 18:03 | Inpatient (IN) | payer OTHER ==
[~2017-03-07] VITALS: Ht 154.9 cm; Wt 46.7 kg
--- NOTE | 2017-03-07 20:17 | DIAGNOSTIC IMAGING REPORT ---
PROCEDURE: XR ABDOMEN 1 VIEW UPRIGHT INDICATION: OBSTRUCTION TECHNIQUE: AP upright view. COMPARISON: Compared to abdominal radiograph on 02/23/2017. FINDINGS: There is marked fluid distention of the stomach and small bowel with air-fluid levels. No evidence of free air. Right lower quadrant ostomy. Surgical clips overlying the left abdomen. IMPRESSION: 1. High-grade bowel obstruction. abdomen.
--- NOTE | 2017-03-07 20:18 | ED NURSING NOTES ---
Clinical Report - Nurses [facility] [address] [place] [address] 03/07/2017 18:02 Patient: FELIPA VALERA TRIAGE Acuity: LEVEL 3. Chief Complaint: ABDOMINAL PAIN and NAUSEA. Alert. No acute distress. SEPSIS SCREEN: Sepsis Screen. Negative (no infection suspected/documented). --18:14 Lady Hein R.N. 18:09 03/07/17. BP: 143/84. HR: 76. RR: 18. O2 saturation: 100%. Temp: 97.5 F (oral). Pain level now: 05/18. --18:14 Lady Hein R.N. Weight: 43 kg stated. Height/Length: 61 inches Per Patient. BMI: 17.9. --18:11 Lady Hein R.N. Medications Fish Oil Oral (Capsule 1000 mg) 1 capsule, daily. Glucosamine Oral 1500 mg, daily. Lutein Oral. Multivital Oral. Omeprazole Oral 20 mg, 2x a day. Vitamin B Complex Oral. Zyrtec. --18:11 Lady Hein R.N. Medication/allergy information source: the patient. --18:14 Lady Hein R.N. Allergies Ampicillin. Celebrex. Morphine and Related. Paper tape. Penicillin. --18:11 Lady Hein R.N. History Arrived by private vehicle. Historian: patient. Accompanied by spouse. Onset. (2 hours ago). Reports last BM was today. No vomiting, diarrhea or constipation. Treatment WASH DRILLER: None. FALL RISK ASSESSMENT: Fall risk assessment completed. No fall risk identified. NUTRITIONAL RISK ASSESSMENT: The nutritional risk assessment revealed no deficiencies. FUNCTIONAL ASSESSMENT: Functional assessment: no impairments noted. LEARNING NEEDS ASSESSMENT: The learning needs assessment revealed no barriers. SKIN INTEGRITY ASSESSMENT: Skin integrity risk assessment completed. No skin integrity risk identified. --18:14 Lady Hein R.N. PROBLEMS: Port-a-cath (L subclavian). Colon Cancer. Nausea. Gastroesophageal Reflux Disease. Abnormal Test. Toxic megacolon. GI Disease. Tetanus Status. Laceration. Enteritis. Hypokalemia. Abdominal Pain. Hypercalcemia. Bowel Obstruction. Abnormal Liver Function Test. Dehydration. Immunizations. LNMP - Last Normal Menstrual Period. Small bowel obstruction. Fistula. Ileostomy present. --18:12 Lady Hein R.N. Pancreatitis [RuleOut]. --18:12 Lady Hein R.N. ADDITIONAL SURGERIES: Abd fistula. Bunionectomy. Colostomy. Ileostomy. Knee Surgery. Laparoscopy. Sinus Surgery. --18:12 Lady Hein R.N. Assessment GENERAL / NEURO / PSYCH: Alert. Oriented X 4. Appears in no acute distress. Patient appears calm and cooperative. RESPIRATORY: Respirations not labored. CVS: Capillary refill less than 2 seconds. GI / : Abdomen soft. SKIN: Mucous membranes are pink. Skin is warm and dry. --18:14 Lady Hein R.N. Interventions ID band on patient. To treatment room. --18:14 Lady Hein R.N. PHYSICAL ASSESSMENT 18:15 03/07/17. Ambulatory to room. GENERAL / NEURO / PSYCH: Alert. Oriented X 4. Appears in no acute distress. HEENT: Mucous membranes are pink. RESPIRATORY: Respirations not labored. CVS: Capillary refill less than 2 seconds. GI / : Abdomen soft. SKIN: Skin is warm and dry. --18:15 Lady Hein R.N. NURSING PROGRESS NOTES 18:14 03/07/17. Patient gowned. Reassurance given. Two patient identifiers checked. Call light placed in reach. Side rails up. Bed placed in lowest position. Brakes of bed on. Patient ready for evaluation- chart flagged and SCHEDULING MANAGER notified. --18:14 Lady Hein R.N. 18:41 03/07/2017 Site #1 accessed indwelling [place] in the left using a 20g needle; 1 attempt. Site prepped with chlorhexidine. Blood drawn: rainbow set. Labeled in the presence of the patient and sent to the lab. Flushed with 10 mL saline (left chest). --18:46 Lady Hein R.N. 19:01 03/07/2017 Started bag #1 1000 mL IV Fluids IV NS (Saline); at 999 mL/hr over 1 hour(s) via site #1 via IV pump. Allergies verified and confirmed 5 rights. IV patency established. IV site checked: no pain, redness, or swelling. IV flushed thoroughly pre- and post-medication administration. --19: Lady Hein R.N. 19:03/07/2017 Dilaudid (HYDROmorphone HCl PF) IVP 1 mg given over 1 minute(s) via site #1. Allergies verified, confirmed 5 rights and sedative warning given to the patient. IV patency established. IV site checked: no pain, redness, or swelling. IV flushed thoroughly pre- and post-medication administration. IVP given by RN. --19: Lady Hein R.N. 19:03/07/2017 Zofran (Ondansetron HCl) IVP 4 mg given over 1 minute(s) via site #1. Allergies verified and confirmed 5 rights. IV patency established. IV site checked: no pain, redness, or swelling. IV flushed thoroughly pre- and post-medication administration. IVP given by RN. --19: Lady Hein R.N. 19:03/07/2017 Benadryl (DiphenhydrAMINE HCl) IVP 25 mg given over 1 minute(s) via site #1. Allergies verified, confirmed 5 rights and sedative warning given to the patient. IV patency established. IV site checked: no pain, redness, or swelling. IV flushed thoroughly pre- and post-medication administration. IVP given by RN. --19:03 Lady Hein R.N. 19:03/07/2017 Afrin (Oxymetazoline HCl) Nasal [place] 2 spray given. Allergies verified and confirmed 5 rights. --19:03 Lady Hein R.N. 20:11 03/07/2017 Started bag #2 1000 mL IV Fluids IV NS (Saline); at 999 mL/hr over 1 hour(s) via site #1 via IV pump. Allergies verified and confirmed 5 rights. IV patency established. IV site checked: no pain, redness, or swelling. IV flushed thoroughly pre- and post-medication administration. --20:11 Lady Hein R.N. 20:11 03/07/2017 IV Fluids IV NS Discontinued: bag #1 infused. Total amount infused: 1000 mL. IV patency established. IV site checked: no pain, redness, or swelling. IV flushed thoroughly. --20:11 Lady Hein R.N. 20:12 03/07/2017 Dilaudid (HYDROmorphone HCl PF) IVP 1 mg given over 1 minute(s) via site #1. Allergies verified, confirmed 5 rights and sedative warning given to the patient. IV patency established. IV site checked: no pain, redness, or swelling. IV flushed thoroughly pre- and post-medication administration. IVP given by RN. --20:12 Lady Hein R.N. 20:12 03/07/17. BP: 117/72. HR: 62. RR: 12. O2 saturation: 100%. Pain level now: 04/18. --20:12 Lady Hein R.N. 20:51 03/07/17. 16 fr NG tube inserted in left nostril with no difficulty. Placement confirmed by auscultation and return of gastric contents. Return: brown fluid. Tube secured. Attached to low and intermittent suction. Patient tolerated procedure well. --20:51 Lady Hein R.N. 21:46 03/07/2017 Dilaudid (HYDROmorphone HCl PF) IVP 1 mg given over 1 minute(s) via site #1. Allergies verified, confirmed 5 rights and sedative warning given to the patient. IV patency established. IV site checked: no pain, redness, or swelling. IV flushed thoroughly pre- and post-medication administration. IVP given by RN. --21:46 Lady Hein R.N. 21:47 03/07/2017 Site #[address] upon admission; patent, no pain and no signs of infection or infiltration. --21:47 Lady Hein R.N. 21:47 03/07/2017 IV Fluids IV NS Discontinued: bag #2 infused upon admission. Total amount infused: 1000 mL. IV patency established. IV site checked: no pain, redness, or swelling. IV flushed thoroughly. --21:47 Lady Hein R.N. DISPOSITION / DISCHARGE Admitted to Acute Care. Transported via stretcher by [employer]. Patient's personal items include: shirt, pants, coat, glasses and cell phone, sweatshirt, slippers; items were given to the patient. She did not have a purse or wallet. --21:25 Lady Hein R.N. 21:24 03/07/17. BP: 126/75. HR: 65. RR: 12. O2 saturation: 100%. Pain level now: 04/18. --21:25 Lady Hein R.N. Report was given to a nurse via a phone call. Report included patient's care, treatment, medications, reviewed medication reconcilliation, and condition (including any recent changes or anticipated changes). All questions were answered. Report was acknowledged and care was transferred. (WHIT Lynne). --21:45 Jesus Corey R.N. Locked/Released at 03/07/2017 22:21 by Lady Hein R.N.
--- NOTE | 2017-03-07 20:18 | ED NURSING NOTES ---
Clinical Report - Nurses [facility] [address] [place] [address] 03/07/2017 18:02 Patient: FELIPA VALERA TRIAGE Acuity: LEVEL 3. Chief Complaint: ABDOMINAL PAIN and NAUSEA. Alert. No acute distress. SEPSIS SCREEN: Sepsis Screen. Negative (no infection suspected/documented). --18:14 Lady Hein R.N. 18:09 03/07/17. BP: 143/84. HR: 76. RR: 18. O2 saturation: 100%. Temp: 97.5 F (oral). Pain level now: 05/18. --18:14 Lady Hein R.N. Weight: 43 kg stated. Height/Length: 61 inches Per Patient. BMI: 17.9. --18:11 Lady Hein R.N. Medications Fish Oil Oral (Capsule 1000 mg) 1 capsule, daily. Glucosamine Oral 1500 mg, daily. Lutein Oral. Multivital Oral. Omeprazole Oral 20 mg, 2x a day. Vitamin B Complex Oral. Zyrtec. --18:11 Lady Hein R.N. Medication/allergy information source: the patient. --18:14 Lady Hein R.N. Allergies Ampicillin. Celebrex. Morphine and Related. Paper tape. Penicillin. --18:11 Lady Hein R.N. History Arrived by private vehicle. Historian: patient. Accompanied by spouse. Onset. (2 hours ago). Reports last BM was today. No vomiting, diarrhea or constipation. Treatment EXHIBIT DESIGNER: None. FALL RISK ASSESSMENT: Fall risk assessment completed. No fall risk identified. NUTRITIONAL RISK ASSESSMENT: The nutritional risk assessment revealed no deficiencies. FUNCTIONAL ASSESSMENT: Functional assessment: no impairments noted. LEARNING NEEDS ASSESSMENT: The learning needs assessment revealed no barriers. SKIN INTEGRITY ASSESSMENT: Skin integrity risk assessment completed. No skin integrity risk identified. --18:14 Lady Hein R.N. PROBLEMS: Port-a-cath (L subclavian). Colon Cancer. Nausea. Gastroesophageal Reflux Disease. Abnormal Test. Toxic megacolon. GI Disease. Tetanus Status. Laceration. Enteritis. Hypokalemia. Abdominal Pain. Hypercalcemia. Bowel Obstruction. Abnormal Liver Function Test. Dehydration. Immunizations. LNMP - Last Normal Menstrual Period. Small bowel obstruction. Fistula. Ileostomy present. --18:12 Lady Hein R.N. Pancreatitis [RuleOut]. --18:12 Lady Hein R.N. ADDITIONAL SURGERIES: Abd fistula. Bunionectomy. Colostomy. Ileostomy. Knee Surgery. Laparoscopy. Sinus Surgery. --18:12 Lady Hein R.N. Assessment GENERAL / NEURO / PSYCH: Alert. Oriented X 4. Appears in no acute distress. Patient appears calm and cooperative. RESPIRATORY: Respirations not labored. CVS: Capillary refill less than 2 seconds. GI / : Abdomen soft. SKIN: Mucous membranes are pink. Skin is warm and dry. --18:14 Lady Hein R.N. Interventions ID band on patient. To treatment room. --18:14 Lady Hein R.N. PHYSICAL ASSESSMENT 18:15 03/07/17. Ambulatory to room. GENERAL / NEURO / PSYCH: Alert. Oriented X 4. Appears in no acute distress. HEENT: Mucous membranes are pink. RESPIRATORY: Respirations not labored. CVS: Capillary refill less than 2 seconds. GI / : Abdomen soft. SKIN: Skin is warm and dry. --18:15 Lady Hein R.N. NURSING PROGRESS NOTES 18:14 03/07/17. Patient gowned. Reassurance given. Two patient identifiers checked. Call light placed in reach. Side rails up. Bed placed in lowest position. Brakes of bed on. Patient ready for evaluation- chart flagged and MOLD CLOSER HELPER notified. --18:14 Lady Hein R.N. 18:41 03/07/2017 Site #1 accessed indwelling Power[place] in the left using a 20g needle; 1 attempt. Site prepped with chlorhexidine. Blood drawn: rainbow set. Labeled in the presence of the patient and sent to the lab. Flushed with 10 mL saline (left chest). --18:46 Lady Hein R.N. 19:01 03/07/2017 Started bag #1 1000 mL IV Fluids IV NS (Saline); at 999 mL/hr over 1 hour(s) via site #1 via IV pump. Allergies verified and confirmed 5 rights. IV patency established. IV site checked: no pain, redness, or swelling. IV flushed thoroughly pre- and post-medication administration. --19: Lady Hein R.N. 19:03/07/2017 Dilaudid (HYDROmorphone HCl PF) IVP 1 mg given over 1 minute(s) via site #1. Allergies verified, confirmed 5 rights and sedative warning given to the patient. IV patency established. IV site checked: no pain, redness, or swelling. IV flushed thoroughly pre- and post-medication administration. IVP given by RN. --19: Lady Hein R.N. 19:03/07/2017 Zofran (Ondansetron HCl) IVP 4 mg given over 1 minute(s) via site #1. Allergies verified and confirmed 5 rights. IV patency established. IV site checked: no pain, redness, or swelling. IV flushed thoroughly pre- and post-medication administration. IVP given by RN. --19: Lady Hein R.N. 19:03/07/2017 Benadryl (DiphenhydrAMINE HCl) IVP 25 mg given over 1 minute(s) via site #1. Allergies verified, confirmed 5 rights and sedative warning given to the patient. IV patency established. IV site checked: no pain, redness, or swelling. IV flushed thoroughly pre- and post-medication administration. IVP given by RN. --19:03 Lady Hein R.N. 19:03/07/2017 Afrin (Oxymetazoline HCl) Nasal [place] 2 spray given. Allergies verified and confirmed 5 rights. --19:03 Lady Hein R.N. 20:11 03/07/2017 Started bag #2 1000 mL IV Fluids IV NS (Saline); at 999 mL/hr over 1 hour(s) via site #1 via IV pump. Allergies verified and confirmed 5 rights. IV patency established. IV site checked: no pain, redness, or swelling. IV flushed thoroughly pre- and post-medication administration. --20:11 Lady Hein R.N. 20:11 03/07/2017 IV Fluids IV NS Discontinued: bag #1 infused. Total amount infused: 1000 mL. IV patency established. IV site checked: no pain, redness, or swelling. IV flushed thoroughly. --20:11 Lady Hein R.N. 20:12 03/07/2017 Dilaudid (HYDROmorphone HCl PF) IVP 1 mg given over 1 minute(s) via site #1. Allergies verified, confirmed 5 rights and sedative warning given to the patient. IV patency established. IV site checked: no pain, redness, or swelling. IV flushed thoroughly pre- and post-medication administration. IVP given by RN. --20:12 Lady Hein R.N. 20:12 03/07/17. BP: 117/72. HR: 62. RR: 12. O2 saturation: 100%. Pain level now: 04/18. --20:12 Lady Hein R.N. 20:51 03/07/17. 16 fr NG tube inserted in left nostril with no difficulty. Placement confirmed by auscultation and return of gastric contents. Return: brown fluid. Tube secured. Attached to low and intermittent suction. Patient tolerated procedure well. --20:51 Lady Hein R.N. 21:46 03/07/2017 Dilaudid (HYDROmorphone HCl PF) IVP 1 mg given over 1 minute(s) via site #1. Allergies verified, confirmed 5 rights and sedative warning given to the patient. IV patency established. IV site checked: no pain, redness, or swelling. IV flushed thoroughly pre- and post-medication administration. IVP given by RN. --21:46 Lady Hein R.N. 21:47 03/07/2017 Site #[address] upon admission; patent, no pain and no signs of infection or infiltration. --21:47 Lady Hein R.N. 21:47 03/07/2017 IV Fluids IV NS Discontinued: bag #2 infused upon admission. Total amount infused: 1000 mL. IV patency established. IV site checked: no pain, redness, or swelling. IV flushed thoroughly. --21:47 Lady Hein R.N. DISPOSITION / DISCHARGE Admitted to Acute Care. Transported via stretcher by [employer]. Patient's personal items include: shirt, pants, coat, glasses and cell phone, sweatshirt, slippers; items were given to the patient. She did not have a purse or wallet. --21:25 Lady Hein R.N. 21:24 03/07/17. BP: 126/75. HR: 65. RR: 12. O2 saturation: 100%. Pain level now: 04/18. --21:25 Lady Hein R.N. Report was given to a nurse via a phone call. Report included patient's care, treatment, medications, reviewed medication reconcilliation, and condition (including any recent changes or anticipated changes). All questions were answered. Report was acknowledged and care was transferred. (WHIT Lynne). --21:45 Jesus Corey R.N. Locked/Released at 03/07/2017 22:21 by Lady Hein R.N.
--- NOTE | 2017-03-07 20:18 | ED CLINICAL REPORT ---
Clinical Report - Physicians/Mid Levels [facility] [address] [place] [address] 03/07/2017 18:02 Patient: FELIPA VALERA Time Seen: 181; initial patient contact, initial documentation, patient care assumed. Arrived- By private vehicle. Historian- patient. RETURN VISIT: recently seen in this ED by me. Seen now for the same problem as before. HISTORY OF PRESENT ILLNESS Chief Complaint: ABDOMINAL PAIN. At its maximum, severity described as severe. When seen in the E.D., severity described as moderate and 8 / 10. Modifying factors. Not worsened by anything. Not relieved by anything. It is described as "pain" and diffuse. This started today and is still present. The patient has had nausea. No loss of appetite, vomiting or diarrhea. (feels obstructed again, and the strange bowel sounds are back near my ostomy bag). No recent travel. Similar symptoms previously: Chronically, worse. Recent medical care: The patient was seen recently at this facility and hospitalized. ( admitted 02/22 for sbo). REVIEW OF SYSTEMS No constipation, black stools, hematemesis, difficulty with urination or pain with urination. No urinary frequency, bloody stools, fever, chest pain or difficulty breathing. All systems otherwise negative, except as recorded above. PAST HISTORY See nurses notes. PROBLEMS: Port-a-cath (L subclavian). Colon Cancer. Nausea. Gastroesophageal Reflux Disease. Abnormal Test. Toxic megacolon. GI Disease. Tetanus Status. Laceration. Enteritis. Hypokalemia. Abdominal Pain. Hypercalcemia. Bowel Obstruction. Abnormal Liver Function Test. Dehydration. Immunizations. LNMP - Last Normal Menstrual Period. Small bowel obstruction. Fistula. Ileostomy present. --18:12 Lady Hein R.N. Pancreatitis [RuleOut]. --18:12 Lady Hein R.N. ADDITIONAL SURGERIES: Abd fistula. Bunionectomy. Colostomy. Ileostomy. Knee Surgery. Laparoscopy. Sinus Surgery. --18:12 Lady Hein R.N. SOCIAL HISTORY Former smoker. Occasional alcohol use. No drug use. No recent travel. Is a local resident. She lives with spouse. FAMILY HISTORY Negative. ADDITIONAL NOTES The nursing notes have been reviewed with agreement regarding the chief complaint, HPI, ROS, PMH and patient medications and allergies. PHYSICAL EXAM Vital Signs: 03/07/2017 18:09 BP: 143/84. HR: 76. RR: 18. O2 saturation: 100%. Temp: 97.5 F. Pain level now: 7/10. Have been reviewed as normal and appear to be correct. Appearance: Alert. Oriented X3. No acute distress. Eyes: Pupils equal, round and reactive to light. Eyes normal inspection. Neck: Normal inspection. Neck supple. CVS: Normal heart rate and rhythm. Heart sounds normal. Pulses normal. Respiratory: No respiratory distress. Breath sounds normal. Chest nontender. Abdomen: Mild tenderness diffusely. No guarding, rebound tenderness or Macias's, obturator or psoas sign present. Bowel sounds normal. Distention with tenderness to palpation. Not soft. Tenderness present. (ostomy bag in place). Back: Normal inspection. Skin: Skin warm and dry. Normal skin color. No rash. Normal skin turgor. Extremities: Extremities exhibit normal ROM. No lower extremity edema. Neuro: Oriented X 3. No motor deficit. No sensory deficit. LABS, X-RAYS, AND EKG KUB: Normal abdominal study. (SBO). Views: AP. Technique: good. The X-rays were independently viewed by me. Laboratory Tests: UA-Culture if indicated: (ELIAS: 03/07/2017 18:20) ( MsgRcvd 03/07/2017 19:29) Final results Test Result Flag Units (Reference) URINE COLOR YELLOW URINE APPEARANCE CLEAR URINE GLUCOSE NEGATIVE (NEGATIVE) URINE BILIRUBIN NEGATIVE (NEGATIVE) URINE KETONE NEGATIVE (NEGATIVE) URINE SPECIFIC GRAVITY 1.020 (1.010-1.030) URINE PH 6.0 (5.0-8.0) URINE PROTEIN NEGATIVE (NEGATIVE) URINE UROBILINOGEN 0.2 EU/dL (0.2-1.0) URINE NITRITE NEGATIVE (NEGATIVE) URINE BLOOD NEGATIVE (NEGATIVE) URINE LEUK ESTERASE NEGATIVE (NEGATIVE) URINE RBC NONE SEEN rbc/hpf (0-1) URINE WBC 5-10 wbc/hpf (0-1) URINE EPITHELIAL CELLS 1-3 EPI/hpf (0-5) URINE BACTERIA NONE SEEN (NONE SEEN) URINE COMMENT CULT NOT INDICATED 1+ AMORPHOUS URATESURINE CULTURES ARE SET-UP BASED ON THE FOLLOWING CRITERIA:POSITIVE NITRITEPOSITIVE LEUKOCYTE ESTERASEGREATER THAN 10 WHITE BLOOD CELLSMODERATE (2+) OR GREATER BACTERIA CBC w Diff: (ELIAS: 03/07/2017 18:45) ( [facility] 03/07/2017 19:03) Final results Test Result Flag Units (Reference) WHITE BLOOD COUNT 6.5 K/uL (4.5-11.5) RED BLOOD COUNT 4.38 M/uL (4.00-5.20) HEMOGLOBIN 13.2 gm/dL (12.0-16.0) HEMATOCRIT 39.4 % (36.0-46.0) MEAN CELL VOLUME 90 fL (80-100) MEAN CORPUSCULAR HGB 30 pg (26-34) MEAN CORPUSCULAR HGB CONC 34 g/dL (31-37) RED CELL DISTRIBUTION WIDTH 13.7 % (11.6-14.8) PLATELET COUNT 488 H K/uL (150-400) NEUTROPHIL % 73.8 % (50-75) LYMPH % 17.2 L % (25-40) MONO % 6.0 % (3-14) EOSINOPHIL % 2.4 % (0-4) BASOPHIL % 0.6 % (0-2) CMP: (ELIAS: 03/07/2017 18:45) ( [facility] 03/07/2017 19:24) Final results Test Result Flag Units (Reference) GLUCOSE 95 mg/dL (70-110) BUN 36 H mg/dL (7-18) CREATININE 1.3 mg/dL (0.6-1.3) Estimated GFR 43.83 mL/min Estimated GFR- 53.12 mL/min Note: Persistent reduction over 3 months in eGFR<60 mL/min/1.73 m2 defines CKD. Patients with eGFR values>=60 mL/min/1.73 m2 may also have CKD if evidence ofpersistent proteinuria. Additional information may be foundat www.kidney.org. SODIUM 142 mmol/L (136-145) POTASSIUM 4.0 mmol/L (3.5-5.1) CHLORIDE 103 mmol/L (98-107) CARBON DIOXIDE 25 mmol/L (21-32) CALCIUM 11.3 H mg/dL (8.5-10.1) TOTAL PROTEIN 8.1 g/dL (6.4-8.2) ALBUMIN 4.3 g/dL (3.3-5.0) BILIRUBIN, TOTAL 0.2 mg/dL (0.0-1.0) ALKALINE PHOSPHATASE 81 U/L (46-116) AST (SGOT) 27 U/L (15-37) ALT (SGPT) 32 U/L (12-78) LIPASE 402 H U/L (73-393) AMYLASE 180 H U/L (25-115) . PROGRESS AND PROCEDURES Course of Care: 03/07/2017 20:12 BP: 117/72. HR: 62. RR: 12. O2 saturation: 100%. Pain level now: 6/10. Vital Signs: have been reviewed as normal and appear to be correct. Discussed case with on-call health care provider, (call returned 20:17 Dr Pastrana). Reviewed test results. Agreed upon treatment plan and decision to admit. Health care provider will see patient in ED. Differential Diagnosis: I considered gastritis, peptic ulcer disease, gastroesophageal reflux disease, diverticulitis, colon cancer, small bowel obstruction, adhesions, bowel ischemia, functional bowel problems, obstipation, biliary colic, cholecystitis, cholelithiasis, hepatitis, pancreatitis, urinary tract infection and viral syndrome as a possible cause of abdominal pain in this patient. This is a partial list of diagnoses considered. Above considerations are based on history, physical exam, laboratory data and X-Ray data. Differential diagnosis was discussed with patient. Disposition: Admitted to Acute Care. 20:18. Condition: good and stable. CLINICAL IMPRESSION Chronic abdominal pain of undetermined cause. Complete small bowel obstruction. (Electronically signed by Natalie Rosa A.R.N.P. 03/07/2017 22:24)
--- NOTE | 2017-03-07 20:18 | ED ORDER SUMMARY ---
..... Patient: FELIPA VALERA OrderSheet [facility] VisitID: [id number] [address] [place] [address] 66y, F Registration Date/Time: 03/07/2017 ORDER SHEET Weight: 43.0 kg (stated) Allergies: Ampicillin, Celebrex, Morphine and Related, Paper tape, Penicillin GENERAL ORDERS: Abdomen 1V Upright Urgent (18:28 03/07/2017 HBivens A.R.N.P.) (Ack 18:32 TBergley) (19:01 Purvi) CBC w Diff Urgent (18:28 03/07/2017 HBivens A.R.N.P.) (Ack 18:32 TBergley) (18:44 MWinterer R.N.) CMP Urgent (18:28 03/07/2017 HBivens A.R.N.P.) (Ack 18:32 TBergley) (18:44 MWinterer R.N.) Amylase Urgent (18:28 03/07/2017 HBivens A.R.N.P.) (Ack 18:32 TBergley) (18:44 MWinterer R.N.) Lipase Urgent (18:28 03/07/2017 HBivens A.R.N.P.) (Ack 18:32 TBergley) (18:44 MWinterer R.N.) UA-Culture if indicated Urgent (18:28 03/07/2017 HBivens A.R.N.P.) (Ack 18:32 TBergley) (18:44 MWinterer R.N.) NG Tube (20:17 03/07/2017 HBivens A.R.N.P.) (Ack 20:20 MWinterer R.N.) (20:50 MWinterer R.N.) MEDICATION ORDERS: Afrin Nasal [place] 2 sprays (place at bedside) (18:27 03/07/2017 HBivens A.R.N.P.) (Ack 18:45 MWinterer R.N.) (19:03 MWinterer R.N.) IV FLUIDS: IV NS : initial bolus 1000 mL (1000 mL/hr), then none - for X3 (NOW) (18:27 03/07/2017 HBivens A.R.N.P.) (Ack 18:45 MWinterer R.N.) (19:02 MWinterer R.N.) Dilaudid IV 1 mg (HIGH ALERT MEDICATION, NOW) (18:27 03/07/2017 HBivens A.R.N.P.) (Ack 18:45 MWinterer R.N.) (19:02 MWinterer R.N.) Zofran IV 4 mg (NOW) (18:27 03/07/2017 HBivens A.R.N.P.) (Ack 18:45 MWinterer R.N.) (19:02 MWinterer R.N.) Benadryl IV 25 mg (NOW) (18:27 03/07/2017 HBivens A.R.N.P.) (Ack 18:45 MWinterer R.N.) (19:03 MWinterer R.N.) Dilaudid IV 1 mg (HIGH ALERT MEDICATION, NOW) (20:07 03/07/2017 HBivens A.R.N.P.) (20:12 MWinterer R.N.) ORDER SHEET NOTES: [Electronically signed by Lady Hein R.N. (22:21 03/07/2017)] [Electronically signed by Natalie Rosa A.R.N.P. (22:24 03/07/2017)] [Electronically locked/signed by Lady Hein R.N. (22:21 03/07/2017)]
--- NOTE | 2017-03-07 20:18 | ED ORDER SUMMARY ---
..... Patient: FELIPA VALERA OrderSheet [facility] VisitID: [id number] [address] [place] [address] 66y, F Registration Date/Time: 03/07/2017 ORDER SHEET Weight: 43.0 kg (stated) Allergies: Ampicillin, Celebrex, Morphine and Related, Paper tape, Penicillin GENERAL ORDERS: Abdomen 1V Upright Urgent (18:28 03/07/2017 HBivens A.R.N.P.) (Ack 18:32 TBergley) (19:01 Purvi) CBC w Diff Urgent (18:28 03/07/2017 HBivens A.R.N.P.) (Ack 18:32 TBergley) (18:44 MWinterer R.N.) CMP Urgent (18:28 03/07/2017 HBivens A.R.N.P.) (Ack 18:32 TBergley) (18:44 MWinterer R.N.) Amylase Urgent (18:28 03/07/2017 HBivens A.R.N.P.) (Ack 18:32 TBergley) (18:44 MWinterer R.N.) Lipase Urgent (18:28 03/07/2017 HBivens A.R.N.P.) (Ack 18:32 TBergley) (18:44 MWinterer R.N.) UA-Culture if indicated Urgent (18:28 03/07/2017 HBivens A.R.N.P.) (Ack 18:32 TBergley) (18:44 MWinterer R.N.) NG Tube (20:17 03/07/2017 HBivens A.R.N.P.) (Ack 20:20 MWinterer R.N.) (20:50 MWinterer R.N.) MEDICATION ORDERS: Afrin Nasal [place] 2 sprays (place at bedside) (18:27 03/07/2017 HBivens A.R.N.P.) (Ack 18:45 MWinterer R.N.) (19:03 MWinterer R.N.) IV FLUIDS: IV NS : initial bolus 1000 mL (1000 mL/hr), then none - for X3 (NOW) (18:27 03/07/2017 HBivens A.R.N.P.) (Ack 18:45 MWinterer R.N.) (19:02 MWinterer R.N.) Dilaudid IV 1 mg (HIGH ALERT MEDICATION, NOW) (18:27 03/07/2017 HBivens A.R.N.P.) (Ack 18:45 MWinterer R.N.) (19:02 MWinterer R.N.) Zofran IV 4 mg (NOW) (18:27 03/07/2017 HBivens A.R.N.P.) (Ack 18:45 MWinterer R.N.) (19:02 MWinterer R.N.) Benadryl IV 25 mg (NOW) (18:27 03/07/2017 HBivens A.R.N.P.) (Ack 18:45 MWinterer R.N.) (19:03 MWinterer R.N.) Dilaudid IV 1 mg (HIGH ALERT MEDICATION, NOW) (20:07 03/07/2017 HBivens A.R.N.P.) (20:12 MWinterer R.N.) ORDER SHEET NOTES: [Electronically signed by Lady Hein R.N. (22:21 03/07/2017)] [Electronically signed by Natalie Rosa A.R.N.P. (22:24 03/07/2017)] [Electronically locked/signed by Lady Hein R.N. (22:21 03/07/2017)]
--- NOTE | 2017-03-07 20:40 | Progress Note ---
Subjective General Admission History and Physical Examination Patient Name: Darling Davis Admission Date: March 07, 2017 Primary Care Provider: Arsenio Noguera M.D. Attending Physician: Juanito Pastrana M.D. Admitting Physician: Juanito Pastrana M.D. 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 [facility] ER evaluation was consistent with high-grade small bowel obstruction with associated nausea, abdominal pain, and dehydration. Secondary to the above , the patient was admitted by Juanito Pastrana M.D. for further evaluation and treatment. The history of present was began approximately 3:30 PM on the day of admission. The patient experienced abdominal pain, nausea without vomiting, and abdominal distention. This was consistent with her previous history of recurrent small bowel obstructions. Secondary to the above, the patient presented to [facility] emergency department for further evaluation and treatment. Laboratory evaluation and abdominal x-rays were consistent with high-grade small bowel obstruction. NG tube was placed. Secondary to the above, the patient was admitted for further evaluation and treatment. PAST MEDICAL HISTORY Illnesses: 1. Recurrent small bowel obstruction 2. Gastroesophageal reflux 3. Enteric cutaneous fistula 4. Ileostomy secondary colectomy from IBS with megacolon 5. Degenerative joint disease 6. Allergic rhinitis Allergies: 1. Celebrex 2. Morphine 3. Amoxicillin-penicillin 4. Paper tape Medications: 1. Zyrtec 10 mg p.o. daily. 2. Tramadol 50 mg p.o. q.i.d. 3. Vitamin D, 3000 international units daily. 4. Aleve 220 mg p.o. b.i.d. 5. Omeprazole 20 mg p.o. b.i.d. 6. Fish oil 1000 mg p.o. daily. 7. Multivitamin 1 p.o. daily. 8. QVAR 1 spray each nostril b.i.d. 9. Lutein 20 mg p.o. daily. 10. Vitamin B12, 1000 mcg p.o. daily. 11. Glucosamine chondroitin 500 mg 1-3 caps daily. 12. Patanol eyedrops 0.1% solution, 1 drop every 2 hours as needed for itchy eyes. Surgery: 1. Repair of enterocutaneous fistula 2 2. Colectomy with ileostomy 3. Bunion surgery 4. Sinus surgery 5. No surgery Injuries: 1. No significant Hospitalizations: 1. For above surgery and medical problems. Multiple hospitalizations for recurrent small bowel obstruction FAMILY HISTORY Parents: 1. Father, Manish, , 88, polio, strokes, 2. Mother, Jessica, , 48, melanoma Siblings: 1. Male, Severino, living, 65, multiple back surgeries 2. Female, Susan, living, 63, multiple back surgeries, fibromyalgia 3. Female, Jane, living, 61, healthy 4. Male, YOCASTA, living, 60, multiple back surgeries, rotator cuff tear Children: 1. Female, Natalie, living, 42, history of bunions 2. Female, Fatoumata, living, 29, allergic rhinitis Other significant family history: None SOCIAL HISTORY 1. Marital Status: 2. Mandaen: Voodoo 3. Education: High school and one year of college 4. 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 Occupational health exposures: Dust, radiation, heavy lifting HABITS 1. Tobacco: Cigarette 6-8 pack years, currently nonsmoker 2. Drugs: None 3. Alcohol: 5-7 ounces per week 4. Caffeine: Coffee-3 cups per day, stop drinks- 1 can per day HEALTH SUPERVISION Item/Test 1. Vision screen: 2014 2. Cholesterol Profile: 2015 3. PSA: Not applicable 4. LORRIE: Not applicable 5. FOBT: Not applicable 6. Blood Glucose: 2016 7. Colonoscopy: 1996 8. History and physical exam: 2016 9. Audiogram: No recent 10. Mammogram: 2016 11. Pap/pelvic exam: 2017 IMMUNIZATIONS: 1. Pneumococcal: 2014 2. Influenza: 2015 3. Tetanus: Unknown ADVANCED DIRECTIVES: 1. Living well: No 2. POLST: No 3. Code Status: FULL CODE 4. Durable Power Paymaster Of Purses Health care: No 5. Donor card: No REVIEW OF SYSTEMS Remarkable for those things stated in the history of present illness and past medical history. Seventeen point review of system completed with the following notable findings: General: Weight loss, fatigue, abdominal pain, weakness Skin: Dryness, rashes Eyes: Decreased visual acuity requiring corrective lenses Ears: Tinnitus intermittently Mouth: Dental problems Throat: Sore throat, swallowing Respiratory: Wheezing Gastrointestinal: Nausea/vomiting, gastroesophageal reflux, constipation, abdominal pain Musculoskeletal: Joint stiffness, joint pain, joint swelling, muscle cramping, backache Neurological: Headaches Blood and lymphatic: Easy bruising Endocrine: Excessive thirst/urination Psychological: Difficulty sleeping Physical Exam General Appearance Alert, Oriented X3, Cooperative, No acute distress HEENT Atraumatic, PERRLA, EOMI, Moist mucous membranes, NG tube in place Lungs Clear to auscultation, Normal air movement Neck Supple, No JVD Cardiovascular Regular rate and rhythm, Normal S1 and S2, No murmurs, gallops, rubs Abdomen Normal bowel sounds, mild diffuse tenderness. Colostomy present. Extremities No cyanosis, No clubbing, No edema, Normal pulses Neurological Cranial nerves intact, Strength 5/5 x4 ext's, No lateralizing signs Psych/Mental Status Mental status normal, Mood normal LAB Results Laboratory Tests 03/07 03/07 1845 1820 Chemistry Plasma Sodium (136 - 145 mmol/L) 142 Plasma Potassium (3.5 - 5.1 mmol/L) 4.0 Plasma Chloride (98 - 107 mmol/L) 103 CO2 (Enzymatic) (21 - 32 mmol/L) 25 BUN (7 - 18 mg/dL) 36 Creatinine (0.6 - 1.3 mg/dL) 1.3 Est GFR ( Amer) (mL/min) 53.12 Est GFR (Non-Af Amer) (mL/min) 43.83 Glucose (70 - 110 mg/dL) 95 Plasma Calcium (8.5 - 10.1 mg/dL) 11.3 Total Bilirubin (0.0 - 1.0 mg/dL) 0.2 AST (15 - 37 U/L) 27 ALT (12 - 78 U/L) 32 Alkaline Phosphatase (46 - 116 U/L) 81 Total Protein (6.4 - 8.2 g/dL) 8.1 Albumin (3.3 - 5.0 g/dL) 4.3 Amylase (25 - 115 U/L) 180 Lipase (73 - 393 U/L) 402 Hematology WBC (4.5 - 11.5 K/uL) 6.5 RBC (4.00 - 5.20 M/uL) 4.38 Hgb (12.0 - 16.0 gm/dL) 13.2 Hct (36.0 - 46.0 %) 39.4 MCV (80 - 100 fL) 90 MCH (26 - 34 pg) 30 RDW (11.6 - 14.8 %) 13.7 Neut % (Auto) (50 - 75 %) 73.8 Lymph % (Auto) (25 - 40 %) 17.2 [place] % (Auto) (3 - 14 %) 6.0 Eos % (Auto) (0 - 4 %) 2.4 Baso % (Auto) (0 - 2 %) 0.6 Plt Count, EDTA (150 - 400 K/uL) 488 PUBS MCHC (31 - 37 g/dL) 34 Urines Urine Color YELLOW Urine Appearance CLEAR Urine pH (5.0 - 8.0) 6.0 Ur Specific [place] (1.010 - 1.030) 1.020 Urine Protein (NEGATIVE) NEGATIVE Urine Ketones (NEGATIVE) NEGATIVE Urine Blood (NEGATIVE) NEGATIVE Urine Nitrite (NEGATIVE) NEGATIVE Urine Bilirubin (NEGATIVE) NEGATIVE Urine Urobilinogen (0.2 - 1.0 EU/dL) 0.2 Ur Leukocyte Esterase (NEGATIVE) NEGATIVE Urine RBC (0 - 1 rbc/hpf) NONE SEEN Urine WBC (0 - 1 wbc/hpf) 5-10 Ur Epithelial Cells (0 - 5 EPI/hpf) 1-3 Urine Bacteria (NONE SEEN) NONE SEEN Urine Glucose (NEGATIVE) NEGATIVE Urine Comment CULT NOT INDICATED Imaging Abdominal X-Ray IMPRESSION: 1. High-grade bowel obstruction. abdomen. Dictated by: THERON KAUR MD D: KERWIN;03/07/172016 Assessment and Plan Problem List 1. Small bowel obstruction Plan -Patient presents with recurrent small bowel obstruction -NG drainage -IV fluid -Anti-emetics, pain medications -Surgical consultation Dr. Sifuentes 2. Hypercalcemia Plan -Patient with findings of mild hypercalcemia -IV fluid therapy -Recheck in a.m. -Consider intact PTH, ionized calcium if elevated in a.m. 3. Dehydration Plan -Patient presents with findings of mild dehydration -IV fluid therapy -Monitor 4. Hyperamylasemia Status Acute Onset Date Unknown Plan -Patient with findings of hyperamylasemia -Monitor -Nothing by mouth -Consider abdominal ultrasound/CT in a.m. if persistent elevation 5. Elevated lipase Status Acute Onset Date Unknown Plan -Patient with findings of elevated lipase -Monitor -Imaging for persistent elevation Current status: Fair, unstable Anticipated discharge date: Anticipated discharge in 2-3 days Anticipated discharge placement: Home Patient care time: Time spent in chart review, patient interview, physical exam, CPOE, and care documentation: 70 minutes Visit to patient today: 2 Complexity of care: Moderate-High Initial patient evaluation: Emergency department DVT prophylaxis: Lovenox 40 mg subcutaneous daily GI prophylaxis: Protonix 40 mg IV daily Consultation: J Luis Sifuentes M.D. (General surgery) E&M Codes Admission: Inpt-High/40955
[2017-03-07 22:18] VITALS: BP 117/78
--- NOTE | 2017-03-07 22:24 | ED MED RECONCILIATION SUMMARY ---
Patient: FELIPA VALERA Medication Reconciliation Report [facility] VisitID: [id number] [address] [place] [address] 66y, F Registration Date/Time: 03/07/2017 Weight: 43.0 kg Height/Length: 61 in. BMI: 17.9 ALLERGIES: Ampicillin, Celebrex, Morphine and Related, Paper tape, Penicillin The patient's Home Medications are listed below: THE FOLLOWING MEDICATIONS NEED TO BE RECONCILED: Fish Oil Oral (1000 mg) 1 capsule, daily Glucosamine Oral 1500 mg, daily Lutein Oral Multivital Oral Omeprazole Oral 20 mg, 2x a day Vitamin B Complex Oral Zyrtec The source(s) of the original Home Medication information: patient The following Medications were given to the patient in the Emergency Department: IV NS IV Fluids bolus 0, then 999 mL/hr, administered: 03/07/2017 7:01:00 PM Dilaudid [IVP] IVP 1 mg, administered: 03/07/2017 7:02:00 PM Zofran [IVP] IVP 4 mg, administered: 03/07/2017 7:02:00 PM Benadryl [IVP] IVP 25 mg, administered: 03/07/2017 7:03:00 PM Afrin [Nasal [place]] Nasal [place] 2 spray, administered: 03/07/2017 7:03:00 PM IV NS IV Fluids bolus 0, then 999 mL/hr, administered: 03/07/2017 8:11:00 PM Dilaudid [IVP] IVP 1 mg, administered: 03/07/2017 8:12:00 PM Dilaudid [IVP] IVP 1 mg, administered: 03/07/2017 9:46:00 PM The following Medications were prescribed to the patient: None.
--- NOTE | 2017-03-07 22:24 | ED MAR SUMMARY ---
..... Medication Administration Record [facility] [address] [facility] [place] [address] Patient: FELIPA VALERA Visit ID: [id number] 66y, F Weight: 43.0 kg Height/Length: 61 in BMI: 17.9 ALLERGIES: Ampicillin, Celebrex, Morphine and Related, Paper tape, Penicillin Start 19:01 03/07/2017 Lady Hein R.N., Stop 20:11 03/07/2017 Lady Hein R.N. Medication Administered: IV NS (SALINE), Dose: IV Fluids over 1 hour(s), Rate: 999 mL/hr, Dispensed: 1000 mL bag, Site: #1 left. Medication Ordered: IV NS : initial bolus 1000 mL (1000 mL/hr), then none - for X3 (NOW). Given 19:03/07/2017 Lady Hein R.N. Medication Administered: DILAUDID [IVP] (HYDROMORPHONE HCL PF), Dose: 1 mg IVP over 1 minute(s), Site: #1 left. Medication Ordered: Dilaudid IV 1 mg (HIGH ALERT MEDICATION, NOW). Given 19:03/07/2017 Lady Hein R.N. Medication Administered: ZOFRAN [IVP] (ONDANSETRON HCL), Dose: 4 mg IVP over 1 minute(s), Site: #1 left. Medication Ordered: Zofran IV 4 mg (NOW). Given 19:03/07/2017 Lady Hein R.N. Medication Administered: BENADRYL [IVP] (DIPHENHYDRAMINE HCL), Dose: 25 mg IVP over 1 minute(s), Site: #1 left. Medication Ordered: Benadryl IV 25 mg (NOW). Given 19:03/07/2017 Lady Hein R.N. Medication Administered: AFRIN [NASAL SPRAY] (OXYMETAZOLINE HCL), Dose: 2 spray Nasal [place]. Medication Ordered: Afrin Nasal [place] 2 sprays (place at bedside). Start 20:11 03/07/2017 Lady Hein R.N., Stop 21:47 03/07/2017 Lady Hein R.N. Medication Administered: IV NS (SALINE), Dose: IV Fluids over 1 hour(s), Rate: 999 mL/hr, Dispensed: 1000 mL bag, Site: #1 left. Medication Ordered: IV NS : initial bolus 1000 mL (1000 mL/hr), then none - for X3 (NOW). Given 20:12 03/07/2017 Lady Hein R.N. Medication Administered: DILAUDID [IVP] (HYDROMORPHONE HCL PF), Dose: 1 mg IVP over 1 minute(s), Site: #1 left. Medication Ordered: Dilaudid IV 1 mg (HIGH ALERT MEDICATION, NOW). Given 21:46 03/07/2017 Lady Hein R.N. Medication Administered: DILAUDID [IVP] (HYDROMORPHONE HCL PF), Dose: 1 mg IVP over 1 minute(s), Site: #1 left. Medication Ordered: Dilaudid IV 1 mg (HIGH ALERT MEDICATION, NOW).
--- NOTE | 2017-03-07 22:24 | ED DISCHARGE INSTRUCTIONS ---
Patient: FELIPA VALERA General Instructions [facility] VisitID: [id number] [address] [place] [address] 66y, F Registration Date/Time: 03/07/2017 Chronic abdominal pain of undetermined cause. Complete small bowel obstruction. (Electronically signed by Natlaie Rosa A.R.N.P. 03/07/2017 22:24)
--- NOTE | 2017-03-07 22:24 | ED MED RECONCILIATION SUMMARY ---
Patient: FELIPA VALERA Medication Reconciliation Report [facility] VisitID: [id number] [address] [place] [address] 66y, F Registration Date/Time: 03/07/2017 Weight: 43.0 kg Height/Length: 61 in. BMI: 17.9 ALLERGIES: Ampicillin, Celebrex, Morphine and Related, Paper tape, Penicillin The patient's Home Medications are listed below: THE FOLLOWING MEDICATIONS NEED TO BE RECONCILED: Fish Oil Oral (1000 mg) 1 capsule, daily Glucosamine Oral 1500 mg, daily Lutein Oral Multivital Oral Omeprazole Oral 20 mg, 2x a day Vitamin B Complex Oral Zyrtec The source(s) of the original Home Medication information: patient The following Medications were given to the patient in the Emergency Department: IV NS IV Fluids bolus 0, then 999 mL/hr, administered: 03/07/2017 7:01:00 PM Dilaudid [IVP] IVP 1 mg, administered: 03/07/2017 7:02:00 PM Zofran [IVP] IVP 4 mg, administered: 03/07/2017 7:02:00 PM Benadryl [IVP] IVP 25 mg, administered: 03/07/2017 7:03:00 PM Afrin [Nasal [place]] Nasal [place] 2 spray, administered: 03/07/2017 7:03:00 PM IV NS IV Fluids bolus 0, then 999 mL/hr, administered: 03/07/2017 8:11:00 PM Dilaudid [IVP] IVP 1 mg, administered: 03/07/2017 8:12:00 PM Dilaudid [IVP] IVP 1 mg, administered: 03/07/2017 9:46:00 PM The following Medications were prescribed to the patient: None.
--- NOTE | 2017-03-07 22:24 | ED DISCHARGE INSTRUCTIONS ---
Patient: FELIPA VALERA General Instructions [facility] VisitID: [id number] [address] [place] [address] 66y, F Registration Date/Time: 03/07/2017 Chronic abdominal pain of undetermined cause. Complete small bowel obstruction. (Electronically signed by Natalie Rosa A.R.N.P. 03/07/2017 22:24)
--- NOTE | 2017-03-07 22:24 | ED MAR SUMMARY ---
..... Medication Administration Record [facility] [address] [facility] [place] [address] Patient: FELIPA VALERA Visit ID: [id number] 66y, F Weight: 43.0 kg Height/Length: 61 in BMI: 17.9 ALLERGIES: Ampicillin, Celebrex, Morphine and Related, Paper tape, Penicillin Start 19:01 03/07/2017 Lady Hein R.N., Stop 20:11 03/07/2017 Lady Hein R.N. Medication Administered: IV NS (SALINE), Dose: IV Fluids over 1 hour(s), Rate: 999 mL/hr, Dispensed: 1000 mL bag, Site: #1 left. Medication Ordered: IV NS : initial bolus 1000 mL (1000 mL/hr), then none - for X3 (NOW). Given 19:03/07/2017 Lady Hein R.N. Medication Administered: DILAUDID [IVP] (HYDROMORPHONE HCL PF), Dose: 1 mg IVP over 1 minute(s), Site: #1 left. Medication Ordered: Dilaudid IV 1 mg (HIGH ALERT MEDICATION, NOW). Given 19:03/07/2017 Lady Hein R.N. Medication Administered: ZOFRAN [IVP] (ONDANSETRON HCL), Dose: 4 mg IVP over 1 minute(s), Site: #1 left. Medication Ordered: Zofran IV 4 mg (NOW). Given 19:03/07/2017 Lady Hein R.N. Medication Administered: BENADRYL [IVP] (DIPHENHYDRAMINE HCL), Dose: 25 mg IVP over 1 minute(s), Site: #1 left. Medication Ordered: Benadryl IV 25 mg (NOW). Given 19:03/07/2017 Lady Hein R.N. Medication Administered: AFRIN [NASAL SPRAY] (OXYMETAZOLINE HCL), Dose: 2 spray Nasal [place]. Medication Ordered: Afrin Nasal [place] 2 sprays (place at bedside). Start 20:11 03/07/2017 Lady Hein R.N., Stop 21:47 03/07/2017 Lady Hein R.N. Medication Administered: IV NS (SALINE), Dose: IV Fluids over 1 hour(s), Rate: 999 mL/hr, Dispensed: 1000 mL bag, Site: #1 left. Medication Ordered: IV NS : initial bolus 1000 mL (1000 mL/hr), then none - for X3 (NOW). Given 20:12 03/07/2017 Lady Hein R.N. Medication Administered: DILAUDID [IVP] (HYDROMORPHONE HCL PF), Dose: 1 mg IVP over 1 minute(s), Site: #1 left. Medication Ordered: Dilaudid IV 1 mg (HIGH ALERT MEDICATION, NOW). Given 21:46 03/07/2017 Lady Hein R.N. Medication Administered: DILAUDID [IVP] (HYDROMORPHONE HCL PF), Dose: 1 mg IVP over 1 minute(s), Site: #1 left. Medication Ordered: Dilaudid IV 1 mg (HIGH ALERT MEDICATION, NOW).
[2017-03-08 02:34] VITALS: BP 97/66
[2017-03-08 06:18] VITALS: BP 85/57
--- NOTE | 2017-03-08 06:54 | Progress Note ---
Subjective General Note Date: March 08, 2017 Admission Date: March 07, 2017 Hospital Day: 1 PCP: Dr. 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 [facility] ER evaluation was consistent with high-grade small bowel obstruction with associated nausea, abdominal pain, and dehydration. Secondary to the above, the patient was admitted by Juanito Pastrana M.D. for further evaluation and treatment. Subjective Patient is feeling significant improvement. Patient had most half a liter drained from her NG tube overnight. Patient states that she the bloating and discomfort is essentially resolving. Patient states that in the past. She's always had the NG tube placed in the hold the next day that she was started on clear liquids. Patient is a clinic follow-up with Dr. Noguera. Patient has not yet been seen or consulted by Dr. Stewart. Physical Exam Vital Signs / I&Os Vital Signs Date Time Temp Pulse Resp B/P Pulse O2 O2 Flow FiO2 Ox Delivery Rate 03/08 0618 98.4 67 18 85/57 100 Room Air 03/08 0234 98.2 59 16 97/66 100 Room Air 03/07 2230 Room Air 03/07 2218 99.0 70 18 117/78 100 I&O 03/07 0800 03/07 1600 03/08 0000 Intake Total 0 Output Total 1650 Balance -1650 General Appearance Oriented X3, Cooperative HEENT EOMI, NGT placed; on suction. Lungs Clear to auscultation Neck No JVD Cardiovascular Normal S1 and S2 Extremities No edema, Normal pulses Skin No Rashes Psych/Mental Status Mental status normal, Mood normal LAB Results Laboratory Tests 03/07 03/07 03/08 1820 1845 0515 Chemistry Plasma Sodium (136 - 145 mmol/L) 142 144 Plasma Potassium (3.5 - 5.1 mmol/L) 4.0 3.6 Plasma Chloride (98 - 107 mmol/L) 103 111 CO2 (Enzymatic) (21 - 32 mmol/L) 25 23 BUN (7 - 18 mg/dL) 36 34 Creatinine (0.6 - 1.3 mg/dL) 1.3 1.2 Est GFR ( Amer) (mL/min) 53.12 58.26 Est GFR (Non-Af Amer) (mL/min) 43.83 48.07 Glucose (70 - 110 mg/dL) 95 97 Plasma Calcium (8.5 - 10.1 mg/dL) 11.3 8.8 Total Bilirubin (0.0 - 1.0 mg/dL) 0.2 0.3 AST (15 - 37 U/L) 27 22 ALT (12 - 78 U/L) 32 24 Alkaline Phosphatase (46 - 116 U/L) 81 60 Total Protein (6.4 - 8.2 g/dL) 8.1 5.7 Albumin (3.3 - 5.0 g/dL) 4.3 3.1 Amylase (25 - 115 U/L) 180 107 Lipase (73 - 393 U/L) 402 153 Hematology WBC (4.5 - 11.5 K/uL) 6.5 7.5 RBC (4.00 - 5.20 M/uL) 4.38 3.55 Hgb (12.0 - 16.0 gm/dL) 13.2 10.7 Hct (36.0 - 46.0 %) 39.4 31.9 MCV (80 - 100 fL) 90 90 MCH (26 - 34 pg) 30 30 RDW (11.6 - 14.8 %) 13.7 13.7 Neut % (Auto) (50 - 75 %) 73.8 83.7 Lymph % (Auto) (25 - 40 %) 17.2 6.9 [place] % (Auto) (3 - 14 %) 6.0 7.0 Eos % (Auto) (0 - 4 %) 2.4 1.5 Baso % (Auto) (0 - 2 %) 0.6 0.9 Plt Count, EDTA (150 - 400 K/uL) 488 355 PUBS MCHC (31 - 37 g/dL) 34 34 Urines Urine Color YELLOW Urine Appearance CLEAR Urine pH (5.0 - 8.0) 6.0 Ur Specific [place] (1.010 - 1.030) 1.020 Urine Protein (NEGATIVE) NEGATIVE Urine Ketones (NEGATIVE) NEGATIVE Urine Blood (NEGATIVE) NEGATIVE Urine Nitrite (NEGATIVE) NEGATIVE Urine Bilirubin (NEGATIVE) NEGATIVE Urine Urobilinogen (0.2 - 1.0 EU/dL) 0.2 Ur Leukocyte Esterase (NEGATIVE) NEGATIVE Urine RBC (0 - 1 rbc/hpf) NONE SEEN Urine WBC (0 - 1 wbc/hpf) 5-10 Ur Epithelial Cells (0 - 5 EPI/hpf) 1-3 Urine Bacteria (NONE SEEN) NONE SEEN Urine Glucose (NEGATIVE) NEGATIVE Urine Comment CULT NOT INDICATED Assessment and Plan Problem List 1. Small bowel obstruction Plan Seen and followed by surgery. Patient has NG tube placed that is draining nearly half liter. Planning on removing the NG tube today. Patient has good output from her ileostomy. Patient symptomatically improved. Patient will start on clear liquids. 2. Hypercalcemia Plan Strip. Hypercalcemia. Generally, this is seen on admission. Patient's calcium level has normalized on the a.m. labs. 3. Dehydration Plan IV fluids BUN is normalized. Patient now having good output from her ileostomy The amylase and lipase and also normalized. 4. Hyperamylasemia Status Acute Onset Date Unknown Plan Amylase and lipase normalized 5. Elevated lipase Status Acute Onset Date Unknown Plan Normalized lipase from this morning's labs. Current status: Anticipated discharge date: Anticipated discharge in 2-3 days Anticipated discharge placement: Home Patient care time: Time spent in chart review, patient interview, physical exam, CPOE, and care documentation: 70 minutes Visit to patient today: Complexity of care: Moderate-High Initial patient evaluation: Emergency department DVT prophylaxis: Lovenox 40 mg subcutaneous daily GI prophylaxis: Protonix 40 mg IV daily Consultation: J Luis Sifuentes M.D. (General surgery)
[2017-03-08 10:28] VITALS: BP 90/60
--- NOTE | 2017-03-08 12:11 | Provider's Discharge Care Plan ---
Problem, Goal, Plan Problem List 1. Small bowel obstruction Goals: Improve disease control, Prevent disease progress Instructions: Follow up as needed 2. Hypercalcemia Goals: Improve disease control, Prevent disease progress Instructions: Follow up as directed 3. Dehydration Goals: Improve function, Therapeutic intervention Instructions: Follow up as directed 4. Hyperamylasemia Goals: Diagnostic testing, Therapeutic intervention Instructions: Follow up as directed 5. Elevated lipase Goals: Therapeutic intervention Instructions: Follow up as directed
--- NOTE | 2017-03-08 13:56 | CONSULTATION REPORT ---
DATE OF CONSULTATION: 03/08/2017 CHIEF COMPLAINT: 1. Abdominal pain HISTORY OF PRESENT ILLNESS: The patient is a 66-year-old woman who has had multiple recurrent bouts of partial small-bowel obstruction. All these have resolved in the past with short-term observation and IV hydration. She was just in the hospital a week or 2 ago with something very similar, which opened up right away. In the past, this has been going on, actually for many years, and on each occasion it has opened up quickly. Gastrografin studies in the past have failed to show mechanical point of obstruction. Note that this patient's history started many years ago with a colectomy that was done for bowel dysfunction. Original surgeries were with Dr. Ballard at least 15-20 years ago. Much of the previous record has been purged from the computer, as it goes back so far. My consolation in 2002 was for a similar partial small-bowel obstruction, and she has had numerous admissions for the same thing. 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 This was converted to an end-ileostomy, and since then she has continued to have dysmotility problems, with partial obstructions that have all resolved with medical management. Review of her chart shows many pages of admissions and consultations. On this occasion, she was admitted yesterday, but has already opened up, with diffuse ileostomy output and active bowel sounds. She feels like she is ready to move on. MEDICAL/SURGICAL HISTORY: She has been treated in the past for parastomal hernia requiring mesh repair and had a transient fistula formation. The involved area of the mesh was removed in 2010, and she was able to resolve her fistula with conservative management. This problem occurred in 2010. Additional past medical history includes metabolic disturbances related to her current situation. Other surgeries include bunionectomy, knee surgery, and sinus surgery. SOCIAL HISTORY: The patient is . She is a former smoker. She does not take alcohol. She lives with her , who takes care of her. FAMILY HISTORY: Negative for gastrointestinal disturbances or hereditary disorders. Her mother had melanoma at age 48. Father of old age at age 88. REVIEW OF SYSTEMS: Shows no additional symptoms beyond her current gastrointestinal problems. Looking over her computerized chart, this demonstrates numerous admissions for very similar circumstances, which have generally resolved in the past. She has not had recent surgical intervention. I reviewed Dr. Noguera's note as well as the emergency department notes on this admission. There are no additional findings. Since coming in the hospital, her abdominal pain has resolved, and she started having ileostomy output. PHYSICAL EXAMINATION: GENERAL: The patient is alert and cooperative and her usual cheerful self. VITAL SIGNS: Her current vital signs are temperature 98.6, pulse 72, blood pressure 90/60, respirations 18. HEENT: His ears and nose demonstrate no gross external lesions. Eyes are equal. She is anicteric. NECK: Without palpable masses or thyromegaly. CHEST: Clear. HEART: Regular. ABDOMEN: Flat abdomen with no localized tenderness. There is a functioning right -sided ileostomy with green output in a bag. The abdomen is nondistended. There is a healed midline scar. There are no fistulas visible. LAB/IMAGING: Lab tests were reviewed. White count is normal at 7.5, hemoglobin and hematocrit 10.7 and 31.9. Electrolytes: Sodium and potassium are normal. Protein and albumin are mildly decreased since her admission labs. IMPRESSION: Partial small-bowel obstruction versus bowel dysmotility, which is resolved. PLAN: Nonsurgical management.
== END 2017-03-08 12:55 | disposition home or self-care (01) | DRG 392 ==
LOC: ED SRH 18:03 → TRANS SRH 20:10 → ACUTE2 SRH 21:04
PROVIDERS: ADMIT Internal Medicine
PROC: 0D9670Z Drainage of Stomach with Drainage Device, Via Natural or Artificial Opening (ICD-10-PCS; principal; 2017-03-07)
DX: K59.8 Other specified functional intestinal disorders (principal); E86.0 Dehydration; E83.52 Hypercalcemia; R74.8 Abnormal levels of other serum enzymes; Z93.2 Ileostomy status; Z95.828 Presence of other vascular implants and grafts
CPT/HCPCS: 81523; 83498; 90004; 90100; 92235; 92530; 95059

== ENCOUNTER 2017-03-19 17:05 | Observation (INO) | payer OTHER ==
[~2017-03-19] VITALS: Ht 154.9 cm; Wt 44.0 kg
[2017-03-19 17:25] VITALS: BP 147/93
--- NOTE | 2017-03-19 18:14 | DIAGNOSTIC IMAGING REPORT ---
PROCEDURE: XR ABDOMEN 1 VIEW UPRIGHT INDICATION: ABD PAIN, R/O SBO TECHNIQUE: AP upright view. COMPARISON: Upright KUB 03/07/2017. FINDINGS: NG tube in place with the tip in the left lower quadrant. Right lower quadrant ostomy and left abdominal surgical clips. There are several mildly dilated loop of small bowel centrally with air-fluid levels. There is some air distally in the pelvis. There is no free air. Moderate degenerative changes of the spine. IMPRESSION: 1. NG tube with the tip in the left lower quadrant 2. Partial small bowel obstruction 3. Right lower quadrant ostomy
[2017-03-19 22:10] VITALS: BP 146/84
[2017-03-20 02:10] VITALS: BP 113/69; BP 95/54
--- NOTE | 2017-03-20 07:10 | Progress Note ---
Subjective General Patient states she is feeling much better. Her blockage is better this am "cleared." Would like to pull the NGT try liq diet and hopefully home later today like her usual. Physical Exam Vital Signs / I&Os Vital Signs Date Time Temp Pulse Resp B/P Pulse O2 O2 Flow FiO2 Ox Delivery Rate 03/20 0210 98.1 69 16 113/69 100 Room Air 03/20 0030 Room Air 03/19 2210 97.9 89 18 146/84 100 Room Air 03/19 1725 97.7 88 20 147/93 100 Room Air I&O 03/20 0000 03/19 1600 03/19 0800 Intake Total 2060 Output Total 550 Balance 1510 General Appearance Alert, Cooperative Cardiovascular Regular rate and rhythm Abdomen Soft, No tenderness, colostomy working well Extremities No edema Neurological Normal exam LAB Results Laboratory Tests 03/20 03/19 0616 1717 Chemistry Plasma Sodium (136 - 145 mmol/L) Pending 138 Plasma Potassium (3.5 - 5.1 mmol/L) Pending 5.1 Plasma Chloride (98 - 107 mmol/L) Pending 95 CO2 (Enzymatic) (21 - 32 mmol/L) Pending 27 BUN (7 - 18 mg/dL) Pending 41 Creatinine (0.6 - 1.3 mg/dL) Pending 1.5 Est GFR ( Amer) (mL/min) Pending 45.03 Est GFR (Non-Af Amer) (mL/min) Pending 37.16 Glucose (70 - 110 mg/dL) Pending 121 Plasma Calcium (8.5 - 10.1 mg/dL) Pending 12.1 Assessment and Plan Problem List 1. Small bowel obstruction Plan Is better at this time. Will remove NGT and then home today 2. Hypercalcemia Plan Resolves with hydration. 3. Abdominal pain Plan Is better now that she is clearing the SBO.
--- NOTE | 2017-03-20 07:19 | Provider's Discharge Care Plan ---
Problem, Goal, Plan Problem List 1. Small bowel obstruction Instructions: Follow up as needed, Take meds as directed 2. Abdominal pain Instructions: Take meds as directed 3. Hypercalcemia Instructions: re check bmp in f/u
[2017-03-20 07:30] VITALS: BP 116/83
== END 2017-03-20 10:15 | disposition home or self-care (01) ==
LOC: ACUTE2 SRH 17:05
PROVIDERS: ADMIT Family Medicine
PROC: 0D9670Z Drainage of Stomach with Drainage Device, Via Natural or Artificial Opening (ICD-10-PCS; principal; 2017-03-19)
DX: K56.60 Unspecified intestinal obstruction (principal); E83.52 Hypercalcemia; Z93.3 Colostomy status; Z95.828 Presence of other vascular implants and grafts
CPT/HCPCS: 29230; 29231; 29249; 29259; 29262; 29264; 83498; 90047; 90074

== ENCOUNTER 2017-04-03 23:31 | Observation (INO) | payer OTHER ==
[~2017-04-03] VITALS: Ht 154.9 cm; Wt 44.7 kg
--- NOTE | 2017-04-04 01:45 | ED CLINICAL REPORT ---
Clinical Report - Physicians/Mid Levels [facility] [address] [place] [address] 04/03/2017 23:32 Patient: FELIPA VALERA Time Seen: 2345; initial patient contact. Arrived- By private vehicle. Historian- patient. HISTORY OF PRESENT ILLNESS Chief Complaint: ABDOMINAL PAIN. No radiation. This started today and is still present and worsening. It was abrupt in onset and has been constant but is not gone now. At its maximum, severity described as severe. When seen in the E.D., severity described as severe. Modifying factors- worsened by movement. (better with dilaudid). The patient has had nausea and vomiting. No loss of appetite or diarrhea. No additional abdominal pain. (Reports no change in the ostomy output.). No recent travel. Similar symptoms previously: Many times. Recent medical care: Not recently seen/assessed. REVIEW OF SYSTEMS No constipation, black stools, bloody stools or fever. All systems otherwise negative, except as recorded above. PAST HISTORY See nurses notes. Medications: Flector Transdermal (Patch 1.3 %), every other day. Fish Oil Oral (Capsule 1000 mg) 1 capsule, daily. Glucosamine Oral 1500 mg, daily. Lutein Oral. Multivital Oral. Omeprazole Oral 20 mg, 2x a day. Vitamin B Complex Oral. Zyrtec. Allergies: Ampicillin. Celebrex. Morphine and Related. Paper tape. Penicillin. SOCIAL HISTORY Never smoker. Occasional alcohol use. No drug use. No recent travel. Is a local resident. ADDITIONAL NOTES The nursing notes have been reviewed. PHYSICAL EXAM Vital Signs: 04/03/2017 23:35 BP: 110/89. HR: 78. RR: 20. O2 saturation: 100%. Temp: 97.6 F. Pain level now: 8/10. Blood pressure normal. Oxygen saturation normal. Appearance: Alert. Oriented X3. No acute distress. (Polite, cooperative, pleasant). Eyes: Pupils equal, round and reactive to light. Eyes normal inspection. ENT: Ears normal. Nose normal. Pharynx normal. Neck: Normal inspection. Neck supple. CVS: Normal heart rate and rhythm. Heart sounds normal. Pulses normal. Respiratory: No respiratory distress. Breath sounds normal. Chest nontender. No rales, rhonchi or wheezes. Abdomen: Soft. (hypoactive bowel sounds. Ostomy noted with pink stoma. Normal-appearing stool in the patient's back. No rebound or guarding. No masses. Mild tenderness throughout the abdomen. No focal tenderness noted.). Skin: Skin warm and dry. Normal skin color. No rash. Normal skin turgor. Extremities: Extremities exhibit normal ROM. No lower extremity edema. Neuro: Oriented X 3. No motor deficit. No sensory deficit. LABS, X-RAYS, AND EKG KUB: Gas pattern abnormal. (Upright abdomen with positive air fluid levels. Consistent with bowel obstruction. No free air under the diaphragm.). Views: erect AP. The X-rays were independently viewed by me and interpreted contemporaneously by me. A comparison with prior films (similar). Laboratory Tests: UA-Culture if indicated: (ELIAS: 04/04/2017 00:04) ( [facility] 04/04/2017 00:17) Final results Test Result Flag Units (Reference) URINE COLOR YELLOW URINE APPEARANCE CLEAR URINE GLUCOSE NEGATIVE (NEGATIVE) URINE BILIRUBIN NEGATIVE (NEGATIVE) URINE KETONE TRACE (NEGATIVE) URINE SPECIFIC GRAVITY 1.025 (1.010-1.030) URINE PH 5.5 (5.0-8.0) URINE PROTEIN NEGATIVE (NEGATIVE) URINE UROBILINOGEN 0.2 EU/dL (0.2-1.0) URINE NITRITE NEGATIVE (NEGATIVE) URINE BLOOD NEGATIVE (NEGATIVE) URINE LEUK ESTERASE NEGATIVE (NEGATIVE) URINE RBC NONE SEEN rbc/hpf (0-1) URINE WBC 0-1 wbc/hpf (0-1) URINE EPITHELIAL CELLS 0-1 EPI/hpf (0-5) URINE BACTERIA NONE SEEN (NONE SEEN) URINE COMMENT CULT NOT INDICATED URINE CULTURES ARE SET-UP BASED ON THE FOLLOWING CRITERIA:POSITIVE NITRITEPOSITIVE LEUKOCYTE ESTERASEGREATER THAN 10 WHITE BLOOD CELLSMODERATE (2+) OR GREATER BACTERIA CBC w Diff: (ELIAS: 04/04/2017 00:12) ( [facility] 04/04/2017 00:20) Final results Test Result Flag Units (Reference) WHITE BLOOD COUNT 9.3 K/uL (4.5-11.5) RED BLOOD COUNT 4.54 M/uL (4.00-5.20) HEMOGLOBIN 13.8 gm/dL (12.0-16.0) HEMATOCRIT 40.8 % (36.0-46.0) MEAN CELL VOLUME 90 fL (80-100) MEAN CORPUSCULAR HGB 31 pg (26-34) MEAN CORPUSCULAR HGB CONC 34 g/dL (31-37) RED CELL DISTRIBUTION WIDTH 14.0 % (11.6-14.8) PLATELET COUNT 439 H K/uL (150-400) NEUTROPHIL % 77.9 H % (50-75) LYMPH % 11.5 L % (25-40) MONO % 6.6 % (3-14) EOSINOPHIL % 3.0 % (0-4) BASOPHIL % 1.0 % (0-2) PTT: (ELIAS: 04/04/2017 00:52) ( [facility] 04/04/2017 01:08) Final results Test Result Flag Units (Reference) APTT 34 SECONDS (24-34) PT with INR: (ELIAS: 04/04/2017 00:12) ( [facility] 04/04/2017 00:43) Final results Test Result Flag Units (Reference) INR 0.9 (0.8-1.2) Low Intensity Therapy: INR 1.5-2.0 PT range 18.5-23.1Mod.Intensity Therapy: INR 2.0-3.0 PT range 23.1-31.5High Intensity Therapy: INR 2.5-3.5 PT range 27.4-35.5High Intensity Therapy 2: INR 3.0-4.0 PT range 31.5-39.3 APTT > 150 *H SECONDS (24-34) CRITICAL RESULTS CALLEDCalled to MIKKI MCDANIELS RN 04/04/17 0042Were 2 patient identifiers used? YWas the result read back? Y CMP: (ELIAS: 04/04/2017 00:12) ( [facility] 04/04/2017 00:35) Final results Test Result Flag Units (Reference) GLUCOSE 121 H mg/dL (70-110) BUN 41 H mg/dL (7-18) CREATININE 1.2 mg/dL (0.6-1.3) Estimated GFR 48.07 mL/min Estimated GFR- 58.26 mL/min Note: Persistent reduction over 3 months in eGFR<60 mL/min/1.73 m2 defines CKD. Patients with eGFR values>=60 mL/min/1.73 m2 may also have CKD if evidence ofpersistent proteinuria. Additional information may be foundat [email or web address].org. SODIUM 139 mmol/L (136-145) POTASSIUM 3.2 L mmol/L (3.5-5.1) CHLORIDE 98 mmol/L (98-107) CARBON DIOXIDE 25 mmol/L (21-32) CALCIUM 10.3 H mg/dL (8.5-10.1) TOTAL PROTEIN 8.1 g/dL (6.4-8.2) ALBUMIN 4.5 g/dL (3.3-5.0) BILIRUBIN, TOTAL 0.2 mg/dL (0.0-1.0) ALKALINE PHOSPHATASE 89 U/L (46-116) AST (SGOT) 31 U/L (15-37) ALT (SGPT) 39 U/L (12-78) LIPASE 179 U/L (73-393) . PROGRESS AND PROCEDURES Course of Care: the patient is a pleasant 66-year-old female with extensive abdominal surgery history and obstruction presented for evaluation of abdominal pain and nausea vomiting. Patient reports that she feels exact the same as she did last time. Because of the patient's long history of bowel obstruction, patient states that she normally gets a plain film of her abdomen for evaluation of her abdominal pain. Head discussion the patient in regards to CT scan versus plain film of the abdomen. Patient understands the reasoning for obtaining a CT scan set however states that a plain film the abdomen is okay at this time. Because the patient has had symptoms like this many times in the past, will obtain a plain film of the abdomen and pelvis however patient has any deviation from her usual course of REDUCTION, we'll consider CT scan at that time. Laboratory studies also been ordered. Patient has been given nausea medication as well as pain medication in the emergency department. Patient's workup was unremarkable for the findings above. NG tube is in place. Medications for pain as been provided. Patient with bowel obstruction which appears to be somewhat similar to the prior x-ray noted on [id number]. Because of the patient's pattern of bowel obstruction on plain film, patient will be admitted to the hospital. Had spoken with the hospitalist was agreeable to the treatment plan. We'll also consult with general surgery in regards to the patient's presentation here in the emergency department. Do not fill general surgeon is be contacted immediately however will do so in the morning. Patient was admitted without subsequent problems or competitions. Patient was agreeable to the treatment and plan after discussing her workup and diagnosis here in the emergency department. Was able to contact general surgery. No further recommendations made. Patient will be monitoredand followed up with general surgery on her admission today. Consult obtained from surgery. Disposition: Observation in Acute Care. CLINICAL IMPRESSION Acute generalized abdominal pain acute nausea and vomiting acute bowel obstruction. (Electronically signed by Bryan Driscoll Dr. 04/04/2017 7:52)
--- NOTE | 2017-04-04 01:45 | ED NURSING NOTES ---
Clinical Report - Nurses Formerly [facility] [address] [place] [address] 04/03/2017 23:32 Patient: FELIPA VALERA TRIAGE Triage time 23:35 Apr 03 2017. Acuity: LEVEL 3. Chief Complaint: ABDOMINAL PAIN, NAUSEA and VOMITING. 23:49 04/03/17. SEPSIS SCREEN: Sepsis Screen. Negative (no infection suspected/documented). LAMIN COMA SCORE: Lamin Coma Scale: 15- eyes open spontaneously (4); best verbal response- oriented x 4 (5); best motor response- obeys commands (6). --23:49 Sharonda Cunha R.N. 23:35 04/03/17. BP: 110/89 (small adult cuff) taken on the right arm. HR: 78. RR: 20. O2 saturation: 100% on room air. Temp: 97.6 F (oral). Pain level now: 8/10. Additional comments: RUQ pain. --23:49 Sharonda Cunha R.N. Weight: 44.4 kg stated. Height/Length: 61 inches Per Patient. BMI: 18.5. --23:48 Sharonda Cunha R.N. Medications Fish Oil Oral (Capsule 1000 mg) 1 capsule, daily. Glucosamine Oral 1500 mg, daily. Lutein Oral. Multivital Oral. Omeprazole Oral 20 mg, 2x a day. Vitamin B Complex Oral. Zyrtec. --23:35 Sharonda Cunha R.N. Flector Transdermal (Patch 1.3 %), every other day. --23:44 Sharonda Cunha R.N. Allergies Ampicillin. Celebrex. Morphine and Related. Paper tape. Penicillin. --23:35 Sharonda Cunha R.N. History Arrived by private vehicle. Historian: patient. Accompanied by family. Primary physician (DEEPAK HEREDIA). Onset. (started around 1800 tonight). ( Patient has colonostomy, Stoma looks pink and healthy, ostomy bag was changed yesterday). She has had nausea (today). She has had vomiting (1 today). Last oral intake by patient was (ate dinner tonight 1800). 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 PAST MEDICAL HX: Last normal menstrual period- 15 years ago. ( colon cancer, colostomy present). SOCIAL HX: Smoker- current status unknown. Occasional alcohol use; consumes liquor. (on weekends). No drug use. No recent travel. No infectious disease exposure. No known contact with a sick individual. ABUSE ASSESSMENT: No report of abuse. --23:49 Sharonda Cunha R.N. The patient has had moderate abdominal pain. The pain is described as located in the RUQ. --23:49 Sharonda Cunha R.N. PROBLEMS: Colon Cancer. Nausea. Gastroesophageal Reflux Disease. Toxic megacolon. GI Disease. Hypokalemia. Abdominal Pain. Hypercalcemia. Bowel Obstruction. Small bowel obstruction. Fistula. Ileostomy present. --23:37 Sharonda Cunha R.N. ADDITIONAL SURGERIES: Abd fistula. Bunionectomy. Colostomy. Ileostomy. Knee Surgery. Laparoscopy. Sinus Surgery. --23:37 Sharonda Cunha R.N. Interventions ID band on patient. To treatment room. --23:49 Sharonda Cunha R.N. PHYSICAL ASSESSMENT 23:52 04/03/17. To room via wheelchair. Patient gowned. GENERAL / NEURO / PSYCH: Alert. Oriented X 4. Appears in pain. HEENT: Mucous membranes are pink. RESPIRATORY: Respirations not labored. Breath sounds within normal limits. CVS: Normal sinus rhythm noted. Capillary refill less than 2 seconds. GI / : The patient has had nausea. Emesis noted. Colostomy present (stoma pink and healthy). Abdominal distention. Abdominal tenderness. Guarding present. Hyperactive bowel sounds in all quadrants. Stool color normal. SKIN: Skin is warm. --23:52 Sharonda Cunha R.N. NURSING PROGRESS NOTES 23:52 04/03/17. The plan of care for this patient has been created. Monitoring of patient in place. Patient gowned. Head of bed elevated. Reassurance given. Two patient identifiers checked. Call light placed in reach. Side rails up x 2. Bed placed in lowest position. Brakes of bed on. Patient ready for evaluation- chart flagged and ED physician notified. --23:52 Sharonda Cunha R.N. <<STRICKEN ENTRY-- 00:04/04/2017 Site #1 started via IV using a PICC line with an 20g angiocath, with aseptic technique and good blood return; one attempt. Blood drawn: rainbow set. Labeled in the presence of the patient and sent to the lab. Saline lock flushed with 10 mL saline. --00:20 Sharonda Cunha R.N. --END STRIKE>> Correction. --01:17 Sharonda Cunha R.N. 00:04/04/17 late entry -. ( Patients at bedside). --00:23 Sharonda Cunha R.N. 00:04/04/2017 Zofran (Ondansetron HCl) IVP 4 mg given over 1 minute(s) via site #1. Allergies verified and confirmed 5 rights. IV patency established. IV site checked: no pain, redness, or swelling. IV flushed thoroughly pre- and post-medication administration. IVP given by RN. --00:20 Sharonda Cunha R.N. 00:04/04/2017 Dilaudid (HYDROmorphone HCl PF) IVP 1 mg given over 1 minute(s) via site #1. Allergies verified, confirmed 5 rights and sedative warning given to the patient. IV patency established. IV site checked: no pain, redness, or swelling. IV flushed thoroughly pre- and post-medication administration. IVP given by RN. --00:20 Sharonda Cunha R.N. Patient transported to radiology by [employer]. (:Apr 04 2017). --00:22 Sharonda Cunha R.N. ( Critical aptt lab value received and reported to Dr. Adams,). --00:44 Ricky Sky R.N. ( Will draw PTT again for a repeat test). --00:53 Sharonda Cunha R.N. 18 fr NG tube inserted in left nostril with no difficulty. Placement confirmed by auscultation. Return: brown fluid. Tube secured. Attached to low and intermittent suction. Patient tolerated procedure well. (00:Apr 04 2017). --00:54 Sharonda Cunha R.N. 00:15 04/04/2017 Site #1 accessed indwelling Powerport in the left using a 20g needle following sterile technique; 1 attempt. Good blood return noted. Site prepped with chlorhexidine. Blood drawn: rainbow set. Labeled in the presence of the patient and sent to the lab. Flushed with 10 mL saline. --01:17 Sharonda Cunha R.N. 00:54 04/04/2017 Dilaudid IVP Response: no adverse reaction pain is improving. Symptoms have improved the patient feels better. --00:54 Sharonda Cunha R.N. 00:54 04/04/2017 Zofran IVP Response: no adverse reaction pain is improving. Symptoms have improved the patient feels better. --00:54 Sharonda Cunha R.N. 00:55 04/04/2017 Started bag #1 1000 mL IV Fluids IV NS (Saline); at 125 mL/hr over 8 hour(s) via site #1 via IV pump. Allergies verified and confirmed 5 rights. IV patency established. IV site checked: no pain, redness, or swelling. IV flushed thoroughly pre- and post-medication administration. --00:55 Sharonda Cunha R.N. 01:02 04/04/17. ( Patient complains of itching from soap in bed sheets, she states she gets benadryl when she comes here. at bedside, patient offered warm blankets but she says she is too hot). --01:02 Sharonda Cunha R.N. 01:05 04/04/2017 Benadryl (DiphenhydrAMINE HCl) IVP 50 mg given over 1 minute(s) via site #1. Allergies verified, confirmed 5 rights and sedative warning given to the patient. IV patency established. IV site checked: no pain, redness, or swelling. IV flushed thoroughly pre- and post-medication administration. IVP given by RN. --01:05 Sharonda Cunha R.N. ( 00:42 04/04/17. BP: 111/82 (small adult cuff) taken on the right arm. HR: 79. RR: 18. O2 saturation: 100% on room air. Pain level now: 03/18. 0:43 Sharonda Cunha R.NBailey). --01:18 Sharonda Cunha R.N. 00:00 04/04/17. BP: 114/86 (small adult cuff) taken on the right arm. HR: 80. RR: 18. O2 saturation: 95% on room air. Pain level now: 03/18. --01:22 Sharonda Cunha R.N. 00:35 04/04/17. BP: 111/82 (small adult cuff) taken on the right arm. HR: 74. RR: 18. O2 saturation: 96% on room air. Pain level now: 02/16. --01:22 Sharonda Cunha R.N. 01:00 04/04/17. BP: 122/88 (small adult cuff) taken on the right arm. HR: 75. RR: 18. O2 saturation: 96% on room air. Pain level now: 02/16. --01:23 Sharonda Cunha R.N. 01:30 04/04/17. BP: 119/78 (small adult cuff) taken on the right arm. HR: 75. RR: 18. O2 saturation: 100% on room air. Pain level now: 06/18. --02:04 Sharonda Cunha R.N. 02:04 04/04/17. BP: 119/78 (small adult cuff) taken on the right arm. HR: 80 (regular). RR: 18 (regular). O2 saturation: 98% on room air. Pain level now: 06/18. --02:04 Sharonda Cunha R.N. 02:04/04/2017 Dilaudid (HYDROmorphone HCl PF) IVP 1 mg given over 1 minute(s) via site #1. Allergies verified, confirmed 5 rights and sedative warning given to the patient. IV patency established. IV site checked: no pain, redness, or swelling. IV flushed thoroughly pre- and post-medication administration. IVP given by RN. --02: Sharonda Cunha R.N. 02:04/04/17. ( Patient informed she was going to be admitted to hospital, she states her understanding to this. Hospitalist in with patient). --02:10 Sharonda Cunha R.N. 02:28 04/04/17. ( Floor nurse in with patient, getting information to admit patient). --02:28 Sharonda Cunha R.N. 02:55 04/04/17. ( Nurse just finished questioning patient, patient doing well, no requests at this time. She emptied her Colostomy with her husbands help). --02:55 Sharonda Cunha R.N. 02:55 04/04/17. BP: 124/84 (small adult cuff) taken on the right arm. HR: 84. RR: 16. O2 saturation: 98% on room air. Pain level now: 02/16. --02:56 Sharonda Cunha R.N. DISPOSITION / DISCHARGE <<STRICKEN ENTRY-- 00:42 04/04/17. BP: 111/82 (small adult cuff) taken on the right arm. HR: 79. RR: 18. O2 saturation: 100% on room air. Pain level now: 03/18. --00:43 Sharonda Cunha R.N. --END STRIKE>> Correction. --01:18 Sharonda Cunha R.N. 03:03 04/04/17. Admitted to Acute Care (). Report was given to a nurse via a phone call. Report included patient's care, treatment, medications, reviewed medication reconcilliation, and condition (including any recent changes or anticipated changes). All questions were answered. Report was acknowledged and care was transferred. Bed obtained and ready (). --03:03 Sharonda Cunha R.N. 03:07 04/04/17. BP: 124/84 (small adult cuff) taken on the right arm. HR: 66. RR: 18. O2 saturation: 98% on room air. Temp: 98.3 F (oral). Pain level now: 02/16. --03:09 Sharonda Cunha R.N. 03:09 04/04/17. Patient's personal items include, 2 bags clothes, coat, no purse, cell phone with patient, colostomy supplies, no money or jewelry with patient. --03:09 Sharonda Cunha R.N. 03:11 04/04/2017 Site #[address] upon transfer; patent, no pain and no signs of infection or infiltration. Good blood return present. --03:11 Sharonda Cunha R.N. Departure time: 03:13 Apr 04 2017. --03:28 Sharonda Cunha R.N. Locked/Released at 04/04/2017 3:28 by Sharonda Cunha R.N.
--- NOTE | 2017-04-04 01:45 | ED ORDER SUMMARY ---
..... Patient: FELIPA VALERA OrderSheet [facility] VisitID: [id number] [address] [place] [address] 66y, F Registration Date/Time: 04/03/2017 ORDER SHEET Weight: 44.4 kg (stated) Allergies: Ampicillin, Celebrex, Morphine and Related, Paper tape, Penicillin GENERAL ORDERS: Abdomen 1V Upright Urgent (23:59 04/03/2017 Queenie Tang) (Ack 0:01 CHagerty ER Iridologist) (0:26 GUnger) CBC w Diff Urgent (23:59 04/03/2017 Queenie Tang) (Ack 0:01 CHagerty ER Iridologist) (0:12 JSanders R.N.) CMP Urgent (23:59 04/03/2017 Queenie Tang) (Ack 0:01 Gemmaerty ER Iridologist) (0:12 JSanders R.N.) UA-Culture if indicated Urgent (23:59 04/03/2017 Queenie Tang) (Ack 0:01 CHagerty ER Iridologist) (0:12 JSanders R.N.) PT with INR Urgent (23:59 04/03/2017 Queenie Tang) (Ack 0:01 CHagerty ER Iridologist) (0:12 JSanders R.N.) PTT Urgent (23:59 04/03/2017 Queenie Tang) (Ack 0:01 CHagerty ER Iridologist) (0:12 JSanders R.N.) Lipase Urgent (23:59 04/03/2017 Queenie Tang) (Ack 0:01 CHagerty ER Iridologist) (0:12 JSanders R.N.) Pulse oximeter (23:59 04/03/2017 Queenie Tang) (0:12 JSanders R.N.) NG Tube (23:59 04/03/2017 Queenie Tang) (Ack 0:20 JSanders R.N.) (0:47 JSanders R.N.) PTT Urgent (00:47 04/04/2017 DDavis R.N. verbal order read back to Queenie Tang) (Ack 0:50 CHagerty ER Iridologist) (0:55 JSanders R.N.) (0:55 DDavis R.N.) MEDICATION ORDERS: IV FLUIDS: IV NS : initial bolus none -, then 125 mL/hr for 8h (NOW) (23:58 04/03/2017 Queenie Tagn) (Ack 0:20 JSanders R.N.) (0:55 JSanders R.N.) Dilaudid IV 1 mg (HIGH ALERT MEDICATION, NOW) (23:58 04/03/2017 Queenie Tang) (0:20 JSanders R.N.) Zofran IV 4 mg (NOW) (23:59 04/03/2017 Queenie Tang) (0:20 JSanders R.N.) Benadryl IV 50 mg (NOW) (01:00 04/04/2017 JSanders R.N. verbal order read back to Queenie Tang) (1:05 JSanders R.N.) Dilaudid IV 1 mg (HIGH ALERT MEDICATION, NOW) (02:05 04/04/2017 JSanders R.N. verbal order read back to Queenie Tang) (2:07 JSanders R.N.) ORDER SHEET NOTES: [Electronically signed by Sharonda Cunha R.N. (03:28 04/04/2017)] [Electronically signed by Bryan Driscoll Dr. (07:52 04/04/2017)] [Electronically locked/signed by Sharonda Cunha R.N. (03:28 04/04/2017)]
--- NOTE | 2017-04-04 01:45 | ED ORDER SUMMARY ---
..... Patient: FELIPA VALERA OrderSheet [facility] VisitID: [id number] [address] [place] [address] 66y, F Registration Date/Time: 04/03/2017 ORDER SHEET Weight: 44.4 kg (stated) Allergies: Ampicillin, Celebrex, Morphine and Related, Paper tape, Penicillin GENERAL ORDERS: Abdomen 1V Upright Urgent (23:59 04/03/2017 Queenie Tang) (Ack 0:01 CHagerty ER Flatwork Catcher) (0:26 GUnger) CBC w Diff Urgent (23:59 04/03/2017 Queenie Tang) (Ack 0:01 CHagerty ER Flatwork Catcher) (0:12 JSanders R.N.) CMP Urgent (23:59 04/03/2017 Queenie Tang) (Ack 0:01 Gemmaerty ER Flatwork Catcher) (0:12 JSanders R.N.) UA-Culture if indicated Urgent (23:59 04/03/2017 Queenie Tang) (Ack 0:01 CHagerty ER Flatwork Catcher) (0:12 JSanders R.N.) PT with INR Urgent (23:59 04/03/2017 Queenie Tang) (Ack 0:01 CHagerty ER Flatwork Catcher) (0:12 JSanders R.N.) PTT Urgent (23:59 04/03/2017 Queenie Tang) (Ack 0:01 CHagerty ER Flatwork Catcher) (0:12 JSanders R.N.) Lipase Urgent (23:59 04/03/2017 Queenie Tang) (Ack 0:01 CHagerty ER Flatwork Catcher) (0:12 JSanders R.N.) Pulse oximeter (23:59 04/03/2017 Queenie Tang) (0:12 JSanders R.N.) NG Tube (23:59 04/03/2017 Queenie Tang) (Ack 0:20 JSanders R.N.) (0:47 JSanders R.N.) PTT Urgent (00:47 04/04/2017 DDavis R.N. verbal order read back to Queenie Tang) (Ack 0:50 CHagerty ER Flatwork Catcher) (0:55 JSanders R.N.) (0:55 DDavis R.N.) MEDICATION ORDERS: IV FLUIDS: IV NS : initial bolus none -, then 125 mL/hr for 8h (NOW) (23:58 04/03/2017 Queenie Tang) (Ack 0:20 JSanders R.N.) (0:55 JSanders R.N.) Dilaudid IV 1 mg (HIGH ALERT MEDICATION, NOW) (23:58 04/03/2017 Queenie Tang) (0:20 JSanders R.N.) Zofran IV 4 mg (NOW) (23:59 04/03/2017 Queenie Tang) (0:20 JSanders R.N.) Benadryl IV 50 mg (NOW) (01:00 04/04/2017 JSanders R.N. verbal order read back to Queenie Tang) (1:05 JSanders R.N.) Dilaudid IV 1 mg (HIGH ALERT MEDICATION, NOW) (02:05 04/04/2017 JSanders R.N. verbal order read back to Queenie Tang) (2:07 JSanders R.N.) ORDER SHEET NOTES: [Electronically signed by Sharonda Cunha R.N. (03:28 04/04/2017)] [Electronically signed by Bryan Driscoll Dr. (07:52 04/04/2017)] [Electronically locked/signed by Sharonda Cunha R.N. (03:28 04/04/2017)]
[2017-04-04] MEDS ORDERED: ZYRTEC ALLERGY10 MG (02:50)
--- NOTE | 2017-04-04 02:52 | Progress Note ---
Subjective General Admission History and Physical Examination Admit to the Acute Care Observation Patient Name: Darling Davis Admission Date: 04/04/2017 Primary Care Provider: Dr. Noguera Attending Physician: Dr. Alvaro M.D. Admitting Physician: Sergio Robins MD Consulting; Dr. Sifuentes Code Status: full Room: SUBJECTIVE Historian: Self/, Sonny Reliability: Good Chief Complaint: Abdominal pain, associated nausea, vomiting History of Present Illness: The patient is a 66-year-old white female with a past Medical history of recurrent small bowel obstruction, colectomy followed by ileostomy, GERD, asthma , joint pain, who presented to the [facility] with 3 weeks of abdominal pain. Over the past 24 hours. Patient has had worsening symptoms including pain, nausea and vomiting. Patient is concerned about recurrence of her small bowel obstruction. Patient primary care is Dr. Noguera, general surgeon, Dr. Sifuentes. Patient typically needs proximally 2 days of admission; or the obstruction to resolve. Patient reports that she's had increased frequency of obstruction and signs of obstruction. Over the past 2 years. Patient states she's been in the hospital with an obstruction. Patient will require nasogastric tube to suction for decompression. Patient is also maintained on nothing by mouth with adequate sources through the IV fluid. Patient is admitted with small bowel obstruction and for reduction of the obstructed bowel. PAST MEDICAL HISTORY Illnesses: 1. Numerous small bowel obstructions. 2. Acid Reflux 3. Dehydration, 4. fistula formation, 5. ileostomy, 6. arthritis 7. Asthma Allergies: 1. Viral mental to laundry detergents, tape, certain forms of paper 2. Celebrex. 3. Morphine. 4. Paper tape Medications: 1. Zyrtec 10 mg by mouth daily. 2. Tramadol 50 mg by mouth 4 times a day. 3. Vitamin D, 3000. International units daily 4. Aleve 220 mg by mouth twice a day. 5. Omeprazole 20 mg by mouth twice a day. 6. Fish oil 1000 mg by mouth daily. 7. Multivitamin 1 tablet by mouth daily. 8. Qvar 1 spray each nostril twice a day 9. Lutein 20 mg by mouth daily 10. Vitamin B12 1000 g by mouth daily. Glucosamine/chondroitin 500 mg 1-3 tablets daily. Patanol drops 0.1%. Solution 1 drop every 2 hours as needed. She is Surgery: 1. Repair of fistula, 2. Small bowel obstruction. 3. Anion surgery. 4. Colostomy. 5. Partial colon removal 6. Sinus surgery 7. Nose surgery Injuries: No appreciated injuries Hospitalizations: 1. Possible hospitalizations for small bowel obstruction and generalized surgical activities FAMILY HISTORY Parents: 1. Father, father history is not disclosed., 2. Mother, other passed from a melanoma at the age of 48 SOCIAL HISTORY 1. Marital Status: 2. Mormon: Unknown. 3. Education: higher 4. Employment History: work 5. Occupational health exposures: None known 4. Caffeine: None HEALTH SUPERVISION Item/Test Review on Dr. Noguera's charting IMMUNIZATIONS: Reviewing Dr. Flores's charting ADVANCED DIRECTIVES: 1. Living well: Unknown 2. POLST: None 3. Code Status: Full code 4. Durable Power Greenhouse Transplanter Health care: , Gino 5. Donor card: Donor card none known REVIEW OF SYSTEMS Remarkable for those things stated in the history of present illness and past medical history. Review of system completed with the following notable findings : ROS Constitutional Weakness. Denies: Chills. Eyes Other (Nml EOMi). ENT Denies: Nasal Congestion. Respiratory Denies: Wheezing. Cardiovascular Denies: Palpitations, Orthopnea. Gastrointestinal Abdominal Pain, Melena. Genitourinary Denies: Frequency. Skin Denies: Lesions. Neurological Denies: Incoordination. Physical Exam General Appearance Oriented X3, Cooperative, Mild distress Lungs Clear to auscultation Neck Supple, No JVD Cardiovascular Regular rate and rhythm, Normal S1 and S2 Abdomen mild distention, soft with tenderness in the upper and lower quadrants, colostomy bag in place, which is full with liquid contact, hyperactive bowel sounds Extremities No clubbing, No edema Skin No Breakdown Neurological No lateralizing signs Psych/Mental Status Mood normal LAB Results Laboratory Tests 04/04 04/04 04/04 0004 0012 0052 Chemistry Plasma Sodium (136 - 145 mmol/L) 139 Plasma Potassium (3.5 - 5.1 mmol/L) 3.2 Plasma Chloride (98 - 107 mmol/L) 98 CO2 (Enzymatic) (21 - 32 mmol/L) 25 BUN (7 - 18 mg/dL) 41 Creatinine (0.6 - 1.3 mg/dL) 1.2 Est GFR ( Amer) (mL/min) 58.26 Est GFR (Non-Af Amer) (mL/min) 48.07 Glucose (70 - 110 mg/dL) 121 Plasma Calcium (8.5 - 10.1 mg/dL) 10.3 Total Bilirubin (0.0 - 1.0 mg/dL) 0.2 AST (15 - 37 U/L) 31 ALT (12 - 78 U/L) 39 Alkaline Phosphatase (46 - 116 U/L) 89 Total Protein (6.4 - 8.2 g/dL) 8.1 Albumin (3.3 - 5.0 g/dL) 4.5 Lipase (73 - 393 U/L) 179 Coagulation INR (0.8 - 1.2) 0.9 APTT (24 - 34 SECONDS) > 150 34 Hematology WBC (4.5 - 11.5 K/uL) 9.3 RBC (4.00 - 5.20 M/uL) 4.54 Hgb (12.0 - 16.0 gm/dL) 13.8 Hct (36.0 - 46.0 %) 40.8 MCV (80 - 100 fL) 90 MCH (26 - 34 pg) 31 RDW (11.6 - 14.8 %) 14.0 Neut % (Auto) (50 - 75 %) 77.9 Lymph % (Auto) (25 - 40 %) 11.5 [place] % (Auto) (3 - 14 %) 6.6 Eos % (Auto) (0 - 4 %) 3.0 Baso % (Auto) (0 - 2 %) 1.0 Plt Count, EDTA (150 - 400 K/uL) 439 PUBS MCHC (31 - 37 g/dL) 34 Urines Urine Color YELLOW Urine Appearance CLEAR Urine pH (5.0 - 8.0) 5.5 Ur Specific [place] (1.010 - 1.030) 1.025 Urine Protein (NEGATIVE) NEGATIVE Urine Ketones (NEGATIVE) TRACE Urine Blood (NEGATIVE) NEGATIVE Urine Nitrite (NEGATIVE) NEGATIVE Urine Bilirubin (NEGATIVE) NEGATIVE Urine Urobilinogen (0.2 - 1.0 EU/dL) 0.2 Ur Leukocyte Esterase (NEGATIVE) NEGATIVE Urine RBC (0 - 1 rbc/hpf) NONE SEEN Urine WBC (0 - 1 wbc/hpf) 0-1 Ur Epithelial Cells (0 - 5 EPI/hpf) 0-1 Urine Bacteria (NONE SEEN) NONE SEEN Urine Glucose (NEGATIVE) NEGATIVE Urine Comment CULT NOT INDICATED Assessment and Plan Problem List 1. SBO (small bowel obstruction) Plan The patient has recurrent small bowel obstructions. Patient is status post colectomy/colostomy. Recent recurrence over the past 3 weeks, increasing pain, nausea, vomiting, came in overnight profound abdominal pain, changes in the consistency of the colostomy out put; Begin with a noted and proven, protocol for treating small bowel obstruction. Pain control, Dilaudid 1 mg by mouth as needed. Itching and burning secondary to foreign objects phenylephrine 25-50 mg IV as needed NG tube to suction; to decompress. Maintain IV fluids at 125 cc Started famotidine DVT prophylaxis. 2. Abdominal pain Plan Abdominal pain as a function of the small bowel obstruction. Will attempt to achieve pain control. Dilaudid 1 mg as needed every 6 hours. Avoid NSAIDs due to her intolerance As the bowels decompress then pain should improve. 3. CKD (chronic kidney disease) Plan Chronic kidney disease, elevated BUN and creatinine. Specimens to maintain adequate hydration. Avoid NSAIDs and any form of dehydration. 4. Nausea and vomiting Plan Started on famotidine along with ondansetron. Take medication as needed. E&M Codes Admission: Obsv-Comp/High/45999 E&M Codes Admission: Obsv-Comp/High/46696
[2017-04-04 03:26] VITALS: BP 136/78
[2017-04-04 06:37] VITALS: BP 108/74
--- NOTE | 2017-04-04 06:59 | DIAGNOSTIC IMAGING REPORT ---
PROCEDURE: XR ABDOMEN 1 VIEW UPRIGHT INDICATION: ABDOMINAL PAIN TECHNIQUE: AP upright view. COMPARISON: Upright KUB 03/19/2017. FINDINGS: There are left abdominal surgical clips present. There are several mildly dilated loops of small bowel centrally with air-fluid levels, unchanged. There is no free air, mass or suspicious calcification. Mild dextroscoliosis and moderate degenerative changes of the lumbar spine. IMPRESSION: 1. Small bowel obstruction.
--- NOTE | 2017-04-04 07:52 | ED MAR SUMMARY ---
..... Medication Administration Record [facility] [address] [place] [address] Patient: FELIPA VALERA Visit ID: [id number] 66y, F Weight: 44.4 kg Height/Length: 61 in BMI: 18.5 ALLERGIES: Ampicillin, Celebrex, Morphine and Related, Paper tape, Penicillin Given 00:20 04/04/2017 Sharonda Cunha R.N. Medication Administered: DILAUDID [IVP] (HYDROMORPHONE HCL PF), Dose: 1 mg IVP over 1 minute(s), Site: #1 left. Medication Ordered: Dilaudid IV 1 mg (HIGH ALERT MEDICATION, NOW). Given 00:20 04/04/2017 Sharonda Cunha R.N. Medication Administered: ZOFRAN [IVP] (ONDANSETRON HCL), Dose: 4 mg IVP over 1 minute(s), Site: #1 left. Medication Ordered: Zofran IV 4 mg (NOW). Start 00:55 04/04/2017 Sharonda Cunha R.N. Medication Administered: IV NS (SALINE), Dose: IV Fluids over 8 hour(s), Rate: 125 mL/hr, Dispensed: 1000 mL bag, Site: #1 left. Medication Ordered: IV NS : initial bolus none -, then 125 mL/hr for 8h (NOW). Given 01:05 04/04/2017 Sharonda Cunha R.N. Medication Administered: BENADRYL [IVP] (DIPHENHYDRAMINE HCL), Dose: 50 mg IVP over 1 minute(s), Site: #1 left. Medication Ordered: Benadryl IV 50 mg (NOW). Given 02:07 04/04/2017 Sharonda Cunha R.N. Medication Administered: DILAUDID [IVP] (HYDROMORPHONE HCL PF), Dose: 1 mg IVP over 1 minute(s), Site: #1 left. Medication Ordered: Dilaudid IV 1 mg (HIGH ALERT MEDICATION, NOW).
--- NOTE | 2017-04-04 07:52 | ED DISCHARGE INSTRUCTIONS ---
Patient: FELIPA VALERA General Instructions [facility] VisitID: [id number] [address] [place] [address] 66y, F Registration Date/Time: 04/03/2017 Acute generalized abdominal pain acute nausea and vomiting acute bowel obstruction. (Electronically signed by Bryan Driscoll Dr. 04/04/2017 7:52)
--- NOTE | 2017-04-04 07:52 | ED MED RECONCILIATION SUMMARY ---
Patient: FELIPA VALERA Medication Reconciliation Report [facility] VisitID: [id number] [address] [place] [address] 66y, F Registration Date/Time: 04/03/2017 Weight: 44.4 kg Height/Length: 61 in. BMI: 18.5 ALLERGIES: Ampicillin, Celebrex, Morphine and Related, Paper tape, Penicillin The patient's Home Medications are listed below: THE FOLLOWING MEDICATIONS NEED TO BE RECONCILED: Fish Oil Oral (1000 mg) 1 capsule, daily Flector Transdermal (1.3 %), every other day Glucosamine Oral 1500 mg, daily Lutein Oral Multivital Oral Omeprazole Oral 20 mg, 2x a day Vitamin B Complex Oral Zyrtec The source(s) of the original Home Medication information: Not obtained. The following Medications were given to the patient in the Emergency Department: Zofran [IVP] IVP 4 mg, administered: 04/04/2017 12:20:00 AM Dilaudid [IVP] IVP 1 mg, administered: 04/04/2017 12:20:00 AM IV NS IV Fluids bolus 0, then 125 mL/hr, administered: 04/04/2017 12:55:00 AM Benadryl [IVP] IVP 50 mg, administered: 04/04/2017 1:05:00 AM Dilaudid [IVP] IVP 1 mg, administered: 04/04/2017 2:07:00 AM The following Medications were prescribed to the patient: None.
--- NOTE | 2017-04-04 07:52 | ED MAR SUMMARY ---
..... Medication Administration Record [facility] [address] [place] [address] Patient: FELIPA VALERA Visit ID: [id number] 66y, F Weight: 44.4 kg Height/Length: 61 in BMI: 18.5 ALLERGIES: Ampicillin, Celebrex, Morphine and Related, Paper tape, Penicillin Given 00:20 04/04/2017 Sharonda Cunha R.N. Medication Administered: DILAUDID [IVP] (HYDROMORPHONE HCL PF), Dose: 1 mg IVP over 1 minute(s), Site: #1 left. Medication Ordered: Dilaudid IV 1 mg (HIGH ALERT MEDICATION, NOW). Given 00:20 04/04/2017 Sharonda Cunha R.N. Medication Administered: ZOFRAN [IVP] (ONDANSETRON HCL), Dose: 4 mg IVP over 1 minute(s), Site: #1 left. Medication Ordered: Zofran IV 4 mg (NOW). Start 00:55 04/04/2017 Sharonda Cunha R.N. Medication Administered: IV NS (SALINE), Dose: IV Fluids over 8 hour(s), Rate: 125 mL/hr, Dispensed: 1000 mL bag, Site: #1 left. Medication Ordered: IV NS : initial bolus none -, then 125 mL/hr for 8h (NOW). Given 01:05 04/04/2017 Sharonda Cunha R.N. Medication Administered: BENADRYL [IVP] (DIPHENHYDRAMINE HCL), Dose: 50 mg IVP over 1 minute(s), Site: #1 left. Medication Ordered: Benadryl IV 50 mg (NOW). Given 02:07 04/04/2017 Sharonda Cunha R.N. Medication Administered: DILAUDID [IVP] (HYDROMORPHONE HCL PF), Dose: 1 mg IVP over 1 minute(s), Site: #1 left. Medication Ordered: Dilaudid IV 1 mg (HIGH ALERT MEDICATION, NOW).
--- NOTE | 2017-04-04 07:52 | ED MED RECONCILIATION SUMMARY ---
Patient: FELIPA VALERA Medication Reconciliation Report [facility] VisitID: [id number] [address] [place] [address] 66y, F Registration Date/Time: 04/03/2017 Weight: 44.4 kg Height/Length: 61 in. BMI: 18.5 ALLERGIES: Ampicillin, Celebrex, Morphine and Related, Paper tape, Penicillin The patient's Home Medications are listed below: THE FOLLOWING MEDICATIONS NEED TO BE RECONCILED: Fish Oil Oral (1000 mg) 1 capsule, daily Flector Transdermal (1.3 %), every other day Glucosamine Oral 1500 mg, daily Lutein Oral Multivital Oral Omeprazole Oral 20 mg, 2x a day Vitamin B Complex Oral Zyrtec The source(s) of the original Home Medication information: Not obtained. The following Medications were given to the patient in the Emergency Department: Zofran [IVP] IVP 4 mg, administered: 04/04/2017 12:20:00 AM Dilaudid [IVP] IVP 1 mg, administered: 04/04/2017 12:20:00 AM IV NS IV Fluids bolus 0, then 125 mL/hr, administered: 04/04/2017 12:55:00 AM Benadryl [IVP] IVP 50 mg, administered: 04/04/2017 1:05:00 AM Dilaudid [IVP] IVP 1 mg, administered: 04/04/2017 2:07:00 AM The following Medications were prescribed to the patient: None.
--- NOTE | 2017-04-04 07:52 | ED DISCHARGE INSTRUCTIONS ---
Patient: FELIPA VALERA General Instructions [facility] VisitID: [id number] [address] [place] [address] 66y, F Registration Date/Time: 04/03/2017 Acute generalized abdominal pain acute nausea and vomiting acute bowel obstruction. (Electronically signed by Bryan Driscoll Dr. 04/04/2017 7:52)
--- NOTE | 2017-04-04 10:37 | Provider's Discharge Care Plan ---
Problem, Goal, Plan Problem List 1. Small bowel obstruction Instructions: Follow up as needed, Take meds as directed 2. Hypokalemia
--- NOTE | 2017-04-04 10:37 | Provider's Discharge Care Plan ---
Problem, Goal, Plan Problem List 1. Small bowel obstruction Instructions: Follow up as needed, Take meds as directed 2. Hypokalemia
--- NOTE | 2017-04-04 10:40 | Discharge Summary ---
Discharge Summary Report Admit Date 04/04/17 Discharge Date 04/04/17 Admission Diagnosis SBO, hypokalemia, abd pain, n/v Discharge Diagnosis same Brief History Recurrent SBO with n/v and pain. Hospital Course IVF, K replacement, pain meds General Appearance Alert Lungs Clear to auscultation, Normal air movement Cardiovascular Regular Rate Abdomen Soft, colostomy working well Psych/Mental Status Mental status NL Lab/Imaging Laboratory Tests 04/04 04/04 04/04 0052 0012 0004 Chemistry Plasma Sodium (136 - 145 mmol/L) 139 Plasma Potassium (3.5 - 5.1 mmol/L) 3.2 Plasma Chloride (98 - 107 mmol/L) 98 CO2 (Enzymatic) (21 - 32 mmol/L) 25 BUN (7 - 18 mg/dL) 41 Creatinine (0.6 - 1.3 mg/dL) 1.2 Est GFR ( Amer) (mL/min) 58.26 Est GFR (Non-Af Amer) (mL/min) 48.07 Glucose (70 - 110 mg/dL) 121 Plasma Calcium (8.5 - 10.1 mg/dL) 10.3 Total Bilirubin (0.0 - 1.0 mg/dL) 0.2 AST (15 - 37 U/L) 31 ALT (12 - 78 U/L) 39 Alkaline Phosphatase (46 - 116 U/L) 89 Total Protein (6.4 - 8.2 g/dL) 8.1 Albumin (3.3 - 5.0 g/dL) 4.5 Lipase (73 - 393 U/L) 179 Coagulation INR (0.8 - 1.2) 0.9 APTT (24 - 34 SECONDS) 34 > 150 Hematology WBC (4.5 - 11.5 K/uL) 9.3 RBC (4.00 - 5.20 M/uL) 4.54 Hgb (12.0 - 16.0 gm/dL) 13.8 Hct (36.0 - 46.0 %) 40.8 MCV (80 - 100 fL) 90 MCH (26 - 34 pg) 31 RDW (11.6 - 14.8 %) 14.0 Neut % (Auto) (50 - 75 %) 77.9 Lymph % (Auto) (25 - 40 %) 11.5 [place] % (Auto) (3 - 14 %) 6.6 Eos % (Auto) (0 - 4 %) 3.0 Baso % (Auto) (0 - 2 %) 1.0 Plt Count, EDTA (150 - 400 K/uL) 439 PUBS MCHC (31 - 37 g/dL) 34 Urines Urine Color YELLOW Urine Appearance CLEAR Urine pH (5.0 - 8.0) 5.5 Ur Specific [place] (1.010 - 1.030) 1.025 Urine Protein (NEGATIVE) NEGATIVE Urine Ketones (NEGATIVE) TRACE Urine Blood (NEGATIVE) NEGATIVE Urine Nitrite (NEGATIVE) NEGATIVE Urine Bilirubin (NEGATIVE) NEGATIVE Urine Urobilinogen (0.2 - 1.0 EU/dL) 0.2 Ur Leukocyte Esterase (NEGATIVE) NEGATIVE Urine RBC (0 - 1 rbc/hpf) NONE SEEN Urine WBC (0 - 1 wbc/hpf) 0-1 Ur Epithelial Cells (0 - 5 EPI/hpf) 0-1 Urine Bacteria (NONE SEEN) NONE SEEN Urine Glucose (NEGATIVE) NEGATIVE Urine Comment CULT NOT INDICATED Discharge Instructions/Meds Diet as tolerates, meds as prior, f/u if worse symptoms and follow up as needed.
== END 2017-04-04 11:20 | disposition home or self-care (01) ==
LOC: ED SRH 23:31 → ACUTE2 SRH 04-04 01:45 → TRANS SRH 04-04 01:45 → ACUTE2 SRH 04-04 02:45
PROVIDERS: ADMIT Pediatrics
PROC: 0D9670Z Drainage of Stomach with Drainage Device, Via Natural or Artificial Opening (ICD-10-PCS; principal; 2017-04-04)
DX: K56.60 Unspecified intestinal obstruction (principal); E87.6 Hypokalemia; Z93.2 Ileostomy status; N18.9 Chronic kidney disease, unspecified; T55.1X1A Toxic effect of detergents, accidental (unintentional), initial encounter; L23.5 Allergic contact dermatitis due to other chemical products; Z95.828 Presence of other vascular implants and grafts
CPT/HCPCS: 29230; 29244; 29253; 29259; 29264; 83498; 87094; 90004; 90100; 92235; 94001; 94060; 95059

== ENCOUNTER 2017-04-22 17:54 | Observation (INO) | payer OTHER ==
[~2017-04-22] VITALS: Ht 154.9 cm; Wt 44.8 kg
[~2017-04-22 17:54] MED LIST changes: +ZYRTEC ALLERGY10 MG
[2017-04-22 18:09] VITALS: BP 122/83
--- NOTE | 2017-04-22 20:22 | DIAGNOSTIC IMAGING REPORT ---
PROCEDURE: XR ABD SERIES 2V ABD/1V CHEST INDICATION: ABD PAIN, R/O SBO TECHNIQUE: AP supine and upright views with PA view chest. COMPARISON: The abdominal radiograph on 04/04/2017 and chest x-ray on 09/18/2016. FINDINGS: ABDOMEN: There is moderate to marked fluid distention of the small bowel and stomach. NG tube has been placed which ends in the mid stomach. There are multiple surgical clips overlying the abdomen. Right lower quadrant ostomy. No evidence of free air. CHEST: Lungs are clear. Heart and mediastinum are normal. Left subclavian Port-A-Cath. Thorax is normal. Thorax is normal. IMPRESSION: 1. Moderate to marked fluid distention of the stomach and small bowel compatible with obstruction. 2. Placement of NG tube in satisfactory position. 3. Negative chest.
[2017-04-22 22:44] VITALS: BP 129/84
[2017-04-23 02:53] VITALS: BP 107/70
[2017-04-23 07:08] VITALS: BP 93/65
--- NOTE | 2017-04-23 07:24 | Progress Note ---
Subjective General Patient states she is much better, no longer painful and also has been feeling like she is ready for the tube to be pulled and d/c home. Physical Exam Vital Signs / I&Os Vital Signs Date Time Temp Pulse Resp B/P Pulse O2 O2 Flow FiO2 Ox Delivery Rate 04/23 0708 97.5 63 18 93/65 100 Room Air 04/23 0253 98.4 72 20 107/70 100 Room Air 04/22 2244 98.2 80 20 129/84 98 Room Air 04/22 2001 Room Air 04/22 1809 97.5 66 20 122/83 100 I&O 04/23 0000 04/22 1600 04/22 0800 Intake Total 904 Output Total 2475 Balance -1571 General Appearance Alert, Cooperative HEENT Normal exam Lungs Clear to auscultation, Normal air movement Cardiovascular Regular rate and rhythm, No murmurs, gallops, rubs Abdomen Soft, colostomy status Extremities No edema LAB Results Laboratory Tests 04/235 1951 Chemistry Plasma Sodium (136 - 145 mmol/L) 141 141 Plasma Potassium (3.5 - 5.1 mmol/L) 4.1 3.8 Plasma Chloride (98 - 107 mmol/L) 108 103 CO2 (Enzymatic) (21 - 32 mmol/L) 22 25 BUN (7 - 18 mg/dL) 36 44 Creatinine (0.6 - 1.3 mg/dL) 1.0 1.1 Est GFR ( Amer) (mL/min) >60 >60 Est GFR (Non-Af Amer) (mL/min) 59.33 53.15 Glucose (70 - 110 mg/dL) 144 110 Plasma Calcium (8.5 - 10.1 mg/dL) 8.8 9.9 Microbiology Date/Time Procedure - Status Source Growth 04/22 1932 MRSA Screen - RECD NASAL Assessment and Plan Problem List 1. Small bowel obstruction Plan is doing well post hospitalization for acute SBO and abdominal pain. D/c home, resume diet and home meds and f/u as needed.
--- NOTE | 2017-04-23 08:00 | Provider's Discharge Care Plan ---
Problem, Goal, Plan Problem List 1. Bowel obstruction Instructions: Follow up as needed, Take meds as directed
--- NOTE | 2017-04-23 08:00 | Provider's Discharge Care Plan ---
Problem, Goal, Plan Problem List 1. Bowel obstruction Instructions: Follow up as needed, Take meds as directed
== END 2017-04-23 10:30 | disposition home or self-care (01) ==
LOC: CC SRH 17:54
PROVIDERS: ADMIT Family Medicine
DX: K56.60 Unspecified intestinal obstruction (principal); E86.0 Dehydration; Z93.3 Colostomy status
CPT/HCPCS: 29231; 29249; 29259; 29262; 29264; 83471; 90047; 92132

== ENCOUNTER 2017-04-29 17:37 | Observation (INO) | payer OTHER ==
[~2017-04-29] VITALS: Ht 154.9 cm; Wt 44.6 kg
--- NOTE | 2017-04-29 18:06 | ED CLINICAL REPORT ---
Clinical Report - Physicians/Mid Levels [facility] [address] [place] [address] 04/29/2017 17:37 Patient: FELIPA VALERA Time Seen: 17:40; upon arrival, initial patient contact, initial documentation, patient care assumed. Arrived- By private vehicle. Historian- patient. HISTORY OF PRESENT ILLNESS Chief Complaint: ABDOMINAL PAIN. At its maximum, severity described as severe. When seen in the E.D., severity described as moderate. Modifying factors. Not worsened by anything. Not relieved by anything. It is described as "pain". No radiation. This started today and is still present. It was abrupt in onset and has been constant. No nausea, loss of appetite or vomiting. No additional abdominal pain. (feels bloated and passing lots of gas, feels blocked again). No recent travel. Similar symptoms previously: Chronically, as bad. Recent medical care: The patient was seen recently and hospitalized. ( about 1 week ago). REVIEW OF SYSTEMS No constipation, black stools, hematemesis, difficulty with urination or pain with urination. No urinary frequency, bloody stools, fever, chest pain or difficulty breathing. All systems otherwise negative, except as recorded above. PAST HISTORY See nurses notes. PAST HISTORY See nurses notes. PROBLEMS: Port-a-cath (L subclavian). Colon Cancer. Nausea. Gastroesophageal Reflux Disease. Abnormal Test. Toxic megacolon. GI Disease. Tetanus Status. Laceration. Enteritis. Hypokalemia. Abdominal Pain. Hypercalcemia. Bowel Obstruction. Abnormal Liver Function Test. Dehydration. Immunizations. LNMP - Last Normal Menstrual Period. Small bowel obstruction. Fistula. Ileostomy present. --18:12 Lady Hein R.N. Pancreatitis [RuleOut]. --18:12 Lady Hein R.N. ADDITIONAL SURGERIES: Abd fistula. Bunionectomy. Colostomy. Ileostomy. Knee Surgery. Laparoscopy. Sinus Surgery. --18:12 Lady Hein R.N. SOCIAL HISTORY Former smoker. Occasional alcohol use. No drug use. No recent travel. Is a local resident. She lives with spouse. FAMILY HISTORY Negative. ADDITIONAL NOTES The nursing notes have been reviewed with agreement regarding the chief complaint, HPI, ROS, PMH and patient medications and allergies. PHYSICAL EXAM Vital Signs: 04/29/2017 17:44 BP: 135/91. HR: 78. RR: 17. O2 saturation: 100%. Temp: 97.8 F. Pain level now: 8/10. Have been reviewed as normal and appear to be correct. Appearance: Alert. Oriented X3. No acute distress. Eyes: Pupils equal, round and reactive to light. Eyes normal inspection. Neck: Normal inspection. Neck supple. CVS: Normal heart rate and rhythm. Heart sounds normal. Pulses normal. Respiratory: No respiratory distress. Breath sounds normal. Chest nontender. (portacath L chest, site clear). Abdomen: Mild tenderness diffusely. Bowel sounds normal. No organomegaly. No mass. Distention with tenderness to palpation (mild distention). No tympany to percussion or dullness to percussion. Not soft. Tenderness present. (ileostomy bag in place with liquid/soft greenish stool). Back: Normal inspection. Skin: Skin warm and dry. Normal skin color. No rash. Normal skin turgor. Extremities: Extremities exhibit normal ROM. No lower extremity edema. Neuro: Oriented X 3. No motor deficit. No sensory deficit. Reflexes normal. PROGRESS AND PROCEDURES Course of Care: 18:07 04/29/17. dr forman here to [facility] pt. Discussed case with patient's primary care provider, (call returned [phone] Dr Forman). Agreed upon treatment plan and decision to admit. Health care provider will see patient in ED. Differential Diagnosis: I considered gastritis, peptic ulcer disease, colon cancer, intussusception, small bowel obstruction, adhesions, bowel ischemia and obstipation as a possible cause of abdominal pain in this patient. This is a partial list of diagnoses considered. Above considerations are based on history, physical exam, reassessment, laboratory data and X-Ray data. Differential diagnosis was discussed with patient and patient's spouse. Disposition: Admitted to Acute Care. 18:05. CLINICAL IMPRESSION Chronic abdominal pain. Complete small bowel obstruction. (Electronically signed by Natalie Rosa A.R.N.P. 04/29/2017 22:50)
--- NOTE | 2017-04-29 18:06 | ED NURSING NOTES ---
Clinical Report - Nurses [facility] [address] [place] [address] 04/29/2017 17:37 Patient: FELIPA VALERA TRIAGE Triage time 17:44 Apr 29 2017. Chief Complaint: (pt with frequent sbo, pt has ileostomy, sofi 1500 today pt began having pain and bloating with "a lot of gas"). Alert. No acute distress. (appears painful). SEPSIS SCREEN: Sepsis Screen. Negative (no infection suspected/documented). --17:54 Jonnathan Holloway R.N. 17:44 04/29/17. BP: 135/91. HR: 78. RR: 17. O2 saturation: 100%. Temp: 97.8 F. Pain level now: 8/10. --17:54 Jonnathan Holloway R.N. Weight: 43.9 kg stated. Height/Length: 61 inches Per Patient. BMI: 18.3. --17:48 Jonnathan Holloway R.N. Medications Fish Oil Oral (Capsule 1000 mg) 1 capsule, daily. Flector Transdermal (Patch 1.3 %), every other day. Glucosamine Oral 1500 mg, daily. Lutein Oral. Multivital Oral. Omeprazole Oral 20 mg, 2x a day. Vitamin B Complex Oral. Zyrtec. --17:46 Jonnathan Holloway R.N. Aspirin Oral (Tablet 81 mg) 1 tablet, daily. --17:48 Jonnathan Holloway R.N. Atorvastatin Calcium Oral (Tablet 10 mg) 1 tablet, daily. --17:49 Jonnathan Holloway R.N. Medication/allergy information source: the patient. --17:54 Jonnathan Holloway R.N. Allergies Ampicillin. Celebrex. Morphine and Related. Paper tape. Penicillin. --17:46 Jonnathan Holloway R.N. History Arrived by private vehicle. Historian: patient and family. Accompanied by family. Onset. (1500 today). ( pt also reports past 3 days "off and on nausea"). Treatment [employer]: None. PAST MEDICAL HX: Immunizations: up-to-date. SOCIAL HX: Former smoker, end date 1994. Alcohol use; consumes liquor. (4 a week). No infectious disease exposure. No known contact with a sick individual. ABUSE ASSESSMENT: No report of abuse. SELF HARM ASSESSMENT: A self harm assessment was performed. The patient answered "no" to the question "Do you have thoughts of harming or killing yourself?". FALL RISK ASSESSMENT: Fall risk assessment completed. No fall risk identified. NUTRITIONAL RISK ASSESSMENT: The nutritional risk assessment revealed no deficiencies. FUNCTIONAL ASSESSMENT: Functional assessment: no impairments noted. LEARNING NEEDS ASSESSMENT: The learning needs assessment revealed no barriers. SKIN INTEGRITY ASSESSMENT: Skin integrity risk assessment completed. No skin integrity risk identified. --17:54 Jonnathan Holloway R.N. PROBLEMS: Port-a-cath (L subclavian). Colon Cancer. Nausea. Gastroesophageal Reflux Disease. Abnormal Test. Toxic megacolon. GI Disease. Tetanus Status. Laceration. Enteritis. Hypokalemia. Abdominal Pain. Hypercalcemia. Bowel Obstruction. Abnormal Liver Function Test. Dehydration. Immunizations. LNMP - Last Normal Menstrual Period. Small bowel obstruction. Fistula. Ileostomy present. --17:46 Jonnathan Holloway R.N. Pancreatitis [RuleOut]. --17:46 Jonnathan Holloway R.N. Peripheral Arterial Occlusive Disease. --17:49 Jonnathan Holloway R.N. ADDITIONAL SURGERIES: Abd fistula. Bunionectomy. Colostomy. Ileostomy. Knee Surgery. Laparoscopy. Sinus Surgery. --17:46 Jonnathan Holloway R.N. Interventions ID and allergy band on patient. To treatment room. --17:54 Jonnathan Holloway R.N. PHYSICAL ASSESSMENT Ambulatory to room. Patient gowned. GENERAL / NEURO / PSYCH: Alert. Oriented X 4. Appears in pain. HEENT: Mucous membranes are pink. RESPIRATORY: Respirations not labored. CVS: Capillary refill is greater than 3 seconds (pt recently diagnosed with PAD, pt reports improvement in circulation appearance to fingers). GI / : The patient has had nausea. Abdominal distention. Abdominal tenderness ("when I have the spasms"). Hyperactive bowel sounds in all quadrants. No emesis noted. SKIN: Skin is warm and dry. --17:57 Jonnathan Holloway R.N. NURSING PROGRESS NOTES Pulse oximeter and NIBP monitor placed on patient; monitor alarms on. Patient identifiers checked. Call light placed in reach. Side rails up. Bed placed in lowest position. Brakes of bed on. --17:57 Jonnathan Holloway R.N. ( H/P forms on chart.). --18:19 Leora Rubin, ER Tech1 18:26 04/29/2017 Site #1 started via IV in the left with an 20g angiocath, with aseptic technique; one attempt. Saline lock flushed with 10 mL saline (unable to draw back bloods- powerport left upper chest, accessed by Elian SHERMAN). --18:27 Jonnathan Holloway R.N. ( overview faxed to 2nd floor.). --18:48 Leora Rubin, ER Tech1 18:31 04/29/2017 Started bag #1 1000 mL IV Fluids IV NS (Saline); at 1000 mL/hr via site #1 via IV pump. Allergies verified and confirmed 5 rights. IV patency established. IV site checked: no pain, redness, or swelling. IV flushed thoroughly pre- and post-medication administration. --18:52 Jonnathan Holloway R.N. 18:32 04/29/2017 Zofran (Ondansetron HCl) IVP 4 mg given. via site #1. Allergies verified and confirmed 5 rights. IV patency established. IV site checked: no pain, redness, or swelling. IV flushed thoroughly pre- and post-medication administration. IVP given by RN. --18:53 Jonnathan Holloway R.N. 18:33 04/29/2017 Dilaudid (HYDROmorphone HCl PF) IVP 1 mg given. via site #1. Allergies verified, confirmed 5 rights and sedative warning given to the patient and patient's family. IV patency established. IV site checked: no pain, redness, or swelling. IV flushed thoroughly pre- and post-medication administration. IVP given by RN. --18:52 Jonnathan Holloway R.N. 18:34 04/29/2017 Benadryl (DiphenhydrAMINE HCl) IVP 25 mg given. via site #1. Allergies verified, confirmed 5 rights and sedative warning given to the patient and patient's family. IV patency established. IV site checked: no pain, redness, or swelling. IV flushed thoroughly pre- and post-medication administration. IVP given by RN. --18:52 Jonnathan Holloway R.N. 18:43 04/29/2017 Afrin (Oxymetazoline HCl) Nasal Jones 1 spray given. Given in the left nare. Allergies verified and confirmed 5 rights. --18:53 Jonnathan Holloway R.N. Head of bed elevated. 18 fr NG tube inserted in left nostril with minimal difficulty. Placement confirmed by auscultation and return of gastric contents. Return: yellow fluid. Tube secured. Attached to low and intermittent suction. Patient tolerated procedure well. (initial start of NG by pt to left nare, this is the normal way for NG tube placment for pt. pt provided pain meds prior to placement, auscultated with stethoscope, pt able to speak full sentences, gastric contents immediately in tube, hooked to wall low/int suction.). Patient identifiers checked. Call light placed in reach. Side rails up. Bed placed in lowest position. Brakes of bed on. --18:56 Jonnathan Holloway R.N. ( lab at bedside drawing bloods). --18:57 Jonnathan Holloway R.N. 18:26. ( hospitalist at bedside). --18:57 Jonnathan Holloway R.N. The patient has had no adverse reaction. --18:57 Jonnathan Holloway R.N. 20:13 04/29/2017 Dilaudid (HYDROmorphone HCl PF) IVP 1 mg given. via site #1. Allergies verified, confirmed 5 rights and sedative warning given. IV patency established. IV site checked: no pain, redness, or swelling. IV flushed thoroughly pre- and post-medication administration. IVP given by RN. --20:23 Jonnathan Holloway R.N. ( pt reported return of pain, requested pain meds, order received and given). --20:23 Jonnathan Holloway R.N. 20:48 04/29/2017 Started bag #1 1000 mL IV Fluids IV NS (Saline); at 1000 mL/hr via site #1 via IV pump. Allergies verified and confirmed 5 rights. IV patency established. IV site checked: no pain, redness, or swelling. IV flushed thoroughly pre- and post-medication administration (bag #2). --20:49 Jonnathan Holloway R.N. ( pt reports pain increasing again up to 05/18, pt reports "the first 8-10 hours I usually have to have pain medicine every hour" will contact the acu to see if nurse is ready for pt.). --21:10 Jonnathan Holloway R.N. 21:10 04/29/17. BP: 114/83. RR: 17. O2 saturation: 99%. Pain level now: 05/18. --21:11 Jonnathan Holloway R.N. ( suction remains on low intermittent, sofi 420ml in collection container, ivf bag #2 infusing, waiting room for admit). --21:11 Jonnathan Holloway R.N. Patient identifiers checked. Call light placed in reach. Side rails up x 1. Bed placed in lowest position. Brakes of bed on. ( spouse remains at bedside). --21:12 Jonnathan Holloway R.N. 21:18 04/29/2017 Dilaudid (HYDROmorphone HCl PF) IVP 1 mg given. via site #1. Allergies verified, confirmed 5 rights and sedative warning given to the patient and patient's family. IV patency established. IV site checked: no pain, redness, or swelling. IV flushed thoroughly pre- and post-medication administration. IVP given by RN. --21:28 Jnonathan Holloway R.N. DISPOSITION / DISCHARGE Report was given to a nurse via a phone call. Report included patient's care, treatment, medications, reviewed medication reconcilliation, and condition (including any recent changes or anticipated changes). All questions were answered. Report was acknowledged and care was transferred. (Lilian SHERMAN ACU). ( report called to RN, nurse receiving 2 patients at the same time, will call to ED when first pt is settled). --19:52 Jonnathan Holloway R.N. Departure time: 2120. Admitted to Acute Care (204 B). Transported via stretcher by [employer]. Patient's personal items include, with spouse. --21:31 Jonnathan Holloway R.N. Locked/Released at 04/29/2017 23:16 by Jonnathan Holloway R.N.
--- NOTE | 2017-04-29 18:06 | ED ORDER SUMMARY ---
..... Patient: FELIPA VALERA OrderSheet [facility] VisitID: [id number] [address] [place] [address] 66y, F Registration Date/Time: 04/29/2017 ORDER SHEET Weight: 43.9 kg (stated) Allergies: Ampicillin, Celebrex, Morphine and Related, Paper tape, Penicillin GENERAL ORDERS: Abdomen 1V Upright Urgent (17:51 04/29/2017 HBivens A.R.N.P.) (Ack 18:07 LNations ER Tech1) (19:28 MCampbell) CBC w Diff Urgent (17:52 04/29/2017 HBivens A.R.N.P.) (Ack 18:07 LNations ER Tech1) (19:44 KPage-Kuchan R.N.) CMP Urgent (17:52 04/29/2017 HBivens A.R.N.P.) (Ack 18:07 LNations ER Tech1) (19:44 KPage-Kuchan R.N.) UA-Culture if indicated Urgent (17:52 04/29/2017 HBivens A.R.N.P.) (Ack 18:07 LNations ER Tech1) (20:47 KPage-Kuchan R.N.) NG Tube (to light suction) (pt puts in her own ngt) (18:04 04/29/2017 HBivens A.R.N.P.) (Ack 18:07 LNations ER Tech1) (18:53 KPage-Kuchan R.N.) MEDICATION ORDERS: Afrin Nasal [place] 2 sprays (place at bedside) (18:04 04/29/2017 HBivens A.R.N.P.) (18:53 KPage-Kuchan R.N.) IV FLUIDS: IV NS : initial bolus 1000 mL (1000 mL/hr), then none - for X3 (NOW) (17:51 04/29/2017 HBivens A.R.N.P.) (18:52 KPage-Kuchan R.N.) IV Saline Lock (17:52 04/29/2017 HBivens A.R.N.P.) (18:27 KPage-Kuchan R.N.) Dilaudid IV 1 mg (HIGH ALERT MEDICATION, NOW) (18:03 04/29/2017 HBivens A.R.N.P.) (18:52 KPage-Kuchan R.N.) Benadryl IV 25 mg (NOW) (18:04 04/29/2017 HBivens A.R.N.P.) (18:52 KPage-Kuchan R.N.) Zofran IV 4 mg (NOW) (18:04 04/29/2017 HBivens A.R.N.P.) (18:53 KPage-Kuchan R.N.) Dilaudid IV 1 mg (HIGH ALERT MEDICATION, NOW) (20:02 04/29/2017 HBivens A.R.N.P.) (Ack 20:03 KPage-Kuchan R.N.) (20:23 KPage-Kuchan R.N.) Dilaudid IV 1 mg (HIGH ALERT MEDICATION, NOW) (21:15 04/29/2017 HBivens A.R.N.P.) (Ack 21:15 KPage-Kuchan R.N.) (21:28 KPage-Kuchan R.N.) ORDER SHEET NOTES: [Electronically signed by Natalie Rosa A.R.N.P. (22:50 04/29/2017)] [Electronically signed by Jonnathan Holloway R.N. (23:16 04/29/2017)] [Electronically locked/signed by Jonnathan Holloway R.N. (23:16 04/29/2017)]
--- NOTE | 2017-04-29 18:06 | ED CLINICAL REPORT ---
Clinical Report - Physicians/Mid Levels Located Within [facility] [address] [place] [address] 04/29/2017 17:37 Patient: FELIPA VALERA Time Seen: 17:40; upon arrival, initial patient contact, initial documentation, patient care assumed. Arrived- By private vehicle. Historian- patient. HISTORY OF PRESENT ILLNESS Chief Complaint: ABDOMINAL PAIN. At its maximum, severity described as severe. When seen in the E.D., severity described as moderate. Modifying factors. Not worsened by anything. Not relieved by anything. It is described as "pain". No radiation. This started today and is still present. It was abrupt in onset and has been constant. No nausea, loss of appetite or vomiting. No additional abdominal pain. (feels bloated and passing lots of gas, feels blocked again). No recent travel. Similar symptoms previously: Chronically, as bad. Recent medical care: The patient was seen recently and hospitalized. ( about 1 week ago). REVIEW OF SYSTEMS No constipation, black stools, hematemesis, difficulty with urination or pain with urination. No urinary frequency, bloody stools, fever, chest pain or difficulty breathing. All systems otherwise negative, except as recorded above. PAST HISTORY See nurses notes. PAST HISTORY See nurses notes. PROBLEMS: Port-a-cath (L subclavian). Colon Cancer. Nausea. Gastroesophageal Reflux Disease. Abnormal Test. Toxic megacolon. GI Disease. Tetanus Status. Laceration. Enteritis. Hypokalemia. Abdominal Pain. Hypercalcemia. Bowel Obstruction. Abnormal Liver Function Test. Dehydration. Immunizations. LNMP - Last Normal Menstrual Period. Small bowel obstruction. Fistula. Ileostomy present. --18:12 Lady Hein R.N. Pancreatitis [RuleOut]. --18:12 Lady Hein R.N. ADDITIONAL SURGERIES: Abd fistula. Bunionectomy. Colostomy. Ileostomy. Knee Surgery. Laparoscopy. Sinus Surgery. --18:12 Lady Hein R.N. SOCIAL HISTORY Former smoker. Occasional alcohol use. No drug use. No recent travel. Is a local resident. She lives with spouse. FAMILY HISTORY Negative. ADDITIONAL NOTES The nursing notes have been reviewed with agreement regarding the chief complaint, HPI, ROS, PMH and patient medications and allergies. PHYSICAL EXAM Vital Signs: 04/29/2017 17:44 BP: 135/91. HR: 78. RR: 17. O2 saturation: 100%. Temp: 97.8 F. Pain level now: 8/10. Have been reviewed as normal and appear to be correct. Appearance: Alert. Oriented X3. No acute distress. Eyes: Pupils equal, round and reactive to light. Eyes normal inspection. Neck: Normal inspection. Neck supple. CVS: Normal heart rate and rhythm. Heart sounds normal. Pulses normal. Respiratory: No respiratory distress. Breath sounds normal. Chest nontender. (portacath L chest, site clear). Abdomen: Mild tenderness diffusely. Bowel sounds normal. No organomegaly. No mass. Distention with tenderness to palpation (mild distention). No tympany to percussion or dullness to percussion. Not soft. Tenderness present. (ileostomy bag in place with liquid/soft greenish stool). Back: Normal inspection. Skin: Skin warm and dry. Normal skin color. No rash. Normal skin turgor. Extremities: Extremities exhibit normal ROM. No lower extremity edema. Neuro: Oriented X 3. No motor deficit. No sensory deficit. Reflexes normal. PROGRESS AND PROCEDURES Course of Care: 18:07 04/29/17. dr forman here to [facility] pt. Discussed case with patient's primary care provider, (call returned [phone] Dr Forman). Agreed upon treatment plan and decision to admit. Health care provider will see patient in ED. Differential Diagnosis: I considered gastritis, peptic ulcer disease, colon cancer, intussusception, small bowel obstruction, adhesions, bowel ischemia and obstipation as a possible cause of abdominal pain in this patient. This is a partial list of diagnoses considered. Above considerations are based on history, physical exam, reassessment, laboratory data and X-Ray data. Differential diagnosis was discussed with patient and patient's spouse. Disposition: Admitted to Acute Care. 18:05. CLINICAL IMPRESSION Chronic abdominal pain. Complete small bowel obstruction. (Electronically signed by Natalie Rosa A.R.N.P. 04/29/2017 22:50)
--- NOTE | 2017-04-29 18:06 | ED ORDER SUMMARY ---
..... Patient: FELIPA VALERA OrderSheet [facility] VisitID: [id number] [address] [place] [address] 66y, F Registration Date/Time: 04/29/2017 ORDER SHEET Weight: 43.9 kg (stated) Allergies: Ampicillin, Celebrex, Morphine and Related, Paper tape, Penicillin GENERAL ORDERS: Abdomen 1V Upright Urgent (17:51 04/29/2017 HBivens A.R.N.P.) (Ack 18:07 LNations ER Tech1) (19:28 MCampbell) CBC w Diff Urgent (17:52 04/29/2017 HBivens A.R.N.P.) (Ack 18:07 LNations ER Tech1) (19:44 KPage-Kuchan R.N.) CMP Urgent (17:52 04/29/2017 HBivens A.R.N.P.) (Ack 18:07 LNations ER Tech1) (19:44 KPage-Kuchan R.N.) UA-Culture if indicated Urgent (17:52 04/29/2017 HBivens A.R.N.P.) (Ack 18:07 LNations ER Tech1) (20:47 KPage-Kuchan R.N.) NG Tube (to light suction) (pt puts in her own ngt) (18:04 04/29/2017 HBivens A.R.N.P.) (Ack 18:07 LNations ER Tech1) (18:53 KPage-Kuchan R.N.) MEDICATION ORDERS: Afrin Nasal [place] 2 sprays (place at bedside) (18:04 04/29/2017 HBivens A.R.N.P.) (18:53 KPage-Kuchan R.N.) IV FLUIDS: IV NS : initial bolus 1000 mL (1000 mL/hr), then none - for X3 (NOW) (17:51 04/29/2017 HBivens A.R.N.P.) (18:52 KPage-Kuchan R.N.) IV Saline Lock (17:52 04/29/2017 HBivens A.R.N.P.) (18:27 KPage-Kuchan R.N.) Dilaudid IV 1 mg (HIGH ALERT MEDICATION, NOW) (18:03 04/29/2017 HBivens A.R.N.P.) (18:52 KPage-Kuchan R.N.) Benadryl IV 25 mg (NOW) (18:04 04/29/2017 HBivens A.R.N.P.) (18:52 KPage-Kuchan R.N.) Zofran IV 4 mg (NOW) (18:04 04/29/2017 HBivens A.R.N.P.) (18:53 KPage-Kuchan R.N.) Dilaudid IV 1 mg (HIGH ALERT MEDICATION, NOW) (20:02 04/29/2017 HBivens A.R.N.P.) (Ack 20:03 KPage-Kuchan R.N.) (20:23 KPage-Kuchan R.N.) Dilaudid IV 1 mg (HIGH ALERT MEDICATION, NOW) (21:15 04/29/2017 HBivens A.R.N.P.) (Ack 21:15 KPage-Kuchan R.N.) (21:28 KPage-Kuchan R.N.) ORDER SHEET NOTES: [Electronically signed by Natalie Rsoa A.R.N.P. (22:50 04/29/2017)] [Electronically signed by Jonnathan Holloway R.N. (23:16 04/29/2017)] [Electronically locked/signed by Jonnathan Holloway R.N. (23:16 04/29/2017)]
--- NOTE | 2017-04-29 19:44 | Progress Note ---
Subjective General 66 y.o female with SBO and abdominal pain, has been with high ca, low k. Generaly this resolves with hydration.
--- NOTE | 2017-04-29 19:44 | Progress Note ---
Subjective General 66 y.o female with SBO and abdominal pain, has been with high ca, low k. Generaly this resolves with hydration.
--- NOTE | 2017-04-29 21:22 | DIAGNOSTIC IMAGING REPORT ---
PROCEDURE: XR ABDOMEN 1 VIEW UPRIGHT INDICATION: OBSTRUCTION TECHNIQUE: Single view upright abdomen. COMPARISON: 04/22/2017 FINDINGS: NG tube is in place. The tip is well within the stomach. Partially imaged left subclavian Mediport is seen in the lower chest. Surgical clips are present in the left abdomen. No free intraperitoneal air. Air fluid levels in mildly prominent bowel loops through the mid abdomen. No significantly dilated small bowel loops. Normal-caliber pelvic small bowel loops. The right lower quadrant ostomy not well seen but no to be present. No new mass effect. Stable osseous structures. Clear lung bases. IMPRESSION: 1. Recurrent partial small bowel obstruction versus ileus. 2. Adequate placement of nasogastric tube. 3. Surgical changes as described.
[2017-04-29 21:40] VITALS: BP 117/74
--- NOTE | 2017-04-29 22:04 | HISTORY AND PHYSICAL ---
ADMITTED: 04/29/2017 CHIEF COMPLAINT: 1. Abdominal pain HISTORY OF PRESENT ILLNESS: The patient states that she had recurrent abdominal pain and small-bowel obstruction symptoms that started today severely, about 3, maybe an hour or so before this. It came on a little bit softer and then progressed into very bad abdominal pain at 5:15. She was to afraid that she knew she was going to need admission and she has had multiple admissions in the past. She has had her last admission only a week or 2 ago and she has been averaging every couple weeks for this year. She has had a past medical history of multiple small bowel obstructions long-term and has been seen by surgeons and then seen by specialists regarding this and she is at the position at this point where she is not a good surgical candidate and states that she was told that her risk of fistulas and infections were high and could only be operated on if her life depended on it. With that, she plans on seeing the surgeon again for reevaluation. MEDICAL/SURGICAL HISTORY: Past medical history: The small bowel obstructions, enteritis, abdominal pain, dehydration, hypercalcemia, fistula, ileostomy. Past surgical history: Repair of fistula a couple times, small-bowel obstruction, bunion surgery, colectomy with a colostomy, partial colon removal surgery, nose surgery. MEDICATIONS: 1. Zyrtec 10 mg p.o. daily. 2. Tramadol 50 mg p.o. four times a day. 3. Vitamin D 3000 international units daily. 4. Aleve 200 mg p.o. b.i.d. 5. Omeprazole 20 mg p.o. b.i.d. 6. Fish oil 1000 mg p.o. daily. 7. Multivitamin 1 p.o. daily. 8. QVAR 1 spray each nostril b.i.d. 9. Lutein 20 mg p.o. daily. 10. Vitamin B12 1000 mcg p.o. daily. 11. Glucosamine chondroitin 500 mg 1-3 capsules daily. 12. Patanol eyedrops 0.1% solution 1 drop every 2 hours as needed for itchy eyes. ALLERGIES: 1. CELEBREX. 2. MORPHINE. 3. AMOXICILLIN. 4. PAPER TAPE. CODE STATUS: FULL. SOCIAL HISTORY: She is . Quit smoking in 1994. She had a couple drinks per week. Denies any drug use. FAMILY HISTORY: Mom of melanoma at age 48, otherwise unremarkable. REVIEW OF SYSTEMS: She has got abdominal pain, some nausea and some bloated feeling and decreased colostomy output. Denies any black, bloody stools, fever, chest pain, shortness of breath. PHYSICAL EXAMINATION: GENERAL: She appears to be in mild to moderate distress. VITAL SIGNS: Blood pressure 135/91, heart rate 78, respirations 17, saturating 100% on room air, temperature is 97.8. HEENT: Extraocular movements intact. Pupils equal, round, reactive to light. Oropharynx is clear with moist mucous membranes. NECK: Supple without lymphadenopathy. LUNGS: Clear to auscultation bilaterally. HEART: Regular rate and rhythm. No murmur. ABDOMEN: Distended, tender to palpation diffusely. Colostomy with slightly decreased output and some increased bloating. Positive bowel tones. GENITOURINARY: Deferred. RECTAL: Deferred. BREASTS: Deferred. NEUROLOGIC: Cranial nerves II-XII intact. Her strength and sensation grossly intact. EXTREMITIES: She has no edema. LAB/IMAGING: White count is 6.2, hematocrit 42.5, platelets of 409. Comprehensive metabolic panel: Glucose 109, BUN of 37, creatinine of 1.3, sodium of 136, potassium 3.3, chloride 100, carbon dioxide 21, calcium 10.2. Total protein 7.7, albumin 4.3, total bili 0.3, alk phos 78, AST of 37, ALT of 42. X-ray: Consistent with a partial small-bowel obstruction. IMPRESSION: 1. Recurrent small-bowel obstruction in a 66-year-old female who has had multiple admissions and also every 2 weeks, roughly, at this time. 2. History of low potassium and high calcium in the past and currently has some other symptoms as well. PLAN: Admit her, treat her with IV fluids, pain medicine and then I anticipate that she will improve in the next 24 hours. Generally her symptoms resolve within 24 hours and treat her as an observation patient. Occasionally she takes longer, but we will treat her with a nasogastric tube at this time. I plan on trying to get her in for general surgery evaluation in between visits as an outpatient.
--- NOTE | 2017-04-29 23:17 | ED DISCHARGE INSTRUCTIONS ---
Patient: FELIPA VALERA General Instructions [facility] VisitID: [id number] [address] [place] [address] 66y, F Registration Date/Time: 04/29/2017 Chronic abdominal pain. Complete small bowel obstruction. (Electronically signed by Natalie Rosa A.R.N.P. 04/29/2017 22:50)
--- NOTE | 2017-04-29 23:17 | ED MED RECONCILIATION SUMMARY ---
Patient: FELIPA VALERA Medication Reconciliation Report [facility] VisitID: [id number] [address] [place] [address] 66y, F Registration Date/Time: 04/29/2017 Weight: 43.9 kg Height/Length: 61 in. BMI: 18.3 ALLERGIES: Ampicillin, Celebrex, Morphine and Related, Paper tape, Penicillin The patient's Home Medications are listed below: THE FOLLOWING MEDICATIONS NEED TO BE RECONCILED: Aspirin Oral (81 mg) 1 tablet, daily Atorvastatin Calcium Oral (10 mg) 1 tablet, daily Fish Oil Oral (1000 mg) 1 capsule, daily Flector Transdermal (1.3 %), every other day Glucosamine Oral 1500 mg, daily Lutein Oral Multivital Oral Omeprazole Oral 20 mg, 2x a day Vitamin B Complex Oral Zyrtec The source(s) of the original Home Medication information: patient The following Medications were given to the patient in the Emergency Department: IV NS IV Fluids bolus 0, then 1000 mL/hr, administered: 04/29/2017 6:31:00 PM Dilaudid [IVP] IVP 1 mg, administered: 04/29/2017 6:33:00 PM Benadryl [IVP] IVP 25 mg, administered: 04/29/2017 6:34:00 PM Zofran [IVP] IVP 4 mg, administered: 04/29/2017 6:32:00 PM Afrin [Nasal [place]] Nasal [place] 1 spray, administered: 04/29/2017 6:43:00 PM Dilaudid [IVP] IVP 1 mg, administered: 04/29/2017 8:13:00 PM IV NS IV Fluids bolus 0, then 1000 mL/hr, administered: 04/29/2017 8:48:00 PM Dilaudid [IVP] IVP 1 mg, administered: 04/29/2017 9:18:00 PM The following Medications were prescribed to the patient: None.
--- NOTE | 2017-04-29 23:17 | ED DISCHARGE INSTRUCTIONS ---
Patient: FELIPA VALERA General Instructions [facility] VisitID: [id number] [address] [place] [address] 66y, F Registration Date/Time: 04/29/2017 Chronic abdominal pain. Complete small bowel obstruction. (Electronically signed by Natalie Rosa A.R.N.P. 04/29/2017 22:50)
--- NOTE | 2017-04-29 23:17 | ED MAR SUMMARY ---
..... Medication Administration Record [facility] [address] [place] [address] Patient: FELIPA VALERA Visit ID: [id number] 66y, F Weight: 43.9 kg Height/Length: 61 in BMI: 18.3 ALLERGIES: Ampicillin, Celebrex, Morphine and Related, Paper tape, Penicillin Start 18:31 04/29/2017 Jonnathan Holloway R.N. Medication Administered: IV NS (SALINE), Dose: IV Fluids, Rate: 1000 mL/hr, Dispensed: 1000 mL bag, Site: #1 left. Medication Ordered: IV NS : initial bolus 1000 mL (1000 mL/hr), then none - for X3 (NOW). Given 18:32 04/29/2017 Jonnathan Holloway R.N. Medication Administered: ZOFRAN [IVP] (ONDANSETRON HCL), Dose: 4 mg IVP, Site: #1 left. Medication Ordered: Zofran IV 4 mg (NOW). Given 18:33 04/29/2017 Jonnathan Holloway R.N. Medication Administered: DILAUDID [IVP] (HYDROMORPHONE HCL PF), Dose: 1 mg IVP, Site: #1 left. Medication Ordered: Dilaudid IV 1 mg (HIGH ALERT MEDICATION, NOW). Given 18:34 04/29/2017 Jonnathan Holloway R.N. Medication Administered: BENADRYL [IVP] (DIPHENHYDRAMINE HCL), Dose: 25 mg IVP, Site: #1 left. Medication Ordered: Benadryl IV 25 mg (NOW). Given 18:43 04/29/2017 Jonnathan Holloway R.N. Medication Administered: AFRIN [NASAL SPRAY] (OXYMETAZOLINE HCL), Dose: 1 spray Nasal [place]. Medication Ordered: Afrin Nasal [place] 2 sprays (place at bedside). Given 20:13 04/29/2017 Jonnathan Holloway R.N. Medication Administered: DILAUDID [IVP] (HYDROMORPHONE HCL PF), Dose: 1 mg IVP, Site: #1 left. Medication Ordered: Dilaudid IV 1 mg (HIGH ALERT MEDICATION, NOW). Start 20:48 04/29/2017 Jonnathan Holloway RBaileyNBailey Medication Administered: IV NS (SALINE), Dose: IV Fluids, Rate: 1000 mL/hr, Dispensed: 1000 mL bag, Site: #1 left. Medication Ordered: IV NS : initial bolus 1000 mL (1000 mL/hr), then none - for X3 (NOW). Given 21:18 04/29/2017 Jonnathan Holloway RBaileyN. Medication Administered: DILAUDID [IVP] (HYDROMORPHONE HCL PF), Dose: 1 mg IVP, Site: #1 left. Medication Ordered: Dilaudid IV 1 mg (HIGH ALERT MEDICATION, NOW).
--- NOTE | 2017-04-29 23:17 | ED MAR SUMMARY ---
..... Medication Administration Record [facility] [address] [place] [address] Patient: FELIPA VALERA Visit ID: [id number] 66y, F Weight: 43.9 kg Height/Length: 61 in BMI: 18.3 ALLERGIES: Ampicillin, Celebrex, Morphine and Related, Paper tape, Penicillin Start 18:31 04/29/2017 Jonnathan Holloway R.N. Medication Administered: IV NS (SALINE), Dose: IV Fluids, Rate: 1000 mL/hr, Dispensed: 1000 mL bag, Site: #1 left. Medication Ordered: IV NS : initial bolus 1000 mL (1000 mL/hr), then none - for X3 (NOW). Given 18:32 04/29/2017 Jonnathan Holloway R.N. Medication Administered: ZOFRAN [IVP] (ONDANSETRON HCL), Dose: 4 mg IVP, Site: #1 left. Medication Ordered: Zofran IV 4 mg (NOW). Given 18:33 04/29/2017 Jonnathan Holloway R.N. Medication Administered: DILAUDID [IVP] (HYDROMORPHONE HCL PF), Dose: 1 mg IVP, Site: #1 left. Medication Ordered: Dilaudid IV 1 mg (HIGH ALERT MEDICATION, NOW). Given 18:34 04/29/2017 Jonnathan Holloway R.N. Medication Administered: BENADRYL [IVP] (DIPHENHYDRAMINE HCL), Dose: 25 mg IVP, Site: #1 left. Medication Ordered: Benadryl IV 25 mg (NOW). Given 18:43 04/29/2017 Jonnathan Holloway R.N. Medication Administered: AFRIN [NASAL SPRAY] (OXYMETAZOLINE HCL), Dose: 1 spray Nasal [place]. Medication Ordered: Afrin Nasal [place] 2 sprays (place at bedside). Given 20:13 04/29/2017 Jonnathan Holloway R.N. Medication Administered: DILAUDID [IVP] (HYDROMORPHONE HCL PF), Dose: 1 mg IVP, Site: #1 left. Medication Ordered: Dilaudid IV 1 mg (HIGH ALERT MEDICATION, NOW). Start 20:48 04/29/2017 Jonnathan Holloway RBaileyNBailey Medication Administered: IV NS (SALINE), Dose: IV Fluids, Rate: 1000 mL/hr, Dispensed: 1000 mL bag, Site: #1 left. Medication Ordered: IV NS : initial bolus 1000 mL (1000 mL/hr), then none - for X3 (NOW). Given 21:18 04/29/2017 Jonnathan Holloway RBaileyN. Medication Administered: DILAUDID [IVP] (HYDROMORPHONE HCL PF), Dose: 1 mg IVP, Site: #1 left. Medication Ordered: Dilaudid IV 1 mg (HIGH ALERT MEDICATION, NOW).
--- NOTE | 2017-04-29 23:17 | ED MED RECONCILIATION SUMMARY ---
Patient: FELIPA VALERA Medication Reconciliation Report [facility] VisitID: [id number] [address] [place] [address] 66y, F Registration Date/Time: 04/29/2017 Weight: 43.9 kg Height/Length: 61 in. BMI: 18.3 ALLERGIES: Ampicillin, Celebrex, Morphine and Related, Paper tape, Penicillin The patient's Home Medications are listed below: THE FOLLOWING MEDICATIONS NEED TO BE RECONCILED: Aspirin Oral (81 mg) 1 tablet, daily Atorvastatin Calcium Oral (10 mg) 1 tablet, daily Fish Oil Oral (1000 mg) 1 capsule, daily Flector Transdermal (1.3 %), every other day Glucosamine Oral 1500 mg, daily Lutein Oral Multivital Oral Omeprazole Oral 20 mg, 2x a day Vitamin B Complex Oral Zyrtec The source(s) of the original Home Medication information: patient The following Medications were given to the patient in the Emergency Department: IV NS IV Fluids bolus 0, then 1000 mL/hr, administered: 04/29/2017 6:31:00 PM Dilaudid [IVP] IVP 1 mg, administered: 04/29/2017 6:33:00 PM Benadryl [IVP] IVP 25 mg, administered: 04/29/2017 6:34:00 PM Zofran [IVP] IVP 4 mg, administered: 04/29/2017 6:32:00 PM Afrin [Nasal [place]] Nasal [place] 1 spray, administered: 04/29/2017 6:43:00 PM Dilaudid [IVP] IVP 1 mg, administered: 04/29/2017 8:13:00 PM IV NS IV Fluids bolus 0, then 1000 mL/hr, administered: 04/29/2017 8:48:00 PM Dilaudid [IVP] IVP 1 mg, administered: 04/29/2017 9:18:00 PM The following Medications were prescribed to the patient: None.
[2017-04-30 02:48] VITALS: BP 105/65
[2017-04-30 06:20] VITALS: BP 101/62
--- NOTE | 2017-04-30 06:43 | Progress Note ---
Subjective General Feeling better; things opened up this am and now cleared; wants to pull ngt and go home. Physical Exam Vital Signs / I&Os Vital Signs Date Time Temp Pulse Resp B/P Pulse O2 O2 Flow FiO2 Ox Delivery Rate 04/30 0620 98.2 67 15 101/62 100 Room Air 04/30 0620 98.2 67 15 101/62 100 Room Air 04/30 0248 98.4 72 15 105/65 99 Room Air 04/29 2140 98.8 68 16 117/74 100 I&O 04/30 0000 04/29 1600 04/29 0800 Intake Total Output Total 500 Balance -500 General Appearance Alert, Cooperative Lungs Clear to auscultation, Normal air movement Cardiovascular Regular rate and rhythm, No murmurs, gallops, rubs Abdomen Soft, mild tenderness diffuse; colostomy Extremities Normal exam Assessment and Plan Problem List 1. Small bowel obstruction Plan Improved, advance diet as tolerates. f/u out patient general surgery for re check as increased freq of Sbo; f/u as needed with me.
--- NOTE | 2017-04-30 06:46 | Provider's Discharge Care Plan ---
Problem, Goal, Plan Problem List 1. Abdominal pain Instructions: Follow up as directed, Take meds as directed, routine care
--- NOTE | 2017-04-30 06:46 | Provider's Discharge Care Plan ---
Problem, Goal, Plan Problem List 1. Abdominal pain Instructions: Follow up as directed, Take meds as directed, routine care
== END 2017-04-30 09:21 | disposition home or self-care (01) ==
LOC: ED SRH 17:37 → TRANS SRH 18:19 → ACUTE2 SRH 21:50
PROVIDERS: ADMIT Emergency Medicine
PROC: 0D9670Z Drainage of Stomach with Drainage Device, Via Natural or Artificial Opening (ICD-10-PCS; principal; 2017-04-29)
DX: K56.69 Other intestinal obstruction (principal); E87.6 Hypokalemia; E83.52 Hypercalcemia; R10.84 Generalized abdominal pain; G89.29 Other chronic pain; Z93.2 Ileostomy status; Z90.49 Acquired absence of other specified parts of digestive tract
CPT/HCPCS: 29230; 29242; 29243; 29244; 29264; 87094; 90004; 90047; 90074; 90100; 95059

== ENCOUNTER 2017-05-03 19:19 | Inpatient (IN) | payer OTHER ==
[~2017-05-03] VITALS: Ht 154.9 cm; Wt 46.4 kg
--- NOTE | 2017-05-03 20:06 | ED ORDER SUMMARY ---
..... Patient: FELIPA VALERA OrderSheet [facility] VisitID: [id number] [place] [address] 66y, F Registration Date/Time: 05/03/2017 ORDER SHEET Weight: 40.3 kg (stated) Allergies: Ampicillin, Celebrex, Morphine and Related, Paper tape, Penicillin GENERAL ORDERS: CBC w Diff Urgent (19:30 05/03/2017 Queenie Tang) (Ack 19:40 Michael ER Converting Technician) (20:18 Brianne R.N.) CMP Urgent (19:30 05/03/2017 Queenie Tang) (Ack 19:40 Michael ER Converting Technician) (20:18 Brianne R.N.) UA-Culture if indicated Urgent (19:30 05/03/2017 Queenie Tang) (Ack 19:40 Michael ER Converting Technician) (20:53 Brianne R.N.) Lipase Urgent (19:30 05/03/2017 Queenie Tang) (Ack 19:40 Michael ER Converting Technician) (20:18 Brianne R.N.) Lactate, Serum Urgent (19:30 05/03/2017 Queenie Tang) (Ack 19:40 Michael ER Converting Technician) (20:18 Brianne R.N.) Pulse oximeter (19:30 05/03/2017 Queenie Tang) (20:02 Brianne R.N.) Abdomen 1V Upright Urgent (20:05/03/2017 Queenie Tang) (Ack 20:17 Michael ER Converting Technician) (20:24 Michael ER Converting Technician) NG Tube (21:24 05/03/2017 Queenie Tang) (21:53 Brianne R.N.) MEDICATION ORDERS: IV FLUIDS: IV NS : initial bolus 500 mL (1000 mL/hr), then none - for X1 (NOW) (19:29 05/03/2017 Queenie Tang) (20:00 Brianne R.N.) Dilaudid IV 1 mg (HIGH ALERT MEDICATION, NOW) (20:05/03/2017 Queenie Tang) (20:18 Brianne Burr) Zofran IV 4 mg (NOW) (20:06 05/03/2017 Queenie Tang) (20:18 Brianne Burr) Potassium Chloride IV 20 meq/100mL (HIGH ALERT MEDICATION, NOW, Run no faster than 10 mEq/hr) (20:50 05/03/2017 Queenie Tang) (21:24 Brianne Burr) ORDER SHEET NOTES: [Electronically signed by Randal Whittaker R.N. (01:51 05/04/2017)] [Electronically signed by Bryan Driscoll Dr. (02:31 05/05/2017)] [Electronically locked/signed by Randal Whittaker R.N. (01:51 05/04/2017)]
--- NOTE | 2017-05-03 20:06 | ED NURSING NOTES ---
Clinical Report - Nurses [facility] [address] [place] [address] 05/03/2017 19:20 Patient: FELIPA VAELRA TRIAGE Triage time 19:May 03 2017. Acuity: LEVEL 3. Chief Complaint: ABDOMINAL PAIN and NAUSEA. Alert. SILAS COMA SCORE: [place] Coma Scale: 15- eyes open spontaneously (4); best verbal response- oriented x 4 (5); best motor response- obeys commands (6). --19:35 Randal Whittaker R.N. 19:26 05/03/17. BP: 131/90. HR: 82. RR: 18. O2 saturation: 100% on room air. Temp: 98.1 F (oral). Pain level now: 9/10. Additional comments: Abdominal pain. --19:35 Randal Whittaker R.N. Weight: 40.3 kg stated. Height/Length: 61 inches Per Patient. BMI: 16.8. --19:29 Randal Whittaker R.N. Medications Aspirin Oral (Tablet 81 mg) 1 tablet, daily. Atorvastatin Calcium Oral (Tablet 10 mg) 1 tablet, daily. Fish Oil Oral (Capsule 1000 mg) 1 capsule, daily. Flector Transdermal (Patch 1.3 %), every other day. Glucosamine Oral 1500 mg, daily. Lutein Oral. Multivital Oral. Omeprazole Oral 20 mg, 2x a day. Vitamin B Complex Oral. Zyrtec. --19:31 Randal Whittaker R.N. Allergies Ampicillin. Definite Moderate(hives) Celebrex. Definite Moderate(hives) Morphine and Related. Definite(itching) Paper tape. Penicillin. Definite Moderate(hives) --19:31 Randal Whittaker R.N. Medication/allergy information source: the patient. --19:35 Randal Whittaker R.N. History Arrived by private vehicle. Historian: patient. Accompanied by spouse. Primary physician (Poornima). ( Abdominal Pain with a blocked ileostomy (according to spouse).). Onset. (about 1 hour ago). She has had nausea and abdominal pain. PAST MEDICAL HX: Immunizations: status is unknown. SOCIAL HX: Smoker- current status unknown. Never smoker. Alcohol use; consumes two liquor weekly. No drug use. No recent travel. No infectious disease exposure. ABUSE ASSESSMENT: No report of abuse. FALL RISK ASSESSMENT: Fall risk assessment completed. No fall risk identified. NUTRITIONAL RISK ASSESSMENT: The nutritional risk assessment revealed no deficiencies. FUNCTIONAL ASSESSMENT: Functional assessment: no impairments noted. LEARNING NEEDS ASSESSMENT: The learning needs assessment revealed no barriers. SKIN INTEGRITY ASSESSMENT: Skin integrity risk assessment completed. No skin integrity risk identified. --19:35 Randal Whittaker R.N. Treatment CERTIFIED HEALTH EDUCATION SPECIALIST: None. --19:36 Randal Whittaker R.N. PROBLEMS: Peripheral Arterial Occlusive Disease. Port-a-cath (L subclavian). Colon Cancer. Nausea. Gastroesophageal Reflux Disease. Abnormal Test. Toxic megacolon. GI Disease. Tetanus Status. Laceration. Enteritis. Hypokalemia. Abdominal Pain. Hypercalcemia. Bowel Obstruction. Abnormal Liver Function Test. Dehydration. Immunizations. Small bowel obstruction. Fistula. Ileostomy present. --19:33 Randal Whittaker R.N. Pancreatitis [RuleOut]. --19:33 Randal Whittaker R.N. ADDITIONAL SURGERIES: Abd fistula. Bunionectomy. Colostomy. Ileostomy. Knee Surgery. Laparoscopy. Sinus Surgery. --19:33 Randal Whittaker R.N. Interventions ID band on patient. To treatment room. --19:35 Randal Whittaker R.N. PHYSICAL ASSESSMENT Ambulatory to room. GENERAL / NEURO / PSYCH: Alert. Oriented X 4. HEENT: Mucous membranes are pink. RESPIRATORY: Respirations not labored. CVS: Normal sinus rhythm noted. GI / : Abdomen soft. Bowel sounds within normal limits. Stool heme negative. (POC test reference range: negative). SKIN: Skin is warm and dry. --19:36 Randal Whittaker R.N. NURSING PROGRESS NOTES Patient gowned. Reassurance given. Patient identifiers checked. Call light placed in reach. Side rails up x 1. Bed placed in lowest position. Brakes of bed on. Patient ready for evaluation- chart flagged and ED physician notified. --19:36 Randal Whittaker R.N. 19:50 05/03/2017 Started bag #1 1000 mL IV Fluids IV NS (Saline); bolus of 500 mL over 30 minute(s) then at 50 mL/hr over 10 hour(s) via site #1 via IV pump. Allergies verified and confirmed 5 rights. IV patency established. IV site checked: no pain, redness, or swelling. IV flushed thoroughly pre- and post-medication administration. --20:00 Randal Whittaker R.N. 19:54 05/03/2017 Site #1 started via central line with an 20g angiocath, with aseptic technique and good blood return; one attempt. Saline lock flushed with 10 mL saline (Unable to draw blood from this site). --19:59 Randal Whittaker R.N. 20:13 05/03/2017 Zofran (Ondansetron HCl) IVP 4 mg given over 2 minute(s) via site #1. Allergies verified and confirmed 5 rights. IV patency established. IV site checked: no pain, redness, or swelling. IV flushed thoroughly pre- and post-medication administration. IVP given by RN. --20:18 Randal Whittaker R.N. 20:15 05/03/2017 Dilaudid (HYDROmorphone HCl PF) IVP 1 mg given over 2 minute(s) via site #1. Allergies verified, confirmed 5 rights and sedative warning given to the patient and patient's family. IV patency established. IV site checked: no pain, redness, or swelling. IV flushed thoroughly pre- and post-medication administration. IVP given by RN. --20:18 Randal Whittaker R.N. 19:50. ( Port-a-cath placed by RN using sterile technique (L) subclavian.). --20:25 Randal Whittaker R.N. 20:20 05/03/17. Patient transported to radiology by stretcher with tech. --20:26 Randal Whittaker R.N. 20:26 05/03/17. Patient returned from radiology by stretcher with tech. --20:26 Randal Whittaker R.N. 20:15 late entry -. Checked patient name and birthdate. Blood samples drawn from the right hand with 23g butterfly by nurse ; labeled in presence of the patient and sent to lab: rainbow set and forbes top. --20:27 Randal Whittaker R.N. Critical value relayed to ED by bead Button. Critical value received by Randal GARRISON. K: 2.9. Critical value read back. Verified lab result and patient ID. ED physician notifed of critical value. --20:51 Randal Oh R.N. 20:54 05/03/17. Patient ID band checked for patient name, birthdate and medical record number: patient confirmed. Instructions provided to collect clean catch urine and patient verbalized understanding. Clean catch urine collected with return of yellow-colored clear urine; odor is normal; sample sent to lab for urinalysis and culture. Specimen labeled in the presence of the patient. --20:54 Randal Whittaker R.N. 20:55 05/03/2017 IV Fluids IV NS via IV site #1 Rate Changed: bag #1 decreased to 200 mL/hr via IV pump. IV patency established. IV site checked: no pain, redness, or swelling. IV flushed thoroughly. Confirmed 5 Rights. --20:55 Randal Whittaker R.N. 21:09 05/03/2017 Started 20 meq of Potassium Chloride (Potassium Chloride) IVPB in bag #1 100 mL; at 50 mL/hr over 2 hour(s) via site #1 via IV pump. Allergies verified and confirmed 5 rights. IV patency established. IV site checked: no pain, redness, or swelling. IV flushed thoroughly pre- and post-medication administration. --21:24 Randal Whittaker R.N. 21:50 05/03/2017 Dilaudid (HYDROmorphone HCl PF) IVP 1 mg given over 2 minute(s) via site #1. Allergies verified, confirmed 5 rights and sedative warning given. IV patency established. IV site checked: no pain, redness, or swelling. IV flushed thoroughly pre- and post-medication administration. IVP given by RN. --21:56 Randal Whittaker R.N. 20:30. 16 fr NG tube inserted. (pink-colored return (Pt had eaten pink jello) 700cc return). --01:48 Randal Whittaker R.N. 22:00 05/03/2017 Site #[address] upon admission; no pain. Good blood return present (Port-a-cath (patent)). --01:50 Randal Whittaker R.N. 22:00 05/03/2017 Potassium Chloride IVPB Continued: upon admission at the rate of 50 mL/hr. 50 mL remaining bag #1. IV patency established. IV site checked: no pain, redness, or swelling. IV flushed thoroughly. --01:49 Randal Whittaker R.N. 22:00 05/03/2017 IV Fluids IV NS Continued: upon admission at the rate of 200 mL/hr. 200 mL remaining bag #1. IV patency established. IV site checked: no pain, redness, or swelling. IV flushed thoroughly. --01:51 Randal Whittaker R.N. DISPOSITION / DISCHARGE Departure time: 2200. --22:09 Randal Whittaker R.N. 22:00. Admitted to Acute Care. Transported via stretcher by transport team with IV. Report was given to a nurse via a phone call. Report included patient's care, treatment, medications, reviewed medication reconcilliation, and condition (including any recent changes or anticipated changes). All questions were answered. Report was acknowledged and care was transferred. Patient's personal items; items were placed in belongings bag and transported with the patient. --22:10 Randal Whittaker R.N. <<STRICKEN ENTRY-- 01:41 05/04/17. BP: 128/82. HR: 80. RR: 16. O2 saturation: 99% on room air. Temp: 98.2 F (oral). Pain level now: 06/18. --01:43 Randal Whittaker R.N. --END STRIKE>> Correction. --01:46 Randal Whittaker R.N. 21:50 05/03/17. BP: 128/82. HR: 80. RR: 16. O2 saturation: 99% on room air. Temp: 98.2 F (oral). Pain level now: 06/18. --01:45 Randal Whittaker R.N. Locked/Released at 05/04/2017 1:52 by Randal Whittaker R.N.
--- NOTE | 2017-05-03 20:06 | ED ORDER SUMMARY ---
..... Patient: FELIPA VALERA OrderSheet [facility] VisitID: [id number] [place] [address] 66y, F Registration Date/Time: 05/03/2017 ORDER SHEET Weight: 40.3 kg (stated) Allergies: Ampicillin, Celebrex, Morphine and Related, Paper tape, Penicillin GENERAL ORDERS: CBC w Diff Urgent (19:30 05/03/2017 Queenie Tang) (Ack 19:40 Michael ER Professor Of Theology) (20:18 Brianne R.N.) CMP Urgent (19:30 05/03/2017 Queenie Tang) (Ack 19:40 Michael ER Professor Of Theology) (20:18 Brianne R.N.) UA-Culture if indicated Urgent (19:30 05/03/2017 Queenie Tang) (Ack 19:40 Michael ER Professor Of Theology) (20:53 Brianne R.N.) Lipase Urgent (19:30 05/03/2017 Queenie Tang) (Ack 19:40 Michael ER Professor Of Theology) (20:18 Brianne R.N.) Lactate, Serum Urgent (19:30 05/03/2017 Queenie Tang) (Ack 19:40 Michael ER Professor Of Theology) (20:18 Brianne R.N.) Pulse oximeter (19:30 05/03/2017 Queenie Tang) (20:02 Brianne R.N.) Abdomen 1V Upright Urgent (20:05/03/2017 Queenie Tang) (Ack 20:17 Michael ER Professor Of Theology) (20:24 Michael ER Professor Of Theology) NG Tube (21:24 05/03/2017 Queenie Tang) (21:53 Brianne R.N.) MEDICATION ORDERS: IV FLUIDS: IV NS : initial bolus 500 mL (1000 mL/hr), then none - for X1 (NOW) (19:29 05/03/2017 Queenie Tang) (20:00 Brianne R.N.) Dilaudid IV 1 mg (HIGH ALERT MEDICATION, NOW) (20:05/03/2017 Queenie Tang) (20:18 Brianne Burr) Zofran IV 4 mg (NOW) (20:06 05/03/2017 Queenie Tang) (20:18 Brianne Burr) Potassium Chloride IV 20 meq/100mL (HIGH ALERT MEDICATION, NOW, Run no faster than 10 mEq/hr) (20:50 05/03/2017 Queenie Tang) (21:24 Brianne Burr) ORDER SHEET NOTES: [Electronically signed by Randal Whittaker R.N. (01:51 05/04/2017)] [Electronically signed by Bryan Driscoll Dr. (02:31 05/05/2017)] [Electronically locked/signed by Randal Whittaker R.N. (01:51 05/04/2017)]
--- NOTE | 2017-05-03 21:03 | DIAGNOSTIC IMAGING REPORT ---
PROCEDURE: XR ABDOMEN 1 VIEW UPRIGHT INDICATION: ABDOMINAL PAIN TECHNIQUE: Single view upright abdomen. COMPARISON: 04/29/2017 FINDINGS: No free intraperitoneal air. Prominent bowel loops with air fluid levels in the central abdomen. Surgical clips along the left abdomen. The stomach is filled with fluid and there is a left upper quadrant fluid level. Normal organ shadows. No new mass effect. Stable osseous structures with slight rightward L3-4 subluxation. IMPRESSION: 1. Recurrent bowel obstruction. Bowel loops more dilated compared to the prior study. 2. Postsurgical changes in the left abdomen.
--- NOTE | 2017-05-03 21:50 | Progress Note ---
Subjective General Admission History and Physical Examination Patient Name: Darling Davis Admission Date: May 03, 2017 Primary Care Provider: Arsenio Noguera M.D. Second Mate: J Luis Stewart M.D. Attending Physician: Arsenio Noguera M.D. Admitting Physician: Juanito Pastrana M.D. 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 [facility] ER evaluation was consistent with small bowel obstruction with associated nausea, abdominal pain, hypokalemia, and dehydration. Secondary to the above, the patient was admitted by Juanito Pastrana M.D. for further evaluation and treatment. The history of present was began abruptly on the day of admission when the patient experienced abdominal pain, nausea without vomiting, and abdominal distention. This was consistent with her previous history of recurrent small bowel obstructions. Secondary to the above, the patient presented to [facility] emergency department for further evaluation and treatment. Laboratory evaluation and abdominal x-rays were consistent with small bowel obstruction with associated dehydration and hypokalemia. NG tube was placed. Secondary to the above, the patient was admitted for further evaluation and treatment. Dr. Stewart consulted. PAST MEDICAL HISTORY Illnesses: 1. Recurrent small bowel obstruction 2. Gastroesophageal reflux 3. Enteric cutaneous fistula 4. Ileostomy secondary colectomy from IBS with megacolon 5. Degenerative joint disease 6. Allergic rhinitis Allergies: 1. Celebrex 2. Morphine 3. Amoxicillin-penicillin 4. Paper tape Medications: 1. Glucosamine 1500 mg 1 by mouth daily 2. Multivitamin one by mouth daily 3. Vitamin B12 1000 g 1 by mouth daily 4. Prilosec 20 mg 1 by mouth twice a day 5. Lipitor 10 mg 1 by mouth daily 6. Lutein 20 mg 1 by mouth daily Surgery: 1. Repair of enterocutaneous fistula 2 2. Colectomy with ileostomy 3. Bunion surgery 4. Sinus surgery x3 5. No surgery Injuries: 1. No significant Hospitalizations: 1. For above surgery and medical problems. Multiple hospitalizations for recurrent small bowel obstruction FAMILY HISTORY Parents: 1. Father, Manish, , 88, polio, strokes, 2. Mother, Jessica, , 48, melanoma Siblings: 1. Male, Severino, living, 65, multiple back surgeries 2. Female, Susan, living, 63, multiple back surgeries, fibromyalgia 3. Female, Jane, living, 61, healthy 4. Male, YOCASTA, living, 60, multiple back surgeries, rotator cuff tear Children: 1. Female, Natalie, living, 42, history of bunions 2. Female, Fatoumata, living, 39, allergic rhinitis Other significant family history: None SOCIAL HISTORY 1. Marital Status: 2. Yazidi: Anabaptist 3. Education: High school and one year of college 4. 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 Occupational health exposures: Dust, radiation, heavy lifting HABITS 1. Tobacco: Cigarette 6-8 pack years, currently nonsmoker 2. Drugs: None 3. Alcohol: 7-14 ounces per week 4. Caffeine: Coffee-3 cups per day, soft drinks- 1 can per day HEALTH SUPERVISION Item/Test 1. Vision screen: 2014 2. Cholesterol Profile: 2015 3. PSA: Not applicable 4. LORRIE: Not applicable 5. FOBT: Not applicable 6. Blood Glucose: 2016 7. Colonoscopy: 1996 8. History and physical exam: 2016 9. Audiogram: No recent 10. Mammogram: 2016 11. Pap/pelvic exam: 2016 IMMUNIZATIONS: 1. Pneumococcal: 2014 2. Influenza: 2014 3. Tetanus: 2014 ADVANCED DIRECTIVES: 1. Living well: No 2. POLST: No 3. Code Status: FULL CODE 4. Durable Power School Psychological Examiner Health care: No 5. Donor card: No REVIEW OF SYSTEMS Remarkable for those things stated in the history of present illness and past medical history. Seventeen point review of system completed with the following notable findings: General: Weight loss, fatigue, abdominal pain, weakness Skin: Dryness, rashes Eyes: Decreased visual acuity requiring corrective lenses Ears: Tinnitus intermittently Mouth: Dental problems Throat: Sore throat, swelling Respiratory: Wheezing Gastrointestinal: Nausea, gastroesophageal reflux, constipation, abdominal pain Musculoskeletal: Joint stiffness, joint pain, joint swelling, muscle cramping, backache Neurological: Headaches Blood and lymphatic: Easy bruising Endocrine: Excessive thirst/urination Psychological: Difficulty sleeping Physical Exam Vital Signs / I&Os Blood pressure: 131/90 mmHg Heart rate: 82/minute Respiratory rate: 18/minute Temperature: 98.1 Fahrenheit orally Pulse oximetry: 100% room air General Appearance Alert, Oriented X3, Cooperative, No acute distress HEENT Atraumatic, PERRLA, EOMI, plan mucous membranes Lungs Clear to auscultation, Normal air movement Neck Supple, No JVD, No masses, No thyromegaly, No lymphadenopathy Cardiovascular Regular rate and rhythm, Normal S1 and S2, No murmurs, gallops, rubs Abdomen Normal bowel sounds, distended, mildly tender, no rebound, ileostomy present Extremities No cyanosis, No clubbing, No edema, Normal pulses Neurological Cranial nerves intact, Strength 5/5 x4 ext's, No lateralizing signs Psych/Mental Status Mental status normal, Mood normal LAB Results Laboratory Tests 05/03 Chemistry Plasma Sodium (136 - 145 mmol/L) 145 Plasma Potassium (3.5 - 5.1 mmol/L) 2.9 Plasma Chloride (98 - 107 mmol/L) 104 CO2 (Enzymatic) (21 - 32 mmol/L) 23 BUN (7 - 18 mg/dL) 22 Creatinine (0.6 - 1.3 mg/dL) 1.1 Est GFR ( Amer) (mL/min) >60 Est GFR (Non-Af Amer) (mL/min) 53.15 Glucose (70 - 110 mg/dL) 108 Lactic Acid (0.4 - 2.0 mmol/L) 3.3 Plasma Calcium (8.5 - 10.1 mg/dL) 9.7 Plasma Magnesium (1.8 - 2.4 mg/dL) 2.5 Total Bilirubin (0.0 - 1.0 mg/dL) 0.3 AST (15 - 37 U/L) 32 ALT (12 - 78 U/L) 42 Alkaline Phosphatase (46 - 116 U/L) 66 Total Protein (6.4 - 8.2 g/dL) 7.0 Albumin (3.3 - 5.0 g/dL) 3.9 Lipase (73 - 393 U/L) 206 Hematology WBC (4.5 - 11.5 K/uL) 3.8 RBC (4.00 - 5.20 M/uL) 4.19 Hgb (12.0 - 16.0 gm/dL) 12.7 Hct (36.0 - 46.0 %) 37.7 MCV (80 - 100 fL) 90 MCH (26 - 34 pg) 30 RDW (11.6 - 14.8 %) 13.9 Neut % (Auto) (50 - 75 %) 59.1 Lymph % (Auto) (25 - 40 %) 26.1 Larue % (Auto) (3 - 14 %) 9.6 Eos % (Auto) (0 - 4 %) 4.1 Baso % (Auto) (0 - 2 %) 1.1 Plt Count, EDTA (150 - 400 K/uL) 380 PUBS MCHC (31 - 37 g/dL) 34 Urines Urine Color YELLOW Urine Appearance HAZY Urine pH (5.0 - 8.0) 7.0 Ur Specific Simla (1.010 - 1.030) <= 1.005 Urine Protein (NEGATIVE) NEGATIVE Urine Ketones (NEGATIVE) NEGATIVE Urine Blood (NEGATIVE) NEGATIVE Urine Nitrite (NEGATIVE) NEGATIVE Urine Bilirubin (NEGATIVE) NEGATIVE Urine Urobilinogen (0.2 - 1.0 EU/dL) 0.2 Ur Leukocyte Esterase (NEGATIVE) NEGATIVE Urine RBC (0 - 1 rbc/hpf) NONE SEEN Urine WBC (0 - 1 wbc/hpf) RARE Ur Epithelial Cells (0 - 5 EPI/hpf) NONE SEEN Urine Bacteria (NONE SEEN) NONE SEEN Urine Glucose (NEGATIVE) NEGATIVE Urine Comment CULT NOT INDICATED Imaging Abdominal X-Rays IMPRESSION: 1. Recurrent bowel obstruction. Bowel loops more dilated compared to the prior study. 2. Postsurgical changes in the left abdomen. Dictated by: IFRAH HUSAIN MD D: BREANN;05/03/17 [id number] Assessment and Plan Problem List 1. Small bowel obstruction Plan -The patient presents with findings of recurrent small bowel obstruction -Abdominal pain controlled at present -No vomiting but mild nausea -NG tube placed with low intermittent suction -Consult Dr. Sifuentes for surgical evaluation -IV fluid therapy, pain medications, antiemetics -Follow-up with Dr. Noguera in a.m. 2. GERD (gastroesophageal reflux disease) Plan -Patient with history of gastroesophageal reflux -Pepcid 20 mg IV twice a day -Monitor 3. Hypokalemia Plan -Patient presents with findings of hypokalemia -IV supplementation -Monitor Current status: Fair, unstable Anticipated discharge date: Anticipated discharge in 2-3 days Anticipated discharge placement: Home Patient care time: Time in chart review, patient interview, physical exam, CPOE, and care documentation: 70 mins Visit to patient today: 1 Complexity of care: Moderate-High DVT prophylaxis: Heparin 5000 units subcutaneous every 8 hours E&M Codes Rounding: Inpt-High/[id number]
--- NOTE | 2017-05-03 21:50 | Progress Note ---
Subjective General Admission History and Physical Examination Patient Name: Darling Davis Admission Date: May 03, 2017 Primary Care Provider: Arsenio Noguera M.D. Site Inspector: J Luis Stewart M.D. Attending Physician: Arsenio Noguera M.D. Admitting Physician: Juanito Pastrana M.D. 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 [facility] ER evaluation was consistent with small bowel obstruction with associated nausea, abdominal pain, hypokalemia, and dehydration. Secondary to the above, the patient was admitted by Juanito Pastrana M.D. for further evaluation and treatment. The history of present was began abruptly on the day of admission when the patient experienced abdominal pain, nausea without vomiting, and abdominal distention. This was consistent with her previous history of recurrent small bowel obstructions. Secondary to the above, the patient presented to [facility] emergency department for further evaluation and treatment. Laboratory evaluation and abdominal x-rays were consistent with small bowel obstruction with associated dehydration and hypokalemia. NG tube was placed. Secondary to the above, the patient was admitted for further evaluation and treatment. Dr. Stewart consulted. PAST MEDICAL HISTORY Illnesses: 1. Recurrent small bowel obstruction 2. Gastroesophageal reflux 3. Enteric cutaneous fistula 4. Ileostomy secondary colectomy from IBS with megacolon 5. Degenerative joint disease 6. Allergic rhinitis Allergies: 1. Celebrex 2. Morphine 3. Amoxicillin-penicillin 4. Paper tape Medications: 1. Glucosamine 1500 mg 1 by mouth daily 2. Multivitamin one by mouth daily 3. Vitamin B12 1000 g 1 by mouth daily 4. Prilosec 20 mg 1 by mouth twice a day 5. Lipitor 10 mg 1 by mouth daily 6. Lutein 20 mg 1 by mouth daily Surgery: 1. Repair of enterocutaneous fistula 2 2. Colectomy with ileostomy 3. Bunion surgery 4. Sinus surgery x3 5. No surgery Injuries: 1. No significant Hospitalizations: 1. For above surgery and medical problems. Multiple hospitalizations for recurrent small bowel obstruction FAMILY HISTORY Parents: 1. Father, Manish, , 88, polio, strokes, 2. Mother, Jessica, , 48, melanoma Siblings: 1. Male, Severino, living, 65, multiple back surgeries 2. Female, Susan, living, 63, multiple back surgeries, fibromyalgia 3. Female, Jane, living, 61, healthy 4. Male, YOCASTA, living, 60, multiple back surgeries, rotator cuff tear Children: 1. Female, Natalie, living, 42, history of bunions 2. Female, Fatoumata, living, 39, allergic rhinitis Other significant family history: None SOCIAL HISTORY 1. Marital Status: 2. [employer]: [employer] 3. Education: High school and one year of college 4. 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 Occupational health exposures: Dust, radiation, heavy lifting HABITS 1. Tobacco: Cigarette 6-8 pack years, currently nonsmoker 2. Drugs: None 3. Alcohol: 7-14 ounces per week 4. Caffeine: Coffee-3 cups per day, soft drinks- 1 can per day HEALTH SUPERVISION Item/Test 1. Vision screen: 2014 2. Cholesterol Profile: 2015 3. PSA: Not applicable 4. LORRIE: Not applicable 5. FOBT: Not applicable 6. Blood Glucose: 2016 7. Colonoscopy: 1996 8. History and physical exam: 2016 9. Audiogram: No recent 10. Mammogram: 2016 11. Pap/pelvic exam: 2016 IMMUNIZATIONS: 1. Pneumococcal: 2014 2. Influenza: 2014 3. Tetanus: 2014 ADVANCED DIRECTIVES: 1. Living well: No 2. POLST: No 3. Code Status: FULL CODE 4. Durable Power Space Technologist Health care: No 5. Donor card: No REVIEW OF SYSTEMS Remarkable for those things stated in the history of present illness and past medical history. Seventeen point review of system completed with the following notable findings: General: Weight loss, fatigue, abdominal pain, weakness Skin: Dryness, rashes Eyes: Decreased visual acuity requiring corrective lenses Ears: Tinnitus intermittently Mouth: Dental problems Throat: Sore throat, swelling Respiratory: Wheezing Gastrointestinal: Nausea, gastroesophageal reflux, constipation, abdominal pain Musculoskeletal: Joint stiffness, joint pain, joint swelling, muscle cramping, backache Neurological: Headaches Blood and lymphatic: Easy bruising Endocrine: Excessive thirst/urination Psychological: Difficulty sleeping Physical Exam Vital Signs / I&Os Blood pressure: 131/90 mmHg Heart rate: 82/minute Respiratory rate: 18/minute Temperature: 98.1 Fahrenheit orally Pulse oximetry: 100% room air General Appearance Alert, Oriented X3, Cooperative, No acute distress HEENT Atraumatic, PERRLA, EOMI, plan mucous membranes Lungs Clear to auscultation, Normal air movement Neck Supple, No JVD, No masses, No thyromegaly, No lymphadenopathy Cardiovascular Regular rate and rhythm, Normal S1 and S2, No murmurs, gallops, rubs Abdomen Normal bowel sounds, distended, mildly tender, no rebound, ileostomy present Extremities No cyanosis, No clubbing, No edema, Normal pulses Neurological Cranial nerves intact, Strength 5/5 x4 ext's, No lateralizing signs Psych/Mental Status Mental status normal, Mood normal LAB Results Laboratory Tests 05/03 Chemistry Plasma Sodium (136 - 145 mmol/L) 145 Plasma Potassium (3.5 - 5.1 mmol/L) 2.9 Plasma Chloride (98 - 107 mmol/L) 104 CO2 (Enzymatic) (21 - 32 mmol/L) 23 BUN (7 - 18 mg/dL) 22 Creatinine (0.6 - 1.3 mg/dL) 1.1 Est GFR ( Amer) (mL/min) >60 Est GFR (Non-Af Amer) (mL/min) 53.15 Glucose (70 - 110 mg/dL) 108 Lactic Acid (0.4 - 2.0 mmol/L) 3.3 Plasma Calcium (8.5 - 10.1 mg/dL) 9.7 Plasma Magnesium (1.8 - 2.4 mg/dL) 2.5 Total Bilirubin (0.0 - 1.0 mg/dL) 0.3 AST (15 - 37 U/L) 32 ALT (12 - 78 U/L) 42 Alkaline Phosphatase (46 - 116 U/L) 66 Total Protein (6.4 - 8.2 g/dL) 7.0 Albumin (3.3 - 5.0 g/dL) 3.9 Lipase (73 - 393 U/L) 206 Hematology WBC (4.5 - 11.5 K/uL) 3.8 RBC (4.00 - 5.20 M/uL) 4.19 Hgb (12.0 - 16.0 gm/dL) 12.7 Hct (36.0 - 46.0 %) 37.7 MCV (80 - 100 fL) 90 MCH (26 - 34 pg) 30 RDW (11.6 - 14.8 %) 13.9 Neut % (Auto) (50 - 75 %) 59.1 Lymph % (Auto) (25 - 40 %) 26.1 [place] % (Auto) (3 - 14 %) 9.6 Eos % (Auto) (0 - 4 %) 4.1 Baso % (Auto) (0 - 2 %) 1.1 Plt Count, EDTA (150 - 400 K/uL) 380 PUBS MCHC (31 - 37 g/dL) 34 Urines Urine Color YELLOW Urine Appearance HAZY Urine pH (5.0 - 8.0) 7.0 Ur Specific [place] (1.010 - 1.030) <= 1.005 Urine Protein (NEGATIVE) NEGATIVE Urine Ketones (NEGATIVE) NEGATIVE Urine Blood (NEGATIVE) NEGATIVE Urine Nitrite (NEGATIVE) NEGATIVE Urine Bilirubin (NEGATIVE) NEGATIVE Urine Urobilinogen (0.2 - 1.0 EU/dL) 0.2 Ur Leukocyte Esterase (NEGATIVE) NEGATIVE Urine RBC (0 - 1 rbc/hpf) NONE SEEN Urine WBC (0 - 1 wbc/hpf) RARE Ur Epithelial Cells (0 - 5 EPI/hpf) NONE SEEN Urine Bacteria (NONE SEEN) NONE SEEN Urine Glucose (NEGATIVE) NEGATIVE Urine Comment CULT NOT INDICATED Imaging Abdominal X-Rays IMPRESSION: 1. Recurrent bowel obstruction. Bowel loops more dilated compared to the prior study. 2. Postsurgical changes in the left abdomen. Dictated by: IFRAH HUSAIN MD D: BREANN;05/03/17 [id number] Assessment and Plan Problem List 1. Small bowel obstruction Plan -The patient presents with findings of recurrent small bowel obstruction -Abdominal pain controlled at present -No vomiting but mild nausea -NG tube placed with low intermittent suction -Consult Dr. Sifuentes for surgical evaluation -IV fluid therapy, pain medications, antiemetics -Follow-up with Dr. Noguera in a.m. 2. GERD (gastroesophageal reflux disease) Plan -Patient with history of gastroesophageal reflux -Pepcid 20 mg IV twice a day -Monitor 3. Hypokalemia Plan -Patient presents with findings of hypokalemia -IV supplementation -Monitor Current status: Fair, unstable Anticipated discharge date: Anticipated discharge in 2-3 days Anticipated discharge placement: Home Patient care time: Time in chart review, patient interview, physical exam, CPOE, and care documentation: 70 mins Visit to patient today: 1 Complexity of care: Moderate-High DVT prophylaxis: Heparin 5000 units subcutaneous every 8 hours E&M Codes Rounding: Inpt-High/96177
[2017-05-03 22:17] VITALS: BP 116/79
[2017-05-04] MEDS ORDERED: ATORVASTATIN CA10 MG PO (04:01)
[2017-05-04] MEDS ORDERED: ASPIRIN ADULT L81 MG PO (04:01)
[2017-05-04 04:17] VITALS: BP 115/68
[2017-05-04 06:46] VITALS: BP 115/85
--- NOTE | 2017-05-04 07:52 | Progress Note ---
Subjective General Patient is doing much better than admit. Hasn't had the consult to surgery yet but doesn't want to wait for this. Would like to have a d/c home and then follow up next week to discuss her ischemic thumb and also her increased freq of SBO. Overall, feeling better Physical Exam Vital Signs / I&Os Vital Signs Date Time Temp Pulse Resp B/P Pulse O2 O2 Flow FiO2 Ox Delivery Rate 05/04 0646 97.7 72 22 115/85 100 Room Air 0.0 05/04 0417 98.2 62 16 115/68 100 Room Air 05/03 2235 Room Air 05/03 2217 98.4 76 16 116/79 98 Room Air I&O 05/04 0000 05/03 1600 05/03 0800 Intake Total Output Total 1250 Balance -1250 General Appearance Alert, Cooperative Lungs Clear to auscultation, Normal air movement Cardiovascular Regular rate and rhythm Abdomen Normal bowel sounds, Soft, colostomy bag Extremities No edema LAB Results Laboratory Tests 05/04 05/04 05/03 05/03 0630 0515 2044 2009 Chemistry Plasma Sodium (136 - 145 mmol/L) 143 Plasma Potassium (3.5 - 5.1 mmol/L) 4.6 Plasma Chloride (98 - 107 mmol/L) 107 CO2 (Enzymatic) (21 - 32 mmol/L) 25 BUN (7 - 18 mg/dL) 23 Creatinine (0.6 - 1.3 mg/dL) 1.2 Est GFR ( Amer) (mL/min) 58.26 Est GFR (Non-Af Amer) (mL/min) 48.07 Glucose (70 - 110 mg/dL) 127 Lactic Acid (0.4 - 2.0 mmol/L) 0.6 3.3 Plasma Calcium (8.5 - 10.1 mg/dL) 9.0 Hematology WBC (4.5 - 11.5 K/uL) 8.7 RBC (4.00 - 5.20 M/uL) 4.11 Hgb (12.0 - 16.0 gm/dL) 12.4 Hct (36.0 - 46.0 %) 37.6 MCV (80 - 100 fL) 92 MCH (26 - 34 pg) 30 RDW (11.6 - 14.8 %) 13.9 Neut % (Auto) (50 - 75 %) 78.7 Lymph % (Auto) (25 - 40 %) 9.5 [place] % (Auto) (3 - 14 %) 8.6 Eos % (Auto) (0 - 4 %) 2.4 Baso % (Auto) (0 - 2 %) 0.8 Plt Count, EDTA (150 - 400 K/uL) 338 PUBS MCHC (31 - 37 g/dL) 33 Urines Urine Color YELLOW Urine Appearance HAZY Urine pH (5.0 - 8.0) 7.0 Ur Specific [place] (1.010 - 1.030) <= 1.005 Urine Protein (NEGATIVE) NEGATIVE Urine Ketones (NEGATIVE) NEGATIVE Urine Blood (NEGATIVE) NEGATIVE Urine Nitrite (NEGATIVE) NEGATIVE Urine Bilirubin (NEGATIVE) NEGATIVE Urine Urobilinogen (0.2 - 1.0 EU/dL) 0.2 Ur Leukocyte Esterase (NEGATIVE) NEGATIVE Urine RBC (0 - 1 rbc/hpf) NONE SEEN Urine WBC (0 - 1 wbc/hpf) RARE Ur Epithelial Cells (0 - 5 EPI/hpf) NONE SEEN Urine Bacteria (NONE SEEN) NONE SEEN Urine Glucose (NEGATIVE) NEGATIVE Urine Comment CULT NOT INDICATED 05/03 2010 Chemistry Plasma Sodium (136 - 145 mmol/L) 145 Plasma Potassium (3.5 - 5.1 mmol/L) 2.9 Plasma Chloride (98 - 107 mmol/L) 104 CO2 (Enzymatic) (21 - 32 mmol/L) 23 BUN (7 - 18 mg/dL) 22 Creatinine (0.6 - 1.3 mg/dL) 1.1 Est GFR ( Amer) (mL/min) >60 Est GFR (Non-Af Amer) (mL/min) 53.15 Glucose (70 - 110 mg/dL) 108 Plasma Calcium (8.5 - 10.1 mg/dL) 9.7 Plasma Magnesium (1.8 - 2.4 mg/dL) 2.5 Total Bilirubin (0.0 - 1.0 mg/dL) 0.3 AST (15 - 37 U/L) 32 ALT (12 - 78 U/L) 42 Alkaline Phosphatase (46 - 116 U/L) 66 Total Protein (6.4 - 8.2 g/dL) 7.0 Albumin (3.3 - 5.0 g/dL) 3.9 Lipase (73 - 393 U/L) 206 Hematology WBC (4.5 - 11.5 K/uL) 3.8 RBC (4.00 - 5.20 M/uL) 4.19 Hgb (12.0 - 16.0 gm/dL) 12.7 Hct (36.0 - 46.0 %) 37.7 MCV (80 - 100 fL) 90 MCH (26 - 34 pg) 30 RDW (11.6 - 14.8 %) 13.9 Neut % (Auto) (50 - 75 %) 59.1 Lymph % (Auto) (25 - 40 %) 26.1 [place] % (Auto) (3 - 14 %) 9.6 Eos % (Auto) (0 - 4 %) 4.1 Baso % (Auto) (0 - 2 %) 1.1 Plt Count, EDTA (150 - 400 K/uL) 380 PUBS MCHC (31 - 37 g/dL) 34 Assessment and Plan Problem List 1. Small bowel obstruction Plan improved now. Recurrent. Keep f/u surgery next week as doesn't want to do today as will need to be this pm late. 2. Lactic acidemia Plan resolved.
--- NOTE | 2017-05-04 07:54 | Provider's Discharge Care Plan ---
Problem, Goal, Plan Problem List 1. Small bowel obstruction Instructions: Follow up as needed, Follow up as directed
--- NOTE | 2017-05-04 07:54 | Provider's Discharge Care Plan ---
Problem, Goal, Plan Problem List 1. Small bowel obstruction Instructions: Follow up as needed, Follow up as directed
--- NOTE | 2017-05-05 02:32 | ED DISCHARGE INSTRUCTIONS ---
Patient: FELIPA VALERA General Instructions [facility] VisitID: [id number] [address] [place] [address] 66y, F Registration Date/Time: 05/03/2017 acute bowel obstruction acute lactic acidemia. (Electronically signed by Bryan Driscoll Dr. 05/05/2017 2:31)
--- NOTE | 2017-05-05 02:32 | ED CLINICAL REPORT ---
Clinical Report - Physicians/Mid Levels [facility] [address] [place] [address] 05/03/2017 19:20 Patient: FELIPA VALERA Time Seen: 1929. Arrived- By private vehicle. Historian- patient. HISTORY OF PRESENT ILLNESS Chief Complaint: ABDOMINAL PAIN. At its maximum, severity described as severe. When seen in the E.D., severity described as severe. Modifying factors. Not worsened by anything. Not relieved by anything. It is described as "pain". No radiation. It is described as generalized in location. This started today and is still present. It was abrupt in onset and has been constant but is not gone now. The patient has had nausea and vomiting. No loss of appetite or diarrhea. No recent travel. Similar symptoms previously: Many times. Recent medical care: Not recently seen/assessed. REVIEW OF SYSTEMS No constipation, black stools, hematemesis, bloody stools or fever. No chest pain or difficulty breathing. All systems otherwise negative, except as recorded above. PAST HISTORY See nurses notes. Medications: Aspirin Oral (Tablet 81 mg) 1 tablet, daily. Atorvastatin Calcium Oral (Tablet 10 mg) 1 tablet, daily. Fish Oil Oral (Capsule 1000 mg) 1 capsule, daily. Flector Transdermal (Patch 1.3 %), every other day. Glucosamine Oral 1500 mg, daily. Lutein Oral. Multivital Oral. Omeprazole Oral 20 mg, 2x a day. Vitamin B Complex Oral. Zyrtec. Allergies: Ampicillin. Definite Moderate(hives) Celebrex. Definite Moderate(hives) Morphine and Related. Definite(itching) Paper tape. Penicillin. Definite Moderate(hives). SOCIAL HISTORY Never smoker. Occasional alcohol use. No drug use. No recent travel. Is a local resident. ADDITIONAL NOTES The nursing notes have been reviewed. PHYSICAL EXAM Vital Signs: 05/03/2017 19:26 BP: 131/90. HR: 82. RR: 18. O2 saturation: 100%. Temp: 98.1 F. Pain level now: 9/10. Oxygen saturation normal. Appearance: Alert. Oriented X3. Patient in mild distress. Eyes: Pupils equal, round and reactive to light. Eyes normal inspection. CVS: Normal heart rate and rhythm. Heart sounds normal. Pulses normal. Respiratory: No respiratory distress. Breath sounds normal. Chest nontender. Abdomen: Soft. (mild distention. Nonfocal tenderness. No masses. No rebound or guarding.). Skin: Skin warm and dry. Normal skin color. No rash. Normal skin turgor. Extremities: Extremities exhibit normal ROM. No lower extremity edema. Neuro: No motor deficit. No sensory deficit. LABS, X-RAYS, AND EKG KUB: (upright abdomen. positive air fluid levels. Consistent with bowel obstruction. No free air.). The X-rays were independently viewed by me and interpreted by the radiologist. The X-rays were discussed with the radiologist (Via PACS). Laboratory Tests: UA-Culture if indicated: (ELIAS: 05/03/2017 20:45) ( [facility] 05/03/2017 21:23) Final results Test Result Flag Units (Reference) URINE COLOR YELLOW URINE APPEARANCE HAZY URINE GLUCOSE NEGATIVE (NEGATIVE) URINE BILIRUBIN NEGATIVE (NEGATIVE) URINE KETONE NEGATIVE (NEGATIVE) URINE SPECIFIC GRAVITY <= 1.005 L (1.010-1.030) URINE PH 7.0 (5.0-8.0) URINE PROTEIN NEGATIVE (NEGATIVE) URINE UROBILINOGEN 0.2 EU/dL (0.2-1.0) URINE NITRITE NEGATIVE (NEGATIVE) URINE BLOOD NEGATIVE (NEGATIVE) URINE LEUK ESTERASE NEGATIVE (NEGATIVE) URINE RBC NONE SEEN rbc/hpf (0-1) URINE WBC RARE wbc/hpf (0-1) URINE EPITHELIAL CELLS NONE SEEN EPI/hpf (0-5) URINE BACTERIA NONE SEEN (NONE SEEN) URINE COMMENT CULT NOT INDICATED 1+ AMORPHOUS CRYSTALSURINE CULTURES ARE SET-UP BASED ON THE FOLLOWING CRITERIA:POSITIVE NITRITEPOSITIVE LEUKOCYTE ESTERASEGREATER THAN 10 WHITE BLOOD CELLSMODERATE (2+) OR GREATER BACTERIA CBC w Diff: (ELIAS: 05/03/2017 20:10) ( [facility] 05/03/2017 20:41) Final results Test Result Flag Units (Reference) WHITE BLOOD COUNT 3.8 L K/uL (4.5-11.5) RED BLOOD COUNT 4.19 M/uL (4.00-5.20) HEMOGLOBIN 12.7 gm/dL (12.0-16.0) HEMATOCRIT 37.7 % (36.0-46.0) MEAN CELL VOLUME 90 fL (80-100) MEAN CORPUSCULAR HGB 30 pg (26-34) MEAN CORPUSCULAR HGB CONC 34 g/dL (31-37) RED CELL DISTRIBUTION WIDTH 13.9 % (11.6-14.8) PLATELET COUNT 380 K/uL (150-400) NEUTROPHIL % 59.1 % (50-75) LYMPH % 26.1 % (25-40) MONO % 9.6 % (3-14) EOSINOPHIL % 4.1 H % (0-4) BASOPHIL % 1.1 % (0-2) Lactate, Serum: (ELIAS: 05/03/2017 20:10) ( [facility] 05/03/2017 20:58) Final results Test Result Flag Units (Reference) LACTIC ACID 3.3 H mmol/L (0.4-2.0) CRITICAL RESULTS CALLEDCalled to [facility] 05/03/172057Were 2 patient identifiers used? YWas the result read back? Y CMP: (ELIAS: 05/03/2017 20:10) ( [facility] 05/03/2017 20:50) Final results Test Result Flag Units (Reference) GLUCOSE 108 mg/dL (70-110) BUN 22 H mg/dL (7-18) CREATININE 1.1 mg/dL (0.6-1.3) Estimated GFR 53.15 mL/min Estimated GFR- >60 mL/min Note: Persistent reduction over 3 months in eGFR<60 mL/min/1.73 m2 defines CKD. Patients with eGFR values>=60 mL/min/1.73 m2 may also have CKD if evidence ofpersistent proteinuria. Additional information may be foundat www.kidney.org. SODIUM 145 mmol/L (136-145) POTASSIUM 2.9 *L mmol/L (3.5-5.1) CRITICAL RESULTS CALLEDCalled to [facility] 05/03/172049Were 2 patient identifiers used? YWas the result read back? Y CHLORIDE 104 mmol/L (98-107) CARBON DIOXIDE 23 mmol/L (21-32) CALCIUM 9.7 mg/dL (8.5-10.1) TOTAL PROTEIN 7.0 g/dL (6.4-8.2) ALBUMIN 3.9 g/dL (3.3-5.0) BILIRUBIN, TOTAL 0.3 mg/dL (0.0-1.0) ALKALINE PHOSPHATASE 66 U/L (46-116) AST (SGOT) 32 U/L (15-37) ALT (SGPT) 42 U/L (12-78) LIPASE 206 U/L (73-393) . PROGRESS AND PROCEDURES Course of Care: the patient is a pleasant 66-year-old female who is well-known to our facility presenting for evaluation of abdominal pain and distention. Patient with a extensive history of bowel obstructions. Patient likely with a recurrent bowel obstruction at this point in time. Laboratory studies and imaging have been ordered. Patient is agreeable to the treatment plan. Pain medication as been offered. The patient's workup was markable for the findings above. Patient with air-fluid levels on upright abdomen. No free air. Patient appears nontoxic and pain as been improved while here in the emergency department. Because of the patient's symptoms here in the emergency department, patient will likely need admission to the hospital. Head discussion with the patient regards to her workup here in the emergency department. Patient is agreeable to the treatment and plan. Case was discussed with the hospitalist. Patient will be accepted to the hospitalist service. Patient does not require ICU level of care at this time. Patient will be made nothing by mouth and put on bowel rest. Disposition: Discharged. Condition: good. CLINICAL IMPRESSION acute bowel obstruction acute lactic acidemia. (Electronically signed by Michelle Driscoll Dr. 05/05/2017 2:31)
--- NOTE | 2017-05-05 02:32 | ED MAR SUMMARY ---
..... Medication Administration Record [facility] [address] [place] [address] Patient: FELIPA VALERA Visit ID: [id number] 66y, F Weight: 40.3 kg Height/Length: 61 in BMI: 16.8 ALLERGIES: Ampicillin, Celebrex, Morphine and Related, Paper tape, Penicillin Start 19:50 05/03/2017 Randal Whittaker R.N., Continued Upon Admission 22:00 05/03/2017 Randal Whittaker R.N. Medication Administered: IV NS (SALINE), Dose: IV Fluids over 10 hour(s), Rate: 50 mL/hr, Bolus: 500 mL over 30 minute(s), Dispensed: 1000 mL bag, Site: #1. Medication Ordered: IV NS : initial bolus 500 mL (1000 mL/hr), then none - for X1 (NOW). Given 20:13 05/03/2017 Randal Whittaker R.N. Medication Administered: ZOFRAN [IVP] (ONDANSETRON HCL), Dose: 4 mg IVP over 2 minute(s), Site: #1 central line(see procedure note). Medication Ordered: Zofran IV 4 mg (NOW). Given 20:15 05/03/2017 Randal Whittaker R.N. Medication Administered: DILAUDID [IVP] (HYDROMORPHONE HCL PF), Dose: 1 mg IVP over 2 minute(s), Site: #1 central line(see procedure note). Medication Ordered: Dilaudid IV 1 mg (HIGH ALERT MEDICATION, NOW). Start 21:09 05/03/2017 Randal Whittaker R.N., Continued Upon Admission 22:00 05/03/2017 Randal Whittaker R.NBailey Medication Administered: POTASSIUM CHLORIDE [IVPB] (POTASSIUM CHLORIDE), Dose: 20 meq IVPB over 2 hour(s), Rate: 50 mL/hr, Dispensed: 100 mL bag, Site: #1 central line(see procedure note). Medication Ordered: Potassium Chloride IV 20 meq/100mL (HIGH ALERT MEDICATION, NOW, Run no faster than 10 mEq/hr). Given 21:50 05/03/2017 Randal Whittaker R.N. Medication Administered: DILAUDID [IVP] (HYDROMORPHONE HCL PF), Dose: 1 mg IVP over 2 minute(s), Site: #1 central line(see procedure note). Medication Ordered: Dilaudid IV 1 mg (HIGH ALERT MEDICATION, NOW).
--- NOTE | 2017-05-05 02:32 | ED DISCHARGE INSTRUCTIONS ---
Patient: FELIPA VALERA General Instructions [facility] VisitID: [id number] [address] [place] [address] 66y, F Registration Date/Time: 05/03/2017 acute bowel obstruction acute lactic acidemia. (Electronically signed by Bryan Driscoll Dr. 05/05/2017 2:31)
--- NOTE | 2017-05-05 02:32 | ED MAR SUMMARY ---
..... Medication Administration Record [facility] [address] [place] [address] Patient: FELIPA VALERA Visit ID: [id number] 66y, F Weight: 40.3 kg Height/Length: 61 in BMI: 16.8 ALLERGIES: Ampicillin, Celebrex, Morphine and Related, Paper tape, Penicillin Start 19:50 05/03/2017 Randal Whittaker R.N., Continued Upon Admission 22:00 05/03/2017 Randal Whittaker R.N. Medication Administered: IV NS (SALINE), Dose: IV Fluids over 10 hour(s), Rate: 50 mL/hr, Bolus: 500 mL over 30 minute(s), Dispensed: 1000 mL bag, Site: #1. Medication Ordered: IV NS : initial bolus 500 mL (1000 mL/hr), then none - for X1 (NOW). Given 20:13 05/03/2017 Randal Whittaker R.N. Medication Administered: ZOFRAN [IVP] (ONDANSETRON HCL), Dose: 4 mg IVP over 2 minute(s), Site: #1 central line(see procedure note). Medication Ordered: Zofran IV 4 mg (NOW). Given 20:15 05/03/2017 Randal Whittaker R.N. Medication Administered: DILAUDID [IVP] (HYDROMORPHONE HCL PF), Dose: 1 mg IVP over 2 minute(s), Site: #1 central line(see procedure note). Medication Ordered: Dilaudid IV 1 mg (HIGH ALERT MEDICATION, NOW). Start 21:09 05/03/2017 Randal Whittaker R.N., Continued Upon Admission 22:00 05/03/2017 Randal Whittaker R.NBailey Medication Administered: POTASSIUM CHLORIDE [IVPB] (POTASSIUM CHLORIDE), Dose: 20 meq IVPB over 2 hour(s), Rate: 50 mL/hr, Dispensed: 100 mL bag, Site: #1 central line(see procedure note). Medication Ordered: Potassium Chloride IV 20 meq/100mL (HIGH ALERT MEDICATION, NOW, Run no faster than 10 mEq/hr). Given 21:50 05/03/2017 Randal Whittaker R.N. Medication Administered: DILAUDID [IVP] (HYDROMORPHONE HCL PF), Dose: 1 mg IVP over 2 minute(s), Site: #1 central line(see procedure note). Medication Ordered: Dilaudid IV 1 mg (HIGH ALERT MEDICATION, NOW).
--- NOTE | 2017-05-05 02:32 | ED MED RECONCILIATION SUMMARY ---
Patient: FELIPA VALERA Medication Reconciliation Report [facility] VisitID: [id number] [address] [place] [address] 66y, F Registration Date/Time: 05/03/2017 Weight: 40.3 kg Height/Length: 61 in. BMI: 16.8 ALLERGIES: Ampicillin, Celebrex, Morphine and Related, Paper tape, Penicillin The patient's Home Medications are listed below: THE FOLLOWING MEDICATIONS NEED TO BE RECONCILED: Aspirin Oral (81 mg) 1 tablet, daily Atorvastatin Calcium Oral (10 mg) 1 tablet, daily Fish Oil Oral (1000 mg) 1 capsule, daily Flector Transdermal (1.3 %), every other day Glucosamine Oral 1500 mg, daily Lutein Oral Multivital Oral Omeprazole Oral 20 mg, 2x a day Vitamin B Complex Oral Zyrtec The source(s) of the original Home Medication information: patient The following Medications were given to the patient in the Emergency Department: IV NS IV Fluids bolus 500 mL over 30 minute(s), then 50 mL/hr, administered: 05/03/2017 7:50:00 PM Zofran [IVP] IVP 4 mg, administered: 05/03/2017 8:13:00 PM Dilaudid [IVP] IVP 1 mg, administered: 05/03/2017 8:15:00 PM Potassium Chloride [IVPB] IVPB bolus 0, then 20 meq 50 mL/hr, administered: 05/03/2017 9:09:00 PM Dilaudid [IVP] IVP 1 mg, administered: 05/03/2017 9:50:00 PM The following Medications were prescribed to the patient: None.
--- NOTE | 2017-05-05 02:32 | ED MED RECONCILIATION SUMMARY ---
Patient: FELIPA VALERA Medication Reconciliation Report [facility] VisitID: [id number] [address] [place] [address] 66y, F Registration Date/Time: 05/03/2017 Weight: 40.3 kg Height/Length: 61 in. BMI: 16.8 ALLERGIES: Ampicillin, Celebrex, Morphine and Related, Paper tape, Penicillin The patient's Home Medications are listed below: THE FOLLOWING MEDICATIONS NEED TO BE RECONCILED: Aspirin Oral (81 mg) 1 tablet, daily Atorvastatin Calcium Oral (10 mg) 1 tablet, daily Fish Oil Oral (1000 mg) 1 capsule, daily Flector Transdermal (1.3 %), every other day Glucosamine Oral 1500 mg, daily Lutein Oral Multivital Oral Omeprazole Oral 20 mg, 2x a day Vitamin B Complex Oral Zyrtec The source(s) of the original Home Medication information: patient The following Medications were given to the patient in the Emergency Department: IV NS IV Fluids bolus 500 mL over 30 minute(s), then 50 mL/hr, administered: 05/03/2017 7:50:00 PM Zofran [IVP] IVP 4 mg, administered: 05/03/2017 8:13:00 PM Dilaudid [IVP] IVP 1 mg, administered: 05/03/2017 8:15:00 PM Potassium Chloride [IVPB] IVPB bolus 0, then 20 meq 50 mL/hr, administered: 05/03/2017 9:09:00 PM Dilaudid [IVP] IVP 1 mg, administered: 05/03/2017 9:50:00 PM The following Medications were prescribed to the patient: None.
== END 2017-05-04 10:15 | disposition home or self-care (01) | DRG 389 ==
LOC: ED SRH 19:19 → TRANS SRH 20:51 → ACUTE2 SRH 22:00
PROVIDERS: ADMIT Student in an Organized Health Care Education/Training Program
PROC: 0D9670Z Drainage of Stomach with Drainage Device, Via Natural or Artificial Opening (ICD-10-PCS; principal; 2017-05-03)
DX: K56.60 Unspecified intestinal obstruction (principal); E87.2 Acidosis; E87.6 Hypokalemia; E86.0 Dehydration; K21.9 Gastro-esophageal reflux disease without esophagitis; Z93.2 Ileostomy status; Z90.49 Acquired absence of other specified parts of digestive tract; Z79.82 Long term (current) use of aspirin; Z87.891 Personal history of nicotine dependence
CPT/HCPCS: 81523; 83498; 90004; 90047; 90100; 92031; 92235; 92720; 95059

== ENCOUNTER 2017-05-07 17:22 | Inpatient (IN) | payer OTHER ==
[~2017-05-07] VITALS: Ht 154.9 cm; Wt 44.2 kg
[~2017-05-07 17:22] MED LIST changes: +ASPIRIN ADULT L81 MG PO; +ATORVASTATIN CA10 MG PO
--- NOTE | 2017-05-07 18:32 | DIAGNOSTIC IMAGING REPORT ---
PROCEDURE: XR ABDOMEN 1 VIEW INDICATION: Abdominal pain and distention. TECHNIQUE: AP upright view. COMPARISON: Compared to abdominal radiograph on 05/03/2017. FINDINGS: There is a persistent or recurrent high-grade small bowel obstruction with multiple fluid levels and distention of the stomach. There are multiple surgical clips overlying the left abdomen. There is evidence of free air. Mild biconvex scoliosis and moderate degenerative change of the lumbar spine. IMPRESSION: 1. High-grade recurrent or persistent small bowel obstruction.
--- NOTE | 2017-05-07 19:32 | ED CLINICAL REPORT ---
Clinical Report - Physicians/Mid Levels [facility] [address] [place] [address] 05/07/2017 17:21 Patient: FELIPA VALERA Time Seen: 17:46 Yimi 2016. Arrived- By private vehicle. Historian- patient and family. HISTORY OF PRESENT ILLNESS Chief Complaint: ABDOMINAL PAIN. It is described as "pain" and it is described as located in the periumbilical area. This started 3 PM and is still present. The patient has had nausea and loss of appetite. No vomiting. (Abdominal pain today since 3 PM, with no output in her ostomy. Reports pain worsening. patient with no recent fevers. Denies any new medication changes. Patient was recently here. Denies emesis.). REVIEW OF SYSTEMS No constipation, black stools, difficulty with urination, pain with urination or fever. No sore throat, blurred vision, chest pain or chills. All systems otherwise negative, except as recorded above. PAST HISTORY PCP Poornima. Problems: Peripheral Arterial Occlusive Disease. Port-a-cath (L subclavian). Colon Cancer. Nausea. Gastroesophageal Reflux Disease. Abnormal Test. Toxic megacolon. GI Disease. Tetanus Status. Laceration. Enteritis. Hypokalemia. Abdominal Pain. Hypercalcemia. Bowel Obstruction. Abnormal Liver Function Test. Dehydration. Immunizations. LNMP - Last Normal Menstrual Period. Small bowel obstruction. Fistula. Ileostomy present. Pancreatitis [RuleOut]. Additional Surgeries: Abd fistula. Bunionectomy. Colostomy. Ileostomy. Knee Surgery. Laparoscopy. Sinus Surgery. Medications: Aspirin Oral (Tablet 81 mg) 1 tablet, daily. Atorvastatin Calcium Oral (Tablet 10 mg) 1 tablet, daily. Fish Oil Oral (Capsule 1000 mg) 1 capsule, daily. Flector Transdermal (Patch 1.3 %), every other day. Glucosamine Oral 1500 mg, daily. Lutein Oral. Multivital Oral. Omeprazole Oral 20 mg, 2x a day. Vitamin B Complex Oral. Zyrtec. Allergies: Ampicillin. Definite Moderate(hives) Celebrex. Definite Moderate(hives) Morphine and Related. Definite(itching) Paper tape. Penicillin. Definite Moderate(hives). SOCIAL HISTORY Former smoker. Alcohol use. (on weekends). No drug use. ADDITIONAL NOTES The nursing notes have been reviewed. PHYSICAL EXAM Vital Signs: 05/07/2017 17:40 BP: 124/96. HR: 99. RR: 22. O2 saturation: 100%. Temp: 97.8 F. Pain level now: 8/10. Appearance: Alert. Appears to be in pain. Patient in mild distress. ENT: Ears normal. CVS: Normal heart rate and rhythm. Heart sounds normal. Respiratory: No respiratory distress. Breath sounds normal. Abdomen: Tenderness. No rebound tenderness. (ostomy in place, no surrounding swelling/ erythema or skin changes. surrounding tendernss.). Skin: Skin warm. Normal skin color. Neuro: Oriented X 3. LABS, X-RAYS, AND EKG KUB: (IMPRESSION: 1. High-grade recurrent or persistent small bowel obstruction. Electronically Final signed by:Jesus Stafford MD 05/07/2017 6:27:16 PM). Laboratory Tests: UA-Culture if indicated: (ELIAS: 05/07/2017 17:42) ( MsgRcvd 05/07/2017 19:30) Final results Test Result Flag Units (Reference) URINE COLOR YELLOW URINE APPEARANCE CLOUDY URINE GLUCOSE NEGATIVE (NEGATIVE) URINE BILIRUBIN NEGATIVE (NEGATIVE) URINE KETONE NEGATIVE (NEGATIVE) URINE SPECIFIC GRAVITY <= 1.005 L (1.010-1.030) URINE PH 7.0 (5.0-8.0) URINE PROTEIN NEGATIVE (NEGATIVE) URINE UROBILINOGEN 0.2 EU/dL (0.2-1.0) URINE NITRITE NEGATIVE (NEGATIVE) URINE BLOOD NEGATIVE (NEGATIVE) URINE LEUK ESTERASE NEGATIVE (NEGATIVE) URINE RBC NONE SEEN rbc/hpf (0-1) URINE WBC NONE SEEN wbc/hpf (0-1) URINE EPITHELIAL CELLS 0-1 EPI/hpf (0-5) URINE BACTERIA NONE SEEN (NONE SEEN) URINE COMMENT CULT NOT INDICATED 4+ AMORPHOUSURINE CULTURES ARE SET-UP BASED ON THE FOLLOWING CRITERIA:POSITIVE NITRITEPOSITIVE LEUKOCYTE ESTERASEGREATER THAN 10 WHITE BLOOD CELLSMODERATE (2+) OR GREATER BACTERIA CBC w Diff: (ELIAS: 05/07/2017 18:08) ( [facility] 05/07/2017 18:41) Final results Test Result Flag Units (Reference) WHITE BLOOD COUNT 6.2 K/uL (4.5-11.5) RED BLOOD COUNT 4.51 M/uL (4.00-5.20) HEMOGLOBIN 13.7 gm/dL (12.0-16.0) HEMATOCRIT 40.5 % (36.0-46.0) MEAN CELL VOLUME 90 fL (80-100) MEAN CORPUSCULAR HGB 30 pg (26-34) MEAN CORPUSCULAR HGB CONC 34 g/dL (31-37) RED CELL DISTRIBUTION WIDTH 13.6 % (11.6-14.8) PLATELET COUNT 386 K/uL (150-400) NEUTROPHIL % 67.3 % (50-75) LYMPH % 19.5 L % (25-40) MONO % 8.9 % (3-14) EOSINOPHIL % 2.2 % (0-4) BASOPHIL % 2.1 H % (0-2) Lactate, Serum: (ELIAS: 05/07/2017 18:45) ( [facility] 05/07/2017 19:19) Final results Test Result Flag Units (Reference) LACTIC ACID 1.1 mmol/L (0.4-2.0) CMP: (ELIAS: 05/07/2017 18:08) ( [facility] 05/07/2017 18:57) Final results Test Result Flag Units (Reference) GLUCOSE 109 mg/dL (70-110) BUN 33 H mg/dL (7-18) CREATININE 1.4 H mg/dL (0.6-1.3) Estimated GFR 40.24 mL/min Estimated GFR- 48.77 mL/min Note: Persistent reduction over 3 months in eGFR<60 mL/min/1.73 m2 defines CKD. Patients with eGFR values>=60 mL/min/1.73 m2 may also have CKD if evidence ofpersistent proteinuria. Additional information may be foundat www.kidney.org. SODIUM 142 mmol/L (136-145) POTASSIUM 3.3 L mmol/L (3.5-5.1) CHLORIDE 103 mmol/L (98-107) CARBON DIOXIDE 26 mmol/L (21-32) CALCIUM 11.0 H mg/dL (8.5-10.1) TOTAL PROTEIN 7.9 g/dL (6.4-8.2) ALBUMIN 4.6 g/dL (3.3-5.0) BILIRUBIN, TOTAL 0.4 mg/dL (0.0-1.0) ALKALINE PHOSPHATASE 77 U/L (46-116) AST (SGOT) 31 U/L (15-37) ALT (SGPT) 42 U/L (12-78) LIPASE 331 U/L (73-393) . PROGRESS AND PROCEDURES Course of Care: [address] Bishop, who ordered inquired as hospitalist can admit the patient. 1934 Discussed case with hospitalist, Dr. Pastrana, who will admit the patient. Patient has placed her NG. She is very stable, electrolytes are unremarkable, she has had about 500-600 cc output from her NG. in short this is a patient is very well-known to the staff, as well as the hospital, with multiple admissions, most recent admission on the , and discharged the next morning on the . Patient developed abdominal pain earlier today about 1500, with decrease in output of her ostomy, she has had nausea, no emesis. No fevers. No recent medication changes, or illness. Denies any abdominal trauma. Denies sick contacts. CBC and CMP are unremarkable, potassium is 3.3, lactic is within normal limits. Abdominal plain film was completed, which shows signs of obstruction. Discussed case with DR. Pacheco who will place ER HOLDING ORDERS. 05/07/2017 18:30 BP: 110/85. HR: 68. RR: 18. O2 saturation: 100%. Pain level now: 610. Patient is stable. Physical exam findings are improved. Symptoms better. Discussed case with health care provider (Zeina). Reviewed. Agreed upon treatment plan and decision to place in observation. Health care provider will see patient in ED. Patient/family counseled. Disposition: Admitted. CLINICAL IMPRESSION Acute Bowel Obstruction. (Electronically signed by Carmita Lincoln P.A.-C 05/07/2017 19:50)
--- NOTE | 2017-05-07 19:32 | ED ORDER SUMMARY ---
..... Patient: FELIPA VALERA OrderSheet [facility] VisitID: [id number] [address] [place] [address] 66y, F Registration Date/Time: 05/07/2017 ORDER SHEET Weight: 40 kg (stated) Allergies: Ampicillin, Celebrex, Morphine and Related, Paper tape, Penicillin GENERAL ORDERS: Abdomen 1V Urgent (17:46 05/07/2017 EKoroleva P.A.-C) (Ack 18:27 KHoerner) (18:28 LSullivan R.N.) CBC w Diff Urgent (17:47 05/07/2017 EKoroleva P.A.-C) (Ack 18:27 KHoerner) (18:28 LSullivan R.N.) CMP Urgent (17:47 05/07/2017 EKoroleva P.A.-C) (Ack 18:27 KHoerner) (18:28 LSullivan R.N.) Lipase Urgent (17:47 05/07/2017 EKoroleva P.A.-C) (Ack 18:27 KHoerner) (18:28 LSullivan R.N.) Lactate, Serum Urgent (17:55 05/07/2017 EKoroleva P.A.-C) (Ack 18:27 KHoerner) (18:58 LSullivan R.N.) NG Tube (18:50 05/07/2017 EKoroleva P.A.-C) (Ack 19:11 RCollier R.N.) (19:22 LSullivan R.N.) UA-Culture if indicated Urgent (19:05 05/07/2017 EKoroleva P.A.-C) (Ack 19:12 LMuller) (19:25 LSullivan R.N.) MEDICATION ORDERS: IV FLUIDS: IV NS : initial bolus 500 mL (1000 mL/hr), then 100 mL/hr for X1 (NOW); Scott (17:46 05/07/2017 EKoroleva P.A.-C) (18:20 LSullivan R.N.) Dilaudid IV 1 mg (HIGH ALERT MEDICATION, NOW) (17:46 05/07/2017 EKoroleva P.A.-C) (18:21 LSullivan R.N.) Zofran IV 8 mg (NOW) (17:47 05/07/2017 EKoroleva P.A.-C) (18:21 LSullivan R.N.) Dilaudid IV 1 mg (HIGH ALERT MEDICATION, NOW) (18:50 05/07/2017 EKoroleva P.A.-C) (18:56 LSullivan R.N.) Benadryl IV 50 mg (NOW) (19:05 05/07/2017 EKoroleva P.A.-C) ([facility] 19:11 RCollier R.N.) (19:22 LSullivan R.N.) ORDER SHEET NOTES: [Electronically signed by Carmita LincolnABailey-C (19:50 05/07/2017)] [Electronically signed by Endy Moon R.N. (23:17 05/07/2017)] [Electronically locked/signed by Endy Moon R.N. (23:17 05/07/2017)]
--- NOTE | 2017-05-07 19:32 | ED ORDER SUMMARY ---
..... Patient: FELIPA VALERA OrderSheet [facility] VisitID: [id number] [address] [place] [address] 66y, F Registration Date/Time: 05/07/2017 ORDER SHEET Weight: 40 kg (stated) Allergies: Ampicillin, Celebrex, Morphine and Related, Paper tape, Penicillin GENERAL ORDERS: Abdomen 1V Urgent (17:46 05/07/2017 EKoroleva P.A.-C) (Ack 18:27 KHoerner) (18:28 LSullivan R.N.) CBC w Diff Urgent (17:47 05/07/2017 EKoroleva P.A.-C) (Ack 18:27 KHoerner) (18:28 LSullivan R.N.) CMP Urgent (17:47 05/07/2017 EKoroleva P.A.-C) (Ack 18:27 KHoerner) (18:28 LSullivan R.N.) Lipase Urgent (17:47 05/07/2017 EKoroleva P.A.-C) (Ack 18:27 KHoerner) (18:28 LSullivan R.N.) Lactate, Serum Urgent (17:55 05/07/2017 EKoroleva P.A.-C) (Ack 18:27 KHoerner) (18:58 LSullivan R.N.) NG Tube (18:50 05/07/2017 EKoroleva P.A.-C) (Ack 19:11 RCollier R.N.) (19:22 LSullivan R.N.) UA-Culture if indicated Urgent (19:05 05/07/2017 EKoroleva P.A.-C) (Ack 19:12 LMuller) (19:25 LSullivan R.N.) MEDICATION ORDERS: IV FLUIDS: IV NS : initial bolus 500 mL (1000 mL/hr), then 100 mL/hr for X1 (NOW); Scott (17:46 05/07/2017 EKoroleva P.A.-C) (18:20 LSullivan R.N.) Dilaudid IV 1 mg (HIGH ALERT MEDICATION, NOW) (17:46 05/07/2017 EKoroleva P.A.-C) (18:21 LSullivan R.N.) Zofran IV 8 mg (NOW) (17:47 05/07/2017 EKoroleva P.A.-C) (18:21 LSullivan R.N.) Dilaudid IV 1 mg (HIGH ALERT MEDICATION, NOW) (18:50 05/07/2017 EKoroleva P.A.-C) (18:56 LSullivan R.N.) Benadryl IV 50 mg (NOW) (19:05 05/07/2017 EKoroleva P.A.-C) ([facility] 19:11 RCollier R.N.) (19:22 LSullivan R.N.) ORDER SHEET NOTES: [Electronically signed by Carmita LincolnABailey-C (19:50 05/07/2017)] [Electronically signed by Endy Moon R.N. (23:17 05/07/2017)] [Electronically locked/signed by Endy Moon R.N. (23:17 05/07/2017)]
--- NOTE | 2017-05-07 19:32 | ED NURSING NOTES ---
Clinical Report - Nurses [facility] [address] [place] [address] 05/07/2017 17:21 Patient: FELIPA VALERA TRIAGE Triage time 17:34. Acuity: LEVEL 3. Chief Complaint: ABDOMINAL PAIN. Alert. --17:40 Ximena Gomez R.N. 17:40 05/07/17. BP: 124/96. HR: 99. RR: 22. O2 saturation: 100%. Temp: 97.8 F. Pain level now: 06/18. --17:47 Ximena Gomez R.N. Weight: 40 kg stated. Height/Length: 61 inches Per Patient. BMI: 16.7. --17:41 Ximena Gomez R.N. Medications Aspirin Oral (Tablet 81 mg) 1 tablet, daily. Atorvastatin Calcium Oral (Tablet 10 mg) 1 tablet, daily. Fish Oil Oral (Capsule 1000 mg) 1 capsule, daily. Flector Transdermal (Patch 1.3 %), every other day. Glucosamine Oral 1500 mg, daily. Lutein Oral. Multivital Oral. Omeprazole Oral 20 mg, 2x a day. Vitamin B Complex Oral. Zyrtec. --17:38 Ximena Gomez R.N. Allergies Ampicillin. Definite Moderate(hives) Celebrex. Definite Moderate(hives) Morphine and Related. Definite(itching) Paper tape. Penicillin. Definite Moderate(hives) --17:38 Ximena Gomez R.N. History Arrived by private vehicle. Historian: patient. Accompanied by spouse. --17:40 Ximena Gomez R.N. SOCIAL HX: Former smoker, end date 1994. Alcohol use; consumes two liquor drinks. (on weekends). No drug use. NUTRITIONAL RISK ASSESSMENT: The patient has recently had decreased intake. --17:47 Ximena Gomez R.N. PROBLEMS: Peripheral Arterial Occlusive Disease. Port-a-cath (L subclavian). Colon Cancer. Nausea. Gastroesophageal Reflux Disease. Toxic megacolon. GI Disease. Laceration. Enteritis. Hypokalemia. Abdominal Pain. Hypercalcemia. Bowel Obstruction. Abnormal Liver Function Test. Dehydration. Small bowel obstruction. Fistula. Ileostomy present. --17:39 Ximena Gomez R.N. ADDITIONAL SURGERIES: Abd fistula. Bunionectomy. Colostomy. Ileostomy. Knee Surgery. Laparoscopy. Sinus Surgery. --17:39 Ximena Gomez R.N. Interventions ID band on patient. To room. --17:40 Ximena Gomez R.N. PHYSICAL ASSESSMENT 17:48 05/07/17. Patient gowned. GENERAL / NEURO / PSYCH: Alert. Oriented X 4. Appears anxious and in distress. --17:48 Ximena Gomez R.N. NURSING PROGRESS NOTES 17:48 05/07/17. Patient identifiers checked. Call light placed in reach. Bed placed in lowest position. Patient ready for evaluation- chart flagged. --17:48 Ximena Gomez R.N. 17:48 05/07/17. ( PA has already seen pt). --17:48 Ximena Gomez R.N. 18:05 05/07/2017 Site #1 started via IV in the left with an 20g angiocath using 2% intra-dermal lidocaine, with aseptic technique and good blood return; one attempt. Blood drawn: rainbow set. Labeled in the presence of the patient and sent to the lab. Saline lock flushed with saline (ACCESSED PORTACATH EASILY USING STERILE TECHNIQUE WITH #20 MONTOYA NEEDLE, SECURED WITH STERILE DRESSING AND PT'S OWN HYPOALLERGENIC TAPE). --18:20 Ximena Gomez R.N. 18:05 05/07/2017 Started bag #1 1000 mL IV Fluids IV NS (Saline); at 1000 mL/hr over 30 minute(s) via site #1. Confirmed 5 rights. --18:20 Ximena Gomez R.N. 18:16 05/07/2017 Zofran (Ondansetron HCl) IVP 8 mg given over 3 minute(s) via site #1. Allergies verified and confirmed 5 rights. --18:21 Ximena Gomez R.N. 18:18 05/07/2017 Dilaudid (HYDROmorphone HCl PF) IVP 1 mg given over 2 minute(s) via site #1. Confirmed 5 rights and sedative warning given to the patient. --18:21 Ximena Gomez R.N. Patient transported to radiology by stretcher with tech. (18:20). --18:22 Ximena Gomez R.N. 18:30 05/07/17. BP: 110/85. HR: 68. RR: 18. O2 saturation: 100%. Pain level now: 04/18. --18:55 Ximena Gomez R.N. 18:52. ( Pt asked for more pain medication.). --18:56 Ximena Gomez R.N. 18:50 05/07/2017 IV Fluids IV NS Continued: at the rate of 100 mL/hr. 500 mL remaining bag #1. IV patency established. IV site checked: no pain, redness, or swelling. IV flushed thoroughly. --18:57 Ximena Gomez R.N. 18:53 05/07/2017 Dilaudid (HYDROmorphone HCl PF) IVP 1 mg given over 2 minute(s) via site #1. Confirmed 5 rights. --18:56 Ximena Gomez R.N. 19:12 05/07/2017 Benadryl (DiphenhydrAMINE HCl) IVP 50 mg given over 2 minute(s) via site #1. Sedative warning given to the patient and patient's family. --19:22 Ximena Gomez R.N. 19:24 05/07/17. 18 fr NG tube inserted in left nostril. Placement confirmed by return of gastric contents. Return: brown fluid. Tube secured. Attached to low and intermittent suction. Patient tolerated procedure well. (used Cetacaine spray into throat and left nare, and Afrin spray in left nare to facilitate passing tube, 500 mls returned). --19:24 Ximena Gomez R.N. 17:50. Clean catch urine collected with return of yellow-colored clear urine; sample sent to lab for urinalysis and culture. Specimen labeled in the presence of the patient. --19:25 Ximena Gomez R.N. DISPOSITION / DISCHARGE Departure time: 20:May 07 2017. Admitted to Acute Care. ( Report given to AC.). --20:40 Endy Moon R.N. 20:34 05/07/17. BP: 113/74. HR: 69. RR: 18. O2 saturation: 98%. Temp: 98.4 F. Pain level now 5/10. --20:40 Endy Moon R.N. 20:30 05/07/2017 Site #[address] upon transfer; patent. Good blood return present. --20:40 Endy Moon R.N. ( 1000 ml out.). --23:17 Endy Moon R.N. Locked/Released at 05/07/2017 23:17 by Endy Moon R.N.
--- NOTE | 2017-05-07 20:07 | Progress Note ---
Subjective General Admission History and Physical Examination Patient Name: Darling Davis Admission Date: May 07, 2017 Primary Care Provider: Arsenio Noguera M.D. Market Research Executive: J Luis Stewart M.D. Attending Physician: Arsenio Noguera M.D. Admitting Physician: Juanito Pastrana M.D. 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 [facility] ER evaluation was consistent with small bowel obstruction with associated nausea, abdominal pain, hypokalemia, and dehydration. Secondary to the above, the patient was admitted by Juanito Pastrana M.D. for further evaluation and treatment. The history of present was began at approximately 3 PM on the day of admission when the patient experienced abdominal pain, nausea without vomiting, and abdominal distention. This was consistent with her previous history of recurrent small bowel obstructions. Secondary to the above, the patient presented to [facility] emergency department for further evaluation and treatment. Laboratory evaluation and abdominal x-rays were consistent with high-grade small bowel obstruction with associated dehydration and hypokalemia. NG tube was placed. Secondary to the above, the patient was admitted for further evaluation and treatment. Dr. Stewart consulted. PAST MEDICAL HISTORY Illnesses: 1. Recurrent small bowel obstruction 2. Gastroesophageal reflux 3. Enteric cutaneous fistula 4. Ileostomy secondary colectomy from IBS with megacolon 5. Degenerative joint disease 6. Allergic rhinitis Allergies: 1. Celebrex 2. Morphine 3. Amoxicillin-penicillin 4. Paper tape Medications: 1. Glucosamine 1500 mg 1 by mouth daily 2. Multivitamin one by mouth daily 3. Vitamin B12 1000 g 1 by mouth daily 4. Prilosec 20 mg 1 by mouth twice a day 5. Lipitor 10 mg 1 by mouth daily 6. Lutein 20 mg 1 by mouth daily Surgery: 1. Repair of enterocutaneous fistula 2 2. Colectomy with ileostomy 3. Bunion surgery 4. Sinus surgery x3 5. No surgery Injuries: 1. No significant Hospitalizations: 1. For above surgery and medical problems. Multiple hospitalizations for recurrent small bowel obstruction FAMILY HISTORY Parents: 1. Father, Manish, , 88, polio, strokes, 2. Mother, Jessica, , 48, melanoma Siblings: 1. Male, Severino, living, 65, multiple back surgeries 2. Female, Susan, living, 63, multiple back surgeries, fibromyalgia 3. Female, Jane, living, 61, healthy 4. Male, YOCASTA, living, 60, multiple back surgeries, rotator cuff tear Children: 1. Female, Natalie, living, 42, history of bunions 2. Female, Fatoumata, living, 39, allergic rhinitis Other significant family history: None SOCIAL HISTORY 1. Marital Status: 2. Worship: Confucianist 3. Education: High school and one year of college 4. 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 Occupational health exposures: Dust, radiation, heavy lifting HABITS 1. Tobacco: Cigarette 6-8 pack years, currently nonsmoker 2. Drugs: None 3. Alcohol: 7-14 ounces per week 4. Caffeine: Coffee-3 cups per day, soft drinks- 1 can per day HEALTH SUPERVISION Item/Test 1. Vision screen: 2014 2. Cholesterol Profile: 2015 3. PSA: Not applicable 4. LORRIE: Not applicable 5. FOBT: Not applicable 6. Blood Glucose: 2016 7. Colonoscopy: 1996 8. History and physical exam: 2016 9. Audiogram: No recent 10. Mammogram: 2016 11. Pap/pelvic exam: 2016 IMMUNIZATIONS: 1. Pneumococcal: 2014 2. Influenza: 2014 3. Tetanus: 2014 ADVANCED DIRECTIVES: 1. Living well: No 2. POLST: No 3. Code Status: FULL CODE 4. Durable Power Ethylbenzene Cracking Supervisor Health care: No 5. Donor card: No REVIEW OF SYSTEMS Remarkable for those things stated in the history of present illness and past medical history. Seventeen point review of system completed with the following notable findings: General: Weight loss, fatigue, abdominal pain, weakness Skin: Dryness, rashes Eyes: Decreased visual acuity requiring corrective lenses Ears: Tinnitus intermittently Mouth: Dental problems Throat: Sore throat, swelling Respiratory: Wheezing Gastrointestinal: Nausea, gastroesophageal reflux, abdominal pain Musculoskeletal: Joint stiffness, joint pain, joint swelling, backache Neurological: Headaches Blood and lymphatic: Easy bruising Endocrine: Excessive thirst/urination Psychological: Difficulty sleeping Physical Exam Vital Signs / I&Os Blood pressure: 124/96 mmHg Heart rate: 99/minute Respiratory rate: 22/minute Temperature: 97.8 Fahrenheit orally Pulse oximetry: 100% room air General Appearance Alert, Oriented X3, Cooperative, No acute distress HEENT Atraumatic, PERRLA, EOMI, Moist mucous membranes, NG tube in place Lungs Clear to auscultation, Normal air movement Neck Supple, No JVD, No masses, No thyromegaly Cardiovascular Regular rate and rhythm, Normal S1 and S2, No murmurs, gallops, rubs Abdomen Normal bowel sounds, distended, diffusely tender, ostomy Extremities No cyanosis, No clubbing, No edema, Normal pulses Neurological Cranial nerves intact, Strength 5/5 x4 ext's, No lateralizing signs Psych/Mental Status Mental status normal, Mood normal LAB Results Laboratory Tests 05/07 05/07 05/07 1845 1808 1742 Chemistry Plasma Sodium (136 - 145 mmol/L) 142 Plasma Potassium (3.5 - 5.1 mmol/L) 3.3 Plasma Chloride (98 - 107 mmol/L) 103 CO2 (Enzymatic) (21 - 32 mmol/L) 26 BUN (7 - 18 mg/dL) 33 Creatinine (0.6 - 1.3 mg/dL) 1.4 Est GFR ( Amer) (mL/min) 48.77 Est GFR (Non-Af Amer) (mL/min) 40.24 Glucose (70 - 110 mg/dL) 109 Lactic Acid (0.4 - 2.0 mmol/L) 1.1 Plasma Calcium (8.5 - 10.1 mg/dL) 11.0 Total Bilirubin (0.0 - 1.0 mg/dL) 0.4 AST (15 - 37 U/L) 31 ALT (12 - 78 U/L) 42 Alkaline Phosphatase (46 - 116 U/L) 77 Total Protein (6.4 - 8.2 g/dL) 7.9 Albumin (3.3 - 5.0 g/dL) 4.6 Lipase (73 - 393 U/L) 331 Hematology WBC (4.5 - 11.5 K/uL) 6.2 RBC (4.00 - 5.20 M/uL) 4.51 Hgb (12.0 - 16.0 gm/dL) 13.7 Hct (36.0 - 46.0 %) 40.5 MCV (80 - 100 fL) 90 MCH (26 - 34 pg) 30 RDW (11.6 - 14.8 %) 13.6 Neut % (Auto) (50 - 75 %) 67.3 Lymph % (Auto) (25 - 40 %) 19.5 [place] % (Auto) (3 - 14 %) 8.9 Eos % (Auto) (0 - 4 %) 2.2 Baso % (Auto) (0 - 2 %) 2.1 Plt Count, EDTA (150 - 400 K/uL) 386 PUBS MCHC (31 - 37 g/dL) 34 Urines Urine Color YELLOW Urine Appearance CLOUDY Urine pH (5.0 - 8.0) 7.0 Ur Specific [place] (1.010 - 1.030) <= 1.005 Urine Protein (NEGATIVE) NEGATIVE Urine Ketones (NEGATIVE) NEGATIVE Urine Blood (NEGATIVE) NEGATIVE Urine Nitrite (NEGATIVE) NEGATIVE Urine Bilirubin (NEGATIVE) NEGATIVE Urine Urobilinogen (0.2 - 1.0 EU/dL) 0.2 Ur Leukocyte Esterase (NEGATIVE) NEGATIVE Urine RBC (0 - 1 rbc/hpf) NONE SEEN Urine WBC (0 - 1 wbc/hpf) NONE SEEN Ur Epithelial Cells (0 - 5 EPI/hpf) 0-1 Urine Bacteria (NONE SEEN) NONE SEEN Urine Glucose (NEGATIVE) NEGATIVE Urine Comment CULT NOT INDICATED Imaging Abdominal X-Ray IMPRESSION: 1. High-grade recurrent or persistent small bowel obstruction. Dictated by: THERON KAUR MD D: KERWIN;05/07/17 3954 Assessment and Plan Problem List 1. Small bowel obstruction Plan -Patient presents with small bowel obstruction, recurrent -NG tube -IV fluids -Surgical consultation Dr. Sifuentes/Dr. Diaz in a.m. -Transfer care to Dr. Noguera in a.m. 2. Abdominal pain Plan -See above -Pain medications as necessary -Pain adequately controlled at this time 3. Hypokalemia Plan -Patient with findings of hypokalemia -IV potassium supplementation -Monitor 4. Dehydration Plan -Patient with findings of prerenal azotemia/dehydration -IV fluid therapy -Monitor Current status: Fair, unstable Anticipated discharge date: Anticipated discharge 2-3 days Anticipated discharge placement: Home Patient care time: Time in chart review, patient interview, physical exam, CPOE, and care documentation: 70 mins Visit to patient today: 1 Complexity of care: High DVT prophylaxis: Heparin 5000 units subcutaneous every 8 hours. E&M Codes Rounding: Inpt-High/32869
--- NOTE | 2017-05-07 20:07 | Progress Note ---
Subjective General Admission History and Physical Examination Patient Name: Darling Davis Admission Date: May 07, 2017 Primary Care Provider: Arsenio Noguera M.D. Parking Meter Collector: J Luis Stewart M.D. Attending Physician: Arsenio Noguera M.D. Admitting Physician: Juanito Pastrana M.D. 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 [facility] ER evaluation was consistent with small bowel obstruction with associated nausea, abdominal pain, hypokalemia, and dehydration. Secondary to the above, the patient was admitted by Juanito Pastrana M.D. for further evaluation and treatment. The history of present was began at approximately 3 PM on the day of admission when the patient experienced abdominal pain, nausea without vomiting, and abdominal distention. This was consistent with her previous history of recurrent small bowel obstructions. Secondary to the above, the patient presented to [facility] emergency department for further evaluation and treatment. Laboratory evaluation and abdominal x-rays were consistent with high-grade small bowel obstruction with associated dehydration and hypokalemia. NG tube was placed. Secondary to the above, the patient was admitted for further evaluation and treatment. Dr. Stewart consulted. PAST MEDICAL HISTORY Illnesses: 1. Recurrent small bowel obstruction 2. Gastroesophageal reflux 3. Enteric cutaneous fistula 4. Ileostomy secondary colectomy from IBS with megacolon 5. Degenerative joint disease 6. Allergic rhinitis Allergies: 1. Celebrex 2. Morphine 3. Amoxicillin-penicillin 4. Paper tape Medications: 1. Glucosamine 1500 mg 1 by mouth daily 2. Multivitamin one by mouth daily 3. Vitamin B12 1000 g 1 by mouth daily 4. Prilosec 20 mg 1 by mouth twice a day 5. Lipitor 10 mg 1 by mouth daily 6. Lutein 20 mg 1 by mouth daily Surgery: 1. Repair of enterocutaneous fistula 2 2. Colectomy with ileostomy 3. Bunion surgery 4. Sinus surgery x3 5. No surgery Injuries: 1. No significant Hospitalizations: 1. For above surgery and medical problems. Multiple hospitalizations for recurrent small bowel obstruction FAMILY HISTORY Parents: 1. Father, Manish, , 88, polio, strokes, 2. Mother, Jessica, , 48, melanoma Siblings: 1. Male, Severino, living, 65, multiple back surgeries 2. Female, Susan, living, 63, multiple back surgeries, fibromyalgia 3. Female, Jane, living, 61, healthy 4. Male, YOCASTA, living, 60, multiple back surgeries, rotator cuff tear Children: 1. Female, Natalie, living, 42, history of bunions 2. Female, Fatoumata, living, 39, allergic rhinitis Other significant family history: None SOCIAL HISTORY 1. Marital Status: 2. Lutheran: [employer] 3. Education: High school and one year of college 4. 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 Occupational health exposures: Dust, radiation, heavy lifting HABITS 1. Tobacco: Cigarette 6-8 pack years, currently nonsmoker 2. Drugs: None 3. Alcohol: 7-14 ounces per week 4. Caffeine: Coffee-3 cups per day, soft drinks- 1 can per day HEALTH SUPERVISION Item/Test 1. Vision screen: 2014 2. Cholesterol Profile: 2015 3. PSA: Not applicable 4. LORRIE: Not applicable 5. FOBT: Not applicable 6. Blood Glucose: 2016 7. Colonoscopy: 1996 8. History and physical exam: 2016 9. Audiogram: No recent 10. Mammogram: 2016 11. Pap/pelvic exam: 2016 IMMUNIZATIONS: 1. Pneumococcal: 2014 2. Influenza: 2014 3. Tetanus: 2014 ADVANCED DIRECTIVES: 1. Living well: No 2. POLST: No 3. Code Status: FULL CODE 4. Durable Power Dragline Operator Health care: No 5. Donor card: No REVIEW OF SYSTEMS Remarkable for those things stated in the history of present illness and past medical history. Seventeen point review of system completed with the following notable findings: General: Weight loss, fatigue, abdominal pain, weakness Skin: Dryness, rashes Eyes: Decreased visual acuity requiring corrective lenses Ears: Tinnitus intermittently Mouth: Dental problems Throat: Sore throat, swelling Respiratory: Wheezing Gastrointestinal: Nausea, gastroesophageal reflux, abdominal pain Musculoskeletal: Joint stiffness, joint pain, joint swelling, backache Neurological: Headaches Blood and lymphatic: Easy bruising Endocrine: Excessive thirst/urination Psychological: Difficulty sleeping Physical Exam Vital Signs / I&Os Blood pressure: 124/96 mmHg Heart rate: 99/minute Respiratory rate: 22/minute Temperature: 97.8 Fahrenheit orally Pulse oximetry: 100% room air General Appearance Alert, Oriented X3, Cooperative, No acute distress HEENT Atraumatic, PERRLA, EOMI, Moist mucous membranes, NG tube in place Lungs Clear to auscultation, Normal air movement Neck Supple, No JVD, No masses, No thyromegaly Cardiovascular Regular rate and rhythm, Normal S1 and S2, No murmurs, gallops, rubs Abdomen Normal bowel sounds, distended, diffusely tender, ostomy Extremities No cyanosis, No clubbing, No edema, Normal pulses Neurological Cranial nerves intact, Strength 5/5 x4 ext's, No lateralizing signs Psych/Mental Status Mental status normal, Mood normal LAB Results Laboratory Tests 05/07 05/07 05/07 1845 1808 1742 Chemistry Plasma Sodium (136 - 145 mmol/L) 142 Plasma Potassium (3.5 - 5.1 mmol/L) 3.3 Plasma Chloride (98 - 107 mmol/L) 103 CO2 (Enzymatic) (21 - 32 mmol/L) 26 BUN (7 - 18 mg/dL) 33 Creatinine (0.6 - 1.3 mg/dL) 1.4 Est GFR ( Amer) (mL/min) 48.77 Est GFR (Non-Af Amer) (mL/min) 40.24 Glucose (70 - 110 mg/dL) 109 Lactic Acid (0.4 - 2.0 mmol/L) 1.1 Plasma Calcium (8.5 - 10.1 mg/dL) 11.0 Total Bilirubin (0.0 - 1.0 mg/dL) 0.4 AST (15 - 37 U/L) 31 ALT (12 - 78 U/L) 42 Alkaline Phosphatase (46 - 116 U/L) 77 Total Protein (6.4 - 8.2 g/dL) 7.9 Albumin (3.3 - 5.0 g/dL) 4.6 Lipase (73 - 393 U/L) 331 Hematology WBC (4.5 - 11.5 K/uL) 6.2 RBC (4.00 - 5.20 M/uL) 4.51 Hgb (12.0 - 16.0 gm/dL) 13.7 Hct (36.0 - 46.0 %) 40.5 MCV (80 - 100 fL) 90 MCH (26 - 34 pg) 30 RDW (11.6 - 14.8 %) 13.6 Neut % (Auto) (50 - 75 %) 67.3 Lymph % (Auto) (25 - 40 %) 19.5 [place] % (Auto) (3 - 14 %) 8.9 Eos % (Auto) (0 - 4 %) 2.2 Baso % (Auto) (0 - 2 %) 2.1 Plt Count, EDTA (150 - 400 K/uL) 386 PUBS MCHC (31 - 37 g/dL) 34 Urines Urine Color YELLOW Urine Appearance CLOUDY Urine pH (5.0 - 8.0) 7.0 Ur Specific [place] (1.010 - 1.030) <= 1.005 Urine Protein (NEGATIVE) NEGATIVE Urine Ketones (NEGATIVE) NEGATIVE Urine Blood (NEGATIVE) NEGATIVE Urine Nitrite (NEGATIVE) NEGATIVE Urine Bilirubin (NEGATIVE) NEGATIVE Urine Urobilinogen (0.2 - 1.0 EU/dL) 0.2 Ur Leukocyte Esterase (NEGATIVE) NEGATIVE Urine RBC (0 - 1 rbc/hpf) NONE SEEN Urine WBC (0 - 1 wbc/hpf) NONE SEEN Ur Epithelial Cells (0 - 5 EPI/hpf) 0-1 Urine Bacteria (NONE SEEN) NONE SEEN Urine Glucose (NEGATIVE) NEGATIVE Urine Comment CULT NOT INDICATED Imaging Abdominal X-Ray IMPRESSION: 1. High-grade recurrent or persistent small bowel obstruction. Dictated by: THERON KAUR MD D: KERWIN;05/07/17 2318 Assessment and Plan Problem List 1. Small bowel obstruction Plan -Patient presents with small bowel obstruction, recurrent -NG tube -IV fluids -Surgical consultation Dr. Sifuentes/Dr. Diaz in a.m. -Transfer care to Dr. Noguera in a.m. 2. Abdominal pain Plan -See above -Pain medications as necessary -Pain adequately controlled at this time 3. Hypokalemia Plan -Patient with findings of hypokalemia -IV potassium supplementation -Monitor 4. Dehydration Plan -Patient with findings of prerenal azotemia/dehydration -IV fluid therapy -Monitor Current status: Fair, unstable Anticipated discharge date: Anticipated discharge 2-3 days Anticipated discharge placement: Home Patient care time: Time in chart review, patient interview, physical exam, CPOE, and care documentation: 70 mins Visit to patient today: 1 Complexity of care: High DVT prophylaxis: Heparin 5000 units subcutaneous every 8 hours. E&M Codes Rounding: Inpt-High/29899
[2017-05-07 20:50] VITALS: BP 133/81
[2017-05-07 22:07] VITALS: BP 103/69
--- NOTE | 2017-05-07 23:17 | ED DISCHARGE INSTRUCTIONS ---
Patient: FELIPA VALERA General Instructions [facility] VisitID: [id number] [address] [place] [address] 66y, F Registration Date/Time: 05/07/2017 Acute Bowel Obstruction. (Electronically signed by Carmita Lincoln P.A.-C 05/07/2017 19:50)
--- NOTE | 2017-05-07 23:17 | ED MED RECONCILIATION SUMMARY ---
Patient: FELIPA VALERA Medication Reconciliation Report [facility] VisitID: [id number] [address] [place] [address] 66y, F Registration Date/Time: 05/07/2017 Weight: 40 kg Height/Length: 61 in. BMI: 16.7 ALLERGIES: Ampicillin, Celebrex, Morphine and Related, Paper tape, Penicillin The patient's Home Medications are listed below: THE FOLLOWING MEDICATIONS NEED TO BE RECONCILED: Aspirin Oral (81 mg) 1 tablet, daily Atorvastatin Calcium Oral (10 mg) 1 tablet, daily Fish Oil Oral (1000 mg) 1 capsule, daily Flector Transdermal (1.3 %), every other day Glucosamine Oral 1500 mg, daily Lutein Oral Multivital Oral Omeprazole Oral 20 mg, 2x a day Vitamin B Complex Oral Zyrtec The source(s) of the original Home Medication information: Not obtained. The following Medications were given to the patient in the Emergency Department: IV NS IV Fluids bolus 0, then 1000 mL/hr, administered: 05/07/2017 6:05:00 PM Zofran [IVP] IVP 8 mg, administered: 05/07/2017 6:16:00 PM Dilaudid [IVP] IVP 1 mg, administered: 05/07/2017 6:18:00 PM Dilaudid [IVP] IVP 1 mg, administered: 05/07/2017 6:53:00 PM Benadryl [IVP] IVP 50 mg, administered: 05/07/2017 7:12:00 PM The following Medications were prescribed to the patient: None.
--- NOTE | 2017-05-07 23:17 | ED MAR SUMMARY ---
..... Medication Administration Record [address] [place] [address] Patient: FELIPA VALERA Visit ID: [id number] 66y, F Weight: 40.0 kg Height/Length: 61 in BMI: 16.7 ALLERGIES: Ampicillin, Celebrex, Morphine and Related, Paper tape, Penicillin Start 18:05 05/07/2017 Ximena Gomez R.N., Continued Upon Disposition 18:50 05/07/2017 Ximena Gomez R.N. Medication Administered: IV NS (SALINE), Dose: IV Fluids over 30 minute(s), Rate: 1000 mL/hr, Dispensed: 1000 mL bag, Site: #1 left. Medication Ordered: IV NS : initial bolus 500 mL (1000 mL/hr), then 100 mL/hr for X1 (NOW); Scott. Given 18:16 05/07/2017 Ximena Gomez R.N. Medication Administered: ZOFRAN [IVP] (ONDANSETRON HCL), Dose: 8 mg IVP over 3 minute(s), Site: #1 left. Medication Ordered: Zofran IV 8 mg (NOW). Given 18:18 05/07/2017 Ximena Gomez R.N. Medication Administered: DILAUDID [IVP] (HYDROMORPHONE HCL PF), Dose: 1 mg IVP over 2 minute(s), Site: #1 left. Medication Ordered: Dilaudid IV 1 mg (HIGH ALERT MEDICATION, NOW). Given 18:53 05/07/2017 Ximena Gomez R.N. Medication Administered: DILAUDID [IVP] (HYDROMORPHONE HCL PF), Dose: 1 mg IVP over 2 minute(s), Site: #1 left. Medication Ordered: Dilaudid IV 1 mg (HIGH ALERT MEDICATION, NOW). Given 19:12 05/07/2017 Ximena Gomez R.N. Medication Administered: BENADRYL [IVP] (DIPHENHYDRAMINE HCL), Dose: 50 mg IVP over 2 minute(s), Site: #1 left. Medication Ordered: Benadryl IV 50 mg (NOW).
--- NOTE | 2017-05-07 23:17 | ED MAR SUMMARY ---
..... Medication Administration Record [facility] [address] [place] [address] Patient: FELIPA VALERA Visit ID: [id number] 66y, F Weight: 40.0 kg Height/Length: 61 in BMI: 16.7 ALLERGIES: Ampicillin, Celebrex, Morphine and Related, Paper tape, Penicillin Start 18:05 05/07/2017 Ximena Gomez R.N., Continued Upon Disposition 18:50 05/07/2017 Ximena Gomez R.N. Medication Administered: IV NS (SALINE), Dose: IV Fluids over 30 minute(s), Rate: 1000 mL/hr, Dispensed: 1000 mL bag, Site: #1 left. Medication Ordered: IV NS : initial bolus 500 mL (1000 mL/hr), then 100 mL/hr for X1 (NOW); Scott. Given 18:16 05/07/2017 Ximena Gomez R.N. Medication Administered: ZOFRAN [IVP] (ONDANSETRON HCL), Dose: 8 mg IVP over 3 minute(s), Site: #1 left. Medication Ordered: Zofran IV 8 mg (NOW). Given 18:18 05/07/2017 Ximena Gomez R.N. Medication Administered: DILAUDID [IVP] (HYDROMORPHONE HCL PF), Dose: 1 mg IVP over 2 minute(s), Site: #1 left. Medication Ordered: Dilaudid IV 1 mg (HIGH ALERT MEDICATION, NOW). Given 18:53 05/07/2017 Ximena Gomez R.N. Medication Administered: DILAUDID [IVP] (HYDROMORPHONE HCL PF), Dose: 1 mg IVP over 2 minute(s), Site: #1 left. Medication Ordered: Dilaudid IV 1 mg (HIGH ALERT MEDICATION, NOW). Given 19:12 05/07/2017 Ximena Gomez R.N. Medication Administered: BENADRYL [IVP] (DIPHENHYDRAMINE HCL), Dose: 50 mg IVP over 2 minute(s), Site: #1 left. Medication Ordered: Benadryl IV 50 mg (NOW).
--- NOTE | 2017-05-07 23:17 | ED DISCHARGE INSTRUCTIONS ---
Patient: FELIPA VALERA General Instructions [facility] VisitID: [id number] [address] [place] [address] 66y, F Registration Date/Time: 05/07/2017 Acute Bowel Obstruction. (Electronically signed by Carmita Lincoln P.A.-C 05/07/2017 19:50)
--- NOTE | 2017-05-07 23:17 | ED MED RECONCILIATION SUMMARY ---
Patient: FELIPA VALERA Medication Reconciliation Report [facility] VisitID: [id number] [address] [place] [address] 66y, F Registration Date/Time: 05/07/2017 Weight: 40 kg Height/Length: 61 in. BMI: 16.7 ALLERGIES: Ampicillin, Celebrex, Morphine and Related, Paper tape, Penicillin The patient's Home Medications are listed below: THE FOLLOWING MEDICATIONS NEED TO BE RECONCILED: Aspirin Oral (81 mg) 1 tablet, daily Atorvastatin Calcium Oral (10 mg) 1 tablet, daily Fish Oil Oral (1000 mg) 1 capsule, daily Flector Transdermal (1.3 %), every other day Glucosamine Oral 1500 mg, daily Lutein Oral Multivital Oral Omeprazole Oral 20 mg, 2x a day Vitamin B Complex Oral Zyrtec The source(s) of the original Home Medication information: Not obtained. The following Medications were given to the patient in the Emergency Department: IV NS IV Fluids bolus 0, then 1000 mL/hr, administered: 05/07/2017 6:05:00 PM Zofran [IVP] IVP 8 mg, administered: 05/07/2017 6:16:00 PM Dilaudid [IVP] IVP 1 mg, administered: 05/07/2017 6:18:00 PM Dilaudid [IVP] IVP 1 mg, administered: 05/07/2017 6:53:00 PM Benadryl [IVP] IVP 50 mg, administered: 05/07/2017 7:12:00 PM The following Medications were prescribed to the patient: None.
[2017-05-08 02:26] VITALS: BP 108/68
[2017-05-08 06:38] VITALS: BP 98/71
--- NOTE | 2017-05-08 08:00 | Progress Note ---
Subjective General Patient states that she is much better. "Came loose last pm. " Ready to go home. Has appt on 05/13/[address] Stewart. No acute issues. Multiple admits and more recently. Physical Exam Vital Signs / I&Os Vital Signs Date Time Temp Pulse Resp B/P Pulse O2 O2 Flow FiO2 Ox Delivery Rate 05/08 0638 98.2 65 18 98/71 100 Room Air 0.0 05/08 0226 97.7 64 15 108/68 100 Room Air 05/07 2352 Room Air 05/07 2207 98.4 60 16 103/69 100 Room Air 05/07 2050 98.6 68 16 133/81 100 Room Air I&O 05/08 0000 05/07 1600 05/07 0800 Intake Total 255 Output Total Balance 255 General Appearance Alert, Cooperative Lungs Clear to auscultation, Normal air movement Cardiovascular Regular rate and rhythm Abdomen Soft, No tenderness, has a colostomy bag Skin No Significant Lesions LAB Results Laboratory Tests 05/08 05/07 05/07 05/07 0529 1845 1808 1742 Chemistry Plasma Sodium (136 - 145 mmol/L) 142 142 Plasma Potassium (3.5 - 5.1 mmol/L) 3.7 3.3 Plasma Chloride (98 - 107 mmol/L) 109 103 CO2 (Enzymatic) (21 - 32 mmol/L) 24 26 BUN (7 - 18 mg/dL) 30 33 Creatinine (0.6 - 1.3 mg/dL) 1.2 1.4 Est GFR ( Amer) (mL/min) 58.26 48.77 Est GFR (Non-Af Amer) (mL/min) 48.07 40.24 Glucose (70 - 110 mg/dL) 119 109 Lactic Acid (0.4 - 2.0 mmol/L) 1.1 Plasma Calcium (8.5 - 10.1 mg/dL) 8.6 11.0 Total Bilirubin (0.0 - 1.0 mg/dL) 0.4 AST (15 - 37 U/L) 31 ALT (12 - 78 U/L) 42 Alkaline Phosphatase (46 - 116 U/L) 77 Total Protein (6.4 - 8.2 g/dL) 7.9 Albumin (3.3 - 5.0 g/dL) 4.6 Lipase (73 - 393 U/L) 331 Hematology WBC (4.5 - 11.5 K/uL) 3.6 6.2 RBC (4.00 - 5.20 M/uL) 3.76 4.51 Hgb (12.0 - 16.0 gm/dL) 11.4 13.7 Hct (36.0 - 46.0 %) 34.3 40.5 MCV (80 - 100 fL) 91 90 MCH (26 - 34 pg) 30 30 RDW (11.6 - 14.8 %) 14.0 13.6 Neut % (Auto) (50 - 75 %) 59.1 67.3 Lymph % (Auto) (25 - 40 %) 19.7 19.5 [place] % (Auto) (3 - 14 %) 15.9 8.9 Eos % (Auto) (0 - 4 %) 3.9 2.2 Baso % (Auto) (0 - 2 %) 1.4 2.1 Plt Count, EDTA (150 - 400 K/uL) 294 386 PUBS MCHC (31 - 37 g/dL) 33 34 Urines Urine Color YELLOW Urine Appearance CLOUDY Urine pH (5.0 - 8.0) 7.0 Ur Specific Stevens (1.010 - 1.030) <= 1.005 Urine Protein (NEGATIVE) NEGATIVE Urine Ketones (NEGATIVE) NEGATIVE Urine Blood (NEGATIVE) NEGATIVE Urine Nitrite (NEGATIVE) NEGATIVE Urine Bilirubin (NEGATIVE) NEGATIVE Urine Urobilinogen (0.2 - 1.0 EU/dL) 0.2 Ur Leukocyte Esterase (NEGATIVE) NEGATIVE Urine RBC (0 - 1 rbc/hpf) NONE SEEN Urine WBC (0 - 1 wbc/hpf) NONE SEEN Ur Epithelial Cells (0 - 5 EPI/hpf) 0-1 Urine Bacteria (NONE SEEN) NONE SEEN Urine Glucose (NEGATIVE) NEGATIVE Urine Comment CULT NOT INDICATED Assessment and Plan Problem List 1. Small bowel obstruction Plan resolved at this time. Desires d/c home. 2. Abdominal pain Plan better now. D/ c home f/u gen surgery next week.
--- NOTE | 2017-05-08 08:02 | Provider's Discharge Care Plan ---
Problem, Goal, Plan Problem List 1. Small bowel obstruction Instructions: Follow up as directed, Take meds as directed
--- NOTE | 2017-05-08 08:02 | Provider's Discharge Care Plan ---
Problem, Goal, Plan Problem List 1. Small bowel obstruction Instructions: Follow up as directed, Take meds as directed
== END 2017-05-08 09:40 | disposition home or self-care (01) | DRG 390 ==
LOC: ED SRH 17:22 → TRANS SRH 19:38 → ACUTE2 SRH 19:38
PROVIDERS: ADMIT Internal Medicine
PROC: 0D9670Z Drainage of Stomach with Drainage Device, Via Natural or Artificial Opening (ICD-10-PCS; principal; 2017-05-07)
DX: K56.60 Unspecified intestinal obstruction (principal); Z93.2 Ileostomy status; Z90.49 Acquired absence of other specified parts of digestive tract; E87.6 Hypokalemia; E86.0 Dehydration; R39.2 Extrarenal uremia; Z95.828 Presence of other vascular implants and grafts
CPT/HCPCS: 83498; 90004; 90047; 90074; 90100; 92031; 92235; 95059

== ENCOUNTER 2017-05-21 10:15 | Outpatient (CLI) | payer OTHER ==
--- NOTE | 2017-05-21 13:57 | DIAGNOSTIC IMAGING REPORT ---
PROCEDURE: XR UPPER GI WITH SBFT INDICATION: CHRONIC SBO TECHNIQUE: Fiber Machine Tender film of the abdomen was obtained. Real time fluoroscopy was used on the upper GI and small bowel system. Plain films of the abdomen following further ingestion of oral contrast at 0 minutes, 15 minutes, and 45 minutes were acquired. Total fluoro time 11.9 minutes. Cumulative dose 4976.52 mGy 137 images obtained including cine imaging and last image hold screen capture images. COMPARISON: Multiple prior studies and the most recent small bowel follow-through from 01/16/2017 FINDINGS: Fiber Machine Tender film demonstrates no free intraperitoneal air. Nonspecific, nonobstructive bowel gas pattern. Surgical changes of bowel anastomoses in the midline low abdomen and surgical clips in the left abdomen. The swallowing mechanism is normal without aspiration. Tiny left lateral hypopharyngeal proximal esophageal diverticulum, about 3 mm. Otherwise normal esophageal morphology. No hiatal hernia in the upright position. Normal esophageal motility in the upright position. Mild amount of spontaneous gastroesophageal reflux in the recumbent position. The stomach is elongated in the craniocaudal dimension. The pyloric channel appears just to the left of midline. The first portion of the duodenum is elongated as it crosses the midline. The duodenal C-loop appears moderately widened secondary to at least to chronic-appearing large duodenal diverticula arising from the third portion of the duodenum. There was prompt gastric emptying, no visualized gastric ulceration or suspicious mass. The jejunum demonstrates a normal mucosal pattern and active peristalsis. No discrete aperistaltic loop. There is moderately distended segment of ileum along the right lateral abdomen measuring about 3.5 cm in diameter, but this segment also demonstrates mild peristalsis. Transit time to the ileostomy was just between 30 and 45 minutes. Peristalsis of the stoma segment of ileum was visible. No bowel containing peristomal hernia. IMPRESSION: 1. Fairly normal peristalsis with transit time to the ileostomy between 30 and 45 minutes. No evidence of transition point. 2. Normal peristalsis at the ileostomy. 3. Chronic large duodenal diverticula. 4. Tiny left sided [place] proximal esophageal diverticulum.
== END 2017-05-21 23:00 ==
LOC: XR SRH 10:15
DX: K56.60 Unspecified intestinal obstruction (principal); K57.10 Diverticulosis of small intestine without perforation or abscess without bleeding; Q39.6 Congenital diverticulum of esophagus; Z93.2 Ileostomy status

== ENCOUNTER 2017-05-25 17:26 | Observation (INO) | payer OTHER ==
[~2017-05-25] VITALS: Ht 154.9 cm; Wt 44.9 kg
[2017-05-25 17:40] VITALS: BP 127/83
--- NOTE | 2017-05-25 21:33 | DIAGNOSTIC IMAGING REPORT ---
PROCEDURE: XR ABD SERIES 2V ABD/1V CHEST INDICATION: Abdominal pain. Possible obstruction. TECHNIQUE: AP supine and upright views with PA view chest. COMPARISON: Compared to upper GI and small bowel series (05/21/2017), abdominal radiographs on 05/07/2017, and chest x-ray from acute abdomen series on 04/22/2017. FINDINGS: ABDOMEN: An NG tube ends in the mid stomach. There are moderately dilated central small bowel loops consistent with obstruction. There is no evidence of free air. There is a right lower quadrant ostomy with surgical clips overlying the left abdomen. CHEST: Lungs are clear. Heart and mediastinum are normal. Left subclavian Port-A-Cath in superior vena cava. Thorax is normal. IMPRESSION: 1. Placement of NG tube in satisfactory position (mid stomach). 2. Moderately dilated central bowel loops consistent with partial obstruction (partial versus complete).
--- NOTE | 2017-05-25 22:41 | NUR ---
PATIEMT ARRIVED TO FLOOR IN NO DISTRESS. LUNG SOUND CLEAR, BOWEL TONES PRESENT ALL QUARDRANTS. HEART TONES WNL. PT IS RESTING IN BED NOW. FULL HEAD TO TOE ASSESSMENT IS WNL. NG TUBE IN PLACE. PT IN NO DISTRESS. RESTED IN BED WITH BY SIDE MOST OF THE NIGHT.
--- NOTE | 2017-05-25 22:44 | NUR ---
PT HAS BEEN UP WALKING AROUND.
[2017-05-25 22:56] VITALS: BP 109/75
--- NOTE | 2017-05-26 00:30 | NUR ---
Pt was med w/Dilaudid 1mg which is effective for constant abd pain w/"spasms".Reports ileostomy output is improved & more per baseline. Output is thin brown liq. NG LIS 63 @nares w/thin brown output. Denies nausea. Pt ambulating halls @this time. UOP WNL. IV NS bolus liters X3 finished. Maintenance fluids now hung. Running via L PAC.
[2017-05-26 03:18] VITALS: BP 95/63
--- NOTE | 2017-05-26 07:35 | Progress Note ---
Subjective General Patient feels much better. The stomach is feeling better, no longer swollen and colostomy working well. Physical Exam Vital Signs / I&Os Vital Signs Date Time Temp Pulse Resp B/P Pulse O2 O2 Flow FiO2 Ox Delivery Rate 05/26 0318 98.1 68 16 95/63 100 Room Air 05/25 2256 98.2 68 18 109/75 100 Room Air 05/25 1740 97.5 71 18 127/83 100 Room Air I&O 05/26 0000 05/25 1600 05/25 0800 Intake Total 0 Output Total 1250 Balance -1250 General Appearance Alert, Cooperative HEENT Normal exam, NGT Lungs Clear to auscultation, Normal air movement Cardiovascular Regular rate and rhythm Abdomen Soft, No tenderness, colostomy Extremities No edema LAB Results Laboratory Tests 05/26 05/25 0555 1800 Chemistry Plasma Sodium (136 - 145 mmol/L) 142 139 Plasma Potassium (3.5 - 5.1 mmol/L) 3.5 3.3 Plasma Chloride (98 - 107 mmol/L) 112 101 CO2 (Enzymatic) (21 - 32 mmol/L) 22 24 BUN (7 - 18 mg/dL) 28 39 Creatinine (0.6 - 1.3 mg/dL) 1.1 1.4 Est GFR ( Amer) (mL/min) >60 48.77 Est GFR (Non-Af Amer) (mL/min) 53.15 40.24 Glucose (70 - 110 mg/dL) 94 114 Plasma Calcium (8.5 - 10.1 mg/dL) 8.3 11.0 Assessment and Plan Problem List 1. Small bowel obstruction Plan Much improved and would like NGT out and d/c home.
[2017-05-26 07:37] VITALS: BP 99/65
--- NOTE | 2017-05-26 07:37 | Provider's Discharge Care Plan ---
Problem, Goal, Plan Problem List 1. Small bowel obstruction Instructions: Follow up as needed, Increase activity level, Take meds as directed
--- NOTE | 2017-05-26 07:37 | Provider's Discharge Care Plan ---
Problem, Goal, Plan Problem List 1. Small bowel obstruction Instructions: Follow up as needed, Increase activity level, Take meds as directed
--- NOTE | 2017-05-26 10:29 | NUR ---
PT's PORT-A-CATH DEACCESSED AFTER FLUSHING WITH SALINE AND HEPARIN. DISCHARAGE INSTRUCTIONS REVIEWED WITH PT AND HER , QUESTIONS ANSWERED. PT DISCHARGE HOME WITH VIA PRIVATE VEHICLE.
== END 2017-05-26 09:45 | disposition home or self-care (01) ==
LOC: ACUTE2 SRH 17:26
PROVIDERS: ADMIT Family Medicine
PROC: 0D9670Z Drainage of Stomach with Drainage Device, Via Natural or Artificial Opening (ICD-10-PCS; principal; 2017-05-25)
DX: K56.60 Unspecified intestinal obstruction (principal); Z93.3 Colostomy status
CPT/HCPCS: 29230; 29231; 29249; 29259; 29262; 29264; 90047; 90074